=== PATIENT | female | born 1960 | race Caucasian/White ===

== ENCOUNTER 2016-02-16 06:59 | Outpatient (RCR) | payer MEDICAID ==
--- OUTSIDE RECORDS SUMMARY | 2016-02-04 09:13 | XMS REPORT | Continuity of Care Document ---
Author Author [facility] Organization [facility] Address Unknown Phone Unavailable Care Team Providers Care Real Estate Specialist Name Role Phone EASTON DEWEY MD PCP Insurance Providers Payer Name Policy Number Subscriber Name Relationship Enter Insurance Name [id number] Emiliano Raphael 18 Self / Same As Patient Advance Directives Directive Response Recorded Date/Time Advance Directives No 06/26/13 7:10am Health Care Power of Jewelry Appraiser No 06/26/13 7:10am Organ Donor Yes 06/26/13 7:10am Problems No known problems or medical conditions. Medications Medication Dose Route Sig Days/Qty Instructions Order Date Discontinued Date Status Levothyroxine Sodium 200 Mcg PO DAILY 06/26/13 Active Sertraline HCl 100 Mg PO DAILY 06/26/13 Active Simvastatin 40 Mg PO DAILY 06/26/13 Active Lisinopril 10 Mg PO DAILY 06/26/13 Active Potassium Chloride 10 Meq PO DAILY 06/26/13 Active Meloxicam (Mobic) 15 Mg PO DAILY PRN MUSCLE CRAMPS 06/26/13 Active Metoprolol Tartrate (Lopressor) 50 Mg PO TWICE A DAY 06/26/13 Active Apixaban (Eliquis) 5 Mg PO TWICE A DAY start in am 03/12 06/26/13 Active Alprazolam 0.25 Mg PO THREE TIMES A DAY PRN ANXIETY 06/26/13 Active Acetaminophen/Hydrocodone Bitart 1 Tab PO EVERY 6 HOURS PRN PAIN NEEDED FOR PAIN 06/26/13 Active Albuterol Sulfate 2.5 Mg IH EVERY 6 HOURS PRN SHORTNESS OF BREATH 03/01 Active Albuterol 2 Puff IH EVERY 6 HOURS PRN SHORTNESS OF BREATH NEEDED FOR SHORTNESS OF BREATH 06/26/13 Active Loratadine 10 Mg PO DAILY 06/26/13 Active Ranitidine Hcl 150 Mg PO DAILY 06/26/13 Active Furosemide 40 Mg PO DAILY 30 Qty 06/26/13 Active Social History No social history. Hospital Discharge Instructions No hospital discharge instructions. Plan of Care No plan of care. Functional Status No functional status results. Allergies, Adverse Reactions, Alerts Allergen Type Severity Reaction Status Last Updated morphine Allergy Active 06/26/13 salmeterol Allergy Unknown Active 06/26/13 diphenhydramine ([id number]) Allergy Active 06/26/13 fluticasone ([id number]) Allergy Unknown Active 06/26/13 Trovafloxacin ([id number]) Allergy Active 06/26/13 Hylan G-F 20 ([id number]) Allergy Active 06/26/13 latex Allergy Active 06/26/13 Immunizations No immunization records. Vital Signs No known vital signs results. Results Test Source Date Result Interp. Ref. Range Comments Activated Partial Thromboplast Time June 26, 2013 7:16am 33 SEC N 24- 35 Alanine Aminotransferase (ALT/SGPT) June 26, 2013 7:16am 37 U/L N 30- 65 Albumin June 26, 2013 7:16am 4.2 G/DL N 3.4-5.0 Alkaline Phosphatase June 26, 2013 7:16am 139 U/L H 50-136 Aspartate Amino Transf (AST/SGOT) June 26, 2013 7:16am 30 U/L N 15-37 BUN/Creatinine Ratio September 20, 2013 4:15pm 11 - Basophils # (Auto) June 07, 2013 3:45pm 0.1 10^3/uL N 0.0-0.1 Basophils (%) (Auto) June 07, 2013 3:45pm 1 % N 0-10 Blood Urea Nitrogen September 20, 2013 4:15pm 12 MG/DL N 7-18 Calcium Level September 20, 2013 4:15pm 9.3 MG/DL N 8.5-10.1 Carbon Dioxide Level September 20, 2013 4:15pm 32 MMOL/L N 21-32 Chloride Level September 20, 2013 4:15pm 102 MMOL/L N 101-110 Cholesterol Level June 26, 2013 7:16am 140 MG/DL N -200 Creatinine September 20, 2013 4:15pm 1.1 MG/DL N 0.6-1.3 Digoxin Level September 20, 2013 4:15pm 0.7 NG/ML L 0.9-2.0 Eosinophils # (Auto) June 07, 2013 3:45pm 0.2 10^3/uL N 0.0-0.3 Eosinophils (%) (Auto) June 07, 2013 3:45pm 2 % N 0-10 Glucose Level September 20, 2013 4:15pm 96 MG/DL N 74-106 HDL Cholesterol June 26, 2013 7:16am 30 MG/DL L 35-60 Hematocrit June 26, 2013 7:16am 41 % N 35-52 Hemoglobin June 26, 2013 7:16am 14.0 G/DL N 11.5-16.0 LDL Cholesterol June 26, 2013 7:16am 77 MG/DL N 0-129 Lymphocytes # (Auto) June 07, 2013 3:45pm 3.0 X 10^3 N 1.0-4.0 Lymphocytes (%) (Auto) June 07, 2013 3:45pm 27 % N 12-44 Magnesium Level September 07, 2013 2:51pm 1.9 MG/DL N 1.8-2.4 Mean Corpuscular Hemoglobin June 26, 2013 7:16am 28 PG N 25-34 Mean Corpuscular Hemoglobin Concent June 26, 2013 7:16am 34 G/DL N 32- 36 Mean Corpuscular Volume June 26, 2013 7:16am 83 FL N 80-99 Mean Platelet Volume June 26, 2013 7:16am 9.9 FL N 7.4-10.4 Monocytes # (Auto) June 07, 2013 3:45pm 0.8 X 10^3 N 0.0-1.0 Monocytes (%) (Auto) June 07, 2013 3:45pm 7 % N 0-12 Neutrophils # (Auto) June 07, 2013 3:45pm 7.0 X 10^3 N 1.8-7.8 Neutrophils (%) (Auto) June 07, 2013 3:45pm 64 % N 42-75 Platelet Count June 26, 2013 7:16am 293 10^3/uL N 130-400 Potassium Level September 20, 2013 4:15pm 3.4 MMOL/L L 3.6-5.0 Prothrombin Time June 26, 2013 7:16am 13.3 SEC N 12.2-14.7 Red Blood Count June 26, 2013 7:16am 4.95 10^6/uL N 4.35-5.85 Red Cell Distribution Width June 26, 2013 7:16am 15.1 % H 10.0-14.5 Sodium Level September 20, 2013 4:15pm 138 MMOL/L N 135-145 Thyroid Stimulating Hormone (TSH) June 07, 2013 3:45pm 21.41 UIU/ML H 0.34-5.60 Total Bilirubin June 26, 2013 7:16am 1.0 MG/DL N 0.0-1.0 Total Protein June 26, 2013 7:16am 8.0 G/DL N 6.4-8.2 Triglycerides Level June 26, 2013 7:16am 167 MG/DL H 30.0-150.0 VLDL Cholesterol June 26, 2013 7:16am 33 MG/DL N 5-40 White Blood Count June 26, 2013 7:16am 12.3 10^3/uL H 4.3-11.0 Estimat Glomerular Filtration Rate September 20, 2013 4:15pm 52 - GFR INTERPRETIVE DATA UNITS FOR ESTIMATED GFR (eGFR): mL/min/1.73 M2 REFERENCE RANGE FOR ESTIMATED GFR (eGFR) eGFR NORMAL eGFR >60 MODERATELY DECREASED eGFR 30-59 SEVERLY DECREASED eGFR 15-29 KIDNEY FAILURE <15 (OR DIALYSIS) INR Comment June 26, 2013 7:16am 1.0 N 0.8-1.4 INTERPRETIVE DATASUGGESTED THERAPEUTIC RANGE FOR INR'S: VENOUS THROMBOSIS, PULMONARY EMBOLISM, OR PREVENTION OF SYSTEMIC EMBOLISM (EG. IN ATRIAL FIBRILLATION): 2.0 - 3.0 MECHANICAL PROSTHETIC HEART VALVES: 2.5 - 3.5* *NOTE: INR'S UP TO 4.5 MAY BE NECESSARY IN SELECTED GROUPS OF HIGH RISK PATIENTS. [employer] CONSENSUS CONFERENCE ON ANTITHROMBOTIC THERAPY (2000). MRSA Screen Nasal June 26, 2013 7:16am MRSA not isolated Procedures No known history of procedures. Encounters Encounter Location Date/Time Registered Clinic Via [facility] 12/25/13 8:02pm
[~2016-02-16 06:59] MED LIST: ACHD5005 PO; ALBU0.8322 IH; ALBU8.5H2 IH; ALPR0.25 PO; APIX5TAB2 PO; FRSM40T PO; KCL10CCR PO; LEVO200T6 PO; LISI10TA2 PO; LORA10TA7 PO; MELO-195 PO; MTP50T PO; RANI150T90 PO; SIMV40TA4 PO; SRTR100T PO
== END 2016-05-04 | disposition home or self-care (01) ==
LOC: CARD 06:59
PROVIDERS: ATTEND Nurse Practitioner Family
DX: I48.0 Paroxysmal atrial fibrillation (principal); I25.10 Atherosclerotic heart disease of native coronary artery without angina pectoris; R07.9 Chest pain, unspecified; I10 Essential (primary) hypertension
CPT/HCPCS: 93270

== ENCOUNTER → 2016-04-29 | Outpatient (CLI) | payer MEDICAID ==
--- OUTSIDE RECORDS SUMMARY | 2016-04-29 14:06 | XMS REPORT | Continuity of Care Document ---
Author Author [facility] Organization [facility] Address Unknown Phone Unavailable Care Team Providers Care Cyber Security Instructor Name Role Phone EASTON DEWEY MD PCP Insurance Providers Payer Name Policy Number Subscriber Name Relationship Enter Insurance Name [id number] Emiliano Raphael 18 Self / Same As Patient Advance Directives Directive Response Recorded Date/Time Advance Directives No 06/26/13 7:10am Health Care Power of Dramatic Agent No 06/26/13 7:10am Organ Donor Yes 06/26/13 [...] 06/26/13 salmeterol Allergy Unknown Active 06/26/13 diphenhydramine ([id number]) Allergy Active 06/26/13 fluticasone ([id number]) Allergy Unknown Active 06/26/13 Trovafloxacin ([id number]) Allergy Active 06/26/13 Hylan G-F 20 ([id number]) Allergy Active 06/26/13 latex Allergy Active 06/26/13 [...] SELECTED GROUPS OF HIGH RISK PATIENTS. [employer] [place] [employer] CONSENSUS CONFERENCE ON ANTITHROMBOTIC THERAPY (2000). MRSA Screen Nasal June 26, 2013 7:16am MRSA not isolated Procedures No known history of procedures. Encounters Encounter Location Date/Time Registered Clinic [facility] 12/25/13 8:02pm
[2016-04-29 14:22] LABS: BASOPHILS % (AUTO) 0 % (0-10); EOSINOPHILS # (AUTO) 0.2 10^3/uL (0.0-0.3); EOSINOPHILS % (AUTO) 2 % (0-10); LYMPHOCYTES # (AUTO) 1.8 X 10^3 (1.0-4.0); LYMPHOCYTES % (AUTO) 20 % (12-44); MEAN CORPUSCULAR HEMOGLOBIN 27 PG (25-34); MEAN CORPUSCULAR HGB CONC 34 G/DL (32-36); MEAN CORPUSCULAR VOLUME 80 FL (80-99); MEAN PLATELET VOLUME 9.1 FL (7.4-10.4); MONOCYTES # (AUTO) 0.5 X 10^3 (0.0-1.0); MONOCYTES % (AUTO) 6 % (0-12); NEUTROPHILS # (AUTO) 6.5 X 10^3 (1.8-7.8); NEUTROPHILS % (AUTO) 73 % (42-75); PLATELET COUNT 268 10^3/uL (130-400); RED BLOOD COUNT 5.03 10^6/uL (4.35-5.85); RED CELL DISTRIBUTION WIDTH 15.1 % (10.0-14.5)
[2016-04-29 14:33] LABS: ANION GAP 11 MMOL/L (5-14); BLOOD UREA NITROGEN 10 MG/DL (7-18); BUN/CREATININE RATIO 12; CALCIUM 9.4 MG/DL (8.5-10.1); CARBON DIOXIDE 27 MMOL/L (21-32); CHLORIDE 101 MMOL/L (98-107); CREATININE SERUM 0.84 MG/DL (0.60-1.30); GFR ESTIMATED > 60; GLUCOSE 190 MG/DL (70-105); MAGNESIUM 2.3 MG/DL (1.8-2.4); POTASSIUM 3.6 MMOL/L (3.6-5.0); SODIUM 139 MMOL/L (135-145)
[2016-04-29 14:55] LABS: THYROID STIMULATING HORMONE 1.47 UIU/ML (0.35-4.94)
== END ==
LOC: LAB 14:02
PROVIDERS: ATTEND Internal Medicine Cardiovascular Disease
DX: I48.0 Paroxysmal atrial fibrillation (principal); I25.10 Atherosclerotic heart disease of native coronary artery without angina pectoris; R06.00 Dyspnea, unspecified; I10 Essential (primary) hypertension; E78.4 Other hyperlipidemia
CPT/HCPCS: 36415; 80048; 83735; 83880; 84443; 85025

== ENCOUNTER → 2016-07-09 | Outpatient (CLI) | payer MEDICAID ==
[~2016-07-09] MED LIST changes: +BARIUM SUSPENSION 2.1% (VANILLA SILQ) 450 ML PO ONE; +CATHETER FLUSH 10 ML SYR IV PRN; +IOHEXOL 350 MG/ML 100 ML (OMNIPAQUE 350) VIAL IV ONE; +NS 100 ML (IVPB) BAG IV ONE
--- NOTE | 2016-07-09 13:59 | Diagnostic Imaging Report ---
PROCEDURE: CT chest and abdomen with contrast. TECHNIQUE: Multiple contiguous axial images were obtained through the chest and abdomen after the administration of intravenous contrast. INDICATION: Left chest pain and mid abdominal pain. Previous mastectomy, hysterectomy, cholecystectomy and appendectomy. History of Hirschsprung's with previous bowel resection. CT chest: FINDINGS: The lungs are well aerated. There are no infiltrates or masses present. No pleural effusion or pericardial effusion. IV contrast shows good opacification of the aorta and pulmonary arteries. Aorta appears normal. No mediastinal or hilar adenopathy of pathologic size. There are surgical clips in the left axilla with no evidence of recurrent lymphadenopathy. Bilateral mastectomies noted. Bone windows show no blastic or lytic lesions. IMPRESSION: 1. Surgical changes with no findings to suggest metastatic disease. CT abdomen: FINDINGS: Images are obtained from the base of the lungs to the iliac crest. There is hepatomegaly with diffuse fatty infiltration. Long axis of the liver is 24 cm. There are no focal liver lesions. There is mild splenomegaly measuring approximately 12 cm. Pancreas appears normal. Gallbladder is absent. Bile ducts are normal. The adrenal glands are normal. The kidneys appear normal. There is normal enhancement of the aorta and abdominal vessels. No evidence of aneurysm. Kidneys enhance in a normal fashion. Oral contrast is present in the stomach and small bowel. Small bowel is not dilated. The bowel visualized is normal. There appears to have been colectomy. There is no free air or free fluid. Bone windows show degenerative change of lumbar spine. No evidence of rib fractures or destructive rib lesion. No chest wall masses are demonstrated. IMPRESSION: 1. Hepatic steatosis with hepatomegaly and mild splenomegaly. 2. No evidence of bowel obstruction. Dictated by: Dictated on workstation # [id number]
--- NOTE | 2016-07-09 16:54 | Diagnostic Imaging Report ---
INDICATION: Breast CA. TECHNIQUE: 26 mCi tech 99m MDP given IV. FINDINGS: Four hour delayed images show whole body uptake to be normal. There are no focal areas of abnormal uptake to suggest metastatic disease. IMPRESSION: Normal whole-body bone scan. Dictated by: Dictated on workstation # [id number]
== END ==
LOC: CARD 11:39
PROVIDERS: ATTEND Nurse Practitioner Adult Health
DX: D05.12 Intraductal carcinoma in situ of left breast (principal); M79.622 Pain in left upper arm; R07.89 Other chest pain
CPT/HCPCS: 71260; 74160; 78306

== ENCOUNTER 2016-07-21 12:50 | Outpatient (RCR) | payer MEDICAID ==
--- OUTSIDE RECORDS SUMMARY | 2016-07-05 13:46 | XMS REPORT | Continuity of Care Document ---
Author Author [facility] Organization [facility] Address Unknown Phone Unavailable Care Team Providers Care Production Honing Machine Operator Name Role Phone EASTON DEWEY MD PCP Insurance Providers Payer Name Policy Number Subscriber Name Relationship Enter Insurance Name [id number] Emiliano Raphael 18 Self / Same As Patient Advance Directives Directive Response Recorded Date/Time Advance Directives No 06/26/13 7:10am Health Care Power of Contract Driver No 06/26/13 7:10am Organ Donor Yes 06/26/13 [...] 06/26/13 salmeterol Allergy Unknown Active 06/26/13 diphenhydramine ([id number]) Allergy Active 06/26/13 fluticasone ([id number]) Allergy Unknown Active 06/26/13 Trovafloxacin ([id number]) Allergy Active 06/26/13 Hylan G-F 20 ([id number]) Allergy Active 06/26/13 latex Allergy Active 06/26/13 [...] SELECTED GROUPS OF HIGH RISK PATIENTS. [employer] CONSENSUS CONFERENCE ON ANTITHROMBOTIC THERAPY (2000). MRSA Screen Nasal June 26, 2013 7:16am MRSA not isolated Procedures No known history of procedures. Encounters Encounter Location Date/Time Registered Clinic Via [facility] 12/25/13 8:02pm
[2016-07-05 15:05] LABS: BASOPHILS % (AUTO) 0 % (0-10); EOSINOPHILS # (AUTO) 0.2 10^3/uL (0.0-0.3); EOSINOPHILS % (AUTO) 2 % (0-10); LYMPHOCYTES % (AUTO) 20 % (12-44); MEAN CORPUSCULAR HEMOGLOBIN 27 PG (25-34); MEAN CORPUSCULAR HGB CONC 34 G/DL (32-36); MEAN CORPUSCULAR VOLUME 80 FL (80-99); MONOCYTES # (AUTO) 0.7 X 10^3 (0.0-1.0); MONOCYTES % (AUTO) 7 % (0-12); NEUTROPHILS # (AUTO) 7.4 X 10^3 (1.8-7.8); NEUTROPHILS % (AUTO) 72 % (42-75); PLATELET COUNT 296 10^3/uL (130-400); RED BLOOD COUNT 4.68 10^6/uL (4.35-5.85); RED CELL DISTRIBUTION WIDTH 15.8 % (10.0-14.5); WHITE BLOOD COUNT 10.3 10^3/uL (4.3-11.0)
[2016-07-05 15:46] LABS: ALANINE AMINOTRANSFERASE 19 U/L (0-55); ALBUMIN 4.1 G/DL (3.2-4.5); ANION GAP 11 MMOL/L (5-14); ASPARTATE AMINO TRANSFERASE 19 U/L (5-34); BILIRUBIN,TOTAL 0.6 MG/DL (0.1-1.0); BLOOD UREA NITROGEN 10 MG/DL (7-18); BUN/CREATININE RATIO 11; CALCIUM 8.9 MG/DL (8.5-10.1); CARBON DIOXIDE 22 MMOL/L (21-32); CHLORIDE 103 MMOL/L (98-107); CREATININE SERUM 0.88 MG/DL (0.60-1.30); GFR ESTIMATED > 60; GLUCOSE 281 MG/DL (70-105); SODIUM 136 MMOL/L (135-145); TOTAL PROTEIN 7.2 G/DL (6.4-8.2)
[~2016-07-21 12:50] MED LIST changes: -BARIUM SUSPENSION 2.1% (VANILLA SILQ) 450 ML PO ONE; -CATHETER FLUSH 10 ML SYR IV PRN; -IOHEXOL 350 MG/ML 100 ML (OMNIPAQUE 350) VIAL IV ONE; -NS 100 ML (IVPB) BAG IV ONE
== END 2016-10-03 | disposition home or self-care (01) ==
LOC: ONC 12:50
PROVIDERS: ATTEND Internal Medicine Hematology & Oncology
DX: Z08 Encounter for follow-up examination after completed treatment for malignant neoplasm (principal); Z85.3 Personal history of malignant neoplasm of breast; Z90.12 Acquired absence of left breast and nipple
CPT/HCPCS: 36415; 80053; 85025; 99213

== ENCOUNTER 2016-10-07 12:58 | Outpatient (RCR) | payer MEDICAID ==
[2016-10-07 13:29] LABS: BASOPHILS % (AUTO) 1 % (0-10); EOSINOPHILS # (AUTO) 0.1 10^3/uL (0.0-0.3); EOSINOPHILS % (AUTO) 2 % (0-10); LYMPHOCYTES # (AUTO) 1.9 X 10^3 (1.0-4.0); LYMPHOCYTES % (AUTO) 22 % (12-44); MEAN CORPUSCULAR HEMOGLOBIN 27 PG (25-34); MEAN CORPUSCULAR HGB CONC 33 G/DL (32-36); MEAN CORPUSCULAR VOLUME 81 FL (80-99); MEAN PLATELET VOLUME 9.4 FL (7.4-10.4); MONOCYTES # (AUTO) 0.5 X 10^3 (0.0-1.0); MONOCYTES % (AUTO) 5 % (0-12); NEUTROPHILS # (AUTO) 6.3 X 10^3 (1.8-7.8); NEUTROPHILS % (AUTO) 71 % (42-75); PLATELET COUNT 264 10^3/uL (130-400); RED CELL DISTRIBUTION WIDTH 15.6 % (10.0-14.5); WHITE BLOOD COUNT 8.9 10^3/uL (4.3-11.0)
[2016-10-07 14:03] LABS: ALANINE AMINOTRANSFERASE 19 U/L (0-55); ALBUMIN 4.2 GM/DL (3.2-4.5); ANION GAP 8 MMOL/L (5-14); ASPARTATE AMINO TRANSFERASE 22 U/L (5-34); BILIRUBIN,TOTAL 0.7 MG/DL (0.1-1.0); BLOOD UREA NITROGEN 6 MG/DL (7-18); BUN/CREATININE RATIO 7 (0-20); CALCIUM 9.4 MG/DL (8.5-10.1); CARBON DIOXIDE 28 MMOL/L (21-32); CHLORIDE 103 MMOL/L (98-107); CREATININE SERUM 0.82 MG/DL (0.60-1.30); GFR ESTIMATED > 60; GLUCOSE 198 MG/DL (70-105); HEMOLYSIS 15 (-100-29); ICTERUS 0.5 (-100-1.9); LIPEMIA 9 (-100-49); POTASSIUM 3.7 MMOL/L (3.6-5.0); SODIUM 139 MMOL/L (135-145); TOTAL PROTEIN 7.6 GM/DL (6.4-8.2)
== END 2017-01-05 | disposition home or self-care (01) ==
LOC: ONC 12:58
PROVIDERS: ATTEND Internal Medicine Hematology & Oncology
DX: Z90.12 Acquired absence of left breast and nipple; Z85.3 Personal history of malignant neoplasm of breast; Z08 Encounter for follow-up examination after completed treatment for malignant neoplasm
CPT/HCPCS: 36415; 80053; 85025; 99213

== ENCOUNTER 2016-10-12 10:12 | Outpatient (RCR) | payer MEDICAID | END 2016-11-26 16:45 | disposition home or self-care (01) | PROVIDERS: ATTEND Nurse Practitioner Adult Health | DX: I89.0 Lymphedema, not elsewhere classified (principal); Z85.3 Personal history of malignant neoplasm of breast ==

== ENCOUNTER 2017-10-06 12:55 | Outpatient (RCR) | payer MEDICARE, MEDICAID ==
[2017-10-06 13:15] LABS: BASOPHILS % (AUTO) 0 % (0-10); EOSINOPHILS # (AUTO) 0.1 10^3/uL (0.0-0.3); EOSINOPHILS % (AUTO) 1 % (0-10); HEMATOCRIT 40 % (35-52); HEMOGLOBIN 13.4 G/DL (11.5-16.0); LYMPHOCYTES # (AUTO) 2.1 X 10^3 (1.0-4.0); LYMPHOCYTES % (AUTO) 20 % (12-44); MEAN CORPUSCULAR HEMOGLOBIN 28 PG (25-34); MEAN CORPUSCULAR HGB CONC 34 G/DL (32-36); MEAN CORPUSCULAR VOLUME 81 FL (80-99); MEAN PLATELET VOLUME 9.3 FL (7.4-10.4); MONOCYTES # (AUTO) 0.5 X 10^3 (0.0-1.0); MONOCYTES % (AUTO) 5 % (0-12); NEUTROPHILS # (AUTO) 7.5 X 10^3 (1.8-7.8); NEUTROPHILS % (AUTO) 73 % (42-75); PLATELET COUNT 320 10^3/uL (130-400); RED BLOOD COUNT 4.85 10^6/uL (4.35-5.85); RED CELL DISTRIBUTION WIDTH 14.9 % (10.0-14.5); WHITE BLOOD COUNT 10.3 10^3/uL (4.3-11.0)
[2017-10-06 13:32] LABS: ALBUMIN 4.2 GM/DL (3.2-4.5); BILIRUBIN,TOTAL 0.7 MG/DL (0.1-1.0); CALCIUM 9.6 MG/DL (8.5-10.1); CREATININE SERUM 0.98 MG/DL (0.60-1.30); POTASSIUM 3.8 MMOL/L (3.6-5.0); TOTAL PROTEIN 7.2 GM/DL (6.4-8.2)
== END 2018-01-04 | disposition home or self-care (01) ==
LOC: ONC 12:55
PROVIDERS: ATTEND Internal Medicine Hematology & Oncology
DX: Z08 Encounter for follow-up examination after completed treatment for malignant neoplasm (principal); Z85.3 Personal history of malignant neoplasm of breast; I89.0 Lymphedema, not elsewhere classified; Z90.12 Acquired absence of left breast and nipple
CPT/HCPCS: 80053; 85025; 99213

== ENCOUNTER 2018-08-01 07:09 | Outpatient (CLI) | payer MEDICARE, MEDICAID ==
[~2018-08-01] VITALS: Ht 160 cm; Wt 95.7 kg
[2018-08-01] MEDS ORDERED: ALPR0.254 PO (15:56)
[2018-08-01] MEDS ORDERED: LEVO200T6 PO (15:56)
[2018-08-01] MEDS ORDERED: CYAN500T2 PO (15:56)
[2018-08-01] MEDS ORDERED: SOTA80TA PO (15:56)
[2018-08-01] MEDS ORDERED: RIZA10TA37 PO (15:56)
[2018-08-01] MEDS ORDERED: POTA10CA43 PO (15:56)
[2018-08-01] MEDS ORDERED: MONT10TA24 PO (15:56)
[2018-08-01] MEDS ORDERED: LORA10TA7 PO (15:56)
[2018-08-01] MEDS ORDERED: MAGN250T13 PO (15:56)
[2018-08-01] MEDS ORDERED: CITA40TA11 PO (15:56)
[2018-08-01] MEDS ORDERED: LEVO25TA5 PO (15:56)
[2018-08-01] MEDS ORDERED: METF-399 PO (15:56)
[2018-08-01] MEDS ORDERED: SIMV10TA3 PO (15:56)
[2018-08-01] MEDS ORDERED: APIX5TAB PO (15:56)
[2018-08-01] MEDS ORDERED: OMEP20CA12 PO (15:56)
== END 2018-08-02 08:51 ==
LOC: PREOP 07:09
PROVIDERS: ATTEND Surgery
DX: Z01.818 Encounter for other preprocedural examination (principal)

== ENCOUNTER 2018-08-04 11:58 | Day surgery (SDC) | payer MEDICAID, MEDICARE ==
[~2018-08-04] VITALS: Ht 160 cm; Wt 95.7 kg
[~2018-08-04 11:58] MED LIST changes: +ALPR0.254 PO; +APIX5TAB PO; +CITA40TA11 PO; +CYAN500T2 PO; +LEVO25TA5 PO; +MAGN250T13 PO; +METF-399 PO; +MONT10TA24 PO; +OMEP20CA12 PO; +POTA10CA43 PO; +RIZA10TA37 PO; +SIMV10TA3 PO; +SOTA80TA PO
[2018-08-04 12:01] VITALS: BP 108/48
[2018-08-04] MEDS ORDERED: NS IV 500 ML 500 ML IV PRN (12:22)
[2018-08-04] MEDS ORDERED: NS IV 500 ML 500 ML ONE (12:22)
[2018-08-04] MEDS ORDERED: MIDAZOLAM 2 MG/2 ML (VERSED) VIAL IVP ONE (12:30)
[2018-08-04] MEDS ORDERED: fentaNYL INJECTION 100 MCG/2 ML AMP IVP ONE (12:30)
[2018-08-04] MEDS ORDERED: LIDOCAINE JELLY 2% 6 ML SYRINGE MM PRN (12:30)
--- NOTE | 2018-08-04 12:38 | Conscious Sedation/ASA ---
Conscious Sedation Pre-Proced Time 12:30 ASA Score 2 For ASA 3 and 4: Consider anesthesia and medical clearance. Also, for patients with a history of failed moderate sedation consider anesthesia. Airway Lungs Heart ASA score ASA 1: a normal healthy patient ASA 2: a patient with a mild systemic disease (mid diabetes, controlled hypertension, obesity ASA 3: a patient with a severe systemic disease that limits activity (angina , COPD, prior Myocardial infarction) ASA 4: a patient with an incapacitating disease that is a constant threat to life (CHF, renal failure) ASA 5: a moribund patient not expected to survive 24 hrs. (ruptured aneurysm) ASA 6: a declared brain- patient whose organs are being harvested. For emergent operations, add the letter E after the classification Mallampati Classification Grade 2 Sedation Plan Analgesia, Amnesia, Plan communicated to team members, Discussed options with patient/fam, Discussed risks with patient/fam The patient is an appropriate candidate to undergo the planned procedure, sedation, and anesthesia. The patient immediately re-assessed prior to indication. SINGH RACHEL MD Aug 04, 2018 12:38
--- NOTE | 2018-08-04 12:39 | Progress Note-Pre Operative ---
Pre-Operative Progress Note H&P Reviewed The H&P was reviewed, patient examined and no changes noted. Date Seen by Provider: Aug 04, 2018 Time Seen by Provider: 12:30 Date H&P Reviewed: Aug 04, 2018 Time H&P Reviewed: 12:30 Pre-Operative Diagnosis: screening SINGH Arreguin MD Aug 04, 2018 12:39
[2018-08-04] MEDS ORDERED: ACETAMINOPHEN 325 MG TABLET PO PRN (12:45)
[2018-08-04] MEDS ORDERED: HYDROcodone/APAP 5 MG/325 MG (LORTAB) TAB PO PRN (12:45)
[2018-08-04] MEDS ORDERED: fentaNYL INJECTION 100 MCG/2 ML AMP IVP PRN (12:45)
[2018-08-04] MEDS ORDERED: ONDANSETRON 4 MG/2 ML (SDV) Z0FRAN IV PRN (12:45)
[2018-08-04] MEDS ORDERED: LIDOCAINE JELLY 2% 6 ML SYRINGE ONE (13:38)
[2018-08-04] MEDS ORDERED: fentaNYL INJECTION 100 MCG/2 ML AMP ONE ×2 (13:38)
[2018-08-04] MEDS ORDERED: MIDAZOLAM 2 MG/2 ML (VERSED) VIAL ONE ×3 (13:39)
--- NOTE | 2018-08-04 13:41 | Discharge Inst-Surgical ---
D/C Lap Instructions-WILSON Follow Up Activity as tolerated High Fiber Diet 25g or more per day Avoid Alcohol, Caffeine, Spicy [place] and Acid foods. Drink 64 fluid oz or more of fluids per day. Symptoms to Report: Fever over 101 degree F, Nausea/Vomiting If any problems/questions: Contact your physician or go to Emergency Room SINGH RACHEL MD Aug 04, 2018 13:41
--- NOTE | 2018-08-04 14:17 | Progress Note-Post Operative ---
Post-Operative Progess Note Surgeon (s)/Vascular Radiologist (s) Surgeon SINGH RACHEL MD Vascular Radiologist: none Pre-Operative Diagnosis screening colo Post-Operative Diagnosis normal rectum and colonic pouch. Procedure & Operative Findings Date of Procedure 08/04/18 Procedure Performed/Findings Colonoscopy Anesthesia Type cs Estimated Blood Loss Estimated blood loss (mL): minimal Specimens/Packing Specimens Removed none SINGH RACHEL MD Aug 04, 2018 14:17
[2018-08-04 14:40] VITALS: BP 139/92
[2018-08-04 15:00] VITALS: BP 142/99
[2018-08-04 15:05] VITALS: BP 142/99
--- NOTE | 2018-08-05 01:04 | OPERATIVE REPORT ---
DATE OF SERVICE: 08/04/2018 ATTENDING PRIMARY CARE PHYSICIAN: Dr. May. PREOPERATIVE DIAGNOSIS: History of BRCA1 and Hirschsprung disease. POSTOPERATIVE DIAGNOSIS: History of BRCA1 and Hirschsprung disease. PROCEDURE: Colonoscopy. SURGEON: Singh Rachel MD ANESTHESIA: Conscious sedation. ESTIMATED BLOOD LOSS: Minimal. FINDINGS: No significant hemorrhoids identified. There was an isolated diverticulosis. There was a very short colon only approximately 18 inches in length. The cecum appeared intact. Most likely, she did have a significant colon resection and cecal and sigmoid colonic reanastomosis. There were no polyps or any neoplasms identified. DISPOSITION: The patient tolerated the procedure well. INDICATIONS: The patient is a 57-year-old female in need of a screening colonoscopy. Her last colonoscopy was approximately 10 years ago and states that she did have some polyps; however, were benign. She does have a family history of colon cancer with her father having the disease. She also does have a strong family history of breast cancer and has a personal history of BRCA1 gene. She was diagnosed with breast cancer and did undergo bilateral mastectomy. She also does have a history of Hirschsprung disease and underwent surgical therapy at [age] weeks of age, then two months and then approximately at 7 years of age. Based on anatomical features, it appears that she has an anastomosis between the sigmoid colon and the cecum. DESCRIPTION OF PROCEDURE: The patient was brought to the endoscopy suite and laid in the left lateral decubitus position. After adequate IV pain and sedative medications and conscious sedation anesthesia, a digital rectal examination was performed. No significant hemorrhoids identified. Normal sphincter tone was felt and there were no palpable masses. The endoscope was then intubated to the anus and rectum gently insufflated. The endoscope was then advanced to the valves of [place] of the rectum with no polyps or any neoplasms identified. There was a very short colon; However, there was an isolated diverticula, which may have indicated a partially remaining sigmoid colon as well as the normal architectural signs of the cecum consistent with an anastomosis between the cecum and the sigmoid colon. The entire length of the colon was estimated at approximately 18 inches. There were no polyps or any neoplasms identified. The endoscope was then slowly withdrawn while taking a second look and suctioning residual air with no additional findings. The patient tolerated the procedure well. We will recommend continued conservative management with a high fiber diet with at least 25 to 30 grams of fiber per day to promote soft stools on a daily basis. She reports that she has increasing issues with bowel continence most likely due to age and normal laxity of the pelvic floor over time. We will recommend continued Kegel exercises as necessary. If she does become more symptomatic and there becomes an issue with hygiene problems as well as infection, she may benefit from an end colostomy. Job ID: [id number] DocumentID: [id number] Dictated Date: 08/04/2018 14:24:08 Creative Services Writer Date: 08/05/2018 01:03:48 Dictated By: SINGH RACHEL MD [facility]
== END 2018-08-04 15:05 | disposition home or self-care (01) ==
LOC: ENDO 11:58
PROVIDERS: ATTEND Surgery
DX: Z12.11 Encounter for screening for malignant neoplasm of colon (principal); R15.9 Full incontinence of feces; Z87.19 Personal history of other diseases of the digestive system; Z80.0 Family history of malignant neoplasm of digestive organs; E03.9 Hypothyroidism, unspecified; I48.91 Unspecified atrial fibrillation; E78.00 Pure hypercholesterolemia, unspecified; E11.9 Type 2 diabetes mellitus without complications; F41.9 Anxiety disorder, unspecified; F32.9 Major depressive disorder, single episode, unspecified; E53.8 Deficiency of other specified B group vitamins; E87.6 Hypokalemia; J45.909 Unspecified asthma, uncomplicated; Z79.84 Long term (current) use of oral hypoglycemic drugs; Z79.899 Other long term (current) drug therapy
CPT/HCPCS: 82962

== ENCOUNTER → 2018-09-05 | Outpatient (CLI) | payer MEDICARE ==
[~2018-09-05] VITALS: Ht 160 cm; Wt 95.7 kg
[~2018-09-05] MED LIST changes: +REGADENOSON 0.4 MG/5 ML SYR (LEXISCAN) IV ONE; -SOTA80TA PO; +STL80T PO
[2018-09-05] MEDS: CATHETER FLUSH 10 ML SYR IV PRN ×2 (11:52→13:21)
[2018-09-05 13:19] VITALS: BP 121/69
== END ==
LOC: CARD 11:42
PROVIDERS: ATTEND Internal Medicine Cardiovascular Disease
DX: R06.02 Shortness of breath (principal); I10 Essential (primary) hypertension; I25.10 Atherosclerotic heart disease of native coronary artery without angina pectoris; I77.89 Other specified disorders of arteries and arterioles; E78.5 Hyperlipidemia, unspecified
CPT/HCPCS: 78452; 93017

== ENCOUNTER 2018-10-02 12:47 | Outpatient (RCR) | payer MEDICAID, MEDICARE ==
[~2018-10-02 12:47] MED LIST changes: -CYAN500T2 PO; +CYAN500T62 PO; -OMEP20CA12 PO; +OMEP20CA13 PO; -REGADENOSON 0.4 MG/5 ML SYR (LEXISCAN) IV ONE
[2018-10-02 13:11] LABS: WHITE BLOOD COUNT 9.8 10^3/uL (4.3-11.0)
[2018-10-02 13:12] LABS: BASOPHILS % (AUTO) 0 % (0-10); EOSINOPHILS # (AUTO) 0.3 10^3/uL (0.0-0.3); EOSINOPHILS % (AUTO) 3 % (0-10); HEMATOCRIT 35 % (35-52); HEMOGLOBIN 11.4 G/DL (11.5-16.0); LYMPHOCYTES # (AUTO) 2.1 X 10^3 (1.0-4.0); LYMPHOCYTES % (AUTO) 21 % (12-44); MEAN CORPUSCULAR HEMOGLOBIN 28 PG (25-34); MEAN CORPUSCULAR HGB CONC 33 G/DL (32-36); MEAN CORPUSCULAR VOLUME 86 FL (80-99); MEAN PLATELET VOLUME 9.2 FL (7.4-10.4); MONOCYTES # (AUTO) 0.7 X 10^3 (0.0-1.0); MONOCYTES % (AUTO) 7 % (0-12); NEUTROPHILS # (AUTO) 6.8 X 10^3 (1.8-7.8); NEUTROPHILS % (AUTO) 69 % (42-75); PLATELET COUNT 258 10^3/uL (130-400); RED CELL DISTRIBUTION WIDTH 15.2 % (10.0-14.5)
[2018-10-02 13:39] LABS: ALANINE AMINOTRANSFERASE 20 U/L (0-55); ALBUMIN 4.1 GM/DL (3.2-4.5); ALKALINE PHOSPHATASE 127 U/L (40-136); BILIRUBIN,TOTAL 0.6 MG/DL (0.1-1.0); BUN/CREATININE RATIO 8; CALCIUM 9.1 MG/DL (8.5-10.1); CARBON DIOXIDE 26 MMOL/L (21-32); CHLORIDE 103 MMOL/L (98-107); CREATININE SERUM 0.88 MG/DL (0.60-1.30); GFR ESTIMATED > 60; GLUCOSE 204 MG/DL (70-105); POTASSIUM 3.8 MMOL/L (3.6-5.0); SODIUM 143 MMOL/L (135-145); TOTAL PROTEIN 6.9 GM/DL (6.4-8.2)
== END 2018-12-19 | disposition home or self-care (01) ==
LOC: ONC 12:47
PROVIDERS: ATTEND Internal Medicine Hematology & Oncology
DX: Z08 Encounter for follow-up examination after completed treatment for malignant neoplasm (principal); Z85.3 Personal history of malignant neoplasm of breast; Z90.12 Acquired absence of left breast and nipple
CPT/HCPCS: 36415; 80053; 85025; 99213

== ENCOUNTER → 2019-10-01 | Outpatient (CLI) | payer MEDICARE ==
[~2019-10-01] MED LIST changes: -MONT10TA24 PO; +MONT10TA26 PO; -OMEP20CA13 PO; +OMEP20CA18 PO; +SIMV10TA26 PO; -SIMV10TA3 PO
[2019-10-01 12:52] LABS: BASOPHILS % (AUTO) 0 % (0-10); EOSINOPHILS # (AUTO) 0.1 10^3/uL (0.0-0.3); EOSINOPHILS % (AUTO) 1 % (0-10); HEMATOCRIT 36 % (35-52); HEMOGLOBIN 12.1 G/DL (11.5-16.0); LYMPHOCYTES # (AUTO) 1.7 X 10^3 (1.0-4.0); LYMPHOCYTES % (AUTO) 18 % (12-44); MEAN CORPUSCULAR HEMOGLOBIN 29 PG (25-34); MEAN CORPUSCULAR HGB CONC 34 G/DL (32-36); MEAN CORPUSCULAR VOLUME 84 FL (80-99); MEAN PLATELET VOLUME 9.4 FL (7.4-10.4); MONOCYTES # (AUTO) 1.1 X 10^3 (0.0-1.0); MONOCYTES % (AUTO) 12 % (0-12); NEUTROPHILS # (AUTO) 6.3 X 10^3 (1.8-7.8); NEUTROPHILS % (AUTO) 69 % (42-75); PLATELET COUNT 217 10^3/uL (130-400); RED CELL DISTRIBUTION WIDTH 14.4 % (10.0-14.5); WHITE BLOOD COUNT 9.1 10^3/uL (4.3-11.0)
[2019-10-01 13:25] LABS: ALBUMIN 4.2 GM/DL (3.2-4.5); BILIRUBIN,TOTAL 0.9 MG/DL (0.1-1.0); CALCIUM 9.2 MG/DL (8.5-10.1); CREATININE SERUM 1.25 MG/DL (0.60-1.30); POTASSIUM 3.5 MMOL/L (3.6-5.0); TOTAL PROTEIN 7.3 GM/DL (6.4-8.2)
== END ==
LOC: EDSTATUS 12-20 12:12 → ONC 12:31
PROVIDERS: ATTEND Internal Medicine Hematology & Oncology
DX: I48.91 Unspecified atrial fibrillation (principal); I42.9 Cardiomyopathy, unspecified; Z85.3 Personal history of malignant neoplasm of breast
CPT/HCPCS: 80053; 85025; G0463; 99213

== ENCOUNTER → 2019-12-20 | Outpatient (CLI) | payer MEDICARE ==
[2019-12-20 12:08] LABS: BASOPHILS % (AUTO) 0 % (0-10); EOSINOPHILS % (AUTO) 0 % (0-10); HEMATOCRIT 35 % (35-52); HEMOGLOBIN 11.7 G/DL (11.5-16.0); LYMPHOCYTES # (AUTO) 1.2 X 10^3 (1.0-4.0); LYMPHOCYTES % (AUTO) 10 % (12-44); MEAN CORPUSCULAR HEMOGLOBIN 29 PG (25-34); MEAN CORPUSCULAR HGB CONC 33 G/DL (32-36); MEAN CORPUSCULAR VOLUME 85 FL (80-99); MEAN PLATELET VOLUME 9.3 FL (7.4-10.4); MONOCYTES # (AUTO) 0.5 X 10^3 (0.0-1.0); MONOCYTES % (AUTO) 4 % (0-12); NEUTROPHILS # (AUTO) 10.7 X 10^3 (1.8-7.8); NEUTROPHILS % (AUTO) 86 % (42-75); PLATELET COUNT 274 10^3/uL (130-400); WHITE BLOOD COUNT 12.5 10^3/uL (4.3-11.0)
[2019-12-20 12:41] LABS: ALBUMIN 4.5 GM/DL (3.2-4.5); BILIRUBIN,TOTAL 0.5 MG/DL (0.1-1.0); CALCIUM 9.9 MG/DL (8.5-10.1); CREATININE SERUM 1.33 MG/DL (0.60-1.30); POTASSIUM 4.4 MMOL/L (3.6-5.0); TOTAL PROTEIN 7.7 GM/DL (6.4-8.2)
== END ==
LOC: ONC 11:55
PROVIDERS: ATTEND Internal Medicine Hematology & Oncology
DX: I89.0 Lymphedema, not elsewhere classified (principal); E11.9 Type 2 diabetes mellitus without complications; E03.9 Hypothyroidism, unspecified; I10 Essential (primary) hypertension; E78.5 Hyperlipidemia, unspecified; E78.00 Pure hypercholesterolemia, unspecified; I48.91 Unspecified atrial fibrillation; I25.10 Atherosclerotic heart disease of native coronary artery without angina pectoris; J45.909 Unspecified asthma, uncomplicated; I42.9 Cardiomyopathy, unspecified; Z90.13 Acquired absence of bilateral breasts and nipples; Z92.3 Personal history of irradiation; Z92.21 Personal history of antineoplastic chemotherapy; Z85.3 Personal history of malignant neoplasm of breast; Z90.722 Acquired absence of ovaries, bilateral
CPT/HCPCS: 80053; 85025

== ENCOUNTER 2020-03-24 11:58 | Observation (INO) | payer MEDICARE ==
[~2020-03-24] VITALS: Ht 160 cm; Wt 88.3 kg
[~2020-03-24 11:58] MED LIST changes: +ALPR.25T PO; -ALPR0.254 PO; -CYAN500T62 PO; +CYAN500T64 PO; -MONT10TA26 PO; +MONT10TA97 PO
[2020-03-24] MEDS ORDERED: NS IV 1000 ML 1,000 ML IV SCH (12:30)
[2020-03-24 12:39] LABS: BASOPHILS % (AUTO) 0 % (0-10); EOSINOPHILS % (AUTO) 0 % (0-10); HEMATOCRIT 43 % (35-52); HEMOGLOBIN 14.8 G/DL (11.5-16.0); LYMPHOCYTES % (AUTO) 14 % (12-44); MEAN CORPUSCULAR HEMOGLOBIN 29 PG (25-34); MEAN CORPUSCULAR HGB CONC 35 G/DL (32-36); MEAN CORPUSCULAR VOLUME 84 FL (80-99); MEAN PLATELET VOLUME 9.2 FL (7.4-10.4); MONOCYTES % (AUTO) 8 % (0-12); NEUTROPHILS % (AUTO) 78 % (42-75); PLATELET COUNT 308 10^3/uL (130-400); WHITE BLOOD COUNT 20.9 10^3/uL (4.3-11.0)
[2020-03-24 12:40] LABS: LYMPHOCYTES # (AUTO) 2.8 X 10^3 (1.0-4.0); MONOCYTES # (AUTO) 1.6 X 10^3 (0.0-1.0); NEUTROPHILS # (AUTO) 16.3 X 10^3 (1.8-7.8)
--- NOTE | 2020-03-24 12:46 | Diagnostic Imaging Report ---
INDICATION: Shortness of breath and near syncope. TIME OF EXAM: 12:23 PM. COMPARISON: Correlation is made with the prior chest from 07/24/2015. FINDINGS: The heart size is stable. There are surgical clips in the left axilla. There appears to be some minimal infiltrate or atelectasis in the right lung base. Otherwise, the lungs are clear. No effusion or pneumothorax is seen. IMPRESSION: Minimal patchy right basilar infiltrate or atelectasis. Dictated by: Dictated on workstation # [id number]
[2020-03-24 12:55] LABS: BAND NEUTROPHILS 3 %; LYMPHOCYTES % (MANUAL) 15 %; MONOCYTES % (MANUAL) 7 %; NEUTROPHILS % (MANUAL) 75 %; RBC MORPH NORMAL; TOXIC GRANULATION/VACUOLAZATIO 2+
[2020-03-24 13:00] LABS: ALANINE AMINOTRANSFERASE 14 U/L (0-55); ALBUMIN 4.7 GM/DL (3.2-4.5); ALKALINE PHOSPHATASE 118 U/L (40-136); BILIRUBIN,TOTAL 0.6 MG/DL (0.1-1.0); BUN/CREATININE RATIO 27; CALCIUM 10.6 MG/DL (8.5-10.1); CARBON DIOXIDE 21 MMOL/L (21-32); CHLORIDE 95 MMOL/L (98-107); CREATININE SERUM 1.27 MG/DL (0.60-1.30); GFR ESTIMATED 43; GLUCOSE 159 MG/DL (70-105); POTASSIUM 4.6 MMOL/L (3.6-5.0); SODIUM 130 MMOL/L (135-145)
--- NOTE | 2020-03-24 13:29 | Diagnostic Imaging Report ---
INDICATION: TRAUMA, fall with injury to the knee TECHNIQUE: 3 views of the left knee CORRELATION STUDY: None FINDINGS: Postoperative changes of a total knee arthroplasty. Hardware intact. The alignment anatomic. Soft tissues are unremarkable. IMPRESSION: 1. Post-arthroplasty changes left knee. Negative for acute bony abnormality of the knee. Dictated by: Dictated on workstation # [id number]
--- NOTE | 2020-03-24 13:30 | Diagnostic Imaging Report ---
INDICATION: TRAUMA., Pain post fall TECHNIQUE: 3 views of the left foot CORRELATION STUDY: None FINDINGS: The osseous structures of the foot are intact. Joint spaces are maintained. Alignment anatomic. Prominent plantar calcaneal spurring. Mild hypertrophic changes about the sesamoid bone over the great toe. Soft tissues appearing unremarkable. IMPRESSION: 1. Negative for acute findings of the foot. Dictated by: Dictated on workstation # [id number]
--- NOTE | 2020-03-24 13:36 | Diagnostic Imaging Report ---
INDICATION: Fall with right knee pain. AP, oblique, and lateral views of the right knee are obtained. No fracture or acute bony abnormality is seen. Right knee prosthesis appears in good alignment. There are some scattered periarticular calcifications which appear chronic. There appears to be a joint effusion IMPRESSION: Well aligned right knee prosthesis with no acute fracture or malalignment. Underlying chronic changes and joint effusion. Dictated by: Dictated on workstation # [id number]
--- NOTE | 2020-03-24 14:15 | NUR ---
REPORT TAKEN AT THIS TIME VIA PHONE FROM ANTIONETTE ABREU AT THE [facility]. THIS RN WILL ASSUME CARE OF THIS PATIENT WHEN SHE ARRIVES TO ROOM 423-1
[2020-03-24] MEDS ORDERED: morphine INJ 10 MG/ML 1ML (SYR OR VIAL) IVP STA (14:36)
--- NOTE | 2020-03-24 14:41 | ED General ---
General Chief Complaint: Dizziness/Syncope Stated Complaint: NEAR SYNCOPE Nursing Triage Note: PT ARRIVED BY PRIVATE VEHICLE WITH DAUGHTER FOR CHIEF COMPLAINT OF SYNCOPE. PT IS POSITIVE FOR COVID. PT HAS BEEN POSITIVE FOR COVID FOR 10 DAYS NOW AND HAS BEEN TAKING AN ANTIBIOTIC. THE FIRST DAY THE PT HAD A FEVER, BUT SINCE THEN SHE STATED SHE HASN'T. PT STATED AT 1100 TODAY WAS HER FIRST SYNCOPAL EPISODE. ON ARRIVAL, PT WAS ASSISTED OUT OF HER VEHICLE AND WHEELED TO ROOM 3 WITH FULL CONTACT AND DROPLET PRECAUTIONS. PT WAS WEARING A MASK AND NURSE HAD FULL PPE ON. PT WAS HOODED UP TO THE MONITOR, VITAL SIGNS WERE TAKEN, EKG WAS COMPLETED AND IV WAS STARTED IN RIGHT AC (20 GAUGE). PT STATED SHE BECOMES DIZZY WHEN MOVING HER HEAD. PT FELL DURING EPISODE AND INJURED LEFT FOOT AND KNEE. PT WAS ALERT AND ORIENTED X 4 ON ARRIVAL. PT WAS BRADYCARDIC AND DR WAS NOTIFIED. PT HAD TEMP OF 100.2. Nursing Sepsis Screen: No Definite Risk Source of Information: Patient History of Present Illness Date Seen by Provider: Mar 24, 2020 Time Seen by Provider: 12:20 Initial Comments Patient is a 51-year-old female with history of paroxysmal atrial fibrillation who presents with syncopal episode while standing and B knee pain. Patient is causative positive and has had symptoms for 10 days. She is currently taking antibiotics and steroids. She reports persistent mild headache for the past 10 days, fatigue, dizziness upon standing, cough and shortness of breath. She reports low-grade fever, denies productive cough, nausea, vomiting, exertional chest pain, diarrhea. Patient currently being treated for urinary tract infection and states she now believes she has a yeast infection. Patient noted to be bradycardic with heart rate in the 40s. She is currently on sotalol in anticoagulated on Eliquis. Severity: Moderate Associated Systoms: Cough, Fever/Chills, Headaches, Malaise Allergies and Home Medications Allergies Coded Allergies: diphenhydramine (Verified Allergy, Unknown, 08/01/18) fluticasone (Verified Allergy, Unknown, 08/04/18) PER UNCODED ALLERGIES hylan G-F 20 (Verified Allergy, Unknown, 08/01/18) latex (Verified Allergy, Unknown, 08/01/18) morphine (Verified Allergy, Unknown, 08/01/18) salmeterol (Verified Allergy, Unknown, 08/04/18) PER UNCODED ALLERGIES trovafloxacin (Verified Allergy, Unknown, 08/01/18) Home Medications ALPRAZolam 0.25 Mg Tablet, 0.25 MG PO PRN, (Reported) Apixaban 5 Mg Tablet, 5 MG PO BID, (Reported) Citalopram Hydrobromide 40 Mg Tablet, 40 MG PO DAILY, (Reported) Cyanocobalamin (Vitamin B-12) 500 Mcg Tablet, 500 MCG PO DAILY, (Reported) Levothyroxine Sodium 200 Mcg Tablet, 200 MCG PO DAILY PRN, (Reported) Levothyroxine Sodium 25 Mcg Tablet, 25 MCG PO DAILY, (Reported) Lisinopril 10 Mg Tablet, 10 MG PO DAILY, (Reported) Loratadine 10 Mg Tablet, 10 MG PO DAILY, (Reported) Magnesium Oxide 250 Mg Tablet, 250 MG PO DAILY, (Reported) Metformin HCl 1,000 Mg Tablet, 1,000 MG PO BID, (Reported) Montelukast Sodium 10 Mg Tablet, 10 MG PO DAILY, (Reported) Omeprazole 20 Mg Capsule.dr, 20 MG PO DAILY, (Reported) Potassium Chloride 10 Meq Capsule.er, 10 MEQ PO DAILY, (Reported) Rizatriptan Benzoate 10 Mg Tablet, 10 MG PO PRN, (Reported) Simvastatin 10 Mg Tablet, 10 MG PO HS, (Reported) Sotalol HCl 80 Mg Tablet, 80 MG PO BID, (Reported) Patient Home Medication List Home Medication List Reviewed: Yes Review of Systems Review of Systems Constitutional: see HPI EENTM: see HPI Respiratory: see HPI Cardiovascular: see HPI Gastrointestinal: see HPI Genitourinary: see HPI Musculoskeletal: see HPI Skin: see HPI Psychiatric/Neurological: See HPI Hematologic/Lymphatic: See HPI Immunological/Allergic: see HPI Past Lyyfcag-Glkcru-Cpaype Hx Past Med/Social Hx: Reviewed Nursing Past Med/Soc Hx Patient Social History Alcohol Use: Denies Use Recreational Drug Use: No Smoking Status: Never a Smoker 2nd Hand Smoke Exposure: No Recent Foreign Travel: No Contact w/Someone Who Travel: No Recent Infectious Disease Expo: No Recent Hopitalizations: No Physical Abuse: No Sexual Abuse: No Mistreated: No Fear: No Immunizations Up To Date Date of Pneumonia Vaccine: Aug 01, 2014 Date of Influenza Vaccine: Jan 23, 2018 Seasonal Allergies Seasonal Allergies: Yes Past Medical History Surgeries: Yes (BOWEL, BREAST, BILAT TKR, BILAT KNEE SCOPES, SKIN LESION,CARDIAC ABLATION) Appendectomy, Gallbladder, Hysterectomy, Tonsillectomy, Tubal Ligation Respiratory: Yes (NOT HAVING MANY ISSUES ) Asthma Cardiac: Yes Atrial Fibrillation, High Cholesterol, Hypertension Neurological: Yes Headaches /Migraines Sexually Transmitted Disease: No HIV/AIDS: No Genitourinary: No Gastrointestinal: Yes (HIRSCHSPRUNGS) Gastroesophageal Reflux, Chronic Diarrhea Musculoskeletal: Yes Back Injury Endocrine: Yes Hypothyroidsim, Diabetes, Non-Insulin dep HEENT: Yes (GLASSES, DENTURES) Loss of Vision: Bilateral Hearing Impairment: Denies Cancer: Yes (BREAST) Did You Recieve Any Treatments: Yes What Type of Treatment Did You: Chemotherapy, Radiation, Surgical Intervention Psychosocial: Yes Anxiety, Depression Integumentary: No Blood Disorders: Yes Adverse Reaction/Blood Tranf: No (HAS HAD BLOOD WITH NO REACTION) Physical Exam Vital Signs Vital Signs - First Documented 03/24/20 12:05 Temp 37.9 Pulse 54 Resp 20 B/P (MAP) 118/78 (91) Pulse Ox 96 O2 Delivery Room Air Capillary Refill : Less Than 3 Seconds Height, Weight, BMI Height: 5'3.00" Weight: 211lbs. 0.0oz. [id number]; 35.00 BMI Method: General Appearance: Other Eyes: Bilateral Eye Normal Inspection, Bilateral Eye PERRL, Bilateral Eye EOMI HEENT: PERRL/EOMI, TMs Normal Neck: Full Range of Motion, Non Tender, Supple Respiratory: Chest Non Tender, Lungs Clear Cardiovascular: Bradycardia Gastrointestinal: Non Tender, Soft Back: Normal Inspection, No CVA Tenderness Extremity: Normal Capillary Refill, Normal Inspection, Non Tender, No Calf Tenderness Neurologic/Psychiatric: Alert, Oriented x3, spine surgeon II-XII Norm as Tested Skin: Normal Color Focused Exam Sepsis Stage: Ruled Out Progress/Results/Core Measures Suspected Sepsis Recent Fever Within 48 Hours: No Infection Criteria Present: Suspected New Infection New/Unexplained Altered Menta: No Sepsis Screen: No Definite Risk SIRS Temperature: Pulse: 57 Respiratory Rate: 23 Laboratory Tests 03/24/20 12:15: White Blood Count 20.9H Blood Pressure 127 /58 Mean: 91 Laboratory Tests 03/24/20 12:15: Creatinine 1.27, Platelet Count 308, Total Bilirubin 0.6 Results/Orders Lab Results Laboratory Tests Test 03/24/20 12:15 Range/Units White Blood Count 20.9 H 4.3-11.0 10^3/uL Red Blood Count 5.11 4.35-5.85 10^6/uL Hemoglobin 14.8 11.5-16.0 G/DL Hematocrit 43 35-52 % Mean Corpuscular Volume 84 80-99 FL Mean Corpuscular Hemoglobin 29 25-34 PG Mean Corpuscular Hemoglobin Concent 35 32-36 G/DL Red Cell Distribution Width 13.9 10.0-14.5 % Platelet Count 308 130-400 10^3/uL Mean Platelet Volume 9.2 7.4-10.4 FL Immature Granulocyte % (Auto) 1 % Neutrophils (%) (Auto) 78 H 42-75 % Lymphocytes (%) (Auto) 14 12-44 % Monocytes (%) (Auto) 8 0-12 % Eosinophils (%) (Auto) 0 0-10 % Basophils (%) (Auto) 0 0-10 % Neutrophils # (Auto) 16.3 H 1.8-7.8 X 10^3 Lymphocytes # (Auto) 2.8 1.0-4.0 X 10^3 Monocytes # (Auto) 1.6 H 0.0-1.0 X 10^3 Eosinophils # (Auto) 0.0 0.0-0.3 10^3/uL Basophils # (Auto) 0.0 0.0-0.1 10^3/uL Immature Granulocyte # (Auto) 0.2 H 0.0-0.1 10^3/uL Neutrophils % (Manual) 75 % Lymphocytes % (Manual) 15 % Monocytes % (Manual) 7 % Band Neutrophils 3 % Toxic Granulation 2+ Blood Morphology Comment NORMAL Sodium Level 130 L 135-145 MMOL/L Potassium Level 4.6 3.6-5.0 MMOL/L Chloride Level 95 L 98-107 MMOL/L Carbon Dioxide Level 21 21-32 MMOL/L Anion Gap 14 5-14 MMOL/L Blood Urea Nitrogen 34 H 7-18 MG/DL Creatinine 1.27 0.60-1.30 MG/DL Estimat Glomerular Filtration Rate 43 BUN/Creatinine Ratio 27 Glucose Level 159 H 70-105 MG/DL Calcium Level 10.6 H 8.5-10.1 MG/DL Corrected Calcium 8.5-10.1 MG/DL Total Bilirubin 0.6 0.1-1.0 MG/DL Aspartate Amino Transf (AST/SGOT) 14 5-34 U/L Alanine Aminotransferase (ALT/SGPT) 14 0-55 U/L Alkaline Phosphatase 118 40-136 U/L Troponin I < 0.30 <0.30 NG/ML Pro-B-Type Natriuretic Peptide 363.0 H <75.0 PG/ML Total Protein 8.0 6.4-8.2 GM/DL Albumin 4.7 H 3.2-4.5 GM/DL My Orders Orders - ARANZA ORDOÑEZ DO Cbc With Automated Diff (03/24/20 12:17) Comprehensive Metabolic Panel (03/24/20 12:17) Troponin I Fs (03/24/20 12:17) Probnp Fs (03/24/20 12:17) Ekg Tracing (03/24/20 12:17) Chest 1 View Ap/Pa Only (03/24/20 12:17) Ns Iv 1000 Ml (Sodium Chloride 0.9%) (03/24/20 12:30) Knee 3 View Left (03/24/20 12:38) Foot 3 View Left (03/24/20 12:38) Manual Differential (03/24/20 12:15) Knee 3 View Right (03/24/20 12:58) Ua Culture If Indicated (03/24/20 13:11) Covid-19 External Lab Results (03/24/20 14:30) Isolation Central Supply Req (03/24/20 14:30) Morphine Injection (Morphine Injection (03/24/20 14:36) Fentanyl Injection (Sublimaze Injection (03/24/20 14:45) Vital Signs/I&O 03/24/20 03/24/20 12:05 14:19 Temp 37.9 36.7 Pulse 54 57 Resp 20 23 B/P (MAP) 118/78 (91) 127/58 Pulse Ox 96 98 O2 Delivery Room Air Capillary Refill : Less Than 3 Seconds Blood Pressure Mean: 91 Departure Communication (Admissions) Chest x-ray: Reviewed Bilateral knee/left foot: No obvious displaced fracture per radiology report. Patient was symptomatically bradycardia on sotalol for treatment of atrial fibrillation. Blood pressure stable when supine. IV fluids given fentanyl given for aches pains and headaches. X-rays reviewed. Will admit to [facility] for further monitoring and cardiology consultation. Impression Primary Impression: Syncope Additional Impression: Bradycardia Disposition: ADMITTED INPATIENT Condition: Stable Admissions Decision to Admit Reason: Admit from ER (General) Transfer Method of Transfer: EMS Departure-Patient Inst. Decision time for Depature: 14:00 (Dr. Leigh) Referrals: NANIE VILLAREAL MD (PCP/Family) Primary Care Physician Add. Discharge Instructions: All discharge instructions reviewed with patient and/or family. Voiced u nderstanding. ARANZA ORDOÑEZ DO Mar 24, 2020 14:40
[2020-03-24] MEDS ORDERED: fentaNYL INJECTION 100 MCG/2 ML AMP IVP ONE (14:45)
--- NOTE | 2020-03-24 15:07 | NUR ---
EMS paged at this time.
--- NOTE | 2020-03-24 15:23 | NUR ---
EMS arrived at this time. Report was given and care was transferred.
[2020-03-24 16:50] VITALS: BP 120/58
--- NOTE | 2020-03-24 17:33 | NUR ---
NOTIFIED DR. COLON ABOUT PATIENT ADMISSION TO ROOM 423, NEW ORDERS TO TRANSFER PATIENT TO ICU PER DR. COLON. Addendum: 03/25/20 at 0733 by ANAHI SANCHEZ RN RECIEVED CHANGE IN PHYSICAN ORDER,PATIENT TO REMAIN IN ROOM 423
[2020-03-24] MEDS ORDERED: ACETAMINOPHEN 325 MG TABLET PO PRN (17:45)
[2020-03-24] MEDS ORDERED: ONDANSETRON 4 MG/2 ML (SDV) Z0FRAN IV PRN (17:45)
[2020-03-24] MEDS ORDERED: polyethylene glycoL POWDER 17 GM (MIRALAX) PACK PO PRN (17:45)
[2020-03-24] MEDS ORDERED: MELATONIN 3 MG TABLET PO PRN (17:45)
[2020-03-24] MEDS ORDERED: ENOXAPARIN 40 MG/0.4 ML (LOVENOX) SYR SC SCH (17:45)
[2020-03-24] MEDS ORDERED: ANTACID SUSP 30 ML UDC (MYLANTA) PO PRN (17:45)
[2020-03-24] MEDS ORDERED: ONDANSETRON 4 MG (ZOFRAN) ORAL DISSOLVE TAB PO PRN (17:45)
[2020-03-24 19:40] VITALS: BP 115/55
[2020-03-24] MEDS: APIXABAN 5 MG (ELIQUIS) TABLET PO SCH (20:17)
[2020-03-24] MEDS: SENNOSIDES 8.6 MG (SENOKOT) TAB PO SCH (20:18)
[2020-03-24] MEDS: DOCUSATE SODIUM 100 MG (COLACE) CAP PO SCH (20:18)
[2020-03-24] MEDS ORDERED: cefTRIAXone FOR IV USE 2,000 MG in WATER (STERILE) FOR INJECTION 20 ML IV SCH (21:30)
[2020-03-24] MEDS ORDERED: metFORMIN 500 MG (GLUCOPHAGE) TAB ONE (21:44)
[2020-03-24] MEDS: metFORMIN 500 MG (GLUCOPHAGE) TAB PO SCH (22:10)
[2020-03-24] MEDS: cefTRIAXone 1,000 MG/SWFI 10 ML IV PUSH IV SCH ×2 (22:11)
[2020-03-25] MEDS: ALPRAZolam 0.25 MG (XANAX) TAB PO PRN ×2 (00:03→08:52)
[2020-03-25 00:05] VITALS: BP 112/59
[2020-03-25 03:51] VITALS: BP 130/59
[2020-03-25 05:05] LABS: BASOPHILS % (AUTO) 0 % (0-10); EOSINOPHILS % (AUTO) 0 % (0-10); HEMATOCRIT 38 % (35-52); HEMOGLOBIN 12.9 g/dL (11.5-16.0); LYMPHOCYTES # (AUTO) 2.4 10^3/uL (1.0-4.0); LYMPHOCYTES % (AUTO) 14 % (12-44); MEAN CORPUSCULAR HEMOGLOBIN 29 pg (25-34); MEAN CORPUSCULAR HGB CONC 34 g/dL (32-36); MEAN CORPUSCULAR VOLUME 85 fL (80-99); MEAN PLATELET VOLUME 9.4 fL (9.0-12.2); MONOCYTES # (AUTO) 1.4 10^3/uL (0.0-1.0); MONOCYTES % (AUTO) 8 % (0-12); NEUTROPHILS # (AUTO) 13.7 10^3/uL (1.8-7.8); NEUTROPHILS % (AUTO) 77 % (42-75); PLATELET COUNT 210 10^3/uL (130-400); WHITE BLOOD COUNT 17.7 10^3/uL (4.3-11.0)
[2020-03-25 05:23] LABS: ALBUMIN 3.8 GM/DL (3.2-4.5); POTASSIUM 4.1 MMOL/L (3.6-5.0)
[2020-03-25 05:24] LABS: CALCIUM 8.4 MG/DL (8.5-10.1)
[2020-03-25 05:25] LABS: TOTAL PROTEIN 6.2 GM/DL (6.4-8.2)
[2020-03-25 05:27] LABS: BILIRUBIN,TOTAL 0.5 MG/DL (0.1-1.0)
[2020-03-25 05:29] LABS: CREATININE SERUM 1.17 MG/DL (0.60-1.30)
[2020-03-25] MEDS: metFORMIN 500 MG (GLUCOPHAGE) TAB PO SCH ×2 (06:34→17:28)
[2020-03-25] MEDS: LEVOTHYROXINE 25 MCG (LEVOTHROID) TAB PO SCH (06:34)
[2020-03-25 07:41] VITALS: BP 100/60
[2020-03-25] MEDS: APIXABAN 5 MG (ELIQUIS) TABLET PO SCH ×2 (08:52→20:55)
[2020-03-25] MEDS ORDERED: SOTALOL 80 MG (BETAPACE) TAB PO SCH (09:00)
[2020-03-25] MEDS: DOCUSATE SODIUM 100 MG (COLACE) CAP PO SCH ×2 (09:00→21:11)
[2020-03-25] MEDS: SENNOSIDES 8.6 MG (SENOKOT) TAB PO SCH ×2 (09:01→21:11)
[2020-03-25] MEDS: inSUlin ASPART (NovoLOG) 1 UNIT/0.01 ML (CHARGE PER UNIT) SC SCH ×3 (11:14→21:12)
--- NOTE | 2020-03-25 11:51 | Physical Therapy Evaluation ---
PT Evaluation-General Medical Diagnosis Admission Date Mar 24, 2020 at 16:30 Medical Diagnosis: symptomatic bradycardia Onset Date: Mar 24, 2020 Therapy Diagnosis Therapy Diagnosis: debility/weakness Height/Weight Height (Feet): 5 Height (Inches): 3.00 Weight (Pounds): 211 Weight (Ounces): 0.0 Precautions Precautions/Isolations: Airborne Isolation, Fall Prevention Referral Physician: Lu Reason for Referral: Evaluation/Treatment Medical History Pertinent Medical History: Atrial Fib, DM, HTN, Hypothroidism Additional Medical History bilateral TKR/breast cancer Current History ER secondary to syncope Reviewed History: Yes Social History Home: Single Level Current Living Status: Alone Prior Prior Level of Function SCALE: Activities may be completed with or without assistive devices. 7-Tctrxcdbbw-sknqzqs completes the activity by him/herself with no assistance from a helper. 5-Set-up or Clean-up Assistance-helper sets up or cleans up; patient completes activity. Railroad assists only prior to or following the activity. 4-Supervision or Touching Assistance-helper provides verbal cues and/or touching/steadying and/or contact guard assistance as patient completes activity. Assistance may be provided throughout the activity or intermittently. 3-Partial/Moderate Assistance-helper does LESS THAN HALF the effort. Railroad lifts, holds or supports trunk or limbs, but provides less than half the effort. 2-Substantial/Maximal Assistance-helper does MORE THAN HALF the effort. Railroad lifts or holds trunk or limbs and provides more than half the effort. 0-Gusxshvlt-hjwobo does ALL the effort. Patient does none of the effort to complete the activity. Or, the assistance of 2 or more helpers is required for the patient to complete the activity. If activity was not attempted, code reason: 7-Patient Refused. 9-Not Applicable-not attempted and the patient did not perform the activity before the current illness, exacerbation or injury. 10-Not Attempted due to Environmental Limitations-(lack of equipment, weather restraints, etc.). 88-Not Attempted due to Medical Conditions or Safety Concerns. Bed Mobility: 6 Transfers (B,C,W/C): 6 Gait: 6 Stairs: 6 Indoor Mobility (Ambulation): Independent Stairs: Independent Prior Devices Use: None PT Evaluation-Current Subjective Patient reluctantly agrees to PT. Patient c/o 10/10 bilateral foot pain. (all over) Pain Numeric Pain Scale: 10-Worst Possible Pain Location: Right, Left Location Body Site: Foot Pain Description: Ache Comment: meds issued per RN Objective Patient Orientation: Normal For Age ROM/Strength ROM Lower Extremities bilateral LE WFL (patient does hold bilateral LE very rigid, however, when encouraged to perform ROM, patient is able ) Strength Lower Extremities 4/5 grossly bilateral LE Integumentary/Posture Integumentary refer to nursing notes Bowel Incontinence: No Bladder Incontinence: No Posture trunk flexed posture in stand with FWW use Neuromuscular (Tone, Coordination, Reflexes) grossly intact Sensory Vision: Functional Hearing: Functional Transfers Lying to Sitting/Side of Bed(Q: 6 Sit to Stand (QC): 3 Chair/Gjh-yx-Erfap Xfer(QC): 3 (patient impulsive to sit from side position requiring cues from PT to performs safely) Gait Does the Patient Walk?: Yes Mode of Locomotion: Walk Anticipated Mode of Locomotion: Walk Walk 10 feet (QC): 3 Walk 50 ft with 2 Turns(QC): 3 Walk 150 ft (QC): 7 Gait Assistive Device: FWW Comments/Gait Description very slow and antalgic with FWW in room (very stiffed legged) Balance Sitting Static: Normal Sitting Dynamic: Normal Standing Static: Fair Standing Dynamic: Fair Assessment/Needs 59 y.o. female, will be seen short term by skilled PT to address functional mobility to ensure safe return to home at maximum LOF. Rehab Potential: Fair PT Assisted Goals Assisted Goals PT Assisted Goals Time Frame: Apr 05, 2020 Roll Left & Right (QC): 6 Sit to Lying (QC): 6 Lying-Sitting on Side/Bed(QC): 6 Sit to Stand (QC): 6 Chair/Aiu-zm-Mahjn Xfer(QC): 6 Toilet Transfer (QC): 6 Car Transfer (QC): 6 Does the Patient Walk: Yes Walk 10 feet (QC): 6 Walk 50ft with 2 Turns (QC): 6 Walk 150 ft (QC): 6 PT Plan Problem List Problem List: Activity Tolerance, Safety, Balance, Gait, Transfer, Bed Mobility Treatment/Plan Treatment Plan: Continue Plan of Care Treatment Plan: Bed Mobility, Education, Functional Activity Meche, Functional Strength, Gait, Safety, Therapeutic Exercise, Transfers Treatment Duration: Apr 05, 2020 Frequency: 6 times per week Estimated Hrs Per Day: .25 hour per day Patient and/or Family Agrees t: Yes Time/GCodes Time In: 1046 Time Out: 1059 Total Billed Treatment Time: 13 [facility] PARVIN PEREZ PT Mar 25, 2020 11:51
[2020-03-25 12:04] VITALS: BP 125/57
--- NOTE | 2020-03-25 14:30 | History & Physical-Hospitalist ---
History of Present Illness HPI/Chief Complaint Leslie Beth is a 51-year-old female with past medical history of paroxysmal atrial fibrillation, chronic kidney disease, hypothyroidism, anxiety, depression, diabetes, who presented after a syncopal episode. She reports that she had a fall. She is reporting left foot pain. She says she is unable to walk. She denies any other syncopal episodes. She denies any lightheadedness or dizziness. She does take sotalol. She reports compliance with this medication and has not taken any extra doses. She was diagnosed with COVID about 10 days ago. She completed a course of dexamethasone and an antibiotic as an outpatient. She denies any fevers. She denies any shortness of breath. She denies any chest pain. Source: patient Date Seen 03/25/20 Time Seen by a Provider: 10:25 Attending Physician Roshan Eason MD PCP Lilia May MD Referring Physician Date of Admission Mar 24, 2020 at 16:30 Home Medications & Allergies Home Medications Reviewed patient Home Medication Reconciliation performed by pharmacy medication reconciliations biological science technician fish and/or nursing. Patients Allergies have been reviewed. Allergies Allergies Coded Allergies diphenhydramine (Verified Allergy, Unknown, 08/01/18) fluticasone (Verified Allergy, Unknown, 08/04/18) PER UNCODED ALLERGIES hylan G-F 20 (Verified Allergy, Unknown, 08/01/18) latex (Verified Allergy, Unknown, 08/01/18) morphine (Verified Allergy, Unknown, 08/01/18) salmeterol (Verified Allergy, Unknown, 08/04/18) PER UNCODED ALLERGIES trovafloxacin (Verified Allergy, Unknown, 08/01/18) Past Wquorqr-Cocecp-Vaeulz Hx Past Med/Social Hx: Reviewed Nursing Past Med/Soc Hx Patient Social History Alcohol Use: Denies Use Recreational Drug Use: No Smoking Status: Never a Smoker 2nd Hand Smoke Exposure: No Recent Foreign Travel: No Contact w/other who traveled: No Recent Hopitalizations: No Recent Infectious Disease Expo: Yes (COVID) Immunizations Up To Date Date of Pneumonia Vaccine: Dec 18, 2019 Date of Influenza Vaccine: Jan 23, 2018 Seasonal Allergies Seasonal Allergies: Yes Past Medical History Surgeries: Appendectomy, Gallbladder, Hysterectomy, Tonsillectomy, Tubal Ligation Cardiac: Atrial Fibrillation, High Cholesterol, Hypertension Neurological: Headaches /Migraines Sexually Transmitted Disease: No HIV/AIDS: No Gastrointestinal: Gastroesophageal Reflux, Chronic Diarrhea Musculoskeletal: Back Injury Endocrine: Hypothyroidsim, Diabetes, Non-Insulin dep Loss of Vision: Bilateral Hearing Impairment: Denies Did You Recieve Any Treatments: Yes What Type of Treatment Did You: Chemotherapy, Radiation, Surgical Intervention Psychosocial: Anxiety, Depression History of Blood Disorders: Yes Adverse Reaction to Blood Martel: No (HAS HAD BLOOD WITH NO REACTION) Family History Cardiovascular disease 19 FATHER G8 SISTER Review of Systems Constitutional: no symptoms reported EENTM: no symptoms reported Respiratory: no symptoms reported Cardiovascular: no symptoms reported Gastrointestinal: no symptoms reported Genitourinary: no symptoms reported Musculoskeletal: joint pain Skin: no symptoms reported Psychiatric/Neurological: No Symptoms Reported Physical Exam Physical Exam Vital Signs Vital Signs - First Documented 03/24/20 12:05 Temp 37.9 Pulse 54 Resp 20 B/P (MAP) 118/78 (91) Pulse Ox 96 O2 Delivery Room Air Capillary Refill : Less Than 3 Seconds Height, Weight, BMI Height: 5'3.00" Weight: 211lbs. 0.0oz. [id number]; 34.49 BMI Method: General Appearance: No Apparent Distress, Anxious, Obese HEENT: PERRL/EOMI, Pharynx Normal Neck: Normal Inspection, Supple Respiratory: Lungs Clear, Normal Breath Sounds, No Respiratory Distress Cardiovascular: Regular Rate, Rhythm, No Edema, No Murmur Gastrointestinal: Normal Bowel Sounds, Non Tender, Soft Extremity: Normal Inspection, Non Tender, No Pedal Edema Neurologic/Psychiatric: Alert, Oriented x3, No Motor/Sensory Deficits Skin: Normal Color, Warm/Dry Results Results/Procedures Labs Laboratory Tests 03/24/20 12:15 03/25/20 04:35 Patient resulted labs reviewed. Imaging: Reviewed Imaging Report Assessment/Plan Admission Diagnosis Symptomatic bradycardia Admission Status: Observation Assessment and Plan Symptomatic bradycardia Steroid-induced bradycardia Adverse effect of beta-judy Paroxysmal atrial fibrillation Likely due to Decadron and Sotalol Holding Sotalol Decadron course completed Consult cardiology, appreciate assistance Continue Eliquis PNA WBC 20 on arrival, 17 this morning CXR with right lower lobe consolidation Procal normal Started on Rocephin CKD Cr 1.17, apprears to be at baseline Continue to monitor Hypothyroidism Anxiety Depression T2DM Continue home meds Obesity Clinically significant, no acute management needs DVT Prophylaxis: already receiving therapeutic anticoagulation Diagnosis/Problems Diagnosis/Problems (1) Symptomatic bradycardia Status: Acute (2) Steroid-induced bradycardia Status: Acute (3) Adverse effect of beta-judy Status: Acute Qualifiers: Encounter type: initial encounter Qualified Codes: T44.7X5A - Adverse effect of beta-adrenoreceptor antagonists, initial encounter (4) Atrial fibrillation Status: Chronic Qualifiers: Atrial fibrillation type: paroxysmal Qualified Codes: I48.0 - Paroxysmal atrial fibrillation (5) PNA (pneumonia) Status: Acute (6) CKD (chronic kidney disease) Status: Chronic Qualifiers: Chronic kidney disease stage: stage 3 (moderate) Qualified Codes: N18.3 - Chronic kidney disease, stage 3 (moderate) (7) Hypothyroidism Status: Chronic (8) Anxiety and depression Status: Chronic (9) T2DM (type 2 diabetes mellitus) Status: Chronic Qualifiers: Diabetes mellitus chcf insulin use: without long term care phlebotomist use (10) Obesity Status: Chronic (11) Multiple drug allergies Status: Chronic Clinical Quality Measures DVT/VTE Risk/Contraindication: Risk Factor Score Per Nursin RFS Level Per Nursing on Admit: 1=Low/No VTE PPX ROSHAN EASON MD Mar 25, 2020 14:30
--- NOTE | 2020-03-25 14:35 | Occupational Therapy Eval ---
OT Evaluation-General/PLF Medical Diagnosis Admission Date Mar 24, 2020 at 16:30 Medical Diagnosis: symptomatic bradycardia Onset Date: Mar 24, 2020 Therapy Diagnosis Therapy Diagnosis: Weakness Height/Weight Height (Feet): 5 Height (Inches): 3.00 Weight (Pounds): 211 Weight (Ounces): 0.0 Precautions Precautions/Isolations: Airborne Isolation, Fall Prevention Weight Bear Status Weight Bearing Restriction: Weight Bearing/Tolerated Referral Physician: Lu Referral Reason: Activity Tolerance, Self Care, Evaluation/Treatment, Strengthening/ROM Medical History Pertinent Medical History: Atrial Fib, DM, HTN, Hypothroidism Additional Medical History Bilateral TKR, Breast Sx Current History Pt. verbalizes that she fell yesterday at a local business, and hurt her knees. She also verbalizes that she fell at the hospital. She is somewhat inconsistent, and in and out of sleep. Pt. states that she "passed out." Reviewed History: Yes Social History Home: Single Level Current Living Status: Children (Daughter with MS) Entry Into Home: Stairs With Railing Steps Into Home: 4 ADL-Prior Level of Function SCALE: Activities may be completed with or without assistive devices. 1-Zmrpupbtvo-uwnvtmq completes the activity by him/herself with no assistance from a helper. 5-Set-up or Clean-up Assistance-helper sets up or cleans up; patient completes activity. [place] assists only prior to or following the activity. 4-Supervision or Touching Assistance-helper provides verbal cues and/or touching/steadying and/or contact guard assistance as patient completes activity. Assistance may be provided throughout the activity or intermittently. 3-Partial/Moderate Assistance-helper does LESS THAN HALF the effort. [place] lifts, holds or supports trunk or limbs, but provides less than half the effort. 2-Substantial/Maximal Assistance-helper does MORE THAN HALF the effort. [place] lifts or holds trunk or limbs and provides more than half the effort. 6-Vavjffezj-uwvitd does ALL the effort. Patient does none of the effort to complete the activity. Or, the assistance of 2 or more helpers is required for the patient to complete the activity. If activity was not attempted, code reason: 7-Patient Refused. 9-Not Applicable-not attempted and the patient did not perform the activity before the current illness, exacerbation or injury. 10-Not Attempted due to Environmental Limitations-(lack of equipment, weather restraints, etc.). 88-Not Attempted due to Medical Conditions or Safety Concerns. ADL PLOF Comments Pt. verbalizes that she lives with daughter who has MS. She states, "we take care of eachother." Pt. reports that she feels, "loopy" and is having a hard time concentrating on OT's questions. Pt. verbalizes that normally, she is independent with daily tasks. 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 Self Care: Independent Functional Cognition: Unknown DME/Equipment: Bath Chair, Tub/Shower Drive Self: Yes OT Current Status Subjective Pt. verbalizes 10/10 pain in bilateral knees and feet. Appearance Pt. up in chair. Current Upper Extremity ROM WFL ADL-Treatment On/Off Footwear (QC): 2 Pt. is up in chair. She closes eyes throughout treatment, and states that she is having a lot of pain in bilateral LE. She has difficulty articulating when and why she is hurting so bad, and apologizes stating, "I'm just a little loopy." Pt referring to medication. Pt. unable to doff/don slipper socks, and indicates that she is not able to do very much. Pt. does request to go back to bed, and stands with walker and min assist to transfer/take steps toward bed. Pt. able to get both legs into bed and positioned. All needs met. Education OT Patient Education: Correct positioning, Progress toward Goal/Update tx plan, Purpose of tx/functional activities, Reviewed precautions, Rehab process, Transfer techniques Teaching Recipient: Patient Teaching Methods: Demonstration, Discussion Response to Teaching: Verbalize Understanding, Return Demonstration OT Short Term Goals Short Term Goals Time Frame: Apr 01, 2020 Eatin Oral hygiene: 4 Toileting hygiene: 4 Shower/bathe self: 3 Upper body dressin Lower body dressin Putting on/taking off footwear: 3 OT Skilled Nursing Goals Skilled Nursing Goals Time Frame: Apr 08, 2020 Eating (QC): 6 Oral Hygiene (QC): 6 Toileting Hygiene (QC): 6 Shower/Bathe Self (QC): 4 Upper Body Dressing (QC): 6 Lower Body Dressing (QC): 6 On/Off Footwear (QC): 6 Additional Goals: 1-Demonstrate ADL Tasks, 2-Verbalize Understanding, 3- ImproveStrength/Meche 1=Demonstrate adherence to instructed precautions during ADL tasks. 2=Patient will verbalize/demonstrate understanding of assistive devices/modifications for ADL. 3=Patient will improve strength/tolerance for activity to enable patient to perform ADL's. OT Education/Plan Problem List/Assessment Assessment: Decreased Activ Tolerance, Dependent Transfers, Impaired Cognition, Impaired I ADL's, Impaired Self-Care Skills Discharge Recommendations Plan/Recommendations: Continue POC Therapy Discharge Recommendati: Home & Family Treatment Plan/Plan of Care Treatment,Training & Education: Yes Patient would benefit from OT for education, treatment and training to promote independence in ADL's, mobility, safety and/or upper extremity function for ADL's. Plan of Care: ADL Retraining, Functional Mobility, UE Funct Exercise/Act Treatment Duration: Apr 08, 2020 Frequency: 5 times per week Estimated Hrs Per Day: .25 hour per day Agreement: Yes Rehab Potential: Fair Time/GCodes Start Time: 11:37 Stop Time: 11:55 Total Time Billed (hr/min): 18 Billed Treatment Time 1, WILLIAM GOMEZ OT Mar 25, 2020 14:35
[2020-03-25] MEDS ORDERED: GLIP5TAB13 PO (14:36)
[2020-03-25] MEDS ORDERED: MAGN400T39 PO (14:36)
[2020-03-25] MEDS ORDERED: ALLO100T PO (14:36)
[2020-03-25] MEDS ORDERED: CHOL100048 PO (14:36)
[2020-03-25] MEDS ORDERED: LEVO100T7 PO (14:36)
[2020-03-25] MEDS ORDERED: POTA10TA36 PO (14:36)
--- NOTE | 2020-03-25 14:37 | NUR ---
SPOKE WITH THE PT (I CALLED THE ROOM PHONE) AND WENT THRU THE EXT MED HISTORY TO COMPLETE THE MED REC PT WAS ABLE TO NAME ALL HER MEDICATIONS WELL WHEN/HOW SHE TAKES EACH- ALL HER INFORMATION MATCHED THE EXT MED HISTORY LEVOTHYROXINE 25MCG IS ON THE EXT MED HISTORY HOWEVER PT SAYS SHE IS NO LONGER ON THAT STRENGTH (PT NOW TAKING 100MCG) AND [facility]LIN KEEPS FILLING THE WRONG MED OTC MEDS: VIT D3 MAGNESIUM VIT B12
--- NOTE | 2020-03-25 14:55 | NUR ---
"RD ASSESSMENT PMHx: afib; hypercholesterolemia; HTN; GERD; chronic diarrhea; hypothyroidism; DM; CA(breast); PT INTERACTION: Note pt currently in COVID isolation, per chart review. Note all diet information for nutrition assessment per Chastity RN or per chart review. Chastity states current appetite appears good. Note avg PO intake 75% x3meal, per chart review. Chastity states some issues with nausea and diarrhea. Note last BM was 03/25, and pt currently on bowel regimen of colace BID, and senna BID, per chart review. Note unable to determine recent wt hx, per chart review. Note unable to determine current level of DM management, and unable to determine recent HbA1c, per chart review. ABNORMAL NUTRITION-RELATED LAB VALUES LOW: Na 130; Ca 8.4; Pro 6.2; HIGH: BUN 38; glu 207; Est. kcal needs: 2488-6317 kcal | 15-18 kcal/kg Est. Pro needs: 70-88 | 0.8-1.0 g Pro/kg PES STATEMENT: Given current PO intake, no nutrition diagnosis at this time (NO-1.1). INTERVENTION: Continue with current diet order of CHO 60g/m 0snack diet. Continue with current supplementation order of Glucerna (vary) to meals TID. Would recommend DC of supplement when avg PO intake is 75% or greater. Did not offer diet education on DM management d/t isolation precautions. Will continue to follow and reassess as pt needs, intake, and status change. Stan Agrawal, MS RD LD [phone] cell"
[2020-03-25 15:51] VITALS: BP 134/81
[2020-03-25 19:49] VITALS: BP 132/67
[2020-03-25] MEDS: cefTRIAXone 1,000 MG/SWFI 10 ML IV PUSH IV SCH ×2 (20:54)
[2020-03-26] VITALS: BP 109/63
[2020-03-26 04:00] VITALS: BP 129/80
[2020-03-26] MEDS: inSUlin ASPART (NovoLOG) 1 UNIT/0.01 ML (CHARGE PER UNIT) SC SCH ×4 (05:14→20:30)
[2020-03-26] MEDS: metFORMIN 500 MG (GLUCOPHAGE) TAB PO SCH ×2 (05:59→17:48)
[2020-03-26] MEDS: LEVOTHYROXINE 25 MCG (LEVOTHROID) TAB PO SCH (05:59)
[2020-03-26 08:21] VITALS: BP 113/75
[2020-03-26] MEDS: SOTALOL 80 MG (BETAPACE) TAB PO SCH ×2 (09:36→22:52)
[2020-03-26] MEDS: DOCUSATE SODIUM 100 MG (COLACE) CAP PO SCH ×2 (09:36→20:58)
[2020-03-26] MEDS: SENNOSIDES 8.6 MG (SENOKOT) TAB PO SCH ×2 (09:36→20:58)
[2020-03-26] MEDS: APIXABAN 5 MG (ELIQUIS) TABLET PO SCH ×2 (09:36→20:58)
[2020-03-26 10:02] LABS: BASOPHILS % (AUTO) 0 % (0-10); EOSINOPHILS # (AUTO) 0.1 10^3/uL (0.0-0.3); EOSINOPHILS % (AUTO) 1 % (0-10); HEMATOCRIT 40 % (35-52); HEMOGLOBIN 13.2 g/dL (11.5-16.0); LYMPHOCYTES # (AUTO) 2.7 10^3/uL (1.0-4.0); LYMPHOCYTES % (AUTO) 18 % (12-44); MEAN CORPUSCULAR HEMOGLOBIN 29 pg (25-34); MEAN CORPUSCULAR HGB CONC 33 g/dL (32-36); MEAN CORPUSCULAR VOLUME 87 fL (80-99); MEAN PLATELET VOLUME 9.5 fL (9.0-12.2); MONOCYTES # (AUTO) 1.5 10^3/uL (0.0-1.0); MONOCYTES % (AUTO) 10 % (0-12); NEUTROPHILS # (AUTO) 10.9 10^3/uL (1.8-7.8); NEUTROPHILS % (AUTO) 71 % (42-75); PLATELET COUNT 231 10^3/uL (130-400); WHITE BLOOD COUNT 15.3 10^3/uL (4.3-11.0)
[2020-03-26 10:17] LABS: BILIRUBIN,URINE NEGATIVE (NEGATIVE); CLARITY,URINE CLEAR; COLOR,URINE YELLOW; GLUCOSE, URINE (UA) NEGATIVE (NEGATIVE); KETONES,URINE NEGATIVE (NEGATIVE); LEUKOCYTE ESTERASE ,URINE 2+ (NEGATIVE); NITRITE,URINE NEGATIVE (NEGATIVE); PROTEIN,URINE 1+ (NEGATIVE)
[2020-03-26 10:19] LABS: CALCIUM 9.2 MG/DL (8.5-10.1); CREATININE SERUM 1.18 MG/DL (0.60-1.30); POTASSIUM 3.7 MMOL/L (3.6-5.0)
[2020-03-26 10:30] LABS: BACTERIA,URINE MODERATE /HPF; WBC,URINE 25-50 /HPF
--- NOTE | 2020-03-26 10:45 | Physical Therapy Daily Note ---
PT Daily Note-Current Subjective Patient in bed pre tx, agrees to PT, has 6/10 pain in both feet at rest. Patient states she has sprained her feet when she fell. Appearance Patient in bed post tx with nurse call, phone, tray, all needs met. Mental Status Patient Orientation: Person, Place, Situation Transfers SCALE: Activities may be completed with or without assistive devices. 3-Cvzzelyugy-rvnadsr completes the activity by him/herself with no assistance from a helper. 5-Set-up or Clean-up Assistance-helper sets up or cleans up; patient completes activity. Rupert assists only prior to or following the activity. 4-Supervision or Touching Assistance-helper provides verbal cues and/or touching/steadying and/or contact guard assistance as patient completes act ivity. Assistance may be provided throughout the activity or intermittently. 3-Partial/Moderate Assistance-helper does LESS THAN HALF the effort. Rupert lifts, holds or supports trunk or limbs, but provides less than half the effort. 2-Substantial/Maximal Assistance-helper does MORE THAN HALF the effort. Rupert lifts or holds trunk or limbs and provides more than half the effort. 7-Yzolcjsxi-wirmuv does ALL the effort. Patient does none of the effort to complete the activity. Or, the assistance of 2 or more helpers is required for the patient to complete the activity. If activity was not attempted, code reason: 7-Patient Refused. 9-Not Applicable-not attempted and the patient did not perform the activity before the current illness, exacerbation or injury. 10-Not Attempted due to Environmental Limitations-(lack of equipment, weather restraints, etc.). 88-Not Attempted due to Medical Conditions or Safety Concerns. Roll Left & Right (QC): 6 Sit to Lying (QC): 6 Lying to Sitting/Side of Bed(Q: 6 Sit to Stand (QC): 4 some difficulty with supine <-> sit but she can do it without assist. Gait Training Distance: 20' Walk 10 feet (QC): 4 Gait Persons Needed: 1 Gait Assistive Device: FWW CGA, patient ambulates to the door and back, slow, antalgic, possible dropfoot on the right side, patient gets very SOB on the way back to bed but she is able to make it and then rest sitting on the side of the bed before laying down. Exercises Supine Ex: Ankle pumps Supine Reps: 20 (Patient instructed to do these often to help with her feet.) Treatments bed mobility and transfers, ambulation, LE ROM Assessment Current Status: Fair Progress pain in feet with ambulation PT Senior Care Goals Senior Care Goals PT Hotel Concierge Goals Time Frame: Apr 05, 2020 Roll Left & Right (QC): 6 Sit to Lying (QC): 6 Lying-Sitting on Side/Bed(QC): 6 Sit to Stand (QC): 6 Chair/Fvf-yp-Ckdcj Xfer(QC): 6 Toilet Transfer (QC): 6 Car Transfer (QC): 6 Does the Patient Walk: Yes Walk 10 feet (QC): 6 Walk 50ft with 2 Turns (QC): 6 Walk 150 ft (QC): 6 PT Plan Problem List Problem List: Activity Tolerance, Functional Strength, Safety, Balance, Gait, Transfer, Bed Mobility, ROM Treatment/Plan Treatment Plan: Continue Plan of Care Treatment Plan: Bed Mobility, Education, Functional Activity Meche, Functional Strength, Gait, Safety, Therapeutic Exercise, Transfers Treatment Duration: Apr 05, 2020 Frequency: 6 times per week Estimated Hrs Per Day: .25 hour per day Patient and/or Family Agrees t: Yes Safety Risks/Education Patient Education: Gait Training, Transfer Techniques, Correct Positioning, Safety Issues Teaching Recipient: Patient Teaching Methods: Demonstration, Discussion Response to Teaching: Reinforcement Needed Time/GCodes Time In: 0940 Time Out: 0950 Total Billed Treatment Time: 10 Total Billed Treatment 1 visit FA JOHNSON [place]STON PT Mar 26, 2020 10:45
--- NOTE | 2020-03-26 11:54 | Consultation-Cardiology ---
HPI-Cardiology Cardiology Consultation Date of Consultation 03/26/20 Date of Admission Time Seen by Provider: 10:25 Indication: syncope HPI 59 years old lady with history of paroxysmal atrial fibrillation, hypertension. Diagnosed with COVID-19 pneumonia about 2 weeks ago, continue to have fever and nausea, has chronic diarrhea. Sustained a syncopal episode while standing up tr [employer] to write a check. She felt dizzy and lightheaded but she has been feeling dizzy and lightheaded for the last week. Was admitted to the hospital and noted to have sinus bradycardia with a heart rate in the middle to upper 50s, had one episode of heart rate in the 40s initially in the emergency room on the day of admission. Has been feeling well, still having some fatigue and loss of energy. Denied any chest pain. No palpitation. No shortness of breath, has underlying sleep apnea but was unable to tolerate C Pap Home Medications & Allergies Allergies: Coded Allergies: diphenhydramine (Verified Allergy, Unknown, 08/01/18) fluticasone (Verified Allergy, Unknown, 08/04/18) PER UNCODED ALLERGIES hylan G-F 20 (Verified Allergy, Unknown, 08/01/18) latex (Verified Allergy, Unknown, 08/01/18) morphine (Verified Allergy, Unknown, 08/01/18) salmeterol (Verified Allergy, Unknown, 08/04/18) PER UNCODED ALLERGIES trovafloxacin (Verified Allergy, Unknown, 08/01/18) Home Medication List Reviewed: Yes MUY-Klselq-Rkbqbb Hx Patient Social History Marital Status: Alcohol Use: Denies Use Recreational Drug Use: No Smoking Status: Never a Smoker 2nd Hand Smoke Exposure: No Recent Foreign Travel: No Recent Infectious Disease Expo: Yes (COVID) Recent Hopitalizations: No Immunizations Up To Date Date of Pneumonia Vaccine: Dec 18, 2019 Date of Influenza Vaccine: Jan 23, 2018 Past Medical History Discussed below Family Medical History Family History: Cardiovascular disease 19 FATHER G8 SISTER Review of Systems-General Review of Systems Constitutional: see HPI, dizziness, weakness, other (syncope) EENTM: see HPI, no symptoms reported Respiratory: see HPI, cough, dyspnea on exertion; No hemoptysis; orthopnea; No phlegm; short of breath; No stridor, No wheezing, No other Cardiovascular: see HPI; No chest pain, No edema, No Hx of Intervention, No palpitations; syncope; No vascular heart diseas, No other Gastrointestinal: see HPI, abdominal pain, diarrhea, nausea Genitourinary: no symptoms reported, see HPI Musculoskeletal: see HPI, back pain, joint pain, muscle pain Skin: no symptoms reported, see HPI Psychiatric/Neurological: No Symptoms Reported, See HPI Reviewed Test Results Reviewed Test Results Lab Laboratory Tests Test 03/25/20 15:54 03/25/20 20:31 03/26/20 05:13 03/26/20 08:54 Range/Units Glucometer 204 H 196 H 169 H 70-110 MG/DL Urine Color YELLOW Urine Clarity CLEAR Urine pH 6.0 5-9 Urine Specific [place] 1.015 L 1.016-1.022 Urine Protein 1+ H NEGATIVE Urine Glucose (UA) NEGATIVE NEGATIVE Urine Ketones NEGATIVE NEGATIVE Urine Nitrite NEGATIVE NEGATIVE Urine Bilirubin NEGATIVE NEGATIVE Urine Urobilinogen 0.2 < = 1.0 MG/DL Urine Leukocyte Esterase 2+ H NEGATIVE Urine RBC (Auto) NEGATIVE NEGATIVE Urine RBC NONE /HPF Urine WBC 25-50 H /HPF Urine Squamous Epithelial Cells 5-10 /HPF Urine Renal Epithelial Cells 5-10 /HPF Urine Crystals NONE /LPF Urine Bacteria MODERATE H /HPF Urine Casts PRESENT /LPF Urine Granular Casts 5-10 H /LPF Urine Mucus NEGATIVE /LPF Urine Culture Indicated YES Test 03/26/20 09:38 03/26/20 11:02 Range/Units White Blood Count 15.3 H 4.3-11.0 10^3/uL Red Blood Count 4.63 3.80-5.11 10^6/uL Hemoglobin 13.2 11.5-16.0 g/dL Hematocrit 40 35-52 % Mean Corpuscular Volume 87 80-99 fL Mean Corpuscular Hemoglobin 29 25-34 pg Mean Corpuscular Hemoglobin Concent 33 32-36 g/dL Red Cell Distribution Width 14.0 10.0-14.5 % Platelet Count 231 130-400 10^3/uL Mean Platelet Volume 9.5 9.0-12.2 fL Immature Granulocyte % (Auto) 1 % Neutrophils (%) (Auto) 71 42-75 % Lymphocytes (%) (Auto) 18 12-44 % Monocytes (%) (Auto) 10 0-12 % Eosinophils (%) (Auto) 1 0-10 % Basophils (%) (Auto) 0 0-10 % Neutrophils # (Auto) 10.9 H 1.8-7.8 10^3/uL Lymphocytes # (Auto) 2.7 1.0-4.0 10^3/uL Monocytes # (Auto) 1.5 H 0.0-1.0 10^3/uL Eosinophils # (Auto) 0.1 0.0-0.3 10^3/uL Basophils # (Auto) 0.0 0.0-0.1 10^3/uL Immature Granulocyte # (Auto) 0.1 0.0-0.1 10^3/uL Sodium Level 124 *L 135-145 MMOL/L Potassium Level 3.7 3.6-5.0 MMOL/L Chloride Level 95 L 98-107 MMOL/L Carbon Dioxide Level 16 L 21-32 MMOL/L Anion Gap 13 5-14 MMOL/L Blood Urea Nitrogen 25 H 7-18 MG/DL Creatinine 1.18 0.60-1.30 MG/DL Estimat Glomerular Filtration Rate 47 BUN/Creatinine Ratio 21 Glucose Level 241 H 70-105 MG/DL Calcium Level 9.2 8.5-10.1 MG/DL Glucometer 200 H 70-110 MG/DL Physical Exam Physical Exam Vital Signs Vital Signs - First Documented 03/24/20 12:05 Temp 37.9 Pulse 54 Resp 20 B/P (MAP) 118/78 (91) Pulse Ox 96 O2 Delivery Room Air Capillary Refill : Less Than 3 Seconds Height, Weight, BMI Height: 5'3.00" Weight: 211lbs. 0.0oz. 95.208138do; 34.49 BMI Method: General Appearance: No Apparent Distress, Anxious, Obese Eyes: Bilateral Eye Normal Inspection, Bilateral Eye PERRL, Bilateral Eye EOMI HEENT: PERRL/EOMI, Pharynx Normal Neck: Normal Inspection, Supple Respiratory: Lungs Clear, Normal Breath Sounds, No Respiratory Distress Cardiovascular: Regular Rate, Rhythm, No Edema, No Murmur Gastrointestinal: Normal Bowel Sounds, Non Tender, Soft Back: Normal Inspection, No CVA Tenderness Extremity: Normal Inspection, Non Tender, No Pedal Edema Neurologic/Psychiatric: Alert, Oriented x3, No Motor/Sensory Deficits Skin: Normal Color, Warm/Dry Lymphatic: No Adenopathy A/P-Cardiology Admission Diagnosis Syncope Sinus bradycardia Paroxysmal atrial fibrillation COVID-19 pneumonia Assessment/Plan Syncope, episode of bradycardia, probably combination of autonomic dysfunction and the combination of sotalol and Decadron, heart rate has improved and patient is feeling better, I restarted sotalol and I will monitor her and evaluate her tolerance and response to the medication. I will consider discontinuation of sotalol if she continued to have episodes of dizziness and bradycardia COVID-19 pneumonia, followed and managed by primary care physician Paroxysmal atrial fibrillation, had ablation procedure done in [place] with Dr. Cronin in July 2014, has been doing well and maintained on sotalol and E liquis per her welder apprentice recommendation. No further episode of atrial fibrillation were noted. Continue to monitor and will consider discontinuation of sotalol if she became bradycardic again. Chronic oral anticoagulation maintained on Eliquis, continue to monitor Hyponatremia, worsening at this time. Managed by primary care physician Mild coronary artery disease per cardiac catheterization done by Dr. Manzano in June 2013, last stress test was done in August 2018 showing no ischemia or infarct ion with normal LV function next Echocardiogram done in August 2018 showing ejection fraction 55-65 percent, mildly dilated left atrium, mild MR, PA pressure 25 mmHg. Hypertension, blood pressure is controlled at this time. Continue on current medication monitor Obesity with BMI of approx 34 Hypothyroidism, being treated with thyroid replacement therapy. Diagnosed with iatrogenic hyperthyroidism in July 2013 Breast CA with h/o bilat mastectomies and subsequent chemo and radiation in 2005- Anxiety and depression, controlled H/o gestational diabetes and DM II, diet-controlled Hyperlipidemia - followed by her PCP H/o partial colectomy for Hirschsprung's disease H/o chronic hypokalemia of undetermined etiology, managed by her care physician SHLOMO, history of bilateral TKR, having knee pain since her syncopal episode and fall. Obstructive sleep apnea per sleep study on 10-08-2013 previously treated with CPAP and managed by Dr Malin , her career and technology education teacher; however has been unable to tolerate CPAP and has only been using oxygen at night Hemiplegic migraine diagnosed during an admission in May 2014 at [place], [place], being followed by her neurologist, Dr Stephens, in [place] No evidence of significant carotid dz on u/s of August 2018 Clinical Quality Measures DVT/VTE Risk/Contraindication: Risk Factor Score Per Nursin RFS Level Per Nursing on Admit: 1=Low/No VTE PPX MARY BUENO MD Mar 26, 2020 11:54 am
[2020-03-26 12:13] VITALS: BP 121/77
[2020-03-26] MEDS ORDERED: NS IV 1000 ML 1,000 ML IV SCH (13:15)
--- NOTE | 2020-03-26 14:14 | Occupational Ther Daily Note ---
OT Current Status-Daily Note Subjective Pt AxO, side-lying in bed. States 7/10 pain in bilateral feet. Pt agrees to OT. Nursing present. Mental Status/Objective Patient Orientation: Person, Place, Situation, Normal For Age ADL-Treatment Therapy Code Descriptions/Definitions Functional [place] Measure: 0=Not Assessed/NA 4=Minimal Assistance 1=Total Assistance 5=Supervision or Setup 2=Maximal Assistance 6=Modified [place] 3=Moderate Assistance 7=Complete IndependenceSCALE: Activities may be completed with or without assistive devices. 6-Gszgfsogzl-ymdpaty completes the activity by him/herself with no assistance from a helper. 5-Set-up or Clean-up Assistance-helper sets up or cleans up; patient completes activity. Wendel assists only prior to or following the activity. 4-Supervision or Touching Assistance-helper provides verbal cues and/or touching/steadying and/or contact guard assistance as patient completes activity. Assistance may be provided throughout the activity or intermittently. 3-Partial/Moderate Assistance-helper does LESS THAN HALF the effort. Wendel l ifts, holds or supports trunk or limbs, but provides less than half the effort. 2-Substantial/Maximal Assistance-helper does MORE THAN HALF the effort. Wendel lifts or holds trunk or limbs and provides more than half the effort. 4-Dorrtwkqr-cbrcok does ALL the effort. Patient does none of the effort to complete the activity. Or, the assistance of 2 or more helpers is required for t he patient to complete the activity. If activity was not attempted, code reason: 7-Patient Refused. 9-Not Applicable-not attempted and the patient did not perform the activity before the current illness, exacerbation or injury. 10-Not Attempted due to Environmental Limitations-(lack of equipment, weather restraints, etc.). 88-Not Attempted due to Medical Conditions or Safety Concerns. Eating (QC): 6 Toileting Hygiene (QC): 5 (s/u) Toilet Transfer (QC): 4 (CGA, use of walker.) Other Treatment Pt bed mob supine to sit with SBA. States dizziness EOB. Stands upon no more complaint with CGA. Ambulates slowly to commode, sits with control. Pt states 10/10 pain in bilateral feet while in stance. Pt completes urination/ cleansing with s/u. Pt sit to stand with CGA and increased time. Pt desires to take walk, ambulates ~10 feet and then sits in recliner. Pt left with nursing with all needs met, call light in reach, blanket donned. Education OT Patient Education: Correct positioning, Progress toward Goal/Update tx plan, Purpose of tx/functional activities, Safety issues Teaching Recipient: Patient Teaching Methods: Demonstration, Discussion Response to Teaching: Verbalize Understanding, Return Demonstration OT Short Term Goals Short Term Goals Time Frame: Apr 01, 2020 Eatin Oral hygiene: 4 Toileting hygiene: 4 Shower/bathe self: 3 Upper body dressin Lower body dressin Putting on/taking off footwear: 3 OT Explosive Ordnance Disposal Technician Goals Correction Goals Time Frame: Apr 08, 2020 Eating (QC): 6 Oral Hygiene (QC): 6 Toileting Hygiene (QC): 6 Shower/Bathe Self (QC): 4 Upper Body Dressing (QC): 6 Lower Body Dressing (QC): 6 On/Off Footwear (QC): 6 Additional Goals: 1-Demonstrate ADL Tasks, 2-Verbalize Understanding, 3- ImproveStrength/[place] 1=Demonstrate adherence to instructed precautions during ADL tasks. 2=Patient will verbalize/demonstrate understanding of assistive devices/modifications for ADL. 3=Patient will improve strength/tolerance for activity to enable patient to perform ADL's. OT Education/Plan Problem List/Assessment Assessment: Decreased Activ Tolerance, Decreased UE Strength, Dependent Transfers, Impaired I ADL's, Impaired Self-Care Skills Discharge Recommendations Plan/Recommendations: Continue POC Therapy Discharge Recommendati: Home & Family, Post Acute PT Treatment Plan/Plan of Care Treatment,Training & Education: Yes Patient would benefit from OT for education, treatment and training to promote independence in ADL's, mobility, safety and/or upper extremity function for ADL's. Plan of Care: ADL Retraining, Functional Mobility, UE Funct Exercise/Act Treatment Duration: Apr 08, 2020 Frequency: 5 times per week Estimated Hrs Per Day: .25 hour per day Agreement: Yes Rehab Potential: Fair Time/GCodes Start Time: 13:37 Stop Time: 13:50 Total Time Billed (hr/min): 13 Billed Treatment Time 1, ADL (13) SHAHEED DE ANDA OTR Mar 26, 2020 14:14
--- NOTE | 2020-03-26 14:59 | Progress Note - Hospitalist ---
Subjective HPI/CC On Admission Date Seen by Provider: Mar 26, 2020 Time Seen by Provider: 10:20 Leslie Beth is a 51-year-old female with past medical history of paroxysmal atrial fibrillation, chronic kidney disease, hypothyroidism, anxiety, depression, diabetes, who presented after a syncopal episode. She reports that she had a fall. She is reporting left foot pain. She says she is unable to walk. She denies any other syncopal episodes. She denies any lightheadedness or dizziness. She does take sotalol. She reports compliance with this medication and has not taken any extra doses. She was diagnosed with COVID about 10 days ago. She completed a course of dexamethasone and an antibiotic as an outpatient. She denies any fevers. She denies any shortness of breath. She denies any chest pain. Subjective/Events-last exam She is feeling better. She has been up in her chair. She has been able to walk a bit today with physical therapy. She denies any lightheadedness or dizziness. She is not having any chest pain or palpitations. She denies any shortness of breath or cough. Objective Exam Vital Signs Vital Signs Date Time Temp Pulse Resp B/P (MAP) Pulse Ox O2 Delivery O2 Flow Rate FiO2 03/26/20 12:13 36.4 67 20 121/77 (92) 96 Room Air Capillary Refill : Less Than 3 Seconds General Appearance: No Apparent Distress, Obese Respiratory: Lungs Clear, Normal Breath Sounds, No Respiratory Distress Cardiovascular: Regular Rate, Rhythm, No Edema, No Murmur Gastrointestinal: Normal Bowel Sounds, Non Tender, Soft Extremity: Normal Inspection, Non Tender, No Pedal Edema Neurologic/Psychiatric: Alert, Oriented x3, No Motor/Sensory Deficits, Normal Mood/Affect Skin: Normal Color, Warm/Dry Results/Procedures Lab Laboratory Tests 03/26/20 09:38 Patient resulted labs reviewed. Imaging: Reviewed Imaging Report Assessment/Plan Assessment and Plan Assess & Plan/Chief Complaint Symptomatic bradycardia Steroid-induced bradycardia Adverse effect of beta-judy Paroxysmal atrial fibrillation Cardiology consulted, appreciate assistance Likely due to Decadron and Sotalol combination Decadron course completed Resuming Sotalol Continue Eliquis Hyponatremia Na 124, down from 130 Give 1 L normal saline Obtain urine studies Fluid restriction Repeat BMP this afternoon PNA WBC trending down CXR with right lower lobe consolidation Procal normal Continue Rocephin CKD Cr 1.18, apprears to be at baseline Continue to monitor Hypothyroidism Anxiety Depression T2DM Continue home meds Obesity Clinically significant, no acute management needs DVT Prophylaxis: already receiving therapeutic anticoagulation Diagnosis/Problems Diagnosis/Problems (1) Symptomatic bradycardia Status: Acute (2) Steroid-induced bradycardia Status: Acute (3) Adverse effect of beta-judy Status: Acute Qualifiers: Encounter type: initial encounter Qualified Codes: T44.7X5A - Adverse effect of beta-adrenoreceptor antagonists, initial encounter (4) Atrial fibrillation Status: Chronic Qualifiers: Atrial fibrillation type: paroxysmal Qualified Codes: I48.0 - Paroxysmal atrial fibrillation (5) PNA (pneumonia) Status: Acute (6) CKD (chronic kidney disease) Status: Chronic Qualifiers: Chronic kidney disease stage: stage 3 (moderate) Qualified Codes: N18.3 - Chronic kidney disease, stage 3 (moderate) (7) Hypothyroidism Status: Chronic (8) Anxiety and depression Status: Chronic (9) T2DM (type 2 diabetes mellitus) Status: Chronic Qualifiers: Diabetes mellitus [facility] insulin use: without termite technician use (10) Obesity Status: Chronic (11) Multiple drug allergies Status: Chronic (12) Hyponatremia Clinical Quality Measures DVT/VTE Risk/Contraindication: Risk Factor Score Per Nursin RFS Level Per Nursing on Admit: 1=Low/No VTE PPX ROSHAN EASON MD Mar 26, 2020 14:59
--- NOTE | 2020-03-26 15:48 | NUR ---
Contacted pt by phone who reports she lives with a daughter who has Multiple Sclerosis and since pt's hospitalization her older daughter has been checking on her. 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 Currently pt complains of feeling very weak and states when she walks her pain is rated as a 10. Her pain was a result of a fall that occurred on the date of admission. Her pain radiates from her knee to her feet. She has history of Left Breast Cancer BRCA1 mutation and underwent adjuvant chemotherapy,left modified mastectomy with auxiliary lymph node dissection and rt.simple mastectomy in 2005. She completed chemotherapy and chest wall radiation in 2006.She receives surveillance follow[facility]. Pt states that she is barely able to care for herself and is hoping her older daughter can provide her intermittent assistance. She has a front wheel walker at home and doesn't think Home Health would be necessary.Advised pt would check on her in the morning to see if she was feeling better.
[2020-03-26 16:18] VITALS: BP 108/84
[2020-03-26 16:29] LABS: POTASSIUM 3.8 MMOL/L (3.6-5.0)
[2020-03-26 16:30] LABS: CALCIUM 8.2 MG/DL (8.5-10.1)
[2020-03-26 16:35] LABS: CREATININE SERUM 1.08 MG/DL (0.60-1.30)
[2020-03-26 20:25] VITALS: BP 105/68
[2020-03-26] MEDS: cefTRIAXone 1,000 MG/SWFI 10 ML IV PUSH IV SCH ×2 (20:58)
[2020-03-26] MEDS: NS IV 1000 ML 1,000 ML IV SCH (20:59)
[2020-03-27] VITALS: BP 125/59
[2020-03-27 03:57] VITALS: BP 105/52
[2020-03-27] MEDS: inSUlin ASPART (NovoLOG) 1 UNIT/0.01 ML (CHARGE PER UNIT) SC SCH ×2 (05:26→11:25)
[2020-03-27] MEDS: LEVOTHYROXINE 25 MCG (LEVOTHROID) TAB PO SCH (05:40)
[2020-03-27] MEDS: metFORMIN 500 MG (GLUCOPHAGE) TAB PO SCH (05:41)
[2020-03-27] MEDS: NS IV 1000 ML 1,000 ML IV SCH (05:43)
[2020-03-27 07:11] LABS: BASOPHILS % (AUTO) 0 % (0-10); EOSINOPHILS # (AUTO) 0.2 10^3/uL (0.0-0.3); EOSINOPHILS % (AUTO) 2 % (0-10); HEMATOCRIT 35 % (35-52); HEMOGLOBIN 11.3 g/dL (11.5-16.0); LYMPHOCYTES # (AUTO) 1.7 10^3/uL (1.0-4.0); LYMPHOCYTES % (AUTO) 19 % (12-44); MEAN CORPUSCULAR HEMOGLOBIN 29 pg (25-34); MEAN CORPUSCULAR HGB CONC 32 g/dL (32-36); MEAN CORPUSCULAR VOLUME 90 fL (80-99); MEAN PLATELET VOLUME 9.7 fL (9.0-12.2); MONOCYTES # (AUTO) 0.7 10^3/uL (0.0-1.0); MONOCYTES % (AUTO) 8 % (0-12); NEUTROPHILS # (AUTO) 6.2 10^3/uL (1.8-7.8); NEUTROPHILS % (AUTO) 70 % (42-75); PLATELET COUNT 166 10^3/uL (130-400); WHITE BLOOD COUNT 8.9 10^3/uL (4.3-11.0)
[2020-03-27 07:37] LABS: BUN/CREATININE RATIO 24; CALCIUM 8.3 MG/DL (8.5-10.1); CARBON DIOXIDE 18 MMOL/L (21-32); CHLORIDE 104 MMOL/L (98-107); CREATININE SERUM 0.92 MG/DL (0.60-1.30); GFR ESTIMATED > 60; GLUCOSE 152 MG/DL (70-105); POTASSIUM 3.7 MMOL/L (3.6-5.0); SODIUM 133 MMOL/L (135-145)
[2020-03-27 08:00] VITALS: BP 161/76
[2020-03-27] MEDS: SENNOSIDES 8.6 MG (SENOKOT) TAB PO SCH (08:33)
[2020-03-27] MEDS: SOTALOL 80 MG (BETAPACE) TAB PO SCH (08:33)
[2020-03-27] MEDS: APIXABAN 5 MG (ELIQUIS) TABLET PO SCH (08:33)
[2020-03-27] MEDS: DOCUSATE SODIUM 100 MG (COLACE) CAP PO SCH (08:33)
[2020-03-27 11:21] VITALS: BP 104/52
[2020-03-27] MEDS ORDERED: CEFD300C3 PO (11:43)
[2020-03-27 12:30] VITALS: BP 104/52
--- NOTE | 2020-03-27 12:40 | NUR ---
EMILIANO PANG demonstrates understanding of discharge instructions and accurately returns instructions upon questioning. Copy of Post-Discharge Instructions and Medication Discharge Instructions given to patient. EMILIANO PANG is able to manage continuing needs after discharge. Patients belongings returned to patient. Skin dry and intact; no breakdown noted. Patient discharged from [facility]- on 03/27/20 at 1240. EMILIANO PANG left floor via wheelchair, accompanied by staff.
--- NOTE | 2020-03-30 14:16 | Discharge Summary ---
Discharge Summary Hospital Course Was the Problem List Reviewed?: Yes Problems/Dx: (1) Symptomatic bradycardia Status: Acute (2) Steroid-induced bradycardia Status: Acute (3) Adverse effect of beta-judy Status: Acute Qualifiers: Qualified Codes: T44.7X5A - Adverse effect of beta-adrenoreceptor antagonists, initial encounter (4) Atrial fibrillation Status: Chronic Qualifiers: Qualified Codes: I48.0 - Paroxysmal atrial fibrillation (5) PNA (pneumonia) Status: Acute (6) CKD (chronic kidney disease) Status: Chronic Qualifiers: Qualified Codes: N18.3 - Chronic kidney disease, stage 3 (moderate) (7) Hypothyroidism Status: Chronic (8) Anxiety and depression Status: Chronic (9) T2DM (type 2 diabetes mellitus) Status: Chronic Qualifiers: (10) Obesity Status: Chronic (11) Multiple drug allergies Status: Chronic (12) Hyponatremia Hospital Course Date of Admission: Mar 24, 2020 at 16:30 Admission Diagnosis : Symptomatic bradycardia Family Physician/Provider: Annie Villareal MD Date of Discharge: 03/27/20 Discharge Diagnosis: Syncope due to symptomatic bradycardia caused by medic ation and orthostatic hypotension Hospital Course: Leslie Beth is a 59-year-old female who presented with syncope. She had been diagnosed with COVID above a week and a half before. She had just completed a course of Decadron. She has also been on sotalol for atrial fibrillation. She was very bradycardic on arrival. Her sotalol was held. Her heart rate came up appropriately. Cardiology was consulted and assisted with her care. She and then on her sotalol for years prior. She was restarted on her sotalol without issue. Her course was complicated by hypovolemic hyponatremia which resolved with IV fluids. This likely contributed to her syncope as well. Her course was complicated by some perplexing pain symptoms. She had issues in her feet and legs. X-rays were negative. This resolved prior to her discharge. There is also concern for a bacterial pneumonia and she was given a course of Omnicef. She should follow-up with her primary care physician in a week or two. Labs and Pending Lab Test: Microbiology 03/26/20 Urine Culture - Final, Complete NO GROWTH Home Meds Active Cefdinir 300 Mg Capsule 300 Mg PO BID 5 Days Reported Magnesium (Magnesium Oxide) 400 Mg Tablet 400 Mg PO DAILY Vitamin D3 (Cholecalciferol (Vitamin D3)) 25 Mcg Capsule 25 Mcg PO DAILY Potassium Chloride 10 Meq Tab.er.prt 10 Meq PO DAILY Levothyroxine Sodium 100 Mcg Tablet 100 Mcg PO DAILY Allopurinol 100 Mg Tablet 200 Mg PO DAILY TAKES 2 (100MG) TABS Glipizide 5 Mg Tablet 2.5 Mg PO DAILY TAKES (5MG) TAB Vitamin B-12 (Cyanocobalamin (Vitamin B-12)) 500 Mcg Tablet 500 Mcg PO DAILY Sotalol (Sotalol HCl) 80 Mg Tablet 80 Mg PO BID Eliquis (Apixaban) 5 Mg Tablet 5 Mg PO BID Citalopram HBr (Citalopram Hydrobromide) 40 Mg Tablet 40 Mg PO HS Omeprazole 20 Mg Capsule.dr 20 Mg PO DAILY Metformin HCl 1,000 Mg Tablet 1,000 Mg PO BID Simvastatin 10 Mg Tablet 10 Mg PO HS Assessment/Pt Instructions take medications as prescribed. Follow-up with your primary care physician. Return with worsening lightheadedness, dizziness, or if you feel like you're getting worse. Discharge Planning: <30 minutes discharge planning Discharge Instructions Discharge Diet: No Restrictions Activity as Tolerated: Yes Consultations Cardiology Discharge Physical Examination Vital Signs Vital Signs Date Time Temp Pulse Resp B/P (MAP) Pulse Ox O2 Delivery O2 Flow Rate FiO2 03/27/20 12:30 36.3 63 18 104/52 96 Room Air Allergies: Coded Allergies: diphenhydramine (Verified Allergy, Unknown, 08/01/18) fluticasone (Verified Allergy, Unknown, 08/04/18) PER UNCODED ALLERGIES hylan G-F 20 (Verified Allergy, Unknown, 08/01/18) latex (Verified Allergy, Unknown, 08/01/18) morphine (Verified Allergy, Unknown, 08/01/18) salmeterol (Verified Allergy, Unknown, 08/04/18) PER UNCODED ALLERGIES trovafloxacin (Verified Allergy, Unknown, 08/01/18) Copy Copies To 1: ANNIE VILLAREAL MD Discharge Summary Date of Admission Mar 24, 2020 at 16:30 Date of Discharge Mar 27, 2020 at 12:40 Discharge Date: Mar 27, 2020 Discharge Time: 12:40 Admission Diagnosis Symptomatic bradycardia Consults/Procedures Consulations Cardiology Discharge Diagnosis Symptomatic bradycardia (1) Symptomatic bradycardia Status: Acute (2) Steroid-induced bradycardia Status: Acute (3) Adverse effect of beta-judy Status: Acute Qualifiers: Qualified Codes: T44.7X5A - Adverse effect of beta-adrenoreceptor antagonists, initial encounter (4) Atrial fibrillation Status: Chronic Qualifiers: Qualified Codes: I48.0 - Paroxysmal atrial fibrillation (5) PNA (pneumonia) Status: Acute (6) CKD (chronic kidney disease) Status: Chronic Qualifiers: Qualified Codes: N18.3 - Chronic kidney disease, stage 3 (moderate) (7) Hypothyroidism Status: Chronic (8) Anxiety and depression Status: Chronic (9) T2DM (type 2 diabetes mellitus) Status: Chronic Qualifiers: (10) Obesity Status: Chronic (11) Multiple drug allergies Status: Chronic (12) Hyponatremia Clinical Quality Measures DVT/VTE Risk/Contraindication: Risk Factor Score Per Nursin RFS Level Per Nursing on Admit: 1=Low/No VTE PPX ROSHAN EASON MD Mar 30, 2020 14:14
== END 2020-03-27 11:42 | disposition home or self-care (01) ==
LOC: EDUNIT# 11:58 → ER FS 12:00 → 4TH 16:15 → UNDOADMOB 16:30 → 4TH 16:30 → UNDODISOB 03-27 12:40
PROVIDERS: ADMIT Internal Medicine; ATTEND Internal Medicine
DX: R00.1 Bradycardia, unspecified (principal); T44.7X5A Adverse effect of beta-adrenoreceptor antagonists, initial encounter; I48.0 Paroxysmal atrial fibrillation; J18.9 Pneumonia, unspecified organism; N18.30 Chronic kidney disease, stage 3 unspecified; E11.22 Type 2 diabetes mellitus with diabetic chronic kidney disease; E03.9 Hypothyroidism, unspecified; F41.9 Anxiety disorder, unspecified; F32.9 Major depressive disorder, single episode, unspecified; E66.9 Obesity, unspecified; E87.1 Hypo-osmolality and hyponatremia; E78.00 Pure hypercholesterolemia, unspecified; G43.909 Migraine, unspecified, not intractable, without status migrainosus; K21.9 Gastro-esophageal reflux disease without esophagitis; Z79.01 Long term (current) use of anticoagulants; Z79.899 Other long term (current) drug therapy; Z91.040 Latex allergy status; Z88.8 Allergy status to other drugs, medicaments and biological substances; Z90.710 Acquired absence of both cervix and uterus; Z92.21 Personal history of antineoplastic chemotherapy
CPT/HCPCS: 36415; 71045; 73562 ×2; 73630; 80048 ×2; 80053 ×2; 81000; 82570; 82962 ×3; 83880; 83935; 84145; 84300; 84484; 85007; 85025 ×3; 85027; 87088; 93005 ×3; 96361; 96374; 96375; 97162; 97167; 97530; 97535; 99284; G0378

== ENCOUNTER → 2020-06-16 | Outpatient (CLI) | payer MEDICARE ==
[~2020-06-16] MED LIST changes: +ALLO100T PO; +CEFD300C3 PO; +CHOL100048 PO; -CYAN500T64 PO; +CYAN500T8 PO; +GLIP5TAB13 PO; +LEVO100T7 PO; +MAGN400T39 PO; +MONT10TA32 PO; -MONT10TA97 PO; +POTA10TA36 PO
== END ==
LOC: CARD 11:57
PROVIDERS: ATTEND Nurse Practitioner Family
DX: I48.0 Paroxysmal atrial fibrillation (principal)
CPT/HCPCS: 93225; 93226

== ENCOUNTER → 2020-07-25 | Outpatient (CLI) | payer MEDICARE, OTHER ==
[~2020-07-25] MED LIST changes: +CATHETER FLUSH 10 ML SYR IV PRN; +HOLD METFORMIN - RECEIVED CONTRAST 20 ML VIAL IV SCH; +IOHEXOL 350 MG/ML 100 ML (OMNIPAQUE 350) VIAL IV ONE; +NS 100 ML (IVPB) BAG IV ONE; +RT-ALBUTEROL SULF 2.5 MG/3 ML PRE-MIX VIAL INH ONE
[2020-07-25 07:46] LABS: CREATININE SERUM 1.03 MG/DL (0.60-1.30)
--- NOTE | 2020-07-25 09:35 | Diagnostic Imaging Report ---
EXAMINATION: CT Chest with intravenous contrast. TECHNIQUE: Multiple contiguous axial images were obtained through the chest after the uneventful administration of intravenous contrast. All CT scans use one or more of the following dose optimizing techniques: automated exposure control, MA and/or KvP adjustment based on a patient size and exam type, or iterative reconstruction. HISTORY: Dyspnea COMPARISON: CT chest 07/09/2016 FINDINGS: Thyroid: The thyroid is normal. Mediastinum: Heart size is normal without significant pericardial effusion. The aorta is normal in caliber. No suspicious lymphadenopathy. Lungs and airways: There is no consolidation, pleural effusion, or pneumothorax. Minimal scarring within the medial right upper lobe. There is a calcified granuloma within the subpleural right lower lobe. There is a 0.3 cm left lower lobe pulmonary nodule which is slightly increased in size from 07/09/2016. There is a 0.2 cm pulmonary nodule within the inferior left upper lobe which is unchanged from 07/09/2016. The airways are normal. Upper abdomen: The gallbladder is surgically absent. Musculoskeletal: Degenerative changes of the spine without suspicious osseous lesion or compression fracture. IMPRESSION: 1. No acute abnormality in the chest. 2. Minimally increased size of a 0.3 cm left lower lobe pulmonary nodule. Consider a dedicated follow-up CT of the chest in 6-12 months. Additional left upper lobe 0.2 cm pulmonary nodule is unchanged. Dictated by: Dictated on workstation # [id number]
== END ==
LOC: RT 08:00
PROVIDERS: ATTEND Nurse Practitioner Family
DX: J45.909 Unspecified asthma, uncomplicated (principal); R91.8 Other nonspecific abnormal finding of lung field
CPT/HCPCS: 36415; 71260; 82565; 84520; 94060; 94726; 94729

== ENCOUNTER → 2020-07-30 | Outpatient (CLI) | payer MEDICARE ==
[~2020-07-30] MED LIST changes: -CATHETER FLUSH 10 ML SYR IV PRN; +GADOBUTROL 10 MMOL/10 ML (GADAVIST) VIAL IV ONE; -HOLD METFORMIN - RECEIVED CONTRAST 20 ML VIAL IV SCH; -IOHEXOL 350 MG/ML 100 ML (OMNIPAQUE 350) VIAL IV ONE; -NS 100 ML (IVPB) BAG IV ONE; -RT-ALBUTEROL SULF 2.5 MG/3 ML PRE-MIX VIAL INH ONE
--- NOTE | 2020-07-30 12:37 | Diagnostic Imaging Report ---
PROCEDURE: MR imaging of the brain with and without contrast. TECHNIQUE: Multiplanar, multisequence MR imaging of the brain was performed with and without contrast. INDICATION: Dizziness and headache with unstable gait. COMPARISON: Comparison is made with prior MRI of the brain from 12/20/2019. FINDINGS: Ventricles and sulci are within normal limits. Occasional periventricular white matter changes are noted, consistent with chronic microvascular ischemia. This is similar to prior MRI. There is no midline shift. No acute intra-axial or extra-axial hemorrhage is detected. No diffusion restriction is identified to suggest acute ischemia. The normal expected flow-voids within the carotid siphons are noted. No abnormal enhancement is identified following contrast administration. Corpus callosum is unremarkable. The sella and parasellar structures are unremarkable. IMPRESSION: Stable MRI of the brain with and without contrast when compared with exam from 12/20/2019. Mild changes of chronic microvascular ischemia are noted. No acute intracranial process is detected. Dictated by: Dictated on workstation # [id number]
== END ==
LOC: RAD 10:14
PROVIDERS: ATTEND Nurse Practitioner Family
DX: I67.82 Cerebral ischemia (principal); G43.809 Other migraine, not intractable, without status migrainosus; Z86.16 Personal history of COVID-19
CPT/HCPCS: 70553

== ENCOUNTER → 2020-09-02 | Outpatient (CLI) | payer MEDICARE ==
[~2020-09-02] MED LIST changes: -GADOBUTROL 10 MMOL/10 ML (GADAVIST) VIAL IV ONE
[2020-09-02 14:19] LABS: BASOPHILS # (AUTO) 0.1 10^3/uL (0.0-0.1); BASOPHILS % (AUTO) 1 % (0-10); EOSINOPHILS # (AUTO) 0.4 10^3/uL (0.0-0.3); EOSINOPHILS % (AUTO) 2 % (0-10); HEMATOCRIT 37 % (35-52); HEMOGLOBIN 12.6 g/dL (11.5-16.0); LYMPHOCYTES # (AUTO) 4.5 X 10^3 (1.0-4.0); LYMPHOCYTES % (AUTO) 24 % (12-44); MEAN CORPUSCULAR HEMOGLOBIN 29 pg (25-34); MEAN CORPUSCULAR HGB CONC 34 g/dL (32-36); MEAN CORPUSCULAR VOLUME 86 fL (80-99); MEAN PLATELET VOLUME 8.9 fL (9.0-12.2); MONOCYTES # (AUTO) 1.1 X 10^3 (0.0-1.0); MONOCYTES % (AUTO) 6 % (0-12); NEUTROPHILS # (AUTO) 12.3 X 10^3 (1.8-7.8); NEUTROPHILS % (AUTO) 66 % (42-75); PLATELET COUNT 357 10^3/uL (130-400); WHITE BLOOD COUNT 18.6 10^3/uL (4.3-11.0)
[2020-09-02 14:41] LABS: BAND NEUTROPHILS 1 %; EOSINOPHILS % (MANUAL) 1 %; LYMPHOCYTES % (MANUAL) 25 %; MONOCYTES % (MANUAL) 4 %; NEUTROPHILS % (MANUAL) 69 %
[2020-09-02 14:42] LABS: RBC MORPH NORMAL
--- NOTE | 2020-09-02 16:55 | Diagnostic Imaging Report ---
INDICATION: Lower respiratory infection, shortness of breath PA and lateral chest Heart size and pulmonary vascularity are normal. Lungs are clear. There are no effusions or pneumothoraces. IMPRESSION: Negative chest. Dictated by: Dictated on workstation # [id number]
== END ==
LOC: RAD 13:54
PROVIDERS: ATTEND Nurse Practitioner Family
DX: J44.9 Chronic obstructive pulmonary disease, unspecified (principal)
CPT/HCPCS: 36415; 71046; 85007; 85027

== ENCOUNTER → 2020-10-13 | Outpatient (CLI) | payer MEDICARE ==
[2020-10-14 07:00] LABS: ALTERNARIA MOLD RAST <0.10 kU/L (0.00-0.09); RAGWEED RAST <0.10 kU/L (0.00-0.09)
== END ==
LOC: LAB 09:03
PROVIDERS: ATTEND Nurse Practitioner Family
DX: J30.9 Allergic rhinitis, unspecified (principal)
CPT/HCPCS: 36415; 82785; 86003

== ENCOUNTER → 2020-10-13 | Outpatient (CLI) | payer MEDICARE ==
[2020-10-13 09:51] LABS: BASOPHILS # (AUTO) 0.1 10^3/uL (0.0-0.1); BASOPHILS % (AUTO) 1 % (0-10); EOSINOPHILS # (AUTO) 0.2 10^3/uL (0.0-0.3); EOSINOPHILS % (AUTO) 2 % (0-10); HEMATOCRIT 37 % (35-52); HEMOGLOBIN 12.1 g/dL (11.5-16.0); LYMPHOCYTES # (AUTO) 2.1 10^3/uL (1.0-4.0); LYMPHOCYTES % (AUTO) 18 % (12-44); MEAN CORPUSCULAR HEMOGLOBIN 29 pg (25-34); MEAN CORPUSCULAR HGB CONC 33 g/dL (32-36); MEAN CORPUSCULAR VOLUME 89 fL (80-99); MEAN PLATELET VOLUME 9.3 fL (9.0-12.2); MONOCYTES # (AUTO) 0.7 10^3/uL (0.0-1.0); MONOCYTES % (AUTO) 6 % (0-12); NEUTROPHILS # (AUTO) 8.6 10^3/uL (1.8-7.8); NEUTROPHILS % (AUTO) 74 % (42-75); PLATELET COUNT 287 10^3/uL (130-400); WHITE BLOOD COUNT 11.7 10^3/uL (4.3-11.0)
[2020-10-13 10:09] LABS: ALBUMIN 4.4 GM/DL (3.2-4.5); BILIRUBIN,TOTAL 0.5 MG/DL (0.1-1.0); CALCIUM 9.9 MG/DL (8.5-10.1); CREATININE SERUM 1.03 MG/DL (0.60-1.30); POTASSIUM 3.7 MMOL/L (3.6-5.0); TOTAL PROTEIN 7.2 GM/DL (6.4-8.2)
== END ==
LOC: ONC 09:29
PROVIDERS: ATTEND Internal Medicine Hematology & Oncology
DX: N18.30 Chronic kidney disease, stage 3 unspecified (principal); E11.69 Type 2 diabetes mellitus with other specified complication; E05.90 Thyrotoxicosis, unspecified without thyrotoxic crisis or storm; E11.9 Type 2 diabetes mellitus without complications; I48.0 Paroxysmal atrial fibrillation; E03.9 Hypothyroidism, unspecified; E78.5 Hyperlipidemia, unspecified; E78.00 Pure hypercholesterolemia, unspecified; I77.89 Other specified disorders of arteries and arterioles; J45.909 Unspecified asthma, uncomplicated; I25.10 Atherosclerotic heart disease of native coronary artery without angina pectoris; I10 Essential (primary) hypertension; Z85.3 Personal history of malignant neoplasm of breast
CPT/HCPCS: 80053; 85025; G0463; 99213

== ENCOUNTER → 2020-11-14 | Outpatient (CLI) | payer MEDICARE | LOC: CARD 09:30 | PROVIDERS: ATTEND Nurse Practitioner Family | DX: R06.09 Other forms of dyspnea (principal) | CPT/HCPCS: 93306 ==

== ENCOUNTER → 2021-01-02 | Outpatient (CLI) | payer MEDICARE, OTHER ==
[~2021-01-02] MED LIST changes: +CATHETER FLUSH 10 ML SYR IV PRN; +HOLD METFORMIN - RECEIVED CONTRAST 20 ML VIAL IV SCH; +IOHEXOL 350 MG/ML 100 ML (OMNIPAQUE 350) VIAL IV ONE; +NS 100 ML (IVPB) BAG IV ONE
[2021-01-02 08:07] LABS: CREATININE SERUM 1.11 MG/DL (0.60-1.30)
--- NOTE | 2021-01-02 09:07 | Diagnostic Imaging Report ---
EXAMINATION: CT chest with intravenous contrast. TECHNIQUE: Multiple contiguous axial images were obtained through the chest after the uneventful administration of intravenous contrast. All CT scans use one or more of the following dose optimizing techniques: automated exposure control, MA and/or KvP adjustment based on patient size and exam type or iterative reconstruction. HISTORY: Pulmonary nodule. COMPARISON: 07/25/2020 FINDINGS: There is no edema or pneumonia. No pleural effusion. No pneumothorax. The left lower lobe nodule is stable measuring 4 x 4 mm. No new nodules are seen. There is no axillary or supraclavicular lymphadenopathy. There is no mediastinal lymphadenopathy. There have been mastectomies and left axillary lymph node dissection. Heart size is normal. There are no coronary artery calcifications. No pericardial effusion. Aorta is normal in caliber. Limited views of the upper abdomen show hepatic steatosis and cholecystectomy clips. There are no suspicious osseous lesions. IMPRESSION: 1. Stable left lower lobe pulmonary nodule. An additional six-month follow-up is recommended. Dictated by: Dictated on workstation # [id number]
== END ==
LOC: RAD 07:26
PROVIDERS: ATTEND Internal Medicine Critical Care Medicine
DX: R91.1 Solitary pulmonary nodule (principal); R91.8 Other nonspecific abnormal finding of lung field
CPT/HCPCS: 36415; 71260; 82565; 84520

== ENCOUNTER → 2021-07-17 | Outpatient (CLI) | payer MEDICARE, MEDICAID ==
[~2021-07-17] MED LIST changes: -CATHETER FLUSH 10 ML SYR IV PRN; +CATHETER FLUSH 10 ML SYR IVP PRN; -CITA40TA11 PO; +CITA40TA13 PO; -HOLD METFORMIN - RECEIVED CONTRAST 20 ML VIAL IV SCH; -IOHEXOL 350 MG/ML 100 ML (OMNIPAQUE 350) VIAL IV ONE; +MONT-40 PO; -MONT10TA32 PO; -NS 100 ML (IVPB) BAG IV ONE; -POTA10TA36 PO; +POTA10TA37 PO; +REGADENOSON 0.4 MG/5 ML SYR (LEXISCAN) IV ONE
[2021-07-17 08:28] VITALS: BP 135/87
== END ==
LOC: CARD 07:30
PROVIDERS: ATTEND Nurse Practitioner Family
DX: R07.89 Other chest pain (principal)
CPT/HCPCS: 78452; 93017; A9502

== ENCOUNTER 2021-08-14 12:39 | Day surgery (SDC) | payer MEDICARE ==
[~2021-08-14] VITALS: Ht 161.3 cm; Wt 97.2 kg
[2021-08-14] VITALS (8 sets, daily range): BP systolic 125–158; BP diastolic 55–68
[~2021-08-14 12:39] MED LIST changes: -CATHETER FLUSH 10 ML SYR IVP PRN; -REGADENOSON 0.4 MG/5 ML SYR (LEXISCAN) IV ONE
[2021-08-14] MEDS ORDERED: NS IV 1000 ML 1,000 ML IV SCH ×2 (13:00→15:30)
[2021-08-14 13:21] LABS: HEMATOCRIT 42 % (35-52); MEAN CORPUSCULAR HEMOGLOBIN 28 pg (25-34); MEAN CORPUSCULAR HGB CONC 33 g/dL (32-36); MEAN CORPUSCULAR VOLUME 85 fL (80-99); MEAN PLATELET VOLUME 8.9 fL (9.0-12.2); PLATELET COUNT 275 10^3/uL (130-400); WHITE BLOOD COUNT 10.4 10^3/uL (4.3-11.0)
[2021-08-14 13:35] LABS: PROTHROMBIN TIME PATIENT 13.4 SEC (12.2-14.7)
[2021-08-14 13:47] LABS: ALANINE AMINOTRANSFERASE 19 U/L (0-55); ALBUMIN 4.8 GM/DL (3.2-4.5); ALKALINE PHOSPHATASE 143 U/L (40-136); BILIRUBIN,TOTAL 0.7 MG/DL (0.1-1.0); BUN/CREATININE RATIO 12; CALCIUM 10.1 MG/DL (8.5-10.1); CARBON DIOXIDE 21 MMOL/L (21-32); CHLORIDE 103 MMOL/L (98-107); CHOLESTEROL 159 MG/DL (< 200); CREATININE SERUM 1.02 MG/DL (0.60-1.30); GFR ESTIMATED 63; GLUCOSE 123 MG/DL (70-105); HDL CHOLESTEROL 38 MG/DL (40-60); SODIUM 139 MMOL/L (135-145); TOTAL PROTEIN 7.8 GM/DL (6.4-8.2); TRIGLYCERIDES 251 MG/DL (<150); VLDL CHOLESTEROL 50 MG/DL (5-40)
[2021-08-14] MEDS ORDERED: ALBU0.63 IH (13:48)
[2021-08-14] MEDS ORDERED: EMPA25TA PO (13:48)
[2021-08-14] MEDS ORDERED: FLUT15.845 NSEACH (13:48)
[2021-08-14] MEDS ORDERED: GABA300C PO (13:48)
[2021-08-14] MEDS ORDERED: FLUT1BLS15 IH (13:48)
[2021-08-14] MEDS ORDERED: LORA10TA7 PO (13:48)
[2021-08-14] MEDS ORDERED: MAGN500T PO (13:48)
[2021-08-14] MEDS ORDERED: BUPR-168 PO (13:48)
[2021-08-14] MEDS ORDERED: LEVO112T68 PO (13:48)
[2021-08-14] MEDS ORDERED: ALBU18HF2 INH (13:48)
[2021-08-14] MEDS ORDERED: MECL-149 PO (13:48)
[2021-08-14] MEDS ORDERED: ASPI-999 PO (13:48)
[2021-08-14] MEDS ORDERED: ALPR0.254 PO (13:48)
[2021-08-14] MEDS ORDERED: RIZA10TA37 PO (13:48)
[2021-08-14] MEDS ORDERED: MULT-593 PO (13:48)
[2021-08-14] MEDS ORDERED: HEParin (CATH LAB) 2,000 ML IV ONE (13:53)
[2021-08-14] MEDS ORDERED: NS IV 1000 ML 1,000 ML ONE (13:53)
[2021-08-14] MEDS ORDERED: LIDOCAINE 1% INJ 20 ML VIAL ONE ×2 (13:53→15:06)
[2021-08-14] MEDS ORDERED: fentaNYL INJ 100 MCG/2 ML AMP ONE (14:43)
[2021-08-14] MEDS ORDERED: MIDAZOLAM 5 MG/5 ML (VERSED) VIAL ONE (14:44)
--- NOTE | 2021-08-14 15:29 | Cardiac Procedure Note-CS/ASA ---
Pre-Procedure Note Pre-Op Procedure Note H&P Reviewed The H&P was reviewed, patient examined and no changes noted. Date H&P Reviewed: Aug 14, 2021 Time H&P Reviewed: 14:45 Conscious Sedation Pre-Proced Time 14:45 ASA Score 3 For ASA 3 and 4: Consider anesthesia and medical clearance. Also, for patients with a history of failed moderate sedation consider anesthesia. Airway Lungs Heart ASA score ASA 1: a normal healthy patient ASA 2: a patient with a mild systemic disease (mid diabetes, controlled hypertension, obesity ASA 3: a patient with a severe systemic disease that limits activity (angina, COPD, prior Myocardial infarction) ASA 4: a patient with an incapacitating disease that is a constant threat to life (CHF, renal failure) ASA 5: a moribund patient not expected to survive 24 hrs. (ruptured aneurysm) ASA 6: a declared brain- patient whose organs are being harvested. For emergent operations, add the letter E after the classification Mallampati Classification Grade 1 Sedation Plan Analgesia, Amnesia, Plan communicated to team members, Discussed options with patient/fam, Discussed risks with patient/fam The patient is an appropriate candidate to undergo the planned procedure, sedation, and anesthesia. The patient immediately re-assessed prior to indication. TORI ABEL MD FACP FAC CCDS Aug 14, 2021 15:29
[2021-08-14] MEDS ORDERED: PATIENT MAY USE OWN MEDS, ALL PO SCH (15:30)
--- NOTE | 2021-08-14 15:35 | Discharge Inst-Cardiology ---
Discharge Inst-Cardiac Discharge Medications Continued Medications: Albuterol Sulfate (Albuterol Sulfate) 0.63 Mg/3 Ml Vial.neb 1 UNIT IH Q6H PRN for SHORTNESS OF BREATH, EACH Albuterol Sulfate (Ventolin Hfa) 90 Mcg Hfa.aer.ad 2 PUFF INH Q4-6HRS PRN for SHORTNESS OF BREATH, GM Allopurinol (Allopurinol) 100 Mg Tablet 200 MG PO DAILY, TAB TAKES 2 (100MG) TABS ALPRAZolam (ALPRAZolam) 0.25 Mg Tablet 0.25 MG PO BID PRN for ANXIETY, TAB Apixaban (Eliquis) 5 Mg Tablet 5 MG PO BID, TAB Aspirin (Aspirin) 81 Mg Tab.chew 81 MG PO DAILY, TAB Bupropion HCl (Bupropion HCl) 75 Mg Tablet 150 MG PO BID, TAB TAKES 2 OF THE 75 MG TABLETS TWICE DAILY Cholecalciferol (Vitamin D3) (Vitamin D3) 25 Mcg Capsule 25 MCG PO DAILY, CAP Citalopram Hydrobromide (Citalopram HBr) 40 Mg Tablet 40 MG PO HS, TAB Cyanocobalamin (Vitamin B-12) (Vitamin B-12) 500 Mcg Tablet 500 MCG PO DAILY, TAB Empagliflozin (Jardiance) 25 Mg Tablet 25 MG PO DAILY, TAB Fluticasone Propionate (Fluticasone Propionate) 50 Mcg/Actuation [place].susp 2 SPRAYS NSEACH DAILY, SPRAY Fluticasone/Umeclidin/Vilanter (Trelegy Ellipta 200-62.5-25) 200-62.5 Blst.w.dev 1 PUFF IH DAILY Gabapentin (Neurontin) 300 Mg Capsule 300 MG PO BID, CAP Glipizide (Glipizide) 5 Mg Tablet 10 MG PO DAILY, TAB TAKES 2 OF THE 5 MG TABLETS DAILY Levothyroxine Sodium (Euthyrox) 112 Mcg Tablet 112 MCG PO DAILY, TAB Loratadine (Loratadine) 10 Mg Tablet 10 MG PO DAILY, TAB Magnesium Oxide (Magnesium Oxide) 500 Mg Tablet 500 MG PO DAILY, TAB Meclizine HCl (Meclizine HCl) 25 Mg Tablet 25 MG PO BID PRN for PRN, TAB Multivitamin with Minerals (Multiple Vitamin) 1 Each Tablet 1 EACH PO DAILY, TAB Omeprazole (Omeprazole) 20 Mg Capsule.dr 20 MG PO DAILY, CAP Potassium Chloride (Potassium Chloride) 10 Meq Tab.er.prt 10 MEQ PO DAILY, TAB Rizatriptan Benzoate (Rizatriptan) 10 Mg Tablet 10 MG PO DAILY PRN PRN for HEADACHE, TAB Simvastatin (Simvastatin) 10 Mg Tablet 10 MG PO HS, TAB Sotalol HCl (Sotalol) 80 Mg Tablet 40 MG PO BID, TAB TAKES 1/2 OF THE 80MG TABLET TWICE DAILY Discontinued Medications: Metformin HCl (Metformin HCl) 1,000 Mg Tablet 1000 MG PO BID, TAB Patient Instructions Patient Instructions: Resume Eliquis on the morning of 08/15/21 Hold METFORMIN until the morning of 08/17/21, then resume previous home dose TORI ABEL MD FACP FAC CCDS Aug 14, 2021 15:35
--- NOTE | 2021-08-14 15:36 | Discharge Inst-Post CATH ---
Discharge Inst-CATH/EP Post Cardiac Cath/EP D/C Inst Follow Up/Plan F/u with Dr Manzano next week ACTIVITY * Go Home directly and rest. * Limit activity of the leg (or wrist if it was used) for 7 days including aerobics, swimming, jogging, bicycling, etc. * Restrict stair-climbing for 7 days if possible, if not, climb up with your no n-cath leg, then bring together on the same step. * Avoid lifting, pushing, pulling or excessive movement of the affected ext remity for 7 days. * Customary sexual activity may be resumed after 2 days-use caution not to use a position that strains or causes pain to the affected extremity. * No driving for 24 hours. * NO SMOKING. * Avoid straining for bowel movements for 7 days. * Gentle walking on level ground is allowed. * Returning to work will depend on the type of procedure and the results. Your doctor will discuss this with you. CALL YOUR DOCTOR FOR ANY OF THE FOLLOWING: *If bleeding from the puncture site occurs- Apply gentle pressure to site with clean cloth and call your doctor or EMS. * If a knot or lump forms under the skin, increases in size, or causes pain. * If bruising appears to be worsening or moving further down your leg instead of disappearing. * Temperature above 101 F. CARE OF YOUR GROIN INCISION; * Bruising or purple discoloration of the skin near the puncture site is common. * You may shower only, no bathtub bathing for 5 days. Be careful to avoid slipping as your leg may feel stiff. * If a closure device was used on your femoral artery, please see the attached guide regarding care of the device and your leg. * Leave dressing on FOR 24 hours. CARE OF YOUR WRIST INCISION; * Bruising or purple discoloration of the skin near the puncture site is common. * You may shower. * DO NOT submerge wrist. * Leave dressing on FOR 24 hours. TORI MANZANO MD [facility] CCDS Aug 14, 2021 15:36
--- NOTE | 2021-08-14 16:07 | CARDIAC CATHETERIZATION ---
DATE OF SERVICE: 08/14/2021 CARDIAC CATHETERIZATION REPORT INDICATION FOR PROCEDURE: The patient is a 60-year-old lady with multiple coronary artery disease risk factors, who has been experiencing chest discomfort and whose myocardial perfusion imaging study indicated ischemia. Cardiac catheterization was carried out after having obtained an informed consent. DESCRIPTION OF PROCEDURE: She was brought to the cardiac catheterization laboratory in a fasting state. Right groin was prepared and draped in the usual sterile fashion. Lidocaine 1% was used for local anesthesia. Modified Seldinger technique was used to advance a 5-Kittitian sheath into the right femoral artery, 5-Kittitian JL4 catheter was used for left coronary angiography, 5-Kittitian JR4 catheter was used for right coronary angiography, and 5-Kittitian pigtail catheter was used for left heart catheterization and left ventricular angiography. At the end of the procedure, following removal of the diagnostic catheters, angiography of the right femoral artery was carried out through the sheath and Mynx was used to achieve hemostasis. She tolerated the procedure well. HEMODYNAMICS: Left ventricular end-diastolic pressure following coronary angiography was 13 mmHg. There was no significant pressure gradient on pullback across the aortic valve. LEFT VENTRICULAR ANGIOGRAPHY: Left ventricular angiography was carried out in the right anterior oblique projection. Global left ventricular systolic function is normal. No regional wall motion abnormalities are seen. Left ventricular ejection fraction is approximately 60%. CORONARY ANGIOGRAPHY: Left main coronary artery, left circumflex artery, left anterior descending artery, and right coronary artery do not exhibit angiographically significant coronary artery disease. Right coronary artery is dominant. CONCLUSIONS: 1. No angiographically significant coronary artery disease. 2. Normal global left ventricular systolic function with an ejection fraction of 60%. 3. Left ventricular end-diastolic pressure 13 mmHg. DISCUSSION AND RECOMMENDATIONS: Based on the results of the study, myocardial perfusion imaging appears to have been false positive. Conservative management appears appropriate. Risk factor modification was reviewed. Outpatient followup is advised. Job ID: [id number] DocumentID: [id number] Dictated Date: 08/14/2021 15:26:17 Diamond Blender Date: 08/14/2021 16:06:36 Dictated By: TORI ABEL MD, MA, FACP, FACC, MTDD
== END 2021-08-14 19:55 | disposition home or self-care (01) ==
LOC: CATH 12:39 → CSD 15:59 → CATH 19:55
PROVIDERS: ATTEND Internal Medicine Cardiovascular Disease
DX: I48.0 Paroxysmal atrial fibrillation (principal); I25.10 Atherosclerotic heart disease of native coronary artery without angina pectoris; I10 Essential (primary) hypertension; E66.9 Obesity, unspecified; E03.9 Hypothyroidism, unspecified; Z90.13 Acquired absence of bilateral breasts and nipples; F32.A Depression, unspecified; F41.9 Anxiety disorder, unspecified; E78.5 Hyperlipidemia, unspecified; M19.90 Unspecified osteoarthritis, unspecified site; G47.33 Obstructive sleep apnea (adult) (pediatric); Z99.89 Dependence on other enabling machines and devices; R94.39 Abnormal result of other cardiovascular function study; Z68.37 Body mass index [BMI] 37.0-37.9, adult; Z79.01 Long term (current) use of anticoagulants; Z79.890 Hormone replacement therapy; Z79.899 Other long term (current) drug therapy; Z85.3 Personal history of malignant neoplasm of breast; Z86.32 Personal history of gestational diabetes; Z90.49 Acquired absence of other specified parts of digestive tract; G43.809 Other migraine, not intractable, without status migrainosus
CPT/HCPCS: 80053; 80061; 85027; 85610; 85730; 87081; 93458; C1760; C1894; 36415

== ENCOUNTER 2021-08-28 04:47 | Inpatient (IN) | payer MEDICARE, MEDICAID ==
[~2021-08-28] VITALS: Ht 160 cm; Wt 96.0 kg
[~2021-08-28 04:47] MED LIST changes: +ALBU0.63 IH; +ALBU18HF2 INH; +ALPR0.254 PO; +ASPI-999 PO; +BUPR-168 PO; +EMPA25TA PO; +FLUT15.845 NSEACH; +FLUT1BLS15 IH; +GABA300C PO; +LEVO112T68 PO; +MAGN500T PO; +MECL-149 PO; +MULT-593 PO
--- NOTE | 2021-08-28 05:06 | ED Chest Pain ---
General Chief Complaint: Chest Pain Stated Complaint: CHEST PAIN Nursing Triage Note: pt presents with c/o chest pain x3days. reports the pain is epigastric and wraps around into her back. reports the pain has gotten worse over the last three days. reports she has a cardiology appointment this morning at 10am. History of Present Illness Date Seen by Provider: August 28, 2021 Time Seen by Provider: 17:05 Initial Comments 60-year-old female with PMH of CAD/AFib on Eliquis and beta-judy/HTN/diabetes mellitus type 2/asthma/gout, is here with complaints of chest pain which is mostly retrosternal, and epigastric pain radiating to the back, which has been going on for the past 3 days. Pain has been on and off and sometimes constant and 8/10 pain level on 3 days. Patient has a cardiology appointment today at 10 AM. Denies fever, nausea and vomiting, diarrhea, dizziness, cough, shortness of breath. Patient also has a history of GERD. Patient had a cath done 2 weeks ago with negative findings as per patient. Allergies and Home Medications Allergies Coded Allergies: diphenhydramine (Verified Allergy, Unknown, 08/01/18) fluticasone (Verified Allergy, Unknown, 08/04/18) PER UNCODED ALLERGIES hylan G-F 20 (Verified Allergy, Unknown, 08/01/18) latex (Verified Allergy, Unknown, 08/01/18) morphine (Verified Allergy, Unknown, 08/01/18) salmeterol (Verified Allergy, Unknown, 08/04/18) PER UNCODED ALLERGIES trovafloxacin (Verified Allergy, Unknown, 08/01/18) Patient Home Medication List Home Medication List Reviewed: Yes ALPRAZolam (ALPRAZolam) 0.25 Mg Tablet, 0.25 MG PO BID PRN for ANXIETY, (Reported) Entered as Reported by: PENNY GONZALEZ on 08/14/21 1348 Albuterol Sulfate (Albuterol Sulfate) 0.63 Mg/3 Ml Vial.neb, 1 UNIT IH Q6H PRN for SHORTNESS OF BREATH, (Reported) Entered as Reported by: PENNY GONZALEZ on 08/14/21 1348 Albuterol Sulfate (Ventolin Hfa) 90 Mcg Hfa.aer.ad, 2 PUFF INH Q4-6HRS PRN for SHORTNESS OF BREATH, (Reported) Entered as Reported by: PENNY GONZALEZ on 08/14/21 134 Allopurinol (Allopurinol) 100 Mg Tablet, 200 MG PO DAILY, (Reported) Entered as Reported by: SHANTEL ANDRADE on 03/25/20 143 Apixaban (Eliquis) 5 Mg Tablet, 5 MG PO BID, (Reported) Entered as Reported by: ALL HOWARD on 08/01/18 155 Aspirin (Aspirin) 81 Mg Tab.chew, 81 MG PO DAILY, (Reported) Entered as Reported by: PENNY GONZALEZ on 08/14/21 134 Bupropion HCl (Bupropion HCl) 75 Mg Tablet, 150 MG PO BID, (Reported) Entered as Reported by: PENNY GONZALEZ on 08/14/211347 Cholecalciferol (Vitamin D3) (Vitamin D3) 25 Mcg Capsule, 25 MCG PO DAILY, (Reported) Entered as Reported by: SHANTEL ANDRADE on 03/25/20 143 Citalopram Hydrobromide (Citalopram HBr) 40 Mg Tablet, 40 MG PO HS, (Reported) Entered as Reported by: ALL HOWARD on 08/01/18 155 Cyanocobalamin (Vitamin B-12) (Vitamin B-12) 500 Mcg Tablet, 500 MCG PO DAILY, (Reported) Entered as Reported by: ALL HOWARD on 08/01/18 155 Empagliflozin (Jardiance) 25 Mg Tablet, 25 MG PO DAILY, (Reported) Entered as Reported by: PENNY GONZALEZ on 08/14/21 134 Fluticasone Propionate (Fluticasone Propionate) 50 Mcg/Actuation [place].susp, 2 SPRAYS NSEACH DAILY, (Reported) Entered as Reported by: PENNY GONZALEZ on 08/14/211347 Fluticasone/Umeclidin/Vilanter (Trelegy Ellipta 200-62.5-25) 200-62.5 Blst.w.dev, 1 PUFF IH DAILY, (Reported) Entered as Reported by: PENNY GONZALEZ on 08/14/211347 Gabapentin (Neurontin) 300 Mg Capsule, 300 MG PO BID, (Reported) Entered as Reported by: PENNY GONZALEZ on 08/14/21 1348 Glipizide (Glipizide) 5 Mg Tablet, 10 MG PO DAILY, (Reported) Entered as Reported by: SHANTEL ANDRADE on 03/25/20 1436 Levothyroxine Sodium (Euthyrox) 112 Mcg Tablet, 112 MCG PO DAILY, (Reported) Entered as Reported by: PENNY GONZALEZ on 08/14/21 134 Loratadine (Loratadine) 10 Mg Tablet, 10 MG PO DAILY, (Reported) Entered as Reported by: PENNY GONZALEZ on 08/14/21 134 Magnesium Oxide (Magnesium Oxide) 500 Mg Tablet, 500 MG PO DAILY, (Reported) Entered as Reported by: PENNY GONZALEZ on 08/14/21 134 Meclizine HCl (Meclizine HCl) 25 Mg Tablet, 25 MG PO BID PRN for PRN, (Reported) Entered as Reported by: PENNY GONZALEZ on 08/14/21 134 Multivitamin with Minerals (Multiple Vitamin) 1 Each Tablet, 1 EACH PO DAILY, (Reported) Entered as Reported by: PENNY GONZALEZ on 08/14/21 134 Omeprazole (Omeprazole) 20 Mg Capsule.dr, 20 MG PO DAILY, (Reported) Entered as Reported by: ALL HOWARD on 08/01/18 155 Potassium Chloride (Potassium Chloride) 10 Meq Tab.er.prt, 10 MEQ PO DAILY, (Reported) Entered as Reported by: SHANTEL ANDRADE on 03/25/20 1436 Rizatriptan Benzoate (Rizatriptan) 10 Mg Tablet, 10 MG PO DAILY PRN PRN for HEADACHE, (Reported) Entered as Reported by: PENNY GONZALEZ on 08/14/21 134 Simvastatin (Simvastatin) 10 Mg Tablet, 10 MG PO HS, (Reported) Entered as Reported by: ALL HOWARD on 08/01/18 155 Sotalol HCl (Sotalol) 80 Mg Tablet, 40 MG PO BID, (Reported) Entered as Reported by: ALL HOWARD on 08/01/18 155 Review of Systems Review of Systems Constitutional: no symptoms reported EENTM: No Symptoms Reported Respiratory: No Symptoms Reported Cardiovascular: Chest Pain Gastrointestinal: Abdominal Pain Genitourinary: No Symptoms Reported Musculoskeletal: no symptoms reported Skin: no symptoms reported Psychiatric/Neurological: No Symptoms Reported Endocrine: No Symptoms Reported Hematologic/Lymphatic: No Symptoms Reported Past Cxnyvil-Vzpjhx-Fokclh Hx Patient Social History Tobacco Use?: No Substance use?: No Alcohol Use?: No Pt feels they are or have been: No Immunizations Up To Date Influenza Vaccine Up-to-Date: Yes; Up-to-Date First/Initial COVID19 Vaccinat: unknown date Second COVID19 Vaccination Nik: unknown date Seasonal Allergies Seasonal Allergies: Yes Past Medical History Surgery/Hospitalization HX: ablation, gallbladder, double mastectomy, knee replacements Surgeries: Yes (BOWEL, BREAST, BILAT TKR, BILAT KNEE SCOPES, SKIN LESION,CARDIAC ABLATION) Appendectomy, Gallbladder, Hysterectomy, Tonsillectomy, Tubal Ligation Respiratory: Yes (NOT HAVING MANY ISSUES ) Asthma Cardiac: Yes Atrial Fibrillation, High Cholesterol, Hypertension Neurological: Yes Headaches /Migraines Sexually Transmitted Disease: No HIV/AIDS: No Genitourinary: No Gastrointestinal: Yes (HIRSCHSPRUNGS) Gastroesophageal Reflux, Chronic Diarrhea Musculoskeletal: Yes Back Injury Endocrine: Yes Hypothyroidsim, Diabetes, Non-Insulin dep HEENT: Yes (GLASSES, DENTURES) Loss of Vision: Bilateral Hearing Impairment: Denies Cancer: Yes (BREAST) Did You Recieve Any Treatments: Yes What Type of Treatment Did You: Chemotherapy, Radiation, Surgical Intervention Psychosocial: Yes Anxiety, Depression Integumentary: No Blood Disorders: Yes Adverse Reaction/Blood Tranf: No (HAS HAD BLOOD WITH NO REACTION) Family Medical History Cardiovascular disease 19 FATHER G8 SISTER Physical Exam Vital Signs Vital Signs - First Documented 08/28/21 05:00 Pulse 66 Resp 20 B/P (MAP) 135/92 (106) Pulse Ox 99 O2 Delivery Room Air Capillary Refill : Height, Weight, BMI Height: 5'3.00" Weight: 211lbs. 0.0oz. 95.701760le; 37.00 BMI Method: General Appearance: Mild Distress HEENT: PERRL/EOMI Neck: Full Range of Motion, Normal Inspection, Non Tender, Supple Respiratory: Lungs Clear, Normal Breath Sounds, No Accessory Muscle Use, No Respiratory Distress, Other Cardiovascular: Other (irregular rhythm) Gastrointestinal: Normal Bowel Sounds, Soft, Tenderness (epigastric and LUQ tenderness) Extremity: Normal Range of Motion Neurologic/Psychiatric: Alert, Oriented x3, No Motor/Sensory Deficits, Normal Mood/Affect Skin: Normal Color Progress/Results/Core Measures Results/Orders Lab Results Laboratory Tests Test 08/28/21 05:07 08/28/21 06:15 Range/Units White Blood Count 12.5 H 4.3-11.0 10^3/uL Red Blood Count 4.65 3.80-5.11 10^6/uL Hemoglobin 13.0 11.5-16.0 g/dL Hematocrit 40 35-52 % Mean Corpuscular Volume 85 80-99 fL Mean Corpuscular Hemoglobin 28 25-34 pg Mean Corpuscular Hemoglobin Concent 33 32-36 g/dL Red Cell Distribution Width 14.6 H 10.0-14.5 % Platelet Count 290 130-400 10^3/uL Mean Platelet Volume 9.4 9.0-12.2 fL Immature Granulocyte % (Auto) 1 % Neutrophils (%) (Auto) 70 42-75 % Lymphocytes (%) (Auto) 20 12-44 % Monocytes (%) (Auto) 7 0-12 % Eosinophils (%) (Auto) 3 0-10 % Basophils (%) (Auto) 1 0-10 % Neutrophils # (Auto) 8.7 H 1.8-7.8 10^3/uL Lymphocytes # (Auto) 2.4 1.0-4.0 10^3/uL Monocytes # (Auto) 0.9 0.0-1.0 10^3/uL Eosinophils # (Auto) 0.3 0.0-0.3 10^3/uL Basophils # (Auto) 0.1 0.0-0.1 10^3/uL Immature Granulocyte # (Auto) 0.1 0.0-0.1 10^3/uL Prothrombin Time 13.3 12.2-14.7 SEC INR Comment 1.0 0.8-1.4 Activated Partial Thromboplast Time 36 H 24-35 SEC D-Dimer 0.27 0.00-0.49 UG/ML Sodium Level 137 135-145 MMOL/L Potassium Level 4.1 3.6-5.0 MMOL/L Chloride Level 100 98-107 MMOL/L Carbon Dioxide Level 23 21-32 MMOL/L Anion Gap 14 5-14 MMOL/L Blood Urea Nitrogen 16 7-18 MG/DL Creatinine 0.89 0.60-1.30 MG/DL Estimat Glomerular Filtration Rate 75 BUN/Creatinine Ratio 18 Glucose Level 194 H 70-105 MG/DL Calcium Level 10.0 8.5-10.1 MG/DL Corrected Calcium 8.5-10.1 MG/DL Magnesium Level 1.8 1.6-2.4 MG/DL Total Bilirubin 0.5 0.1-1.0 MG/DL Aspartate Amino Transf (AST/SGOT) 13 5-34 U/L Alanine Aminotransferase (ALT/SGPT) 14 0-55 U/L Alkaline Phosphatase 148 H 40-136 U/L Troponin I < 0.30 <0.30 NG/ML Pro-B-Type Natriuretic Peptide 219.3 H <75.0 PG/ML Total Protein 7.7 6.4-8.2 GM/DL Albumin 4.7 H 3.2-4.5 GM/DL Lipase 111 H 8-78 U/L Urine Color YELLOW Urine Clarity CLEAR Urine pH 6.0 5-9 Urine Specific [place] <=1.005 1.016-1.022 Urine Protein NEGATIVE NEGATIVE Urine Glucose (UA) 3+ H NEGATIVE Urine Ketones NEGATIVE NEGATIVE Urine Nitrite NEGATIVE NEGATIVE Urine Bilirubin NEGATIVE NEGATIVE Urine Urobilinogen 0.2 < = 1.0 MG/DL Urine Leukocyte Esterase 1+ H NEGATIVE Urine RBC (Auto) NEGATIVE NEGATIVE Urine RBC RARE /HPF Urine WBC 5-10 H /HPF Urine Squamous Epithelial Cells 0-2 /HPF Urine Renal Epithelial Cells 0-2 /HPF Urine Crystals NONE /LPF Urine Bacteria FEW H /HPF Urine Casts NONE /LPF Urine Mucus NEGATIVE /LPF Urine Yeast FEW H /HPF Urine Culture Indicated YES My Orders Orders - HORTENCIA AARON MD Cbc With Automated Diff (08/28/21 05:06) Magnesium (08/28/21 05:06) Chest 1 View Ap/Pa Only (08/28/21 05:06) Ekg Tracing (08/28/21 05:06) Comprehensive Metabolic Panel (08/28/21 05:06) Protime With Inr (08/28/21 05:06) Partial Thromboplastin Time (08/28/21 05:06) Monitor-Rhythm Ecg Trace Only (08/28/21 05:06) Aspirin Chewable Tablet (Baby Aspirin Ch (08/28/21 05:15) Ed Iv/Invasive Line Start (08/28/21 05:06) Fibrin Degradation Products (08/28/21 05:06) Troponin I Fs (08/28/21 05:06) Probnp Fs (08/28/21 05:06) Ct Abdomen/Pelvis W (08/28/21 05:13) Ua Culture If Indicated (08/28/21 05:15) Lipase (08/28/21 05:15) Ed Iv/Invasive Line Start (08/28/21 05:22) Ns Iv 1000 Ml (Sodium Chloride 0.9%) (08/28/21 05:22) Famotidine Injection (Pepcid Injection) (08/28/21 05:23) Iohexol Injection (Omnipaque 350 Mg/Ml 1 (08/28/21 05:30) Received Contrast (Hold Metformin- Contr (08/28/21 05:30) Sodium Chloride Flush (Catheter Flush Sy (08/28/21 05:30) Ns (Ivpb) (Sodium Chloride 0.9% Ivpb Bag (08/28/21 05:30) Ns Iv 500 Ml (Sodium Chloride 0.9%) (08/28/21 06:00) Urine Culture (08/28/21 06:15) Lactic Acid Analyzer (08/28/21 06:42) Ondansetron Injection (Zofran Injectio (08/28/21 07:30) Ceftriaxone 1 Gm Pre-Mix (Rocephin 1 Gm (08/28/21 07:18) Hydromorphone Injection (Dilaudid Inject (08/28/21 07:20) Medications Given in ED Current Medications Medications Dose Ordered Sig/Catherine Route Start Time Stop Time Status Last Admin Dose Admin Iohexol 100 ml ONCE ONCE IV 08/28/21 05:30 08/28/21 05:31 DC 08/28/21 06:20 100 ML Sodium Chloride 10 ml NEEDED PRN IV 08/28/21 05:30 08/28/21 06:20 10 ML Sodium Chloride 100 ml ONCE ONCE IV 08/28/21 05:30 08/28/21 05:31 DC 08/28/21 06:20 100 ML Vital Signs/I&O 08/28/21 08/28/21 05:00 05:35 Pulse 66 66 Resp 20 19 B/P (MAP) 135/92 (106) 132/49 Pulse Ox 99 99 O2 Delivery Room Air Room Air Blood Pressure Mean: 106 Progress Progress Note : Progress Note 1. CHEST PAIN: ACS RULE OUT - CXR: unremarkable - EKG no acute findings - Troponin undetected - BNP: 219 - Labs: normal D-dimer - NS IVF - ASA 324mg 2. EPIGASTRIC/ LUQ PAIN: PANCREATITIS: - CT ABD & PELVIS: - Pepcid 20mg iv - WBC is 12.5 with left shift - Lactic acid: - Lipase is elevated at 111 - NPO - Dilaudid: pt states she can tolerate Dilaudid - Will transfer pt to [place] for surgery consult 3. UTI: - UA positive for LE and bacteria - Ceftriaxone iv STAT Initial ECG Impression Date: August 28, 2021 Initial ECG Impression Time: 04:56 Initial ECG Rate: 64 Initial ECG Rhythm: Normal Sinus Initial ECG Intervals: Normal Initial ECG Impression: Nonspecific Changes Initial ECG Comparisson: No Previous ECG Available Diagnostic Imaging Diagonstic Imaging: Xray, CT Plain Films/CT/US/NM/MRI: chest, abdomen Comments [facility]. [place], [place] NAME: EMILIANO PANG [employer] REC#: [id number] PT STATUS: REG ER : 1960 PHYSICIAN: HORTENCIA AARON MD ADMIT DATE: 08/28/21/ER FS Draft Date of Exam:08/28/21 CT ABDOMEN/PELVIS W PROCEDURE: CT abdomen and pelvis with contrast. TECHNIQUE: Multiple contiguous axial images were obtained through the abdomen and pelvis after administration of intravenous contrast. Auto Exposure Controls were utilized during the CT exam to meet ALARA standards for radiation dose reduction. All CT scans use one or more of the following dose optimizing techniques: automated exposure control, MA and/or KvP adjustment based on patient size and exam type or iterative reconstruction. INDICATION: 60-year-old female, epigastric pain. CORRELATION STUDY: CTA abdomen 07/09/2016 FINDINGS: LOWER THORAX: Clear. LIVER: Enlarged at 24.5 cm in length with diffuse steatosis. GALLBLADDER: Cholecystectomy. SPLEEN: Enlarged at 15 cm craniocaudal. PANCREAS: Fatty atrophic changes. There is mild peripancreatic haziness and inflammatory changes suggesting potential for acute pancreatitis. ADRENAL GLANDS: Unremarkable. KIDNEYS: Normal configuration. No calcification or obstruction. ABDOMINAL AORTA: Unremarkable, nonaneurysmal. GASTROINTESTINAL TRACT: No suggestion for obstruction. The appendix not discretely localized. Trace amount of a right paracolic fluid. URINARY BLADDER: Largely decompressed but question some urinary bladder wall thickening. REPRODUCTIVE: Hysterectomy. OSSEOUS STRUCTURES: No acute abnormality. OTHER: None. IMPRESSION: 1. Prominent fatty atrophic change of the pancreas. However, there are findings suspect for acute interstitial pancreatitis. Correlation with laboratory assessment recommended. 2. Hepatomegaly with moderate steatosis. Splenomegaly. Dictated on workstation # [id number] Dict: 08/28/21 0647 Trans: 08/28/21 0658 [id number] Interpreted by: FLAKO PETTY DO Electronically signed by: [facility], [place] NAME: EMILIANO PANG [employer] REC#: [id number] PT STATUS: REG ER : 1960 PHYSICIAN: HORTENCIA AARON MD ADMIT DATE: 08/28/21/ER FS Draft Date of Exam:08/28/21 CHEST 1 VIEW AP/PA ONLY INDICATION: chest pain. TECHNIQUE: Single view chest 5:14 AM. CORRELATION STUDY: 09/02/2020 FINDINGS: The heart size, mediastinal configuration and pulmonary vascularity are within normal limits. The lungs are clear with no consolidating infiltrate. There is no significant effusion or pneumothorax. Multiple surgical clips left axilla with a few in the right axilla. IMPRESSION: 1. Negative appearing single view chest. Dictated on workstation # [id number] Dict: 08/28/21 0545 Trans: 08/28/2145 [id number] Interpreted by: FLAKO PETTY DO Electronically signed by: Departure Communication (Admissions) Time/Spoke to Admitting Phy: 07:[address] Carreno, Accepted to med surg for admission Impression Primary Impression: Acute pancreatitis Qualified Codes: K85.90 - Acute pancreatitis without necrosis or infection, unspecified Additional Impressions: UTI (urinary tract infection) Qualified Codes: N30.00 - Acute cystitis without hematuria Ruled out for myocardial infarction Disposition: 30 STILL A PATIENT Condition: Stable Admissions Decision to Admit Reason: Admit from ER (General) Decision to Admit/Date: August 28, 2021 Time/Decision to Admit Time: 07:00 Transfer Transfer Reason: Exceeds level of care Time Spoke to Accepting Phy: 07:15 Transfer Facility: [facility] Method of Transfer: EMS Departure-Patient Inst. Referrals: TIFFANY WU APRN (PCP/Family) Primary Care Physician HORTENCIA AARON MD August 28, 2021 05:05
[2021-08-28] MEDS ORDERED: ASPIRIN 81 MG CHEW (CHILDREN'S ASA) PO ONE (05:15)
[2021-08-28] MEDS ORDERED: NS IV 1000 ML 1,000 ML IV STA (05:22)
[2021-08-28] MEDS ORDERED: FAMOTIDINE 20MG/2ML IV (PEPCID) IVP STA (05:23)
[2021-08-28] MEDS ORDERED: HOLD METFORMIN - RECEIVED CONTRAST 20 ML VIAL IV SCH (05:30)
[2021-08-28] MEDS ORDERED: NS 100 ML (IVPB) BAG IV ONE (05:30)
[2021-08-28] MEDS ORDERED: IOHEXOL 350 MG/ML 100 ML (OMNIPAQUE 350) VIAL IV ONE (05:30)
[2021-08-28] MEDS ORDERED: CATHETER FLUSH 10 ML SYR IV PRN (05:30)
[2021-08-28 05:32] LABS: BASOPHILS # (AUTO) 0.1 10^3/uL (0.0-0.1); BASOPHILS % (AUTO) 1 % (0-10); EOSINOPHILS # (AUTO) 0.3 10^3/uL (0.0-0.3); EOSINOPHILS % (AUTO) 3 % (0-10); HEMATOCRIT 40 % (35-52); LYMPHOCYTES # (AUTO) 2.4 10^3/uL (1.0-4.0); LYMPHOCYTES % (AUTO) 20 % (12-44); MEAN CORPUSCULAR HEMOGLOBIN 28 pg (25-34); MEAN CORPUSCULAR HGB CONC 33 g/dL (32-36); MEAN CORPUSCULAR VOLUME 85 fL (80-99); MEAN PLATELET VOLUME 9.4 fL (9.0-12.2); MONOCYTES # (AUTO) 0.9 10^3/uL (0.0-1.0); MONOCYTES % (AUTO) 7 % (0-12); NEUTROPHILS # (AUTO) 8.7 10^3/uL (1.8-7.8); NEUTROPHILS % (AUTO) 70 % (42-75); PLATELET COUNT 290 10^3/uL (130-400); WHITE BLOOD COUNT 12.5 10^3/uL (4.3-11.0)
--- NOTE | 2021-08-28 05:46 | Diagnostic Imaging Report ---
INDICATION: chest pain. TECHNIQUE: Single view chest 5:14 AM. CORRELATION STUDY: 09/02/2020 FINDINGS: The heart size, mediastinal configuration and pulmonary vascularity are within normal limits. The lungs are clear with no consolidating infiltrate. There is no significant effusion or pneumothorax. Multiple surgical clips left axilla with a few in the right axilla. IMPRESSION: 1. Negative appearing single view chest. Dictated by: Dictated on workstation # [id number]
[2021-08-28 05:51] LABS: PROTHROMBIN TIME PATIENT 13.3 SEC (12.2-14.7)
[2021-08-28] MEDS ORDERED: NS IV 500 ML 500 ML IV ONE (06:00)
[2021-08-28 06:03] LABS: LIPASE 111 U/L (8-78)
[2021-08-28 06:04] LABS: BUN/CREATININE RATIO 18; CARBON DIOXIDE 23 MMOL/L (21-32); CHLORIDE 100 MMOL/L (98-107); CREATININE SERUM 0.89 MG/DL (0.60-1.30); GFR ESTIMATED 75; POTASSIUM 4.1 MMOL/L (3.6-5.0); SODIUM 137 MMOL/L (135-145)
[2021-08-28 06:05] LABS: ALANINE AMINOTRANSFERASE 14 U/L (0-55); ALBUMIN 4.7 GM/DL (3.2-4.5); ALKALINE PHOSPHATASE 148 U/L (40-136); BILIRUBIN,TOTAL 0.5 MG/DL (0.1-1.0); GLUCOSE 194 MG/DL (70-105); MAGNESIUM 1.8 MG/DL (1.6-2.4); TOTAL PROTEIN 7.7 GM/DL (6.4-8.2)
[2021-08-28 06:24] LABS: BILIRUBIN,URINE NEGATIVE (NEGATIVE); CLARITY,URINE CLEAR; COLOR,URINE YELLOW; GLUCOSE, URINE (UA) 3+ (NEGATIVE); KETONES,URINE NEGATIVE (NEGATIVE); LEUKOCYTE ESTERASE ,URINE 1+ (NEGATIVE); NITRITE,URINE NEGATIVE (NEGATIVE); PROTEIN,URINE NEGATIVE (NEGATIVE)
[2021-08-28 06:33] LABS: BACTERIA,URINE FEW /HPF; RBC,URINE RARE /HPF
[2021-08-28 06:34] LABS: RENAL EPITHELIAL CELLS,URINE 0-2 /HPF; SQUAMOUS EPITHELIAL CELL,UR 0-2 /HPF; YEAST,URINE FEW /HPF
--- NOTE | 2021-08-28 06:59 | Diagnostic Imaging Report ---
PROCEDURE: CT abdomen and pelvis with contrast. TECHNIQUE: Multiple contiguous axial images were obtained through the abdomen and pelvis after administration of intravenous contrast. Auto Exposure Controls were utilized during the CT exam to meet ALARA standards for radiation dose reduction. All CT scans use one or more of the following dose optimizing techniques: automated exposure control, MA and/or KvP adjustment based on patient size and exam type or iterative reconstruction. INDICATION: 60-year-old female, epigastric pain. CORRELATION STUDY: CTA abdomen 07/09/2016 FINDINGS: LOWER THORAX: Clear. LIVER: Enlarged at 24.5 cm in length with diffuse steatosis. GALLBLADDER: Cholecystectomy. SPLEEN: Enlarged at 15 cm craniocaudal. PANCREAS: Fatty atrophic changes. There is mild peripancreatic haziness and inflammatory changes suggesting potential for acute pancreatitis. ADRENAL GLANDS: Unremarkable. KIDNEYS: Normal configuration. No calcification or obstruction. ABDOMINAL AORTA: Unremarkable, nonaneurysmal. GASTROINTESTINAL TRACT: No suggestion for obstruction. The appendix not discretely localized. Trace amount of a right paracolic fluid. URINARY BLADDER: Largely decompressed but question some urinary bladder wall thickening. REPRODUCTIVE: Hysterectomy. OSSEOUS STRUCTURES: No acute abnormality. OTHER: None. IMPRESSION: 1. Prominent fatty atrophic change of the pancreas. However, there are findings suspect for acute interstitial pancreatitis. Correlation with laboratory assessment recommended. 2. Hepatomegaly with moderate steatosis. Splenomegaly. Dictated by: Dictated on workstation # [id number]
[2021-08-28] MEDS ORDERED: cefTRIAXone 1 GM PRE-MIX 50 ML IV STA (07:18)
[2021-08-28] MEDS ORDERED: HYDROmorphone 2 MG/ML VIAL (DILAUDID) IV STA (07:20)
[2021-08-28] MEDS ORDERED: ONDANSETRON 4 MG/2 ML (SDV) Z0FRAN IVP ONE (07:30)
--- NOTE | 2021-08-28 08:15 | History & Physical-Hospitalist ---
History of Present Illness HPI/Chief Complaint CC: Abdominal pain HPI: This is a female [facility] pt who presented to the [place] ER with chest pain and abdominal pain. She was found to have acute pancreatitis on CT scan. Lipase was only mildly elevated. She has had a colostetectomy before. I will consult Dr. Resendiz. Placed on IV fluids, supportive care, and a clear liquid diet. She does have a history of pancreatic cysts and cancer in the family. Source: patient Exam Limitations: no limitations Date Seen 08/28/21 Time Seen by a Provider: 10:00 Attending Physician Emelia Hurtado Aprn Referring Physician Date of Admission Home Medications & Allergies Home Medications Reviewed patient Home Medication Reconciliation performed by pharmacy medication reconciliations electrical cad technician and/or nursing. Patients Allergies have been reviewed. Allergies Allergies Coded Allergies diphenhydramine (Verified Allergy, Unknown, 08/01/18) fluticasone (Verified Allergy, Unknown, 08/04/18) PER UNCODED ALLERGIES hylan G-F 20 (Verified Allergy, Unknown, 08/01/18) latex (Verified Allergy, Unknown, 08/01/18) morphine (Verified Allergy, Unknown, 08/01/18) salmeterol (Verified Allergy, Unknown, 08/04/18) PER UNCODED ALLERGIES trovafloxacin (Verified Allergy, Unknown, 08/01/18) Past Flhvaiz-Obdehk-Eryopb Hx Patient Social History Marrital Status: single Employed/Student: unemployed Tobacco Use?: No Smoking Status: Former Smoker Substance use?: No Alcohol Use?: No Pt feels they are or have been: No Immunizations Up To Date Date of Influenza Vaccine: Jan 23, 2018 First/Initial COVID19 Vaccinat: unknown date Second COVID19 Vaccination Nik: unknown date Tetanus Booster (TDap): Unknown Date of Pneumonia Vaccine: Dec 18, 2019 Seasonal Allergies Seasonal Allergies: Yes Current Status status: No status: No Advance Directives: No Primary Language: Namibian Preferred Spoken Language: Namibian Past Medical History Surgeries: Appendectomy, Gallbladder, Hysterectomy, Tonsillectomy, Tubal Ligation Asthma Atrial Fibrillation, High Cholesterol, Hypertension Headaches /Migraines Sexually Transmitted Disease: No HIV/AIDS: No Gastroesophageal Reflux, Chronic Diarrhea Back Injury Hypothyroidsim, Diabetes, Non-Insulin dep Loss of Vision: Bilateral Hearing Impairment: Denies Did You Recieve Any Treatments: Yes What Type of Treatment Did You: Chemotherapy, Radiation, Surgical Intervention Anxiety, Depression Blood Disorders: Yes Adverse Reaction/Blood Tranf: No (HAS HAD BLOOD WITH NO REACTION) Family Medical History Cardiovascular disease 19 FATHER G8 SISTER Review of Systems Constitutional: see HPI EENTM: no symptoms reported Respiratory: no symptoms reported Cardiovascular: no symptoms reported Gastrointestinal: abdominal pain, loss of appetite Musculoskeletal: no symptoms reported Skin: no symptoms reported Psychiatric/Neurological: No Symptoms Reported All Other Systems Reviewed Negative Unless Noted: Yes Physical Exam Physical Exam Vital Signs Vital Signs - First Documented 08/28/21 08/28/21 08/28/21 05:00 08:05 09:11 Temp 37.0 Pulse 66 Resp 20 B/P (MAP) 135/92 (106) Pulse Ox 99 O2 Delivery Room Air O2 Flow Rate 0.00 Capillary Refill : Height, Weight, BMI Height: 5'3.00" Weight: 211lbs. 0.0oz. 95.277549rp; 37.00 BMI Method: General Appearance: No Apparent Distress, Anxious, Chronically ill Eyes: Right Eye Normal Inspection, Right Eye PERRL HEENT: PERRL/EOMI, Normal ENT Inspection, Pharynx Normal, Moist Mucous Membrane s Neck: Full Range of Motion, Normal Inspection, Non Tender Respiratory: Chest Non Tender, Lungs Clear, Normal Breath Sounds, No Accessory Muscle Use, No Respiratory Distress Cardiovascular: Regular Rate, Rhythm, No Edema, No Gallop, No JVD, No Murmur, Normal Peripheral Pulses Gastrointestinal: Normal Bowel Sounds, No Organomegaly, No Pulsatile Mass, Soft, Tenderness Back: Normal Inspection, No CVA Tenderness, No Vertebral Tenderness Extremity: Normal Capillary Refill, Normal Inspection, Normal Range of Motion, Non Tender, No Calf Tenderness, No Pedal Edema Neurologic/Psychiatric: Alert, Oriented x3, No Motor/Sensory Deficits, Normal Mood/Affect Skin: Normal Color, Warm/Dry Lymphatic: No Adenopathy Results Results/Procedures Labs Laboratory Tests 08/28/21 05:07 Patient resulted labs reviewed. Assessment/Plan Admission Diagnosis Assessment: Acute pancreatitis Family history of pancreatic cyst and cancer Previous cholecystectomy Atrial fibrillation Oral anticoagulant Plan: Supportive care Dr. Resendiz consult Pain control IV fluids Admission Status: Inpatient Order (span 2 midnights) Reason for Inpatient Admission: Pancreatitis will require 3 days Clinical Quality Measures AMI/AHF: ASA po Prior to arrival: No RUBIA GUILLEN DO August 28, 2021 08:15
[2021-08-28] MEDS ORDERED: PROMETHAZINE INJ 25 MG/ML (PHENERGAN) AMP IM PRN (09:45)
[2021-08-28] MEDS ORDERED: polyethylene glycoL POWDER 17 GM (MIRALAX) PACK PO PRN (09:45)
[2021-08-28] MEDS ORDERED: MELATONIN 3 MG TABLET PO PRN (09:45)
[2021-08-28] MEDS ORDERED: ONDANSETRON 4 MG/2 ML (SDV) Z0FRAN IV PRN (09:45)
[2021-08-28] MEDS ORDERED: ONDANSETRON 4 MG (ZOFRAN) ORAL DISSOLVE TAB PO PRN (09:45)
[2021-08-28] MEDS ORDERED: BISACODYL 10 MG SUPP (DULCOLAX) PR PRN (09:45)
[2021-08-28] MEDS ORDERED: ACETAMINOPHEN 325 MG TABLET PO PRN (09:45)
[2021-08-28] MEDS: NS IV 1000 ML 1,000 ML IV SCH ×2 (10:10→18:04)
[2021-08-28] MEDS: ANTACID SUSP 30 ML UDC (MYLANTA) PO PRN (10:46)
[2021-08-28] MEDS: HYDROmorphone 2 MG/ML VIAL (DILAUDID) IVP PRN ×3 (10:46→18:42)
[2021-08-28] MEDS: inSUlin ASPART (NovoLOG) 1 UNIT/0.01 ML (CHARGE PER UNIT) SC SCH ×3 (10:53→21:13)
[2021-08-28 11:10] VITALS: BP 93/58
[2021-08-28] MEDS ORDERED: METF-399 PO (14:16)
[2021-08-28 15:30] VITALS: BP 118/75
[2021-08-28] MEDS ORDERED: ALBUTEROL SULFATE IH PRN (16:00)
[2021-08-28] MEDS ORDERED: RT-ALBUTEROL SULF 2.5 MG/3 ML PRE-MIX VIAL INH PRN (16:00)
[2021-08-28] MEDS ORDERED: NON-FORMULARY MEDICATION 1 EA EA (Rizatriptan Benzoate (Rizatriptan) 10 MG) PO PRN (16:00)
[2021-08-28] MEDS ORDERED: MECLIZINE 25 MG (ANTIVERT) TAB PO PRN (16:00)
[2021-08-28] MEDS ORDERED: NON-FORMULARY MEDICATION 1 EA EA (Cholecalciferol (Vitamin D3) (Vitamin D3) 25 MCG) PO SCH (16:00)
[2021-08-28] MEDS ORDERED: SUMAtriptan 50 MG (IMITREX) TAB PO PRN (16:30)
--- NOTE | 2021-08-28 16:38 | Consultation-Cardiology ---
HPI-Cardiology Cardiology Consultation: Date of Consultation 08/28/21 Time Seen by a Provider: 16:20 Date of Admission Attending Physician Jenni Carreno DO Admitting Physician Emelia Parmar Aprn Consulting Physician TORI ABEL MD, MA, FACP, FACC, [facility], CCDS Physician requesting consult: Dr Carreno HPI: Chief Complaint: Lower chest and upper abdominal discomfort 60 yo woman with several weeks of intermittent upper abdominal discomfort and distention, admitted by Dr Carreno today for these symptoms that have gotten worse over the last 1-2 days. She doesn't report palp or syncope or shortness of breath. Notes gen malaise and intermittent nausea. Does not report fever or chills. Does not report swelling Review of Systems-Cardiology Review of Systems Constitutional: As described under HPI Eyes: No vision change Ears/Nose/Throat: No ear discharge, No nasal drainage Respiratory: As described under HPI Cardiovascular: As described under HPI Gastrointestinal: As described under HPI Genitourinary: No dysuria, No hematuria, No urine frequency changes Musculoskeletal: back pain, joint pain (chronic) Skin: No rash, No ulcerations Psychiatric/Neurological: No seizure, No focal weakness, No syncope Hematologic: No bleeding abnormalities RWM-Jksdpb-Jrdzjn Hx Patient Social History Smoking Status: Never a Smoker 2nd Hand Smoke Exposure: No Have you traveled recently?: No Alcohol Use?: No Pt feels they are or have been: No Immunizations Up To Date Date of Pneumonia Vaccine: Dec 18, 2019 Date of Influenza Vaccine: Jan 23, 2018 Past Medical History PMH As described under Assessment. Family Medical History Family History: Cardiovascular disease 19 FATHER G8 SISTER Allergies and Home Medications Allergies Coded Allergies: diphenhydramine (Verified Allergy, Unknown, 08/01/18) fluticasone (Verified Allergy, Unknown, 08/04/18) PER UNCODED ALLERGIES hylan G-F 20 (Verified Allergy, Unknown, 08/01/18) latex (Verified Allergy, Unknown, 08/01/18) morphine (Verified Allergy, Unknown, 08/01/18) salmeterol (Verified Allergy, Unknown, 08/04/18) PER UNCODED ALLERGIES trovafloxacin (Verified Allergy, Unknown, 08/01/18) Patient Home Medication List Home Medication List Reviewed: Yes ALPRAZolam (ALPRAZolam) 0.25 Mg Tablet, 0.25 MG PO BID PRN for ANXIETY, (Reported) Entered as Reported by: PENNY GONZALEZ on 08/14/211347 Last Action: Continued Albuterol Sulfate (Albuterol Sulfate) 0.63 Mg/3 Ml Vial.neb, 1 UNIT IH Q6H PRN for SHORTNESS OF BREATH, (Reported) Entered as Reported by: PENNY GONZALEZ on 08/14/211347 Last Action: Converted Albuterol Sulfate (Ventolin Hfa) 90 Mcg Hfa.aer.ad, 2 PUFF INH Q4-6HRS PRN for SHORTNESS OF BREATH, (Reported) Entered as Reported by: PENNY GONZALEZ on 08/14/211347 Last Action: Continued Allopurinol (Allopurinol) 100 Mg Tablet, 200 MG PO DAILY, (Reported) Entered as Reported by: SHANTEL ANDRADE on 03/25/201435 Last Action: Continued Apixaban (Eliquis) 5 Mg Tablet, 5 MG PO BID, (Reported) Entered as Reported by: ALL HOWARD on 08/01/181555 Last Action: Continued Aspirin (Aspirin) 81 Mg Tab.chew, 81 MG PO DAILY, (Reported) Entered as Reported by: PENNY GONZALEZ on 08/14/211347 Last Action: Continued Bupropion HCl (Bupropion HCl) 75 Mg Tablet, 150 MG PO BID, (Reported) Entered as Reported by: PENNY GONZALEZ on 08/14/211347 Last Action: Continued Cholecalciferol (Vitamin D3) (Vitamin D3) 25 Mcg Capsule, 25 MCG PO Q48H, (Reported) Entered as Reported by: SHANTEL ANDRADE on 03/25/201435 Last Action: Converted Citalopram Hydrobromide (Citalopram HBr) 40 Mg Tablet, 40 MG PO HS, (Reported) Entered as Reported by: ALL HOWARD on 08/01/181555 Last Action: Converted Cyanocobalamin (Vitamin B-12) (Vitamin B-12) 500 Mcg Tablet, 500 MCG PO DAILY, (Reported) Entered as Reported by: ALL HOWARD on 08/01/181555 Last Action: Converted Empagliflozin (Jardiance) 25 Mg Tablet, 25 MG PO DAILY, (Reported) Entered as Reported by: PENNY GONZALEZ on 08/14/211347 Last Action: Held Fluticasone Propionate (Fluticasone Propionate) 50 Mcg/Actuation [place].susp, 2 SPRAYS NSEACH DAILY, (Reported) Entered as Reported by: PENNY GONZALEZ on 08/14/211347 Last Action: Converted Fluticasone/Umeclidin/Vilanter (Trelegy Ellipta 200-62.5-25) 200-62.5 B lst.w.dev, 1 PUFF IH DAILY, (Reported) Entered as Reported by: PENNY GONZALEZ on 08/14/211347 Last Action: Converted Gabapentin (Neurontin) 300 Mg Capsule, 300 MG PO BID, (Reported) Entered as Reported by: PENNY GONZALEZ on 08/14/211347 Last Action: Continued Glipizide (Glipizide) 5 Mg Tablet, 10 MG PO DAILY, (Reported) Entered as Reported by: SHANTEL ANDRADE on 03/25/20 143 Last Action: Held Levothyroxine Sodium (Euthyrox) 112 Mcg Tablet, 112 MCG PO DAILY, (Reported) Entered as Reported by: PENNY GONZALEZ on 08/14/211347 Last Action: Continued Loratadine (Loratadine) 10 Mg Tablet, 10 MG PO DAILY, (Reported) Entered as Reported by: PENNY GONZALEZ on 08/14/211347 Last Action: Continued Magnesium Oxide (Magnesium Oxide) 500 Mg Tablet, 500 MG PO DAILY, (Reported) Entered as Reported by: PENNY GONZALEZ on 08/14/211347 Last Action: Converted Meclizine HCl (Meclizine HCl) 25 Mg Tablet, 25 MG PO BID PRN for DIZZINESS, (Reported) Entered as Reported by: PENNY GONZALEZ on 08/14/211347 Last Action: Continued Metformin HCl (Metformin HCl) 1,000 Mg Tablet, 1,000 MG PO BID, (Reported) Entered as Reported by: SHANTEL ANDRADE on 08/28/21 1416 Last Action: Held Multivitamin with Minerals (Multiple Vitamin) 1 Each Tablet, 1 EACH PO DAILY, (Reported) Entered as Reported by: PENNY GONZALEZ on 08/14/211347 Last Action: Converted Omeprazole (Omeprazole) 20 Mg Capsule.dr, 20 MG PO DAILY, (Reported) Entered as Reported by: ALL HOWARD on 08/01/181555 Last Action: Continued Potassium Chloride (Potassium Chloride) 10 Meq Tab.er.prt, 10 MEQ PO DAILY, (Reported) Entered as Reported by: SHANTEL ANDRADE on 03/25/20 1436 Last Action: Converted Rizatriptan Benzoate (Rizatriptan) 10 Mg Tablet, 10 MG PO UD PRN for HEADACHE, (Reported) Entered as Reported by: PENNY GONZALEZ on 08/14/21 1348 Last Action: Converted Simvastatin (Simvastatin) 10 Mg Tablet, 10 MG PO HS, (Reported) Entered as Reported by: ALL HOWARD on 08/01/181555 Last Action: Continued Sotalol HCl (Sotalol) 80 Mg Tablet, 40 MG PO BID, (Reported) Entered as Reported by: ALL HOWARD on 08/01/181555 Last Action: Continued Physical Exam-Cardiology Physical Exam Vital Signs/I&O 08/28/21 08/28/21 08/28/21 08/28/21 05:00 05:35 08:05 09:11 Temp 37.0 Pulse 66 66 60 Resp 20 19 15 B/P (MAP) 135/92 (106) 132/49 135/58 Pulse Ox 99 99 100 96 O2 Delivery Room Air Room Air Room Air Room Air O2 Flow Rate 0.00 08/28/21 08/28/21 08/28/21 08/28/21 10:22 11:10 12:54 15:30 Temp 36.3 36.3 Pulse 57 57 57 63 Resp 18 18 B/P (MAP) 93/58 (70) 118/75 (89) Pulse Ox 94 92 O2 Delivery Room Air Room Air Capillary Refill : Constitutional: AAO x 3, well-developed, well-nourished HEENT: PERRL, EOMI; No xanthelasmas are seen Neck: No non-tender; carotid pulses are 2 + bilaterally, with good upstrokes Respiratory: No accessory muscle use; other (good, bilateral air entry) Cardiovascular: regular rate-rhythm, S1 and S2, systolic murmur (soft HUGO at card base) Gastrointestinal: tender, distended, audible bowel sounds Extremities: No clubbing, No cyanosis, No significant edema Neurologic/Psychiatric: oriented x 3, other (moves all limbs equally) Skin: No rash on exposed areas, No ulcerations on exposed areas Data Review Labs Laboratory Tests 08/28/21 05:07: White Blood Count 12.5H, Red Blood Count 4.65, Hemoglobin 13.0, Hematocrit 40, Mean Corpuscular Volume 85, Mean Corpuscular Hemoglobin 28, Mean Corpuscular Hemoglobin Concent 33, Red Cell Distribution Width 14.6H, Platelet Count 290, Mean Platelet Volume 9.4, Immature Granulocyte % (Auto) 1, Neutrophils (%) (Auto) 70, Lymphocytes (%) (Auto) 20, Monocytes (%) (Auto) 7, Eosinophils (%) (Auto) 3, Basophils (%) (Auto) 1, Neutrophils # (Auto) 8.7H, Lymphocytes # (Auto) 2.4, Monocytes # (Auto) 0.9, Eosinophils # (Auto) 0.3, Basophils # (Auto) 0.1, Immature Granulocyte # (Auto) 0.1, Prothrombin Time 13.3, INR Comment 1.0, Activated Partial Thromboplast Time 36H, D-Dimer 0.27, Sodium Level 137, Potassium Level 4.1, Chloride Level 100, Carbon Dioxide Level 23, Anion Gap 14, Blood Urea Nitrogen 16, Creatinine 0.89, Estimat Glomerular Filtration Rate 75, BUN/Creatinine Ratio 18, Glucose Level 194H, Calcium Level 10.0, Corrected Calcium , Magnesium Level 1.8, Total Bilirubin 0.5, Aspartate Amino Transf (AST/SGOT) 13, Alanine Aminotransferase (ALT/SGPT) 14, Alkaline Phosphatase 148H , Troponin I < 0.30, Pro-B-Type Natriuretic Peptide 219.3H, Total Protein 7.7, Albumin 4.7H, Lipase 111H 08/28/21 06:15: Urine Color YELLOW, Urine Clarity CLEAR, Urine pH 6.0, Urine Specific [place] <=1.005, Urine Protein NEGATIVE, Urine Glucose (UA) 3+H, Urine Ketones NEGATIVE, Urine Nitrite NEGATIVE, Urine Bilirubin NEGATIVE, Urine Urobilinogen 0.2, Urine Leukocyte Esterase 1+H, Urine RBC (Auto) NEGATIVE, Urine RBC RARE, Urine WBC 5- 10H, Urine Squamous Epithelial Cells 0-2, Urine Renal Epithelial Cells 0-2, Urine Crystals NONE, Urine Bacteria FEWH, Urine Casts NONE, Urine Mucus NEGATIVE, Urine Yeast FEWH, Urine Culture Indicated YES 08/28/21 07:35: Lactic Acid Level 1.93 08/28/21 10:15: Glucometer 146H 08/28/21 14:44: Glucometer 134H A/P-Cardiology Assessment/Admission Diagnosis Acute abdomen, managed by Dr Carreno Non-cardiac chest and abdominal pain, managed by Dr Carreno - Card cath 08/14/21 did not show any significant CAD. LVEF was 60% A fib - ablation procedure by Dr Avila on 08/01/2014. - Recurrence of a-fib in April 2016 for which she is being maintained on Sotalol. - Chronic OAC with Eliquis for stroke prophylaxis CAD: - Cardiac cath of 06/26/13 showed mild CAD and impaired LV function (LVEF 40%), indicating moderate non-ischemic cardiomyopathy. This may partially be related to a fib with RVR. - Echocardiogram of 11-14-20 showed LVEF 60-650%. PASP approx 30-35 mmHg - MPI of August 2018 showed no evidence of significant myocardial ischemia or infarction. LVEF 68%. Normal regional wall motion - MPI of 07-17-21 showed small to mod amt of basal inferior ischemia. LVEF 72% - Card cath 08/14/21 did not show any significant CAD. LVEF was 60% Hypertension - controlled Obesity - with BMI of approx 37 Hypothyroidism - being treated with thyroid replacement therapy Breast CA - with h/o bilat mastectomies and subsequent chemo and radiation in 2005- Anxiety and depression - controlled DM II - treated with oral hypoglycemics Hyperlipidemia - followed by her PCP H/o partial colectomy for Hirschsprung's disease H/o chronic hypokalemia of undetermined etiology - managed by her pcp SHLOMO Obstructive sleep apnea - per sleep study on 10-08-2013; unable to tolerate CPAP I and has only been using oxygen at night Hemiplegic migraine - diagnosed during an admission in May 2014 at [place], [place], being followed by her neurologist, Dr Stephens, in [place], [place] No evidence of significant carotid dz on u/s of August 2018 S/p R TKR in or around 2009 and L TKR in July 2015 Discussion and Recomendations * Continue sotalol of A Fib prevention, if ok with Dr Carreno * Continue Eliquis for stroke prophylaxis, if ok with Dr Carreno * Monitor labs Clinical Quality Measures AMI/AHF: ASA po Prior to arrival: TORI Casiano MD FACP [facility] August 28, 2021 16:38
[2021-08-28] MEDS: ALPRAZolam 0.25 MG (XANAX) TAB PO PRN (18:08)
--- NOTE | 2021-08-28 18:25 | Consultation - Surgery ---
History of Present Illness History of Present Illness Patient Consulted On(dick/time) 08/28/21 18:18 Date Seen by Provider: August 28, 2021 Time Seen by Provider: 15:24 History of Present Illness Consult requested by Dr. Carreno for pancreatitis. Patient is a 60-year-old female who has been having bloating diarrhea and epigastric abdominal pain for 3 days. She states that she has Hirschsprung and has had to have multiple surgeries due to this. Patient states the epigastric pain is sharp is both constant and comes and goes. She states is rated at 8 out of 10. She does have nausea but no emesis. She states that pain medication has made her symptoms better but any type of movement or standing or sitting causes it to worsen. She notes previous cholecystectomy. Multiple surgeries for Hirschsprung. Patient with a CT scan abdomen pelvis which demonstrated findings consistent with acute pancreatitis. Patient with no other complaints. Denies fever sweats chills shortness of breath or chest pain. Allergies and Home Medications Allergies Coded Allergies: diphenhydramine (Verified Allergy, Unknown, 08/01/18) fluticasone (Verified Allergy, Unknown, 08/04/18) PER UNCODED ALLERGIES hylan G-F 20 (Verified Allergy, Unknown, 08/01/18) latex (Verified Allergy, Unknown, 08/01/18) morphine (Verified Allergy, Unknown, 08/01/18) salmeterol (Verified Allergy, Unknown, 08/04/18) PER UNCODED ALLERGIES trovafloxacin (Verified Allergy, Unknown, 08/01/18) Patient Home Medication List Home Medication List Reviewed: Yes ALPRAZolam (ALPRAZolam) 0.25 Mg Tablet, 0.25 MG PO BID PRN for ANXIETY, (Reported) Entered as Reported by: PENNY GONZALEZ on 08/14/211347 Last Action: Continued Albuterol Sulfate (Albuterol Sulfate) 0.63 Mg/3 Ml Vial.neb, 1 UNIT IH Q6H PRN for SHORTNESS OF BREATH, (Reported) Entered as Reported by: PENNY GONZALEZ on 08/14/211347 Last Action: Converted Albuterol Sulfate (Ventolin Hfa) 90 Mcg Hfa.aer.ad, 2 PUFF INH Q4-6HRS PRN for SHORTNESS OF BREATH, (Reported) Entered as Reported by: PENNY GONZALEZ on 08/14/211347 Last Action: Continued Allopurinol (Allopurinol) 100 Mg Tablet, 200 MG PO DAILY, (Reported) Entered as Reported by: SHANTEL ANDRADE on 03/25/201435 Last Action: Continued Apixaban (Eliquis) 5 Mg Tablet, 5 MG PO BID, (Reported) Entered as Reported by: ALL HOWARD on 08/01/181555 Last Action: Continued Aspirin (Aspirin) 81 Mg Tab.chew, 81 MG PO DAILY, (Reported) Entered as Reported by: PENNY GONZALEZ on 08/14/211347 Last Action: Continued Bupropion HCl (Bupropion HCl) 75 Mg Tablet, 150 MG PO BID, (Reported) Entered as Reported by: PENNY GONZALEZ on 08/14/211347 Last Action: Continued Cholecalciferol (Vitamin D3) (Vitamin D3) 25 Mcg Capsule, 25 MCG PO Q48H, (Reported) Entered as Reported by: SHANTEL ANDRADE on 03/25/201435 Last Action: Converted Citalopram Hydrobromide (Citalopram HBr) 40 Mg Tablet, 40 MG PO HS, (Reported) Entered as Reported by: ALL HOWARD on 08/01/181555 Last Action: Converted Cyanocobalamin (Vitamin B-12) (Vitamin B-12) 500 Mcg Tablet, 500 MCG PO DAILY, (Reported) Entered as Reported by: ALL HOWARD on 08/01/181555 Last Action: Converted Empagliflozin (Jardiance) 25 Mg Tablet, 25 MG PO DAILY, (Reported) Entered as Reported by: PENNY GONZALEZ on 08/14/211347 Last Action: Held Fluticasone Propionate (Fluticasone Propionate) 50 Mcg/Actuation Amalia.susp, 2 SPRAYS NSEACH DAILY, (Reported) Entered as Reported by: PENNY GONZALEZ on 08/14/211347 Last Action: Converted Fluticasone/Umeclidin/Vilanter (Trelegy Ellipta 200-62.5-25) 200-62.5 Blst.w.dev, 1 PUFF IH DAILY, (Reported) Entered as Reported by: PENNY GONZALEZ on 08/14/211347 Last Action: Converted Gabapentin (Neurontin) 300 Mg Capsule, 300 MG PO BID, (Reported) Entered as Reported by: PENNY GONZALEZ on 08/14/211347 Last Action: Continued Glipizide (Glipizide) 5 Mg Tablet, 10 MG PO DAILY, (Reported) Entered as Reported by: SHANTEL ANDRADE on 03/25/20 143 Last Action: Held Levothyroxine Sodium (Euthyrox) 112 Mcg Tablet, 112 MCG PO DAILY, (Reported) Entered as Reported by: PENNY GONZALEZ on 08/14/211347 Last Action: Continued Loratadine (Loratadine) 10 Mg Tablet, 10 MG PO DAILY, (Reported) Entered as Reported by: PENNY GONZALEZ on 08/14/211347 Last Action: Continued Magnesium Oxide (Magnesium Oxide) 500 Mg Tablet, 500 MG PO DAILY, (Reported) Entered as Reported by: PENNY GONZALEZ on 08/14/211347 Last Action: Converted Meclizine HCl (Meclizine HCl) 25 Mg Tablet, 25 MG PO BID PRN for DIZZINESS, (Reported) Entered as Reported by: PENNY GONZALEZ on 08/14/211347 Last Action: Continued Metformin HCl (Metformin HCl) 1,000 Mg Tablet, 1,000 MG PO BID, (Reported) Entered as Reported by: SHANTEL ANDRADE on 08/28/21 1416 Last Action: Held Multivitamin with Minerals (Multiple Vitamin) 1 Each Tablet, 1 EACH PO DAILY, (Reported) Entered as Reported by: PENNY GONZALEZ on 08/14/211347 Last Action: Converted Omeprazole (Omeprazole) 20 Mg Capsule.dr, 20 MG PO DAILY, (Reported) Entered as Reported by: ALL HOWARD on 08/01/18 6506 Last Action: Continued Potassium Chloride (Potassium Chloride) 10 Meq Tab.er.prt, 10 MEQ PO DAILY, (Reported) Entered as Reported by: SHANTEL ANDRADE on 03/25/20 143 Last Action: Converted Rizatriptan Benzoate (Rizatriptan) 10 Mg Tablet, 10 MG PO UD PRN for HEADACHE, (Reported) Entered as Reported by: PENNY GONZALEZ on 4/29/22 1348 Last Action: Converted Simvastatin (Simvastatin) 10 Mg Tablet, 10 MG PO HS, (Reported) Entered as Reported by: ALL HOWARD on 08/01/18 155 Last Action: Continued Sotalol HCl (Sotalol) 80 Mg Tablet, 40 MG PO BID, (Reported) Entered as Reported by: ALL HOWARD on 08/01/181555 Last Action: Continued Past Rfnfgtk-Mcdkqu-Fcasjx Hx Patient Social History Smoking Status: Never a Smoker 2nd Hand Smoke Exposure: No Recent Hopitalizations: No Alcohol Use?: No Have you traveled recently?: No Immunizations Up To Date Date of Pneumonia Vaccine: Dec 18, 2019 Date of Influenza Vaccine: Jan 23, 2018 Seasonal Allergies Seasonal Allergies: Yes Surgeries History of Surgeries: Yes (BOWEL, BREAST, BILAT TKR, BILAT KNEE SCOPES, SKIN LESION,CARDIAC ABLATION) Surgeries: Appendectomy, Gallbladder, Hysterectomy, Tonsillectomy, Tubal Ligation Respiratory History of Respiratory Disorde: Yes (NOT HAVING MANY ISSUES ) Respiratory Disorders: Asthma Cardiovascular History of Cardiac Disorders: Yes Cardiac Disorders: Atrial Fibrillation, High Cholesterol, Hypertension Neurological History of Neurological Disord: Yes Neurological Disorders: Headaches /Migraines Reproductive System Sexually Transmitted Disease: No HIV/AIDS: No Genitourinary History of Genitourinary Disor: No Gastrointestinal History of Gastrointestinal Di: Yes (HIRSCHSPRUNGS) Gastrointestinal Disorders: Gastroesophageal Reflux, Chronic Diarrhea Musculoskeletal History of Musculoskeletal Dis: Yes Musculoskeletal Disorders: Back Injury Endocrine History of Endocrine Disorders: Yes Endocrine Disorders: Hypothyroidsim, Diabetes, Non-Insulin dep HEENT History of HEENT Disorders: Yes (GLASSES, DENTURES) Loss of Vision: Bilateral Hearing Impairment: Denies Cancer History of Cancer: Yes (BREAST) Psychosocial History of Psychiatric Problem: Yes Behavioral Health Disorders: Anxiety, Depression Integumentary History of Skin or Integumenta: No Blood Transfusions History of Blood Disorders: Yes Adverse Reaction to a Blood Tr: No (HAS HAD BLOOD WITH NO REACTION) Reviewed Nursing Assessment Reviewed/Agree w Nursing PMH: Yes Family Medical History Significant Family History: No Pertinent Family Hx Family Medial History: Cardiovascular disease 19 FATHER G8 SISTER Review of Systems-General Constitutional: No diaphoresis, No weakness EENTM: No blurred vision Respiratory: No cough, No dyspnea on exertion Cardiovascular: No chest pain Gastrointestinal: diarrhea, nausea Genitourinary: No decreased output, No discharge Musculoskeletal: No back pain Skin: No change in color, No change in hair/nails Psychiatric/Neurological: Denies Anxiety, Denies Depressed, Denies Emotional Problems All Other Systems Reviewed Negative Unless Noted: Yes (Negative excepted noted.) Physical Exam-General Problems Physical Exam Vital Signs Vital Signs - First Documented 08/28/21 08/28/21 08/28/21 05:00 08:05 09:11 Temp 37.0 Pulse 66 Resp 20 B/P (MAP) 135/92 (106) Pulse Ox 99 O2 Delivery Room Air O2 Flow Rate 0.00 Capillary Refill : General Appearance: WD/WN, no apparent distress HEENT: PERRL/EOMI, normal ENT inspection, pharynx normal Neck: supple Respiratory: chest non-tender, no respiratory distress, no accessory muscle use Cardiovascular: regular rate, rhythm, no JVD Gastrointestinal: soft, tenderness (Epigastric no guarding or rebounding), other (Multiple scars) Back: normal inspection, no CVA tenderness Extremities: non-tender, normal inspection Neurologic/Psychiatric: alert, normal mood/affect, oriented x 3 Skin: normal color, warm/dry Lymphatic: no adenopathy Data Review Labs Laboratory Tests 08/28/21 05:07: White Blood Count 12.5H, Red Blood Count 4.65, Hemoglobin 13.0, Hematocrit 40, Mean Corpuscular Volume 85, Mean Corpuscular Hemoglobin 28, Mean Corpuscular Hemoglobin Concent 33, Red Cell Distribution Width 14.6H, Platelet Count 290, Mean Platelet Volume 9.4, Immature Granulocyte % (Auto) 1, Neutrophils (%) (Auto) 70, Lymphocytes (%) (Auto) 20, Monocytes (%) (Auto) 7, Eosinophils (%) (Auto) 3, Basophils (%) (Auto) 1, Neutrophils # (Auto) 8.7H, Lymphocytes # (Auto) 2.4, Monocytes # (Auto) 0.9, Eosinophils # (Auto) 0.3, Basophils # (Auto) 0.1, Immature Granulocyte # (Auto) 0.1, Prothrombin Time 13.3, INR Comment 1.0, Activated Partial Thromboplast Time 36H, D-Dimer 0.27, Sodium Level 137, Potassium Level 4.1, Chloride Level 100, Carbon Dioxide Level 23, Anion Gap 14, Blood Urea Nitrogen 16, Creatinine 0.89, Estimat Glomerular Filtration Rate 75, BUN/Creatinine Ratio 18, Glucose Level 194H, Calcium Level 10.0, Corrected Calcium , Magnesium Level 1.8, Total Bilirubin 0.5, Aspartate Amino Transf (AST/SGOT) 13, Alanine Aminotransferase (ALT/SGPT) 14, Alkaline Phosphatase 148H , Troponin I < 0.30, Pro-B-Type Natriuretic Peptide 219.3H, Total Protein 7.7, Albumin 4.7H, Lipase 111H 08/28/21 06:15: Urine Color YELLOW, Urine Clarity CLEAR, Urine pH 6.0, Urine Specific [place] <=1.005, Urine Protein NEGATIVE, Urine Glucose (UA) 3+H, Urine Ketones NEGATIVE, Urine Nitrite NEGATIVE, Urine Bilirubin NEGATIVE, Urine Urobilinogen 0.2, Urine Leukocyte Esterase 1+H, Urine RBC (Auto) NEGATIVE, Urine RBC RARE, Urine WBC 5- 10H, Urine Squamous Epithelial Cells 0-2, Urine Renal Epithelial Cells 0-2, Urine Crystals NONE, Urine Bacteria FEWH, Urine Casts NONE, Urine Mucus NEGATIVE, Urine Yeast FEWH, Urine Culture Indicated YES 08/28/21 07:35: Lactic Acid Level 1.93 08/28/21 10:15: Glucometer 146H 08/28/21 14:44: Glucometer 134H Assessment/Plan Assessment/Plan Assessment/Plan Epigastric abdominal pain Pancreatitis Hirschsprung Patient is a 10-year-old female she is still having epigastric abdominal pain would keep her n.p.o. and IV fluids. Once pain improves would advance diet. Had previous cholecystectomy so do not need to check gallbladder. Clinical Quality Measures AMI/AHF: ASA po Prior to arrival: ISABELLA Ratliff DO August 28, 2021 18:25
[2021-08-28 19:41] VITALS: BP 109/67
[2021-08-28] MEDS ORDERED: NON-FORMULARY MEDICATION 1 EA EA (Citalopram Hydrobromide (Citalopram HBr) 40 MG) PO SCH (21:00)
[2021-08-28] MEDS: SIMvastatin 10 MG (ZOCOR) TAB PO SCH (21:34)
[2021-08-28] MEDS: buPROPion 75 MG (WELLBUTRIN) TAB PO SCH (21:34)
[2021-08-28] MEDS: APIXABAN 5 MG (ELIQUIS) TABLET PO SCH (21:34)
[2021-08-28] MEDS: GABAPENTIN 300 MG (NEURONTIN) CAP PO SCH (21:35)
[2021-08-28] MEDS: SOTALOL 80 MG (BETAPACE) TAB PO SCH (21:35)
[2021-08-28] MEDS: DOCUSATE SODIUM 100 MG (COLACE) CAP PO SCH (21:37)
[2021-08-29] VITALS: BP 113/62
[2021-08-29] MEDS: NS IV 1000 ML 1,000 ML IV SCH ×4 (02:00→18:14)
[2021-08-29 04:00] VITALS: BP 108/67
[2021-08-29] MEDS: inSUlin ASPART (NovoLOG) 1 UNIT/0.01 ML (CHARGE PER UNIT) SC SCH ×4 (05:32→22:26)
[2021-08-29 05:42] LABS: BASOPHILS # (AUTO) 0.1 10^3/uL (0.0-0.1); BASOPHILS % (AUTO) 1 % (0-10); EOSINOPHILS # (AUTO) 0.3 10^3/uL (0.0-0.3); EOSINOPHILS % (AUTO) 3 % (0-10); HEMATOCRIT 35 % (35-52); HEMOGLOBIN 11.2 g/dL (11.5-16.0); LYMPHOCYTES # (AUTO) 1.9 10^3/uL (1.0-4.0); LYMPHOCYTES % (AUTO) 20 % (12-44); MEAN CORPUSCULAR HEMOGLOBIN 28 pg (25-34); MEAN CORPUSCULAR HGB CONC 32 g/dL (32-36); MEAN CORPUSCULAR VOLUME 88 fL (80-99); MEAN PLATELET VOLUME 9.4 fL (9.0-12.2); MONOCYTES # (AUTO) 0.7 10^3/uL (0.0-1.0); MONOCYTES % (AUTO) 8 % (0-12); NEUTROPHILS # (AUTO) 6.6 10^3/uL (1.8-7.8); NEUTROPHILS % (AUTO) 69 % (42-75); PLATELET COUNT 238 10^3/uL (130-400); WHITE BLOOD COUNT 9.6 10^3/uL (4.3-11.0)
[2021-08-29 06:04] LABS: ALBUMIN 3.8 GM/DL (3.2-4.5); POTASSIUM 3.9 MMOL/L (3.6-5.0)
[2021-08-29 06:05] LABS: CALCIUM 8.6 MG/DL (8.5-10.1)
[2021-08-29 06:07] LABS: TOTAL PROTEIN 6.2 GM/DL (6.4-8.2)
[2021-08-29 06:08] LABS: BILIRUBIN,TOTAL 0.6 MG/DL (0.1-1.0)
[2021-08-29 06:10] LABS: CREATININE SERUM 0.92 MG/DL (0.60-1.30)
[2021-08-29] MEDS: MULTIVIT W/MINERALS TAB (THERAGRAN M) PO SCH (06:38)
[2021-08-29] MEDS: LEVOTHYROXINE 112 MCG (LEVOTHROID) TAB PO SCH (06:38)
[2021-08-29 07:38] VITALS: BP 102/63
[2021-08-29] MEDS ORDERED: OMEPRAZOLE 20 MG (PriLOSEC) CAP NON-FORMULARY PO SCH (09:00)
[2021-08-29] MEDS ORDERED: PANTOPRAZOLE 40 MG (PROTONIX) VIAL IV SCH (09:00)
[2021-08-29] MEDS ORDERED: NON-FORMULARY MEDICATION 1 EA EA (Cyanocobalamin (Vitamin B-12) (Vitamin B-12) 500 MCG) PO SCH (09:00)
[2021-08-29] MEDS ORDERED: NON-FORMULARY MEDICATION 1 EA EA (Fluticasone Propionate 2 SPRAYS) NSEACH SCH (09:00)
[2021-08-29] MEDS ORDERED: NON-FORMULARY MEDICATION 1 EA EA (Potassium Chloride 10 MEQ) PO SCH (09:00)
[2021-08-29] MEDS ORDERED: NON-FORMULARY MEDICATION 1 EA EA (Magnesium Oxide 500 MG) PO SCH (09:00)
[2021-08-29] MEDS: MAGNESIUM OXIDE (MAG-OX)400 MG TAB PO SCH (09:13)
[2021-08-29] MEDS: CYANOCOBALAMIN 1,000 MCG (VITAMIN B-12) TABLET PO SCH (09:13)
[2021-08-29] MEDS: buPROPion 75 MG (WELLBUTRIN) TAB PO SCH ×2 (09:14→21:09)
[2021-08-29] MEDS: DOCUSATE SODIUM 100 MG (COLACE) CAP PO SCH ×2 (09:14→22:26)
[2021-08-29] MEDS: LORATADINE (CLARITIN) 10 MG TAB PO SCH (09:14)
[2021-08-29] MEDS: SOTALOL 80 MG (BETAPACE) TAB PO SCH ×2 (09:14→21:10)
[2021-08-29] MEDS: ALLOPURINOL 100 MG (ZYLOPRIM) TAB PO SCH (09:14)
[2021-08-29] MEDS: GABAPENTIN 300 MG (NEURONTIN) CAP PO SCH ×2 (09:14→21:10)
[2021-08-29] MEDS: APIXABAN 5 MG (ELIQUIS) TABLET PO SCH ×2 (09:15→21:09)
[2021-08-29] MEDS: KCL 10 MEQ TAB (MICRO K) PO SCH (09:15)
[2021-08-29] MEDS: ANTACID SUSP 30 ML UDC (MYLANTA) PO PRN (09:15)
[2021-08-29] MEDS: ASPIRIN 81 MG CHEW (CHILDREN'S ASA) PO SCH (09:15)
[2021-08-29] MEDS: FLUTICASONE NASAL SPRAY (FLONASE) 16 GM BTL NS SCH (09:18)
[2021-08-29] MEDS: VITAMIN D3 25 MCG (1,000 UNITS) TABLET PO SCH (10:06)
[2021-08-29] MEDS ORDERED: HYDROmorphone 2 MG/ML VIAL (DILAUDID) IV PRN (10:15)
[2021-08-29] MEDS ORDERED: PROMETHAZINE INJ 25 MG/ML (PHENERGAN) AMP IM PRN (10:15)
[2021-08-29] MEDS ORDERED: MELATONIN 3 MG TABLET PO PRN (10:24)
[2021-08-29] MEDS ORDERED: ACETAMINOPHEN 325 MG TABLET PO PRN (10:30)
[2021-08-29] MEDS ORDERED: ONDANSETRON 4 MG/2 ML (SDV) Z0FRAN IV PRN (10:30)
[2021-08-29] MEDS ORDERED: polyethylene glycoL POWDER 17 GM (MIRALAX) PACK PO PRN (10:45)
[2021-08-29] MEDS ORDERED: BISACODYL 10 MG SUPP (DULCOLAX) PR PRN (10:45)
[2021-08-29] MEDS ORDERED: ANTACID SUSP 30 ML UDC (MYLANTA) PO PRN (10:45)
[2021-08-29 11:09] VITALS: BP 107/63
--- NOTE | 2021-08-29 13:31 | Progress Note - Surgery ---
Subjective Date Seen by a Provider: August 29, 2021 Time Seen by a Provider: 12:15 Subjective/Events-last exam Patient feeling a little bit better. Pain is less. Still comes and goes though. Patient tolerating clears. Not having any nausea or vomiting. Denies any fever sweats chills shortness of breath or chest pain. Focused Exam Lactate Level 08/28/21 07:35: Lactic Acid Level 1.93 Objective Exam Vital Signs Date Time Temp Pulse Resp B/P (MAP) Pulse Ox O2 Delivery O2 Flow Rate FiO2 08/29/21 12:40 57 08/29/21 11:17 58 08/29/21 11:09 36.6 54 20 107/63 (78) 97 Room Air 0.00 08/29/21 08:06 96 Room Air 08/29/21 07:38 36.6 57 18 102/63 (76) 96 Room Air 0.00 08/29/21 07:23 Room Air 08/29/21 07:00 55 08/29/21 04:00 36.6 55 17 108/67 (81) 97 Nasal Cannula 2.00 08/29/21 01:00 53 08/29/21 00:00 36.5 70 18 113/62 (79) 96 Nasal Cannula 2.00 08/28/21 21:35 Nasal Cannula 2.00 08/28/21 19:41 36.4 61 20 109/67 (81) 94 Nasal Cannula 2.00 08/28/21 19:00 60 08/28/21 15:30 36.3 63 18 118/75 (89) 92 Room Air I & O 08/29/21 06:59 Intake Total 5045 ml Output Total 1300 ml Balance 3745 ml Capillary Refill : General Appearance: No Apparent Distress, Anxious, Chronically ill HEENT: PERRL/EOMI, Normal ENT Inspection, Pharynx Normal, Moist Mucous Membranes Neck: Full Range of Motion, Normal Inspection, Non Tender Respiratory: Chest Non Tender, No Accessory Muscle Use, No Respiratory Distress Cardiovascular: Regular Rate, Rhythm, No JVD, Normal Peripheral Pulses Gastrointestinal: soft, tenderness (Epigastric no guarding or rebounding, less than yesterday), other (Multiple scars) Extremity: Normal Capillary Refill, Normal Inspection, Normal Range of Motion, Non Tender, No Calf Tenderness, No Pedal Edema Neurologic/Psychiatric: Alert, Oriented x3, No Motor/Sensory Deficits, Normal Mood/Affect Skin: Normal Color, Warm/Dry Lymphatic: No Adenopathy Results Lab Laboratory Tests 08/28/21 14:44: Glucometer 134H 08/28/21 20:37: Glucometer 141H 08/29/21 05:00: White Blood Count 9.6, Red Blood Count 3.95, Hemoglobin 11.2L, Hematocrit 35, Mean Corpuscular Volume 88, Mean Corpuscular Hemoglobin 28, Mean Corpuscular Hemoglobin Concent 32, Red Cell Distribution Width 14.9H, Platelet Count 238, Mean Platelet Volume 9.4, Immature Granulocyte % (Auto) 0, Neutrophils (%) (Auto) 69, Lymphocytes (%) (Auto) 20, Monocytes (%) (Auto) 8, Eosinophils (%) (Auto) 3, Basophils (%) (Auto) 1, Neutrophils # (Auto) 6.6, Lymphocytes # (Auto) 1.9, Monocytes # (Auto) 0.7, Eosinophils # (Auto) 0.3, Basophils # (Auto) 0.1, Immature Granulocyte # (Auto) 0.0, Sodium Level 138, Potassium Level 3.9, Chloride Level 107, Carbon Dioxide Level 20L, Anion Gap 11, Blood Urea Nitrogen 10, Creatinine 0.92, Estimat Glomerular Filtration Rate 72, BUN/Creatinine Ratio 11, Glucose Level 146H, Calcium Level 8.6, Corrected Calcium 8.8, Total Bilirubin 0.6, Aspartate Amino Transf (AST/SGOT) 13, Alanine Aminotransferase (ALT/SGPT) 12, Alkaline Phosphatase 111, Total Protein 6.2L, Albumin 3.8, Lipase 34 08/29/21 05:20: Glucometer 153H 08/29/21 11:11: Glucometer 159H Assessment/Plan Assessment/Plan Assessment/Plan Epigastric abdominal pain Pancreatitis Hirschsprung still having epigastric abdominal pain but less. Clear liquid diet. and IV fluids. Once pain improves would advance diet. Had previous cholecystectomy so do not need to check gallbladder. Pain control Clinical Quality Measures AMI/AHF: ASA po Prior to arrival: ISABELLA Ratliff DO August 29, 2021 13:31
--- NOTE | 2021-08-29 15:10 | Progress Note - Cardiology ---
Cardiology SOAP Progress Note Subjective: No cp Abd pain somewhat better Intermittent nausea No vomiting No palp or syncope or shortness of breath Objective: I&O/Vital Signs 08/29/21 08/29/21 08/29/21 08/29/21 04:00 07:00 07:23 07:38 Temp 36.6 36.6 Pulse 55 55 57 Resp 17 18 B/P (MAP) 108/67 (81) 102/63 (76) Pulse Ox 97 96 O2 Delivery Nasal Cannula Room Air Room Air O2 Flow Rate 2.00 0.00 08/29/21 08/29/21 08/29/21 08/29/21 08:06 11:09 11:17 12:40 Temp 36.6 Pulse 54 58 57 Resp 20 B/P (MAP) 107/63 (78) Pulse Ox 96 97 O2 Delivery Room Air Room Air O2 Flow Rate 0.00 08/28/21 23:59 Intake Total 3195 ml Output Total 700 ml Balance 2495 ml Weight (Pounds): 211 Weight (Ounces): 0.0 Weight (Calculated Kilograms): 95.644808 Constitutional: AAO x 3, well-developed, well-nourished Respiratory: No accessory muscle use; other (good, bilateral air entry) Cardiovascular: regular rate-rhythm, S1 and S2, systolic murmur (soft HUGO at card base) Gastrointestional: tender, distended, audible bowel sounds Extremities: No clubbing, No cyanosis, No significant edema Neurologic/Psychiatric: oriented x 3, other (moves all limbs equally) Skin: No rash on exposed areas, No ulcerations on exposed areas Results/Procedures: Labs Laboratory Tests 08/28/21 20:37: Glucometer 141H 08/29/21 05:00: White Blood Count 9.6, Red Blood Count 3.95, Hemoglobin 11.2L, Hematocrit 35, Mean Corpuscular Volume 88, Mean Corpuscular Hemoglobin 28, Mean Corpuscular Hemoglobin Concent 32, Red Cell Distribution Width 14.9H, Platelet Count 238, Mean Platelet Volume 9.4, Immature Granulocyte % (Auto) 0, Neutrophils (%) (Auto) 69, Lymphocytes (%) (Auto) 20, Monocytes (%) (Auto) 8, Eosinophils (%) (Auto) 3, Basophils (%) (Auto) 1, Neutrophils # (Auto) 6.6, Lymphocytes # (Auto) 1.9, Monocytes # (Auto) 0.7, Eosinophils # (Auto) 0.3, Basophils # (Auto) 0.1, Immature Granulocyte # (Auto) 0.0, Sodium Level 138, Potassium Level 3.9, Chloride Level 107, Carbon Dioxide Level 20L, Anion Gap 11, Blood Urea Nitrogen 10, Creatinine 0.92, Estimat Glomerular Filtration Rate 72, BUN/Creatinine Ratio 11, Glucose Level 146H, Calcium Level 8.6, Corrected Calcium 8.8, Total Bilirubin 0.6, Aspartate Amino Transf (AST/SGOT) 13, Alanine Aminotransferase (ALT/SGPT) 12, Alkaline Phosphatase 111, Total Protein 6.2L, Albumin 3.8, Lipase 34 08/29/21 05:20: Glucometer 153H 08/29/21 11:11: Glucometer 159H Microbiology 08/28/21 Urine Culture - Final, Complete 3 or more isolates Laboratory Tests 08/28/21 05:07 08/29/21 05:00 A/P: Assessment: Acute abdomen, managed by Dr Carreno Non-cardiac chest and abdominal pain, managed by Dr Carreno - Card cath 08/14/21 did not show any significant CAD. LVEF was 60% A fib - ablation procedure by Dr Avila on 08/01/2014. - Recurrence of a-fib in April 2016 for which she is being maintained on Sot alol. - Chronic OAC with Eliquis for stroke prophylaxis CAD: - Cardiac cath of 06/26/13 showed mild CAD and impaired LV function (LVEF 40%), indicating moderate non-ischemic cardiomyopathy. This may partially be related to a fib with RVR. - Echocardiogram of 11-14-20 showed LVEF 60-650%. PASP approx 30-35 mmHg - MPI of August 2018 showed no evidence of significant myocardial ischemia or infarction. LVEF 68%. Normal regional wall motion - MPI of 07-17-21 showed small to mod amt of basal inferior ischemia. LVEF 72% - Card cath 08/14/21 did not show any significant CAD. LVEF was 60% Hypertension - controlled Obesity - with BMI of approx 37 Hypothyroidism - being treated with thyroid replacement therapy Breast CA - with h/o bilat mastectomies and subsequent chemo and radiation in 2005- Anxiety and depression - controlled DM II - treated with oral hypoglycemics Hyperlipidemia - followed by her PCP H/o partial colectomy for Hirschsprung's disease H/o chronic hypokalemia of undetermined etiology - managed by her pcp [facility] Obstructive sleep apnea - per sleep study on 10-08-2013; unable to tolerate CPAP I and has only been using oxygen at night Hemiplegic migraine - diagnosed during an admission in May 2014 at [place], [place], being followed by her neurologist, Dr Stephens, in [place], [place] No evidence of significant carotid dz on u/s of August 2018 S/p R TKR in or around 2009 and L TKR in July 2015 Plan: * Continue current regimen * I discussed her CV issues with her * Monitor labs Clinical Quality Measures AMI/AHF: ASA po Prior to arrival: TORI Casiano MD FACP FAC CCDS August 29, 2021 15:10
[2021-08-29] MEDS: NON-FORMULARY MEDICATION 1 EA EA (Fluticasone/Umeclidin/Vilanter (Trelegy Ellipta 200-62.5 IH SCH (15:28)
[2021-08-29 15:48] VITALS: BP 104/64
--- NOTE | 2021-08-29 17:20 | Progress Note - Hospitalist ---
SUNIL MAHONEY 08/29/21 1720: Subjective HPI/CC On Admission Date Seen by Provider: August 29, 2021 Time Seen by Provider: 10:15 CC: Abdominal pain HPI: This is a female [facility] pt who presented to the [facility] ER with chest pain and abdominal pain. She was found to have acute pancreatitis on CT scan. Lipase was only mildly elevated. She has had a colostetectomy before. I will consult Dr. Resendiz. Placed on IV fluids, supportive care, and a clear liquid diet. She does have a history of pancreatic cysts and cancer in the family. Subjective/Events-last exam The patient was laying in bed and was not in any acute distress this morning. She reports that she is still having constant and dull epigastric pain, which she rated as 5-6/10 and reports has improved since being admitted. She reports having a headache. She reports feeling dizzy at times. Review of Systems General: No Chills; Other (no fever) HEENT: Head Aches; No Visual Changes Pulmonary: Dyspnea; No Cough Cardiovascular: No: Chest Pain, Palpitations Gastrointestinal: Abdominal Pain, Diarrhea Genitourinary: No Dysuria, No Hematuria Neurological: No: Change in speech, Confusion Focused Exam Lactate Level 08/28/21 07:35: Lactic Acid Level 1.93 Objective Exam Vital Signs Vital Signs Date Time Temp Pulse Resp B/P (MAP) Pulse Ox O2 Delivery O2 Flow Rate FiO2 08/29/21 15:48 36.6 57 18 104/64 (77) 95 Room Air 08/29/21 11:09 0.00 Capillary Refill : General Appearance: No Apparent Distress, Obese HEENT: PERRL/EOMI, Moist Mucous Membranes Neck: Full Range of Motion, Normal Inspection Respiratory: Chest Non Tender, Lungs Clear, Normal Breath Sounds, No Accessory Muscle Use, No Respiratory Distress Cardiovascular: Regular Rate, Rhythm, No Edema, No Murmur, Bradycardia Gastrointestinal: Normal Bowel Sounds, No Organomegaly, No Pulsatile Mass, Soft, Tenderness (epigastric region ) Extremity: Normal Inspection, Normal Range of Motion, Non Tender, No Calf Tenderness, No Pedal Edema Neurologic/Psychiatric: Alert, Oriented x3, No Motor/Sensory Deficits, Normal Mood/Affect Skin: Normal Color, Warm/Dry Results/Procedures Lab Laboratory Tests 08/29/21 05:00 Patient resulted labs reviewed. Assessment/Plan Assessment and Plan Assess & Plan/Chief Complaint Assessment: Acute pancreatitis with family hx of pancreatic cyst and cancer S/P cholecystectomy Nausea AFib Obesity Anemia Plan: Acute pancreatitis with family hx of pancreatic cyst and cancer S/P cholecystectomy Nausea Continue on clear liquids and IVF. Medical pain management as needed. Surgery following. PRN Zofran Afib Continue on anticogulation therapy. Monitor heart rate and rhythm Obesity Recommend weight loss. Anemia Mild, last hemoglobin was 11.2, which decreased from 13 yesterday. Continue to monitor. Clinical Quality Measures AMI/AHF: ASA po Prior to arrival: No JENNI GUILLEN DO 08/30/21 1439: Subjective Subjective/Events-last exam Pt doing a little better Abdominal pain is doing a little better Less distention Appreciate Dr. Resendiz and Dr. Manzano A-Fib is managed by Cardiology Walking around well Objective Exam General Appearance: No Apparent Distress, WD/WN, Chronically ill Respiratory: Lungs Clear, Normal Breath Sounds Cardiovascular: Regular Rate, Rhythm Assessment/Plan Assessment and Plan Assess & Plan/Chief Complaint Supportive care Pain meds IV fluids Supervisory-Addendum Brief Verification & Attestation Participated in pt care: history, MDM, physical Personally performed: exam, history, MDM, supervision of care Care discussed with: Medical Student Procedures: n/a Results interpretation: Verified all documentation Verification and Attestation of Medical Student E/M Service A medical student performed and documented this service in my presence. I reviewed and verified all information documented by the medical student and made modifications to such information, when appropriate. I personally performed the physical exam and medical decision making. Jenni Guillen August 30, 2021,14:38 SUNIL MAHONEY August 29, 2021 17:20 JENNI GUILLEN DO August 30, 2021 14:39
[2021-08-29 19:27] VITALS: BP 104/66
[2021-08-29] MEDS: SIMvastatin 10 MG (ZOCOR) TAB PO SCH (21:09)
[2021-08-30 00:02] VITALS: BP 105/66
[2021-08-30] MEDS: NS IV 1000 ML 1,000 ML IV SCH ×3 (02:32→17:50)
[2021-08-30 03:56] VITALS: BP 105/65
--- NOTE | 2021-08-30 05:20 | Progress Note - Hospitalist ---
Subjective HPI/CC On Admission Date Seen by Provider: August 30, 2021 Time Seen by Provider: 05:00 CC: Abdominal pain HPI: This is a female [facility] pt who presented to the [place] ER with chest pain and abdominal pain. She was found to have acute pancreatitis on CT scan. Lipase was only mildly elevated. She has had a colostetectomy before. I will consult Dr. Resendiz. Placed on IV fluids, supportive care, and a clear liquid diet. She does have a history of pancreatic cysts and cancer in the family. Subjective/Events-last exam Pt doing really well Less nausea Less pain IV fluids continue Ambulating around pretty well Blood sugars remain stable Telemetry maintained Review of Systems General: Fatigue, Malaise Gastrointestinal: Abdominal Pain Focused Exam Lactate Level 08/28/21 07:35: Lactic Acid Level 1.93 Objective Exam Vital Signs Vital Signs Date Time Temp Pulse Resp B/P (MAP) Pulse Ox O2 Delivery O2 Flow Rate FiO2 08/30/21 15:45 36.7 52 18 104/55 (71) 98 Room Air 08/30/21 07:52 2.00 Capillary Refill : General Appearance: No Apparent Distress, WD/WN, Chronically ill, Obese Respiratory: Lungs Clear, Normal Breath Sounds Cardiovascular: Regular Rate, Rhythm Neurologic/Psychiatric: Alert, Oriented x3, No Motor/Sensory Deficits, Normal Mood/Affect Results/Procedures Lab Laboratory Tests 08/30/21 05:49 Patient resulted labs reviewed. Assessment/Plan Assessment and Plan Assess & Plan/Chief Complaint Assessment: Acute pancreatitis Family history of pancreatic cyst and cancer Previous cholecystectomy Atrial fibrillation Oral anticoagulant Plan: Supportive care Dr. Resendiz consult Pain control IV fluids Advance diet Clinical Quality Measures AMI/AHF: ASA po Prior to arrival: RUBIA Howell DO August 30, 2021 05:20
[2021-08-30] MEDS: inSUlin ASPART (NovoLOG) 1 UNIT/0.01 ML (CHARGE PER UNIT) SC SCH ×4 (05:28→22:11)
[2021-08-30] MEDS: MULTIVIT W/MINERALS TAB (THERAGRAN M) PO SCH (05:38)
[2021-08-30] MEDS: LEVOTHYROXINE 112 MCG (LEVOTHROID) TAB PO SCH (05:38)
[2021-08-30 06:12] LABS: ALBUMIN 3.5 GM/DL (3.2-4.5); POTASSIUM 3.7 MMOL/L (3.6-5.0)
[2021-08-30 06:13] LABS: BASOPHILS % (AUTO) 0 % (0-10); CALCIUM 8.3 MG/DL (8.5-10.1); EOSINOPHILS # (AUTO) 0.3 10^3/uL (0.0-0.3); EOSINOPHILS % (AUTO) 3 % (0-10); HEMATOCRIT 32 % (35-52); HEMOGLOBIN 10.4 g/dL (11.5-16.0); LYMPHOCYTES # (AUTO) 1.9 10^3/uL (1.0-4.0); LYMPHOCYTES % (AUTO) 22 % (12-44); MEAN CORPUSCULAR HEMOGLOBIN 28 pg (25-34); MEAN CORPUSCULAR HGB CONC 32 g/dL (32-36); MEAN CORPUSCULAR VOLUME 88 fL (80-99); MEAN PLATELET VOLUME 9.5 fL (9.0-12.2); MONOCYTES # (AUTO) 0.7 10^3/uL (0.0-1.0); MONOCYTES % (AUTO) 8 % (0-12); NEUTROPHILS # (AUTO) 5.6 10^3/uL (1.8-7.8); NEUTROPHILS % (AUTO) 65 % (42-75); PLATELET COUNT 214 10^3/uL (130-400); WHITE BLOOD COUNT 8.6 10^3/uL (4.3-11.0)
[2021-08-30 06:15] LABS: TOTAL PROTEIN 5.8 GM/DL (6.4-8.2)
[2021-08-30 06:16] LABS: BILIRUBIN,TOTAL 0.5 MG/DL (0.1-1.0)
[2021-08-30 06:18] LABS: CREATININE SERUM 0.86 MG/DL (0.60-1.30)
--- NOTE | 2021-08-30 06:24 | Progress Note - Surgery ---
Subjective Date Seen by a Provider: August 30, 2021 Time Seen by a Provider: 06:24 Subjective/Events-last exam Patient still with epigastric abdominal pain. She is tolerating clears. Movement and touch makes pain worse. Nothing was seems to make it better. She denies any nausea vomiting fever sweats chills shortness of breath or chest pain at this time. Focused Exam Lactate Level 08/28/21 07:35: Lactic Acid Level 1.93 Objective Exam Vital Signs Date Time Temp Pulse Resp B/P (MAP) Pulse Ox O2 Delivery O2 Flow Rate FiO2 08/30/21 03:56 36.8 67 17 105/65 (78) 98 Nasal Cannula 2.00 08/30/21 01:00 63 08/30/21 00:02 36.7 71 17 105/66 (79) 96 Nasal Cannula 2.00 08/29/21 22:10 94 Nasal Cannula 2.00 08/29/21 20:45 Nasal Cannula 2.00 08/29/21 19:27 36.8 63 18 104/66 (79) 94 Room Air 08/29/21 19:00 60 08/29/21 15:48 36.6 57 18 104/64 (77) 95 Room Air 08/29/21 12:40 57 08/29/21 11:17 58 08/29/21 11:09 36.6 54 20 107/63 (78) 97 Room Air 0.00 08/29/21 08:06 96 Room Air 08/29/21 07:38 36.6 57 18 102/63 (76) 96 Room Air 0.00 08/29/21 07:23 Room Air 08/29/21 07:00 55 I & O 08/30/21 07:00 Intake Total 6850 ml Output Total 1890 ml Balance 4960 ml Capillary Refill : General Appearance: No Apparent Distress, Obese HEENT: PERRL/EOMI, Moist Mucous Membranes Neck: Full Range of Motion, Normal Inspection Respiratory: Chest Non Tender, No Accessory Muscle Use, No Respiratory Distress Cardiovascular: Regular Rate, Rhythm, No JVD Gastrointestinal: soft, tenderness (Epigastric no guarding or rebounding), other (Multiple scars) Extremity: Normal Inspection, Normal Range of Motion, Non Tender, No Calf Tenderness, No Pedal Edema Neurologic/Psychiatric: Alert, Oriented x3, No Motor/Sensory Deficits, Normal Mood/Affect Skin: Normal Color, Warm/Dry Lymphatic: No Adenopathy Results Lab Laboratory Tests 08/29/21 11:11: Glucometer 159H 08/29/21 15:22: Glucometer 158H 08/29/21 20:09: Glucometer 121H 08/30/21 05:23: Glucometer 142H 08/30/21 05:49: White Blood Count 8.6, Red Blood Count 3.68L, Hemoglobin 10.4L, Hematocrit 32L, Mean Corpuscular Volume 88, Mean Corpuscular Hemoglobin 28, Mean Corpuscular Hemoglobin Concent 32, Red Cell Distribution Width 15.0H, Platelet Count 214, Mean Platelet Volume 9.5, Immature Granulocyte % (Auto) 1, Neutrophils (%) (Auto) 65, Lymphocytes (%) (Auto) 22, Monocytes (%) (Auto) 8, Eosinophils (%) (Auto) 3, Basophils (%) (Auto) 0, Neutrophils # (Auto) 5.6, Lymphocytes # (Auto) 1.9, Monocytes # (Auto) 0.7, Eosinophils # (Auto) 0.3, Basophils # (Auto) 0.0, Immature Granulocyte # (Auto) 0.0, Sodium Level 138, Potassium Level 3.7, Chloride Level 109H, Carbon Dioxide Level 19L, Anion Gap 10, Blood Urea Nitrogen 5L, Creatinine 0.86, Estimat Glomerular Filtration Rate 78, BUN/Creatinine Ratio 6, Glucose Level 150H, Calcium Level 8.3L, Corrected Calcium 8.7, Total Bilirubin 0.5, Aspartate Amino Transf (AST/SGOT) 15, Alanine Aminotransferase (ALT/SGPT) 13, Alkaline Phosphatase 108, Total Protein 5.8L, Albumin 3.5, Lipase 23 Microbiology 08/28/21 Urine Culture - Final, Complete 3 or more isolates Assessment/Plan Assessment/Plan Assessment/Plan Epigastric abdominal pain Pancreatitis Hirschsprung still having epigastric abdominal pain. Clear liquid diet. and IV fluids. Once pain improves would advance diet. Had previous cholecystectomy so do not need to check gallbladder. Pain control Clinical Quality Measures AMI/AHF: ASA po Prior to arrival: ISABELLA Ratliff DO August 30, 2021 06:24
[2021-08-30 07:04] VITALS: BP 100/65
[2021-08-30] MEDS: DOCUSATE SODIUM 100 MG (COLACE) CAP PO SCH ×2 (07:59→19:22)
[2021-08-30] MEDS: GABAPENTIN 300 MG (NEURONTIN) CAP PO SCH ×2 (08:00→20:51)
[2021-08-30] MEDS: ASPIRIN 81 MG CHEW (CHILDREN'S ASA) PO SCH (08:00)
[2021-08-30] MEDS: APIXABAN 5 MG (ELIQUIS) TABLET PO SCH ×2 (08:00→20:51)
[2021-08-30] MEDS: MAGNESIUM OXIDE (MAG-OX)400 MG TAB PO SCH (08:00)
[2021-08-30] MEDS: LORATADINE (CLARITIN) 10 MG TAB PO SCH (08:00)
[2021-08-30] MEDS: ALLOPURINOL 100 MG (ZYLOPRIM) TAB PO SCH (08:00)
[2021-08-30] MEDS: CYANOCOBALAMIN 1,000 MCG (VITAMIN B-12) TABLET PO SCH (08:00)
[2021-08-30] MEDS: buPROPion 75 MG (WELLBUTRIN) TAB PO SCH ×2 (08:00→20:51)
[2021-08-30] MEDS: KCL 10 MEQ TAB (MICRO K) PO SCH (08:00)
[2021-08-30] MEDS: SOTALOL 80 MG (BETAPACE) TAB PO SCH ×2 (08:00→20:53)
[2021-08-30] MEDS: NON-FORMULARY MEDICATION 1 EA EA (Fluticasone/Umeclidin/Vilanter (Trelegy Ellipta 200-62.5 IH SCH (08:01)
[2021-08-30] MEDS: FLUTICASONE NASAL SPRAY (FLONASE) 16 GM BTL NS SCH (08:01)
[2021-08-30] MEDS: PANTOPRAZOLE 40 MG (PROTONIX) VIAL IV SCH (08:01)
[2021-08-30 11:13] VITALS: BP 123/67
[2021-08-30] MEDS ORDERED: LIDOCAINE UROJET 2% GEL 10 ML PKG ONE (11:42)
[2021-08-30] MEDS ORDERED: LIDOCAINE 1% INJ 20 ML VIAL ONE (11:44)
[2021-08-30] MEDS ORDERED: LIDOCAINE 1% INJ 20 ML VIAL INJ ONE (12:00)
--- NOTE | 2021-08-30 12:01 | Anesthesia-Procedure Note ---
Procedures/Interventions Procedure Start/Stop/Diagnosis Date of Procedure: August 30, 2021 Start Time: 11:45 Stop Time: 12:00 Central Line/IV Access IV : Location: Right Site: Hand IV Catheter Type: Peripheral IV IV Catheter Gauge: 24 Progress IV attempt unsuccessful JOHN PAUL GARCIA CRNA August 30, 2021 12:01
[2021-08-30 15:45] VITALS: BP 104/55
--- NOTE | 2021-08-30 15:49 | Progress Note - Cardiology ---
Cardiology SOAP Progress Note Subjective: Gen malaise and weakness are persistent Abd pain somewhat better No n/v No focal weakness Objective: I&O/Vital Signs 08/30/21 08/30/21 08/30/21 08/30/21 03:56 07:00 07:04 07:52 Temp 36.8 36.6 Pulse 67 56 56 Resp 17 20 B/P (MAP) 105/65 (78) 100/65 (77) Pulse Ox 98 95 95 O2 Delivery Nasal Cannula Nasal Cannula Nasal Cannula O2 Flow Rate 2.00 2.00 2.00 08/30/21 08/30/21 08/30/21 08/30/21 10:13 11:13 12:40 15:45 Temp 36.6 36.7 Pulse 60 58 58 52 Resp 18 18 B/P (MAP) 123/67 (85) 104/55 (71) Pulse Ox 99 98 O2 Delivery Room Air Room Air 08/30/21 00:00 Intake Total 3450 ml Output Total 1640 ml Balance 1810 ml Weight (Pounds): 211 Weight (Ounces): 0.0 Weight (Calculated Kilograms): 95.102191 Constitutional: AAO x 3, well-developed, well-nourished Respiratory: No accessory muscle use; other (good, bilateral air entry) Cardiovascular: regular rate-rhythm, S1 and S2, systolic murmur (soft HUGO at card base) Gastrointestional: tender, distended, audible bowel sounds Extremities: No clubbing, No cyanosis, No significant edema Neurologic/Psychiatric: oriented x 3, other (moves all limbs equally) Skin: No rash on exposed areas, No ulcerations on exposed areas Results/Procedures: Labs Laboratory Tests 08/29/21 20:09: Glucometer 121H 08/30/21 05:23: Glucometer 142H 08/30/21 05:49: White Blood Count 8.6, Red Blood Count 3.68L, Hemoglobin 10.4L, Hematocrit 32L, Mean Corpuscular Volume 88, Mean Corpuscular Hemoglobin 28, Mean Corpuscular Hemoglobin Concent 32, Red Cell Distribution Width 15.0H, Platelet Count 214, Mean Platelet Volume 9.5, Immature Granulocyte % (Auto) 1, Neutrophils (%) (Auto) 65, Lymphocytes (%) (Auto) 22, Monocytes (%) (Auto) 8, Eosinophils (%) (Auto) 3, Basophils (%) (Auto) 0, Neutrophils # (Auto) 5.6, Lymphocytes # (Auto) 1.9, Monocytes # (Auto) 0.7, Eosinophils # (Auto) 0.3, Basophils # (Auto) 0.0, Immature Granulocyte # (Auto) 0.0, Sodium Level 138, Potassium Level 3.7, Chloride Level 109H, Carbon Dioxide Level 19L, Anion Gap 10, Blood Urea Nitrogen 5L, Creatinine 0.86, Estimat Glomerular Filtration Rate 78, BUN/Creatinine Ratio 6, Glucose Level 150H, Calcium Level 8.3L, Corrected Calcium 8.7, Total Bilirubin 0.5, Aspartate Amino Transf (AST/SGOT) 15, Alanine Aminotransferase (ALT/SGPT) 13, Alkaline Phosphatase 108, Total Protein 5.8L, Albumin 3.5, Lipase 23 08/30/21 11:16: Glucometer 190H 08/30/21 15:18: Glucometer 122H Microbiology 08/28/21 Urine Culture - Final, Complete 3 or more isolates Laboratory Tests 08/29/21 05:00 08/30/21 05:49 A/P: Assessment: Acute abdomen, managed by Dr Carreno Non-cardiac chest and abdominal pain, managed by Dr Carreno - Card cath 08/14/21 did not show any significant CAD. LVEF was 60% A fib - ablation procedure by Dr Avila on 08/01/2014. - Recurrence of a-fib in April 2016 for which she is being maintained on Sotalol. - Chronic OAC with Eliquis for stroke prophylaxis CAD: - Cardiac cath of 06/26/13 showed mild CAD and impaired LV function (LVEF 40%), indicating moderate non-ischemic cardiomyopathy. This may partially be related to a fib with RVR. - Echocardiogram of 11-14-20 showed LVEF 60-650%. PASP approx 30-35 mmHg - MPI of August 2018 showed no evidence of significant myocardial ischemia or infarction. LVEF 68%. Normal regional wall motion - MPI of 07-17-21 showed small to mod amt of basal inferior ischemia. LVEF 72% - Card cath 08/14/21 did not show any significant CAD. LVEF was 60% Hypertension - controlled Obesity - with BMI of approx 37 Hypothyroidism - being treated with thyroid replacement therapy Breast CA - with h/o bilat mastectomies and subsequent chemo and radiation in 2005- Anxiety and depression - controlled DM II - treated with oral hypoglycemics Hyperlipidemia - followed by her PCP H/o partial colectomy for Hirschsprung's disease H/o chronic hypokalemia of undetermined etiology - managed by her pcp [facility]O Obstructive sleep apnea - per sleep study on 10-08-2013; unable to tolerate CPAP I and has only been using oxygen at night Hemiplegic migraine - diagnosed during an admission in May 2014 at [place], [place], being followed by her neurologist, Dr Stephens, in [place], [place] No evidence of significant carotid dz on u/s of August 2018 S/p R TKR in or around 2009 and L TKR in July 2015 Plan: * Continue current regimen * Monitor labs Clinical Quality Measures AMI/AHF: ASA po Prior to arrival: TORI Casiano MD FACP FAC CCDS August 30, 2021 15:49
[2021-08-30 19:53] VITALS: BP 134/60
[2021-08-30] MEDS: SIMvastatin 10 MG (ZOCOR) TAB PO SCH (20:51)
[2021-08-30] MEDS: ALPRAZolam 0.25 MG (XANAX) TAB PO PRN (20:51)
[2021-08-31] VITALS (7 sets, daily range): BP systolic 106–142; BP diastolic 48–81
[2021-08-31] MEDS: NS IV 1000 ML 1,000 ML IV SCH ×4 (02:40→20:03)
[2021-08-31 05:43] LABS: BASOPHILS # (AUTO) 0.1 10^3/uL (0.0-0.1); BASOPHILS % (AUTO) 1 % (0-10); EOSINOPHILS # (AUTO) 0.2 10^3/uL (0.0-0.3); EOSINOPHILS % (AUTO) 3 % (0-10); HEMATOCRIT 32 % (35-52); HEMOGLOBIN 10.1 g/dL (11.5-16.0); LYMPHOCYTES # (AUTO) 1.5 10^3/uL (1.0-4.0); LYMPHOCYTES % (AUTO) 15 % (12-44); MEAN CORPUSCULAR HEMOGLOBIN 28 pg (25-34); MEAN CORPUSCULAR HGB CONC 32 g/dL (32-36); MEAN CORPUSCULAR VOLUME 88 fL (80-99); MEAN PLATELET VOLUME 9.8 fL (9.0-12.2); MONOCYTES # (AUTO) 0.7 10^3/uL (0.0-1.0); MONOCYTES % (AUTO) 7 % (0-12); NEUTROPHILS # (AUTO) 7.1 10^3/uL (1.8-7.8); NEUTROPHILS % (AUTO) 74 % (42-75); PLATELET COUNT 208 10^3/uL (130-400); WHITE BLOOD COUNT 9.6 10^3/uL (4.3-11.0)
[2021-08-31 05:58] LABS: ALBUMIN 3.6 GM/DL (3.2-4.5)
[2021-08-31 05:59] LABS: POTASSIUM 3.6 MMOL/L (3.6-5.0)
[2021-08-31 06:00] LABS: CALCIUM 8.8 MG/DL (8.5-10.1)
[2021-08-31 06:01] LABS: TOTAL PROTEIN 5.9 GM/DL (6.4-8.2)
[2021-08-31 06:03] LABS: BILIRUBIN,TOTAL 0.7 MG/DL (0.1-1.0)
[2021-08-31 06:05] LABS: CREATININE SERUM 0.8 MG/DL (0.60-1.30)
[2021-08-31] MEDS: inSUlin ASPART (NovoLOG) 1 UNIT/0.01 ML (CHARGE PER UNIT) SC SCH ×4 (06:21→21:02)
[2021-08-31] MEDS: LEVOTHYROXINE 112 MCG (LEVOTHROID) TAB PO SCH (06:21)
[2021-08-31] MEDS: MULTIVIT W/MINERALS TAB (THERAGRAN M) PO SCH (06:21)
--- NOTE | 2021-08-31 09:16 | Progress Note - Hospitalist ---
Subjective HPI/CC On Admission Date Seen by Provider: August 31, 2021 Time Seen by Provider: 09:00 CC: Abdominal pain HPI: This is a female [facility] pt who presented to the [place] ER with chest pain and abdominal pain. She was found to have acute pancreatitis on CT scan. Lipase was only mildly elevated. She has had a colostetectomy before. I will consult Dr. Resendiz. Placed on IV fluids, supportive care, and a clear liquid diet. She does have a history of pancreatic cysts and cancer in the family. Subjective/Events-last exam Pt requiring a midline due to poor IV access Pancreatitis pain with diet so she will continue IV fluids Ambulating around pretty well Review of Systems General: Fatigue, Malaise Gastrointestinal: Abdominal Pain Objective Exam Vital Signs Vital Signs Date Time Temp Pulse Resp B/P (MAP) Pulse Ox O2 Delivery O2 Flow Rate FiO2 09/01/21 03:59 36.7 56 18 129/75 (93) 94 Nasal Cannula 2.00 Capillary Refill : General Appearance: No Apparent Distress, WD/WN, Chronically ill Respiratory: Lungs Clear, Normal Breath Sounds Cardiovascular: Regular Rate, Rhythm Neurologic/Psychiatric: Alert, Oriented x3 Results/Procedures Lab Laboratory Tests 09/01/21 05:23 Patient resulted labs reviewed. Assessment/Plan Assessment and Plan Assess & Plan/Chief Complaint Assessment: Acute pancreatitis Family history of pancreatic cyst and cancer Previous cholecystectomy Atrial fibrillation Oral anticoagulant Plan: Supportive care Dr. Resendiz consult Pain control IV fluids 08/30/2021: Advance diet 08/31/2021: Midline Hold on advancing diet Clinical Quality Measures AMI/AHF: ASA po Prior to arrival: RUBIA Howell DO August 31, 2021 09:16
[2021-08-31] MEDS: NON-FORMULARY MEDICATION 1 EA EA (Fluticasone/Umeclidin/Vilanter (Trelegy Ellipta 200-62.5 IH SCH (09:43)
[2021-08-31] MEDS: buPROPion 75 MG (WELLBUTRIN) TAB PO SCH ×2 (09:44→21:00)
[2021-08-31] MEDS: CYANOCOBALAMIN 1,000 MCG (VITAMIN B-12) TABLET PO SCH (09:44)
[2021-08-31] MEDS: KCL 10 MEQ TAB (MICRO K) PO SCH (09:45)
[2021-08-31] MEDS: APIXABAN 5 MG (ELIQUIS) TABLET PO SCH ×2 (09:45→20:57)
[2021-08-31] MEDS: ALLOPURINOL 100 MG (ZYLOPRIM) TAB PO SCH (09:45)
[2021-08-31] MEDS: GABAPENTIN 300 MG (NEURONTIN) CAP PO SCH ×2 (09:45→20:57)
[2021-08-31] MEDS: ASPIRIN 81 MG CHEW (CHILDREN'S ASA) PO SCH (09:45)
[2021-08-31] MEDS: MAGNESIUM OXIDE (MAG-OX)400 MG TAB PO SCH (09:45)
[2021-08-31] MEDS: SOTALOL 80 MG (BETAPACE) TAB PO SCH ×2 (09:47→21:01)
[2021-08-31] MEDS: DOCUSATE SODIUM 100 MG (COLACE) CAP PO SCH ×2 (09:47→21:05)
[2021-08-31] MEDS: FLUTICASONE NASAL SPRAY (FLONASE) 16 GM BTL NS SCH (09:48)
[2021-08-31] MEDS: ALPRAZolam 0.25 MG (XANAX) TAB PO PRN (09:48)
[2021-08-31] MEDS: LORATADINE (CLARITIN) 10 MG TAB PO SCH (09:48)
[2021-08-31] MEDS: PANTOPRAZOLE 40 MG (PROTONIX) VIAL IV SCH (09:48)
[2021-08-31] MEDS: VITAMIN D3 25 MCG (1,000 UNITS) TABLET PO SCH (09:57)
--- NOTE | 2021-08-31 12:38 | Progress Note - Cardiology ---
Cardiology SOAP Progress Note Subjective: Abd pain improving but not resolved No cp No palp or syncope No swelling No n/v Objective: I&O/Vital Signs 08/31/21 08/31/21 08/31/21 08/31/21 01:00 03:48 07:00 08:43 Temp 36.4 36.8 Pulse 53 55 52 54 Resp 18 18 B/P (MAP) 106/67 (80) 113/70 (84) Pulse Ox 96 91 O2 Delivery Nasal Cannula Room Air O2 Flow Rate 2.00 08/31/21 08/31/21 09:00 12:29 Temp 37.1 Pulse 53 Resp 18 B/P (MAP) 118/70 (86) Pulse Ox 94 O2 Delivery Room Air Room Air 08/31/21 00:00 Intake Total 3360 ml Output Total 2700 ml Balance 660 ml Weight (Pounds): 211 Weight (Ounces): 0.0 Weight (Calculated Kilograms): 95.027893 Constitutional: AAO x 3, well-developed, well-nourished Respiratory: No accessory muscle use; other (good, bilateral air entry) Cardiovascular: regular rate-rhythm, S1 and S2, systolic murmur (soft HUGO at card base) Gastrointestional: tender, distended, audible bowel sounds Extremities: No clubbing, No cyanosis, No significant edema Neurologic/Psychiatric: oriented x 3, other (moves all limbs equally) Skin: No rash on exposed areas, No ulcerations on exposed areas Results/Procedures: Labs Laboratory Tests 08/30/21 15:18: Glucometer 122H 08/30/21 20:06: Glucometer 154H 08/31/21 05:01: White Blood Count 9.6, Red Blood Count 3.59L, Hemoglobin 10.1L, Hematocrit 32L, Mean Corpuscular Volume 88, Mean Corpuscular Hemoglobin 28, Mean Corpuscular Hemoglobin Concent 32, Red Cell Distribution Width 14.7H, Platelet Count 208, Mean Platelet Volume 9.8, Immature Granulocyte % (Auto) 1, Neutrophils (%) (Auto) 74, Lymphocytes (%) (Auto) 15, Monocytes (%) (Auto) 7, Eosinophils (%) (Auto) 3, Basophils (%) (Auto) 1, Neutrophils # (Auto) 7.1, Lymphocytes # (Auto) 1.5, Monocytes # (Auto) 0.7, Eosinophils # (Auto) 0.2, Basophils # (Auto) 0.1, Immature Granulocyte # (Auto) 0.1, Sodium Level 139, Potassium Level 3.6, Chloride Level 107, Carbon Dioxide Level 21, Anion Gap 11, Blood Urea Nitrogen 4L, Creatinine 0.80, Estimat Glomerular Filtration Rate 85, BUN/Creatinine Ratio 5, Glucose Level 139H, Calcium Level 8.8, Corrected Calcium 9.1, Total Bilirubin 0.7, Aspartate Amino Transf (AST/SGOT) 17, Alanine Aminotransferase (ALT/SGPT) 11, Alkaline Phosphatase 129, Total Protein 5.9L, Albumin 3.6, Lipase 15 08/31/21 11:26: Glucometer 145H Microbiology 08/28/21 Urine Culture - Final, Complete 3 or more isolates Laboratory Tests 08/30/21 05:49 08/31/21 05:01 A/P: Assessment: Acute abdomen, managed by Dr Carreno Non-cardiac chest and abdominal pain, managed by Dr Carreno - Card cath 08/14/21 did not show any significant CAD. LVEF was 60% A fib - ablation procedure by Dr Avila on 08/01/2014. - Recurrence of a-fib in April 2016 for which she is being maintained on Sotalol. - Chronic OAC with Eliquis for stroke prophylaxis CAD: - Cardiac cath of 06/26/13 showed mild CAD and impaired LV function (LVEF 40%), indicating moderate non-ischemic cardiomyopathy. This may partially be related to a fib with RVR. - Echocardiogram of 11-14-20 showed LVEF 60-650%. PASP approx 30-35 mmHg - MPI of August 2018 showed no evidence of significant myocardial ischemia or infarction. LVEF 68%. Normal regional wall motion - MPI of 07-17-21 showed small to mod amt of basal inferior ischemia. LVEF 72% - Card cath 08/14/21 did not show any significant CAD. LVEF was 60% Hypertension - controlled Obesity - with BMI of approx 37 Hypothyroidism - being treated with thyroid replacement therapy Breast CA - with h/o bilat mastectomies and subsequent chemo and radiation in 2005- Anxiety and depression - controlled DM II - treated with oral hypoglycemics Hyperlipidemia - followed by her PCP H/o partial colectomy for Hirschsprung's disease H/o chronic hypokalemia of undetermined etiology - managed by her pcp SHLOMO Obstructive sleep apnea - per sleep study on 10-08-2013; unable to tolerate CPAP I and has only been using oxygen at night Hemiplegic migraine - diagnosed during an admission in May 2014 at [place], [place], being followed by her neurologist, Dr Stephens, in [place], [place] No evidence of significant carotid dz on u/s of August 2018 S/p R TKR in or around 2009 and L TKR in July 2015 Plan: * Continue current regimen * Monitor labs * I discussed her case today with Dr Resendiz or the Surg svce Clinical Quality Measures AMI/AHF: ASA po Prior to arrival: TORI Casiano MD FACP FAC CCDS August 31, 2021 12:38
[2021-08-31] MEDS: ONDANSETRON 4 MG (ZOFRAN) ORAL DISSOLVE TAB PO PRN ×2 (14:07→21:03)
[2021-08-31] MEDS: SIMvastatin 10 MG (ZOCOR) TAB PO SCH (20:57)
--- NOTE | 2021-08-31 21:49 | Progress Note - Surgery ---
Subjective Date Seen by a Provider: August 31, 2021 Time Seen by a Provider: 08:48 Subjective/Events-last exam Patient states her abdominal pain continues to improve but still present. Not taking much liquids and because of the pain. Nothing was seems to make it better. Nothing seemed to make it worse that she knows of. At this time. Denies any nausea vomiting fever sweats chills shortness of breath or chest pain at this time. Labs improving Objective Exam Vital Signs Date Time Temp Pulse Resp B/P (MAP) Pulse Ox O2 Delivery O2 Flow Rate FiO2 08/31/21 21:01 53 08/31/21 20:11 37.6 53 18 142/48 (79) 95 Room Air 08/31/21 15:52 37.4 53 18 132/72 (92) 94 Room Air 08/31/21 12:29 37.1 53 18 118/70 (86) 94 Room Air 08/31/21 09:00 Room Air 08/31/21 08:43 36.8 54 18 113/70 (84) 91 Room Air 08/31/21 07:00 52 08/31/21 03:48 36.4 55 18 106/67 (80) 96 Nasal Cannula 2.00 08/31/21 01:00 53 08/31/21 00:09 36.6 58 17 122/81 (95) 96 Nasal Cannula 2.00 08/30/21 21:58 98 Room Air I & O 08/31/21 07:00 Intake Total 5360 ml Output Total 3200 ml Balance 2160 ml Capillary Refill : General Appearance: No Apparent Distress, WD/WN, Chronically ill, Obese HEENT: PERRL/EOMI, Moist Mucous Membranes Neck: Full Range of Motion, Normal Inspection Respiratory: Lungs Clear, Normal Breath Sounds Cardiovascular: Regular Rate, Rhythm Gastrointestinal: soft, tenderness (Epigastric no guarding or rebounding), other (Multiple scars) Extremity: Normal Inspection, Normal Range of Motion, Non Tender, No Calf Tenderness, No Pedal Edema Neurologic/Psychiatric: Alert, Oriented x3, No Motor/Sensory Deficits, Normal Mood/Affect Skin: Normal Color, Warm/Dry Lymphatic: No Adenopathy Results Lab Laboratory Tests 08/31/21 05:01: White Blood Count 9.6, Red Blood Count 3.59L, Hemoglobin 10.1L, Hematocrit 32L, Mean Corpuscular Volume 88, Mean Corpuscular Hemoglobin 28, Mean Corpuscular Hemoglobin Concent 32, Red Cell Distribution Width 14.7H, Platelet Count 208, Mean Platelet Volume 9.8, Immature Granulocyte % (Auto) 1, Neutrophils (%) (Auto) 74, Lymphocytes (%) (Auto) 15, Monocytes (%) (Auto) 7, Eosinophils (%) (Auto) 3, Basophils (%) (Auto) 1, Neutrophils # (Auto) 7.1, Lymphocytes # (Auto) 1.5, Monocytes # (Auto) 0.7, Eosinophils # (Auto) 0.2, Basophils # (Auto) 0.1, Immature Granulocyte # (Auto) 0.1, Sodium Level 139, Potassium Level 3.6, Chloride Level 107, Carbon Dioxide Level 21, Anion Gap 11, Blood Urea Nitrogen 4L, Creatinine 0.80, Estimat Glomerular Filtration Rate 85, BUN/Creatinine Ratio 5, Glucose Level 139H, Calcium Level 8.8, Corrected Calcium 9.1, Total Bilirubin 0.7, Aspartate Amino Transf (AST/SGOT) 17, Alanine Aminotransferase (ALT/SGPT) 11, Alkaline Phosphatase 129, Total Protein 5.9L, Albumin 3.6, Lipase 15 08/31/21 11:26: Glucometer 145H 08/31/21 15:58: Glucometer 155H 08/31/21 20:10: Glucometer 201H Microbiology 08/28/21 Urine Culture - Final, Complete 3 or more isolates Assessment/Plan Assessment/Plan Assessment/Plan Epigastric abdominal pain Pancreatitis Hirschsprung still having epigastric abdominal pain. Clear liquid diet. and IV fluids. Once pain improves would advance diet. Had previous cholecystectomy so do not need to check gallbladder. Pain control Continue medical management. Clinical Quality Measures AMI/AHF: ASA po Prior to arrival: ISABELLA Ratliff DO August 31, 2021 21:49
[2021-09-01 03:59] VITALS: BP 129/75
[2021-09-01] MEDS: NS IV 1000 ML 1,000 ML IV SCH (03:59)
[2021-09-01 05:37] LABS: BASOPHILS % (AUTO) 1 % (0-10); EOSINOPHILS # (AUTO) 0.2 10^3/uL (0.0-0.3); EOSINOPHILS % (AUTO) 2 % (0-10); HEMATOCRIT 30 % (35-52); HEMOGLOBIN 9.6 g/dL (11.5-16.0); LYMPHOCYTES # (AUTO) 1.5 10^3/uL (1.0-4.0); LYMPHOCYTES % (AUTO) 18 % (12-44); MEAN CORPUSCULAR HEMOGLOBIN 28 pg (25-34); MEAN CORPUSCULAR HGB CONC 32 g/dL (32-36); MEAN CORPUSCULAR VOLUME 88 fL (80-99); MEAN PLATELET VOLUME 9.5 fL (9.0-12.2); MONOCYTES # (AUTO) 0.6 10^3/uL (0.0-1.0); MONOCYTES % (AUTO) 7 % (0-12); NEUTROPHILS # (AUTO) 6.2 10^3/uL (1.8-7.8); NEUTROPHILS % (AUTO) 72 % (42-75); PLATELET COUNT 185 10^3/uL (130-400); WHITE BLOOD COUNT 8.6 10^3/uL (4.3-11.0)
--- NOTE | 2021-09-01 05:55 | Progress Note - Hospitalist ---
Subjective HPI/CC On Admission Date Seen by Provider: September 01, 2021 Time Seen by Provider: 09:00 CC: Abdominal pain HPI: This is a female [facility] pt who presented to the [place] ER with chest pain and abdominal pain. She was found to have acute pancreatitis on CT scan. Lipase was only mildly elevated. She has had a colostetectomy before. I will consult Dr. Resendiz. Placed on IV fluids, supportive care, and a clear liquid diet. She does have a history of pancreatic cysts and cancer in the family. Subjective/Events-last exam Pt is much improved Trying to advance diet to see if she has abdominal pain Bowels are moving, she does have loose stools No other concerns Review of Systems General: Fatigue, Malaise Objective Exam Vital Signs Vital Signs Date Time Temp Pulse Resp B/P (MAP) Pulse Ox O2 Delivery O2 Flow Rate FiO2 09/02/21 00:00 37.0 58 16 105/57 (73) 94 Nasal Cannula 2.00 Capillary Refill : General Appearance: No Apparent Distress, WD/WN, Chronically ill Respiratory: Lungs Clear, Normal Breath Sounds Cardiovascular: Regular Rate, Rhythm Neurologic/Psychiatric: Alert, Oriented x3 Results/Procedures Lab Laboratory Tests 09/02/21 05:16 Patient resulted labs reviewed. Assessment/Plan Assessment and Plan Assess & Plan/Chief Complaint Assessment: Acute pancreatitis Family history of pancreatic cyst and cancer Previous cholecystectomy Atrial fibrillation Oral anticoagulant Plan: Supportive care Dr. Resendiz consult Pain control IV fluids 08/30/2021: Advance diet 08/31/2021: Midline Hold on advancing diet 09/01/2021: Advance diet Clinical Quality Measures AMI/AHF: ASA po Prior to arrival: RUBIA Howell DO September 01, 2021 05:55
[2021-09-01 06:05] LABS: ALBUMIN 3.2 GM/DL (3.2-4.5); BILIRUBIN,TOTAL 0.6 MG/DL (0.1-1.0); CALCIUM 8.2 MG/DL (8.5-10.1); CREATININE SERUM 0.83 MG/DL (0.60-1.30); POTASSIUM 3.3 MMOL/L (3.6-5.0); TOTAL PROTEIN 5.5 GM/DL (6.4-8.2)
[2021-09-01] MEDS: LEVOTHYROXINE 112 MCG (LEVOTHROID) TAB PO SCH (06:10)
[2021-09-01] MEDS: MULTIVIT W/MINERALS TAB (THERAGRAN M) PO SCH (06:10)
[2021-09-01] MEDS: inSUlin ASPART (NovoLOG) 1 UNIT/0.01 ML (CHARGE PER UNIT) SC SCH ×4 (06:10→21:03)
[2021-09-01 07:51] VITALS: BP 148/80
[2021-09-01] MEDS: CYANOCOBALAMIN 1,000 MCG (VITAMIN B-12) TABLET PO SCH (09:08)
[2021-09-01] MEDS: buPROPion 75 MG (WELLBUTRIN) TAB PO SCH ×2 (09:09→20:52)
[2021-09-01] MEDS: APIXABAN 5 MG (ELIQUIS) TABLET PO SCH ×2 (09:09→20:53)
[2021-09-01] MEDS: GABAPENTIN 300 MG (NEURONTIN) CAP PO SCH ×2 (09:09→20:53)
[2021-09-01] MEDS: MAGNESIUM OXIDE (MAG-OX)400 MG TAB PO SCH (09:09)
[2021-09-01] MEDS: ASPIRIN 81 MG CHEW (CHILDREN'S ASA) PO SCH (09:09)
[2021-09-01] MEDS: ALLOPURINOL 100 MG (ZYLOPRIM) TAB PO SCH (09:10)
[2021-09-01] MEDS: LORATADINE (CLARITIN) 10 MG TAB PO SCH (09:10)
[2021-09-01] MEDS: PANTOPRAZOLE 40 MG (PROTONIX) TAB PO SCH (09:10)
[2021-09-01] MEDS: SOTALOL 80 MG (BETAPACE) TAB PO SCH ×2 (09:10→20:53)
[2021-09-01] MEDS: KCL 10 MEQ TAB (MICRO K) PO SCH (09:10)
[2021-09-01] MEDS: FLUTICASONE NASAL SPRAY (FLONASE) 16 GM BTL NS SCH (09:11)
[2021-09-01] MEDS: NON-FORMULARY MEDICATION 1 EA EA (Fluticasone/Umeclidin/Vilanter (Trelegy Ellipta 200-62.5 IH SCH (09:11)
--- NOTE | 2021-09-01 09:53 | Progress Note - Cardiology ---
Cardiology SOAP Progress Note Subjective: Reports abdomen feels better this morning Remains cl liquids Objective: I&O/Vital Signs 08/31/21 08/31/21 09/01/21 09/01/21 23:01 23:48 03:59 07:51 Temp 37.6 36.7 37.1 Pulse 56 56 56 58 Resp 20 18 20 B/P (MAP) 132/60 (84) 129/75 (93) 148/80 (102) Pulse Ox 93 94 94 O2 Delivery Room Air Nasal Cannula Room Air O2 Flow Rate 2.00 09/01/21 00:00 Intake Total 1475 ml Output Total 3000 ml Balance -1525 ml Weight (Pounds): 211 Weight (Ounces): 0.0 Weight (Calculated Kilograms): 95.074462 Constitutional: AAO x 3, well-developed, well-nourished Respiratory: No accessory muscle use; other (good, bilateral air entry) Cardiovascular: regular rate-rhythm, S1 and S2, systolic murmur (soft HUGO at card base) Gastrointestional: tender, distended, audible bowel sounds Extremities: No clubbing, No cyanosis, No significant edema Neurologic/Psychiatric: oriented x 3, other (moves all limbs equally) Skin: No rash on exposed areas, No ulcerations on exposed areas Results/Procedures: Labs Laboratory Tests 08/31/21 11:26: Glucometer 145H 08/31/21 15:58: Glucometer 155H 08/31/21 20:10: Glucometer 201H 09/01/21 05:23: White Blood Count 8.6, Red Blood Count 3.44L, Hemoglobin 9.6L, Hematocrit 30L, Mean Corpuscular Volume 88, Mean Corpuscular Hemoglobin 28, Mean Corpuscular Hemoglobin Concent 32, Red Cell Distribution Width 14.9H, Platelet Count 185, Mean Platelet Volume 9.5, Immature Granulocyte % (Auto) 1, Neutrophils (%) (Auto) 72, Lymphocytes (%) (Auto) 18, Monocytes (%) (Auto) 7, Eosinophils (%) (Auto) 2, Basophils (%) (Auto) 1, Neutrophils # (Auto) 6.2, Lymphocytes # (Auto) 1.5, Monocytes # (Auto) 0.6, Eosinophils # (Auto) 0.2, Basophils # (Auto) 0.0, Immature Granulocyte # (Auto) 0.0, Sodium Level 141, Potassium Level 3.3L, Chloride Level 111H, Carbon Dioxide Level 20L, Anion Gap 10, Blood Urea Nitrogen 4L, Creatinine 0.83, Estimat Glomerular Filtration Rate 81, BUN/Creatinine Ratio 5, Glucose Level 144H, Calcium Level 8.2L, Corrected Calcium 8.8, Total Bilirubin 0.6, Aspartate Amino Transf (AST/SGOT) 27, Alanine Aminotransferase (ALT/SGPT) 19, Alkaline Phosphatase 154H, Total Protein 5.5L, Albumin 3.2, Lipase 13 Microbiology 08/28/21 Urine Culture - Final, Complete 3 or more isolates A/P: Assessment: Acute abdomen, managed by Dr Carreno Non-cardiac chest and abdominal pain, managed by Dr Carreno - Card cath 08/14/21 did not show any significant CAD. LVEF was 60% A fib - ablation procedure by Dr Avila on 08/01/2014. - Recurrence of a-fib in April 2016 for which she is being maintained on Sotalol. - Chronic OAC with Eliquis for stroke prophylaxis CAD: - Cardiac cath of 06/26/13 showed mild CAD and impaired LV function (LVEF 40%), indicating moderate non-ischemic cardiomyopathy. This may partially be related to a fib with RVR. - Echocardiogram of 11-14-20 showed LVEF 60-650%. PASP approx 30-35 mmHg - MPI of August 2018 showed no evidence of significant myocardial ischemia or infarction. LVEF 68%. Normal regional wall motion - MPI of 07-17-21 showed small to mod amt of basal inferior ischemia. LVEF 72% - Card cath 08/14/21 did not show any significant CAD. LVEF was 60% Hypertension - controlled Obesity - with BMI of approx 37 Hypothyroidism - being treated with thyroid replacement therapy Breast CA - with h/o bilat mastectomies and subsequent chemo and radiation in 2005- Anxiety and depression - controlled DM II - treated with oral hypoglycemics Hyperlipidemia - followed by her PCP H/o partial colectomy for Hirschsprung's disease H/o chronic hypokalemia of undetermined etiology - managed by her pcp SH[facility]O Obstructive sleep apnea - per sleep study on 10-08-2013; unable to tolerate CPAP I and has only been using oxygen at night Hemiplegic migraine - diagnosed during an admission in May 2014 at [place], [place], being followed by her neurologist, Dr Stephens, in [place], [place] No evidence of significant carotid dz on u/s of August 2018 S/p R TKR in or around 2009 and L TKR in July 2015 Plan: * Continue current regimen * Monitor labs Clinical Quality Measures AMI/AHF: ASA po Prior to arrival: MARY KATE Mederos September 01, 2021 09:53
[2021-09-01 11:04] VITALS: BP 139/82
[2021-09-01] MEDS: DOCUSATE SODIUM 100 MG (COLACE) CAP PO SCH ×2 (11:16→19:45)
--- NOTE | 2021-09-01 11:48 | Physical Therapy Evaluation ---
PT Evaluation-General Medical Diagnosis Admission Date August 28, 2021 at 09:09 Medical Diagnosis: abdominal pain, pancreatitis Onset Date: September 08, 2021 Therapy Diagnosis Therapy Diagnosis: slight balance impairment Height/Weight Height (Feet): 5 Height (Inches): 3.00 Weight (Pounds): 211 Weight (Ounces): 0.0 Precautions Precautions/Isolations: Standard Precautions Referral Physician: Jenni Carreno DO Reason for Referral: Evaluation/Treatment Medical History Pertinent Medical History: Atrial Fib, DM, HTN, Hypothroidism Additional Medical History Past Medical History Surgeries: Appendectomy, Gallbladder, Hysterectomy, Tonsillectomy, Tubal Ligation Asthma Atrial Fibrillation, High Cholesterol, Hypertension Headaches /Migraines Sexually Transmitted Disease: No HIV/AIDS: No Gastroesophageal Reflux, Chronic Diarrhea Back Injury Hypothyroidsim, Diabetes, Non-Insulin dep Loss of Vision: Bilateral Hearing Impairment: Denies Did You Recieve Any Treatments: Yes What Type of Treatment Did You: Chemotherapy, Radiation, Surgical Intervention Anxiety, Depression Blood Disorders: Yes Adverse Reaction/Blood Tranf: No (HAS HAD BLOOD WITH NO REACTION) Reviewed History: Yes Social History Current Living Status: Spouse Patient states her daughter has MS and their house is set up for her, handicap accessible. Prior Prior Level of Function SCALE: Activities may be completed with or without assistive devices. 8-Lnkniegctf-dtpvwda completes the activity by him/herself with no assistance from a helper. 5-Set-up or Clean-up Assistance-helper sets up or cleans up; patient completes activity. [place] assists only prior to or following the activity. 4-Supervision or Touching Assistance-helper provides verbal cues and/or touching/steadying and/or contact guard assistance as patient completes activity. Assistance may be provided throughout the activity or intermittently. 3-Partial/Moderate Assistance-helper does LESS THAN HALF the effort. [place] lifts, holds or supports trunk or limbs, but provides less than half the effort. 2-Substantial/Maximal Assistance-helper does MORE THAN HALF the effort. [place] lifts or holds trunk or limbs and provides more than half the effort. 7-Qvyszvgbc-rfodrk does ALL the effort. Patient does none of the effort to complete the activity. Or, the assistance of 2 or more helpers is required for the patient to complete the activity. If activity was not attempted, code reason: 7-Patient Refused. 9-Not Applicable-not attempted and the patient did not perform the activity before the current illness, exacerbation or injury. 10-Not Attempted due to Environmental Limitations-(lack of equipment, weather restraints, etc.). 88-Not Attempted due to Medical Conditions or Safety Concerns. Bed Mobility: 6 Transfers (B,C,W/C): 6 Gait: 6 Stairs: 6 Indoor Mobility (Ambulation): Independent Stairs: Independent PT Evaluation-Current Subjective Patient in bed pre tx, agrees to PT, has no complaints of pain at rest. Patient states she is walking around well but she has some slight balance impairments ever since she had covid but has never fallen due to it. Pt/Family Goals resolution of abdominal symptoms Objective Patient Orientation: Person, Place, Situation ROM/Strength ROM Lower Extremities WNL Strength Lower Extremities grossly 5/5 BLE Sensory Vision: Wears Glasses Hearing: Functional Sensation Right Lower Extremit: Intact Sensation Left Lower Extremity: Intact Transfers Roll Left to Right (QC): 6 Lying to Sitting/Side of Bed(Q: 6 Sit to Stand (QC): 6 Chair/Hme-qo-Jpzyc Xfer(QC): 6 Gait Does the Patient Walk?: Yes Mode of Locomotion: Walk Anticipated Mode of Locomotion: Walk Walk 10 feet (QC): 6 Walk 50 ft with 2 Turns(QC): 6 Walk 150 ft (QC): 6 Distance: 400' Gait Assistive Device: None Comments/Gait Description brisk ambulation, no unsteadiness Treatment patient performed 5 heel raises without holding on to anything to test balance, she had some unsteadiness with one of them but no complete LOB. Assessment/Needs Patient sitting EOB post tx with nurse call, phone, tray, all needs met. Patient is independent with all mobility but has some slight chronic balance impairments. Recommended that patient ambulate in the hallways several times a day while she is here. Will DC patient from PT services at this time. Told patient that if she experiences increased unsteadiness or weakness to contact her nurse and we can come back to see her. Rehab Potential: Good PT Plan Problem List Problem List: Balance Treatment/Plan Treatment Plan: Discontinue PT Treatment Duration: September 01, 2021 Frequency: Patient and/or Family Agrees t: Yes Safety Risks/Education Patient Education: Gait Training, Transfer Techniques, Correct Positioning, Safety Issues Teaching Recipient: Patient Teaching Methods: Demonstration, Discussion Response to Teaching: Verbalize Understanding, Return Demonstration Discharge Recommendations Plan DC Time/GCodes Time In: 1130 Time Out: 1140 Total Billed Treatment Time: 10 Total Billed Treatment 1 visit VERONICA Wheeler' JOHNSON KNIGHT PT September 01, 2021 11:48
--- NOTE | 2021-09-01 13:47 | Occupational Therapy Eval ---
OT Evaluation-General/PLF Medical Diagnosis Admission Date August 28, 2021 at 09:09 Medical Diagnosis: abdominal pain, pancreatitis Onset Date: September 08, 2021 Therapy Diagnosis Therapy Diagnosis: reduced endurance Height/Weight Height (Feet): 5 Height (Inches): 3.00 Weight (Pounds): 211 Weight (Ounces): 0.0 Precautions Precautions/Isolations: Standard Precautions Referral Physician: Jenni Carreno DO Referral Reason: Evaluation/Treatment Medical History Pertinent Medical History: Atrial Fib, DM, HTN, Hypothroidism Current History Pt arrived to ER with c/o chest and abdominal pain. Found to have acute pancreatitis. Per patient, she lives in a house with her daughter who also has MS. The house is handicap accessible. She was indep with adls and iadls prior to admission. She does not use any AD for mobility. Social History Home: Single Level Current Living Status: Children ADL-Prior Level of Function SCALE: Activities may be completed with or without assistive devices. 1-Kzznlnlxsk-cgadkru completes the activity by him/herself with no assistance from a helper. 5-Set-up or Clean-up Assistance-helper sets up or cleans up; patient completes activity. [place] assists only prior to or following the activity. 4-Supervision or Touching Assistance-helper provides verbal cues and/or touching/steadying and/or contact guard assistance as patient completes activity. Assistance may be provided throughout the activity or intermittently. 3-Partial/Moderate Assistance-helper does LESS THAN HALF the effort. [place] lifts, holds or supports trunk or limbs, but provides less than half the effort. 2-Substantial/Maximal Assistance-helper does MORE THAN HALF the effort. [place] lifts or holds trunk or limbs and provides more than half the effort. 8-Jmkbacxcs-heitne does ALL the effort. Patient does none of the effort to complete the activity. Or, the assistance of 2 or more helpers is required for the patient to complete the activity. If activity was not attempted, code reason: 7-Patient Refused. 9-Not Applicable-not attempted and the patient did not perform the activity before the current illness, exacerbation or injury. 10-Not Attempted due to Environmental Limitations-(lack of equipment, weather restraints, etc.). 88-Not Attempted due to Medical Conditions or Safety Concerns. Self Care: Independent Functional Cognition: Independent DME/Equipment: Bath Bench, Shower Drive Self: Yes OT Current Status Subjective Pt denies pain, agreeable to eval. Appearance Pt returned to supine, all needs within reach. Mental Status/Objective Patient Orientation: Person, Place, Situation Attachments: IV Current Glasses/Contacts: Yes Hearing Aids: No Dentures/Partials: No Hand Dominance: Left Upper Extremity ROM L shoulder: ~100 degrees AROM-baseline since chemo and radiation in 2005- RUE: WNL Upper Extremity Strength WFL ADL-Treatment Oral Hygiene (QC): 6 Lower Body Dressing (QC): 5 On/Off Footwear (QC): 6 Toileting Hygiene (QC): 6 Supine<>sit: Indep. Indep with donning bilateral socks. Sit<>stand: Supervision for safety. Pt reports mild dizziness upon standing, recovers within ~30 seconds. Education on slowing speed during positional changes. Pt reports history of Vertigo. She ambulated within the room with SBA for management of IV pole, no AD used. Mild unsteadiness but no LOB. Pt reports this has been baseline since having Covid. She was able to perform all steps of toileting without assistance. Lengthy conversation on nutrition as pt has multiple questions regarding approved foods for both current diagnosis and Hirschsprung's disease. Reinforcement to reach out to refueling ramp supervisor. Pt denies any self care concerns at this time. OT to discharge. Education OT Patient Education: Energy conservation, Purpose of tx/functional activities, Safety issues Teaching Recipient: Patient Teaching Methods: Discussion Response to Teaching: Verbalize Understanding, Return Demonstration OT Water Jet Operator Goals Care Home Goals 1=Demonstrate adherence to instructed precautions during ADL tasks. 2=Patient will verbalize/demonstrate understanding of assistive devices/mo difications for ADL. 3=Patient will improve strength/tolerance for activity to enable patient to perform ADL's. OT Education/Plan Problem List/Assessment Assessment: No Skilled OT Needs ID'd Discharge Recommendations Plan/Recommendations: Discontinue OT Therapy Discharge Recommendati: Home & Family Treatment Plan/Plan of Care Treatment,Training & Education: Yes Patient would benefit from OT for education, treatment and training to promote independence in ADL's, mobility, safety and/or upper extremity function for ADL's. Plan of Care: ADL Retraining Treatment Duration: September 01, 2021 Frequency: 1 time per week Estimated Hrs Per Day: .25 hour per day Agreement: Yes Rehab Potential: Good Time/GCodes Start Time: 13:15 Stop Time: 13:38 Total Time Billed (hr/min): 23 Billed Treatment Time 1 visit EVL (10 min) ADL (13 min) Teri Yusuf OT September 01, 2021 13:47
[2021-09-01 15:30] VITALS: BP 166/94
[2021-09-01 16:00] VITALS: BP 156/76
--- NOTE | 2021-09-01 18:10 | Progress Note - Cardiology ---
Cardiology SOAP Progress Note Subjective: Weakness present No focal weakness Abd pain improving No cp No n/v Objective: I&O/Vital Signs 09/01/21 09/01/21 09/01/21 09/01/21 07:51 09:00 11:04 15:30 Temp 37.1 36.6 36.7 Pulse 58 50 69 Resp 20 20 18 B/P (MAP) 148/80 (102) 139/82 (101) 166/94 (118) Pulse Ox 94 97 95 O2 Delivery Room Air Room Air Room Air Room Air 09/01/21 16:00 Temp 37.0 Pulse 53 Resp 20 B/P (MAP) 156/76 (102) Pulse Ox 94 O2 Delivery Room Air 09/01/21 00:00 Intake Total 1475 ml Output Total 3000 ml Balance -1525 ml Weight (Pounds): 211 Weight (Ounces): 0.0 Weight (Calculated Kilograms): 95.088410 Constitutional: AAO x 3, well-developed, well-nourished Respiratory: No accessory muscle use; other (good, bilateral air entry) Cardiovascular: regular rate-rhythm, S1 and S2, systolic murmur (soft HUGO at card base) Gastrointestional: tender, distended, audible bowel sounds Extremities: No clubbing, No cyanosis, No significant edema Neurologic/Psychiatric: oriented x 3, other (moves all limbs equally) Skin: No rash on exposed areas, No ulcerations on exposed areas Results/Procedures: Labs Laboratory Tests 08/31/21 20:10: Glucometer 201H 09/01/21 05:23: White Blood Count 8.6, Red Blood Count 3.44L, Hemoglobin 9.6L, Hematocrit 30L, Mean Corpuscular Volume 88, Mean Corpuscular Hemoglobin 28, Mean Corpuscular Hemoglobin Concent 32, Red Cell Distribution Width 14.9H, Platelet Count 185, Mean Platelet Volume 9.5, Immature Granulocyte % (Auto) 1, Neutrophils (%) (Auto) 72, Lymphocytes (%) (Auto) 18, Monocytes (%) (Auto) 7, Eosinophils (%) (Auto) 2, Basophils (%) (Auto) 1, Neutrophils # (Auto) 6.2, Lymphocytes # (Auto) 1.5, Monocytes # (Auto) 0.6, Eosinophils # (Auto) 0.2, Basophils # (Auto) 0.0, Immature Granulocyte # (Auto) 0.0, Sodium Level 141, Potassium Level 3.3L, Chloride Level 111H, Carbon Dioxide Level 20L, Anion Gap 10, Blood Urea Nitrogen 4L, Creatinine 0.83, Estimat Glomerular Filtration Rate 81, BUN/Creatinine Ratio 5, Glucose Level 144H, Calcium Level 8.2L, Corrected Calcium 8.8, Total Bilirubin 0.6, Aspartate Amino Transf (AST/SGOT) 27, Alanine Aminotransferase (ALT/SGPT) 19, Alkaline Phosphatase 154H, Total Protein 5.5L, Albumin 3.2, Lipase 13 09/01/21 11:04: Glucometer 159H 09/01/21 16:23: Glucometer 117H Microbiology 08/28/21 Urine Culture - Final, Complete 3 or more isolates Laboratory Tests 08/31/21 05:01 A/P: Assessment: Acute abdomen, managed by Dr Carreno Non-cardiac chest and abdominal pain, managed by Dr Carreno - Card cath 08/14/21 did not show any significant CAD. LVEF was 60% A fib - ablation procedure by Dr Avila on 08/01/2014. - Recurrence of a-fib in April 2016 for which she is being maintained on Sotalol. - Chronic OAC with Eliquis for stroke prophylaxis CAD: - Cardiac cath of 06/26/13 showed mild CAD and impaired LV function (LVEF 40%), indicating moderate non-ischemic cardiomyopathy. This may partially be related to a fib with RVR. - Echocardiogram of 11-14-20 showed LVEF 60-650%. PASP approx 30-35 mmHg - MPI of August 2018 showed no evidence of significant myocardial ischemia or infarction. LVEF 68%. Normal regional wall motion - MPI of 07-17-21 showed small to mod amt of basal inferior ischemia. LVEF 72% - Card cath 08/14/21 did not show any significant CAD. LVEF was 60% Hypertension - controlled Obesity - with BMI of approx 37 Hypothyroidism - being treated with thyroid replacement therapy Breast CA - with h/o bilat mastectomies and subsequent chemo and radiation in 2005- Anxiety and depression - controlled DM II - treated with oral hypoglycemics Hyperlipidemia - followed by her PCP H/o partial colectomy for Hirschsprung's disease H/o chronic hypokalemia of undetermined etiology - managed by her pcp SHLOMO Obstructive sleep apnea - per sleep study on 10-08-2013; unable to tolerate CPAP I and has only been using oxygen at night Hemiplegic migraine - diagnosed during an admission in May 2014 at [place], [place], being followed by her neurologist, Dr Stephens, in [place], [place] No evidence of significant carotid dz on u/s of August 2018 S/p R TKR in or around 2009 and L TKR in July 2015 Plan: * Continue current regimen * Monitor labs Clinical Quality Measures AMI/AHF: ASA po Prior to arrival: TORI Casiano MD FACP FAC CCDS September 01, 2021 18:10
--- NOTE | 2021-09-01 18:42 | Progress Note - Surgery ---
Subjective Date Seen by a Provider: September 01, 2021 Time Seen by a Provider: 18:39 Subjective/Events-last exam Patient states she is feeling better. She is tolerating liquids. She is having minimal pain in the epigastric region. She is denies any nausea vomiting fever sweats chills shortness of breath or chest pain. Wanting food. Objective Exam Vital Signs Date Time Temp Pulse Resp B/P (MAP) Pulse Ox O2 Delivery O2 Flow Rate FiO2 09/01/21 16:00 37.0 53 20 156/76 (102) 94 Room Air 09/01/21 15:30 36.7 69 18 166/94 (118) 95 Room Air 09/01/21 11:04 36.6 50 20 139/82 (101) 97 Room Air 09/01/21 09:00 Room Air 09/01/21 07:51 37.1 58 20 148/80 (102) 94 Room Air 09/01/21 03:59 36.7 56 18 129/75 (93) 94 Nasal Cannula 2.00 08/31/21 23:48 37.6 56 20 132/60 (84) 93 Room Air 08/31/21 23:01 56 08/31/21 21:01 53 08/31/21 21:00 Room Air 08/31/21 20:11 37.6 53 18 142/48 (79) 95 Room Air I & O 09/01/21 06:59 Intake Total 1835 ml Output Total 3300 ml Balance -1465 ml Capillary Refill : General Appearance: No Apparent Distress, WD/WN, Chronically ill HEENT: PERRL/EOMI, Moist Mucous Membranes Neck: Full Range of Motion, Normal Inspection Respiratory: Lungs Clear, Normal Breath Sounds Cardiovascular: Regular Rate, Rhythm Gastrointestinal: soft, tenderness (Epigastric no guarding or reboundi ngminimal), other (Multiple scars) Extremity: Normal Inspection, Normal Range of Motion, Non Tender, No Calf Tenderness, No Pedal Edema Neurologic/Psychiatric: Alert, Oriented x3 Skin: Normal Color, Warm/Dry Lymphatic: No Adenopathy Results Lab Laboratory Tests 08/31/21 20:10: Glucometer 201H 09/01/21 05:23: White Blood Count 8.6, Red Blood Count 3.44L, Hemoglobin 9.6L, Hematocrit 30L, Mean Corpuscular Volume 88, Mean Corpuscular Hemoglobin 28, Mean Corpuscular Hemoglobin Concent 32, Red Cell Distribution Width 14.9H, Platelet Count 185, Mean Platelet Volume 9.5, Immature Granulocyte % (Auto) 1, Neutrophils (%) (Auto) 72, Lymphocytes (%) (Auto) 18, Monocytes (%) (Auto) 7, Eosinophils (%) (Auto) 2, Basophils (%) (Auto) 1, Neutrophils # (Auto) 6.2, Lymphocytes # (Auto) 1.5, Monocytes # (Auto) 0.6, Eosinophils # (Auto) 0.2, Basophils # (Auto) 0.0, Immature Granulocyte # (Auto) 0.0, Sodium Level 141, Potassium Level 3.3L, Chloride Level 111H, Carbon Dioxide Level 20L, Anion Gap 10, Blood Urea Nitrogen 4L, Creatinine 0.83, Estimat Glomerular Filtration Rate 81, BUN/Creatinine Ratio 5, Glucose Level 144H, Calcium Level 8.2L, Corrected Calcium 8.8, Total Bilirubin 0.6, Aspartate Amino Transf (AST/SGOT) 27, Alanine Aminotransferase (ALT/SGPT) 19, Alkaline Phosphatase 154H, Total Protein 5.5L, Albumin 3.2, Lipase 13 09/01/21 11:04: Glucometer 159H 09/01/21 16:23: Glucometer 117H Microbiology 08/28/21 Urine Culture - Final, Complete 3 or more isolates Assessment/Plan Assessment/Plan Assessment/Plan Epigastric abdominal pain Pancreatitis Hirschsprung advance diet. Had previous cholecystectomy so do not need to check gallbladder. Home soon Clinical Quality Measures AMI/AHF: ASA po Prior to arrival: ISABELLA Ratliff DO September 01, 2021 18:42
[2021-09-01 20:00] VITALS: BP 102/72
[2021-09-01] MEDS: SIMvastatin 10 MG (ZOCOR) TAB PO SCH (20:53)
[2021-09-02] VITALS: BP 105/57
[2021-09-02 05:36] LABS: HEMATOCRIT 30 % (35-52); HEMOGLOBIN 9.6 g/dL (11.5-16.0); MEAN CORPUSCULAR VOLUME 88 fL (80-99)
[2021-09-02 05:37] LABS: BASOPHILS # (AUTO) 0.1 10^3/uL (0.0-0.1); BASOPHILS % (AUTO) 1 % (0-10); EOSINOPHILS # (AUTO) 0.2 10^3/uL (0.0-0.3); EOSINOPHILS % (AUTO) 2 % (0-10); LYMPHOCYTES # (AUTO) 1.7 X 10^3 (1.0-4.0); LYMPHOCYTES % (AUTO) 17 % (12-44); MEAN CORPUSCULAR HEMOGLOBIN 28 pg (25-34); MEAN CORPUSCULAR HGB CONC 32 g/dL (32-36); MEAN PLATELET VOLUME 9.7 fL (9.0-12.2); MONOCYTES # (AUTO) 0.7 X 10^3 (0.0-1.0); MONOCYTES % (AUTO) 7 % (0-12); NEUTROPHILS # (AUTO) 7.3 X 10^3 (1.8-7.8); NEUTROPHILS % (AUTO) 73 % (42-75); PLATELET COUNT 211 10^3/uL (130-400)
[2021-09-02 06:07] LABS: ALBUMIN 3.4 GM/DL (3.2-4.5); POTASSIUM 3.2 MMOL/L (3.6-5.0)
[2021-09-02 06:08] LABS: CALCIUM 8.4 MG/DL (8.5-10.1)
[2021-09-02 06:10] LABS: TOTAL PROTEIN 5.7 GM/DL (6.4-8.2)
[2021-09-02 06:11] LABS: BILIRUBIN,TOTAL 0.9 MG/DL (0.1-1.0)
[2021-09-02] MEDS: inSUlin ASPART (NovoLOG) 1 UNIT/0.01 ML (CHARGE PER UNIT) SC SCH ×2 (06:11→11:27)
[2021-09-02 06:13] LABS: CREATININE SERUM 0.88 MG/DL (0.60-1.30)
[2021-09-02] MEDS: LEVOTHYROXINE 112 MCG (LEVOTHROID) TAB PO SCH (06:13)
[2021-09-02] MEDS: MULTIVIT W/MINERALS TAB (THERAGRAN M) PO SCH (06:13)
--- NOTE | 2021-09-02 06:36 | Progress Note - Hospitalist ---
Subjective HPI/CC On Admission Date Seen by Provider: September 02, 2021 Time Seen by Provider: 10:30 CC: Abdominal pain HPI: This is a female [facility] pt who presented to the [facility] ER with chest pain and abdominal pain. She was found to have acute pancreatitis on CT scan. Lipase was only mildly elevated. She has had a colostetectomy before. I will consult Dr. Resendiz. Placed on IV fluids, supportive care, and a clear liquid diet. She does have a history of pancreatic cysts and cancer in the family. Objective Exam Vital Signs Vital Signs Date Time Temp Pulse Resp B/P (MAP) Pulse Ox O2 Delivery O2 Flow Rate FiO2 09/02/21 09:00 Room Air 09/02/21 08:03 36.8 52 17 133/56 (81) 99 09/02/21 00:00 2.00 Capillary Refill : Results/Procedures Lab Laboratory Tests 09/02/21 05:16 Patient resulted labs reviewed. Assessment/Plan Assessment and Plan Assess & Plan/Chief Complaint Assessment: Acute pancreatitis Family history of pancreatic cyst and cancer Previous cholecystectomy Atrial fibrillation Oral anticoagulant Plan: Supportive care Dr. Resendiz consult Pain control IV fluids 08/30/2021: Advance diet 08/31/2021: Midline Hold on advancing diet 09/01/2021: Advance diet Clinical Quality Measures AMI/AHF: ASA po Prior to arrival: RUBIA Howell DO September 02, 2021 06:36
[2021-09-02] MEDS: DOCUSATE SODIUM 100 MG (COLACE) CAP PO SCH (07:40)
[2021-09-02 08:03] VITALS: BP 133/56
[2021-09-02] MEDS: SOTALOL 80 MG (BETAPACE) TAB PO SCH (08:06)
--- NOTE | 2021-09-02 08:20 | Progress Note - Surgery ---
Subjective Date Seen by a Provider: September 02, 2021 Time Seen by a Provider: 08:19 Subjective/Events-last exam Tolerating diet. Feeling better. Pain improved. Wanting to go home. Denies n/v fever sweats chills shortness of breath or chest pain. Objective Exam Vital Signs Date Time Temp Pulse Resp B/P (MAP) Pulse Ox O2 Delivery O2 Flow Rate FiO2 09/02/21 08:03 36.8 52 17 133/56 (81) 99 Room Air 09/02/21 00:00 37.0 58 16 105/57 (73) 94 Nasal Cannula 2.00 09/01/21 22:00 Room Air 09/01/21 20:53 52 09/01/21 20:00 36.6 63 20 102/72 (82) 96 Room Air 09/01/21 18:57 94 Room Air 0.00 09/01/21 16:00 37.0 53 20 156/76 (102) 94 Room Air 09/01/21 15:30 36.7 69 18 166/94 (118) 95 Room Air 09/01/21 11:04 36.6 50 20 139/82 (101) 97 Room Air 09/01/21 09:00 Room Air I & O 09/02/21 07:00 Intake Total 4810 ml Output Total 2300 ml Balance 2510 ml Capillary Refill : General Appearance: No Apparent Distress, WD/WN, Chronically ill HEENT: PERRL/EOMI, Moist Mucous Membranes Neck: Full Range of Motion, Normal Inspection Respiratory: Chest Non Tender, No Accessory Muscle Use, No Respiratory Distress Cardiovascular: Regular Rate, Rhythm, No JVD Gastrointestinal: non tender, soft, other (Multiple scars) Extremity: Normal Inspection, Normal Range of Motion, Non Tender, No Calf Tende rness, No Pedal Edema Neurologic/Psychiatric: Alert, Oriented x3 Skin: Normal Color, Warm/Dry Lymphatic: No Adenopathy Results Lab Laboratory Tests 09/01/21 11:04: Glucometer 159H 09/01/21 16:23: Glucometer 117H 09/01/21 20:59: Glucometer 210H 09/02/21 05:16: White Blood Count 10.0, Red Blood Count 3.44L, Hemoglobin 9.6L, Hematocrit 30L, Mean Corpuscular Volume 88, Mean Corpuscular Hemoglobin 28, Mean Corpuscular Hemoglobin Concent 32, Red Cell Distribution Width 15.0H, Platelet Count 211, Mean Platelet Volume 9.7, Immature Granulocyte % (Auto) 1, Neutrophils (%) (Auto) 73, Lymphocytes (%) (Auto) 17, Monocytes (%) (Auto) 7, Eosinophils (%) (Auto) 2, Basophils (%) (Auto) 1, Neutrophils # (Auto) 7.3, Lymphocytes # (Auto) 1.7, Monocytes # (Auto) 0.7, Eosinophils # (Auto) 0.2, Basophils # (Auto) 0.1, Immature Granulocyte # (Auto) 0.1, Sodium Level 141, Potassium Level 3.2L, Chloride Level 108H, Carbon Dioxide Level 22, Anion Gap 11, Blood Urea Nitrogen 5L, Creatinine 0.88, Estimat Glomerular Filtration Rate 76, BUN/Creatinine Ratio 6, Glucose Level 148H, Calcium Level 8.4L, Corrected Calcium 8.9, Total Bilirub in 0.9, Aspartate Amino Transf (AST/SGOT) 22, Alanine Aminotransferase (ALT/SGPT) 19, Alkaline Phosphatase 170H, Total Protein 5.7L, Albumin 3.4, Lipase 14 Microbiology 08/28/21 Urine Culture - Final, Complete 3 or more isolates Assessment/Plan Assessment/Plan Assessment/Plan Epigastric abdominal pain Pancreatitis Hirschsprung Diet as tolerates Had previous cholecystectomy so do not need to check gallbladder. No surgical intervention. Clinical Quality Measures AMI/AHF: ASA po Prior to arrival: ISABELLA Ratliff DO September 02, 2021 08:19
[2021-09-02] MEDS: PANTOPRAZOLE 40 MG (PROTONIX) TAB PO SCH (09:06)
[2021-09-02] MEDS: APIXABAN 5 MG (ELIQUIS) TABLET PO SCH (09:06)
[2021-09-02] MEDS: ASPIRIN 81 MG CHEW (CHILDREN'S ASA) PO SCH (09:06)
[2021-09-02] MEDS: ALPRAZolam 0.25 MG (XANAX) TAB PO PRN (09:07)
[2021-09-02] MEDS: GABAPENTIN 300 MG (NEURONTIN) CAP PO SCH (09:07)
[2021-09-02] MEDS: CYANOCOBALAMIN 1,000 MCG (VITAMIN B-12) TABLET PO SCH (09:07)
[2021-09-02] MEDS: MAGNESIUM OXIDE (MAG-OX)400 MG TAB PO SCH (09:07)
[2021-09-02] MEDS: VITAMIN D3 25 MCG (1,000 UNITS) TABLET PO SCH (09:07)
[2021-09-02] MEDS: buPROPion 75 MG (WELLBUTRIN) TAB PO SCH (09:07)
[2021-09-02] MEDS: KCL 20 MEQ TAB (K-DUR) PO SCH ×2 (09:07→12:48)
[2021-09-02] MEDS: LORATADINE (CLARITIN) 10 MG TAB PO SCH (09:07)
[2021-09-02] MEDS: ALLOPURINOL 100 MG (ZYLOPRIM) TAB PO SCH (09:07)
[2021-09-02] MEDS: FLUTICASONE NASAL SPRAY (FLONASE) 16 GM BTL NS SCH (09:12)
[2021-09-02] MEDS: NON-FORMULARY MEDICATION 1 EA EA (Fluticasone/Umeclidin/Vilanter (Trelegy Ellipta 200-62.5 IH SCH (09:13)
[2021-09-02] MEDS ORDERED: OXC5T PO (11:15)
[2021-09-02] MEDS ORDERED: GLIP5TAB13 PO (11:15)
--- NOTE | 2021-09-02 11:16 | Discharge Summary ---
Discharge Summary Hospital Course Was the Problem List Reviewed?: Yes Problems/Dx: (1) Acute pancreatitis Status: Acute Qualifiers: Qualified Codes: K85.90 - Acute pancreatitis without necrosis or infection, unspecified Hospital Course Date of Admission: August 28, 2021 at 09:09 Admission Diagnosis : Family Physician/Provider: Emelia Parmar Aprn Date of Discharge: 09/02/21 Discharge Diagnosis: Acute pancreatitis cryptogenic type, A. fib Hospital Course: Pt had an uneventful 6 day hospital course after she was admitted for acute pancreatitis. She had a long course due to continued pain and issues when she was advancing her diet, so that was slowed. Midline was placed due to poor vascular access. She ultimately was discharged in improved condition on a bland diet with some pain medication, in case she had any pain. Labs and Pending Lab Test: Laboratory Tests 09/01/21 16:23: Glucometer 117H 09/01/21 20:59: Glucometer 210H 09/02/21 05:16: White Blood Count 10.0, Red Blood Count 3.44L, Hemoglobin 9.6L, Hematocrit 30L, Mean Corpuscular Volume 88, Mean Corpuscular Hemoglobin 28, Mean Corpuscular Hemoglobin Concent 32, Red Cell Distribution Width 15.0H, Platelet Count 211, Mean Platelet Volume 9.7, Immature Granulocyte % (Auto) 1, Neutrophils (%) (Auto) 73, Lymphocytes (%) (Auto) 17, Monocytes (%) (Auto) 7, Eosinophils (%) (Auto) 2, Basophils (%) (Auto) 1, Neutrophils # (Auto) 7.3, Lymphocytes # (Auto) 1.7, Monocytes # (Auto) 0.7, Eosinophils # (Auto) 0.2, Basophils # (Auto) 0.1, Immature Granulocyte # (Auto) 0.1, Sodium Level 141, Potassium Level 3.2L, Chloride Level 108H, Carbon Dioxide Level 22, Anion Gap 11, Blood Urea Nitrogen 5L, Creatinine 0.88, Estimat Glomerular Filtration Rate 76, BUN/Creatinine Ratio 6, Glucose Level 148H, Calcium Level 8.4L, Corrected Calcium 8.9, Total Bilirubin 0.9, Aspartate Amino Transf (AST/SGOT) 22, Alanine Aminotransferase (ALT/SGPT) 19, Alkaline Phosphatase 170H, Total Protein 5.7L, Albumin 3.4, Lipase 14 Microbiology 5/13/22 Urine Culture - Final, Complete 3 or more isolates Home Meds Active Oxyir Tablet (Oxycodone HCl) 5 Mg Tab 5 Mg PO Q4H PRN Glipizide 5 Mg Tablet 5 Mg PO DAILY 14 Days Take only 1 pill of the 5mg daily until you see your provider Reported Metformin HCl 1,000 Mg Tablet 1,000 Mg PO BID Trelegy Ellipta 200-62.5-25 (Fluticasone/Umeclidin/Vilanter) 200-62.5 Blst.w.dev 1 Puff IH DAILY Rizatriptan (Rizatriptan Benzoate) 10 Mg Tablet 10 Mg PO UD PRN Multiple Vitamin (Multivitamin with Minerals) 1 Each Tablet 1 Each PO DAILY Meclizine HCl 25 Mg Tablet 25 Mg PO BID PRN Magnesium Oxide 500 Mg Tablet 500 Mg PO DAILY Loratadine 10 Mg Tablet 10 Mg PO DAILY Jardiance (Empagliflozin) 25 Mg Tablet 25 Mg PO DAILY Neurontin (Gabapentin) 300 Mg Capsule 300 Mg PO BID Fluticasone Propionate 50 Mcg/Actuation [place].susp 2 Sprays NSEACH DAILY Euthyrox (Levothyroxine Sodium) 112 Mcg Tablet 112 Mcg PO DAILY Bupropion HCl 75 Mg Tablet 150 Mg PO BID TAKES 2 (75MG) TABS Aspirin 81 Mg Tab.chew 81 Mg PO DAILY ALPRAZolam 0.25 Mg Tablet 0.25 Mg PO BID PRN Ventolin Hfa (Albuterol Sulfate) 90 Mcg Hfa.aer.ad 2 Puff INH Q4-6HRS PRN Albuterol Sulfate 0.63 Mg/3 Ml Vial.neb 1 Unit IH Q6H PRN Vitamin D3 (Cholecalciferol (Vitamin D3)) 25 Mcg Capsule 25 Mcg PO Q48H Potassium Chloride 10 Meq Tab.er.prt 10 Meq PO DAILY Allopurinol 100 Mg Tablet 200 Mg PO DAILY TAKES 2 (100MG) TABS Vitamin B-12 (Cyanocobalamin (Vitamin B-12)) 500 Mcg Tablet 500 Mcg PO DAILY Sotalol (Sotalol HCl) 80 Mg Tablet 40 Mg PO BID TAKES OF A 80MG TAB Eliquis (Apixaban) 5 Mg Tablet 5 Mg PO BID Citalopram HBr (Citalopram Hydrobromide) 40 Mg Tablet 40 Mg PO HS Omeprazole 20 Mg Capsule.dr 20 Mg PO DAILY Simvastatin 10 Mg Tablet 10 Mg PO HS Assessment/Pt Instructions PCP in 1 week Discharge Planning: <30 minutes discharge planning Discharge Instructions Discharge Diet: Soft Diet Activity as Tolerated: Yes Discharge Physical Examination Vital Signs Vital Signs Date Time Temp Pulse Resp B/P (MAP) Pulse Ox O2 Delivery O2 Flow Rate FiO2 09/02/21 09:00 Room Air 09/02/21 08:03 36.8 52 17 133/56 (81) 99 09/02/21 00:00 2.00 General Appearance: No Apparent Distress, WD/WN, Chronically ill Allergies: Coded Allergies: diphenhydramine (Verified Allergy, Unknown, 08/01/18) fluticasone (Verified Allergy, Unknown, 08/04/18) PER UNCODED ALLERGIES hylan G-F 20 (Verified Allergy, Unknown, 08/01/18) latex (Verified Allergy, Unknown, 08/01/18) morphine (Verified Allergy, Unknown, 08/01/18) salmeterol (Verified Allergy, Unknown, 08/04/18) PER UNCODED ALLERGIES trovafloxacin (Verified Allergy, Unknown, 08/01/18) Discharge Summary Date of Admission August 28, 2021 at 09:09 Date of Discharge Discharge Date: September 02, 2021 Admission Diagnosis Assessment: Acute pancreatitis Family history of pancreatic cyst and cancer Previous cholecystectomy Atrial fibrillation Oral anticoagulant Plan: Supportive care Dr. Resendiz consult Pain control IV fluids Discharge Diagnosis Assessment: Acute pancreatitis Family history of pancreatic cyst and cancer Previous cholecystectomy Atrial fibrillation Oral anticoagulant Plan: Supportive care Dr. Resendiz consult Pain control IV fluids 08/30/2021: Advance diet 08/31/2021: Midline Hold on advancing diet 09/01/2021: Advance diet Clinical Quality Measures AMI/AHF: ASA po Prior to arrival: RUBIA Howell DO September 02, 2021 11:16
[2021-09-02 12:48] VITALS: BP 133/56
--- NOTE | 2021-09-02 13:09 | Progress Note - Cardiology ---
Cardiology SOAP Progress Note Subjective: No chest or abd pain No n/v/d No shortness of breath No swelling Mild gen weakness persistent Objective: I&O/Vital Signs 09/02/21 09/02/21 09/02/21 08:03 09:00 12:48 Temp 36.8 36.8 Pulse 52 52 Resp 17 17 B/P (MAP) 133/56 (81) 133/56 Pulse Ox 99 99 O2 Delivery Room Air Room Air Room Air 09/02/21 00:00 Intake Total 4310 ml Output Total 1800 ml Balance 2510 ml Weight (Pounds): 211 Weight (Ounces): 0.0 Weight (Calculated Kilograms): 95.417426 Constitutional: AAO x 3, well-developed, well-nourished Respiratory: No accessory muscle use; other (good, bilateral air entry) Cardiovascular: regular rate-rhythm, S1 and S2, systolic murmur (soft HUGO at card base) Gastrointestional: tender, distended, audible bowel sounds Extremities: No clubbing, No cyanosis, No significant edema Neurologic/Psychiatric: oriented x 3, other (moves all limbs equally) Skin: No rash on exposed areas, No ulcerations on exposed areas Results/Procedures: Labs Laboratory Tests 09/01/21 16:23: Glucometer 117H 09/01/21 20:59: Glucometer 210H 09/02/21 05:16: White Blood Count 10.0, Red Blood Count 3.44L, Hemoglobin 9.6L, Hematocrit 30L, Mean Corpuscular Volume 88, Mean Corpuscular Hemoglobin 28, Mean Corpuscular Hemoglobin Concent 32, Red Cell Distribution Width 15.0H, Platelet Count 211, Mean Platelet Volume 9.7, Immature Granulocyte % (Auto) 1, Neutrophils (%) (Auto) 73, Lymphocytes (%) (Auto) 17, Monocytes (%) (Auto) 7, Eosinophils (%) ( Auto) 2, Basophils (%) (Auto) 1, Neutrophils # (Auto) 7.3, Lymphocytes # (Auto) 1.7, Monocytes # (Auto) 0.7, Eosinophils # (Auto) 0.2, Basophils # (Auto) 0.1, Immature Granulocyte # (Auto) 0.1, Sodium Level 141, Potassium Level 3.2L, Chloride Level 108H, Carbon Dioxide Level 22, Anion Gap 11, Blood Urea Nitrogen 5L, Creatinine 0.88, Estimat Glomerular Filtration Rate 76, BUN/Creatinine Ratio 6, Glucose Level 148H, Calcium Level 8.4L, Corrected Calcium 8.9, Total Bilirubin 0.9, Aspartate Amino Transf (AST/SGOT) 22, Alanine Aminotransferase (ALT/SGPT) 19, Alkaline Phosphatase 170H, Total Protein 5.7L, Albumin 3.4, Lipase 14 Microbiology 08/28/21 Urine Culture - Final, Complete 3 or more isolates Laboratory Tests 09/01/21 05:23 09/02/21 05:16 A/P: Assessment: Acute abdomen, managed by Dr Carreno Non-cardiac chest and abdominal pain, managed by Dr Carreno - Card cath 08/14/21 did not show any significant CAD. LVEF was 60% A fib - ablation procedure by Dr Avila on 08/01/2014. - Recurrence of a-fib in April 2016 for which she is being maintained on Sotalol. - Chronic OAC with Eliquis for stroke prophylaxis CAD: - Cardiac cath of 06/26/13 showed mild CAD and impaired LV function (LVEF 40%), indicating moderate non-ischemic cardiomyopathy. This may partially be related to a fib with RVR. - Echocardiogram of 11-14-20 showed LVEF 60-650%. PASP approx 30-35 mmHg - MPI of August 2018 showed no evidence of significant myocardial ischemia or infarction. LVEF 68%. Normal regional wall motion - MPI of 07-17-21 showed small to mod amt of basal inferior ischemia. LVEF 72% - Card cath 08/14/21 did not show any significant CAD. LVEF was 60% Hypertension - controlled Obesity - with BMI of approx 37 Hypothyroidism - being treated with thyroid replacement therapy Breast CA - with h/o bilat mastectomies and subsequent chemo and radiation in 2005- Anxiety and depression - controlled DM II - treated with oral hypoglycemics Hyperlipidemia - followed by her PCP H/o partial colectomy for Hirschsprung's disease H/o chronic hypokalemia of undetermined etiology - managed by her pcp [facility] Obstructive sleep apnea - per sleep study on 10-08-2013; unable to tolerate CPAP I and has only been using oxygen at night Hemiplegic migraine - diagnosed during an admission in May 2014 at [place], [place], being followed by her neurologist, Dr Stephens, in [place], [place] No evidence of significant carotid dz on u/s of August 2018 S/p R TKR in or around 2009 and L TKR in July 2015 Plan: * Continue current regimen * Replenish K * Monitor labs Clinical Quality Measures AMI/AHF: ASA po Prior to arrival: TORI Casiano MD FACP [facility] September 02, 2021 13:09
== END 2021-09-02 13:00 | disposition home or self-care (01) | DRG 439 ==
LOC: EDUNIT# 04:47 → ER FS 04:50 → 4TH 09:09
PROVIDERS: ADMIT Internal Medicine; ATTEND Internal Medicine
DX: K85.90 Acute pancreatitis without necrosis or infection, unspecified (principal); N39.0 Urinary tract infection, site not specified; Q43.1 Hirschsprung's disease; I48.91 Unspecified atrial fibrillation; Z83.79 Family history of other diseases of the digestive system; I25.10 Atherosclerotic heart disease of native coronary artery without angina pectoris; Z79.01 Long term (current) use of anticoagulants; I10 Essential (primary) hypertension; E11.9 Type 2 diabetes mellitus without complications; J45.909 Unspecified asthma, uncomplicated; M10.9 Gout, unspecified; K21.9 Gastro-esophageal reflux disease without esophagitis; Z79.82 Long term (current) use of aspirin; Z79.899 Other long term (current) drug therapy; Z96.653 Presence of artificial knee joint, bilateral; E78.00 Pure hypercholesterolemia, unspecified; E03.9 Hypothyroidism, unspecified; Z85.3 Personal history of malignant neoplasm of breast; Z92.21 Personal history of antineoplastic chemotherapy; Z92.3 Personal history of irradiation; F41.9 Anxiety disorder, unspecified; F32.A Depression, unspecified; Z87.891 Personal history of nicotine dependence; E66.9 Obesity, unspecified; D64.9 Anemia, unspecified; R11.0 Nausea; Z90.49 Acquired absence of other specified parts of digestive tract; Z68.37 Body mass index [BMI] 37.0-37.9, adult; R07.89 Other chest pain; E87.6 Hypokalemia; M19.90 Unspecified osteoarthritis, unspecified site; G43.409 Hemiplegic migraine, not intractable, without status migrainosus; G47.33 Obstructive sleep apnea (adult) (pediatric)
CPT/HCPCS: 36410; 36415; 71045; 74177; 76937; 80053; 81000; 82947; 83605; 83690; 83735; 83880; 84484; 85025; 85379; 85610; 85730; 87088; 93041; 96374; 96375

== ENCOUNTER 2021-12-15 02:32 | Observation (INO) | payer MEDICARE, MEDICAID ==
[~2021-12-15] VITALS: Ht 160 cm; Wt 93.2 kg
[~2021-12-15 02:32] MED LIST changes: +OXC5T PO; +POTA-177 PO; -POTA10TA37 PO
[2021-12-15] MEDS ORDERED: fentaNYL INJ 100 MCG/2 ML AMP IVP ONE (03:00)
[2021-12-15] MEDS ORDERED: ONDANSETRON 4 MG/2 ML (SDV) Z0FRAN IVP ONE (03:00)
[2021-12-15] MEDS ORDERED: DICYCLOMINE 10 MG/ML (BENTYL) 2 ML AMP IM STA (03:03)
--- NOTE | 2021-12-15 03:03 | ED Abdominal Pain ---
General Chief Complaint: Abdominal/GI Problems Stated Complaint: PANCREATIC PAIN Source of Information: Patient Exam Limitations: No Limitations History of Present Illness Date Seen by Provider: Dec 15, 2021 Time Seen by Provider: 02:49 Initial Comments Patient is a 61-year-old female with a history of Hirschsprung's disease, hypertension diabetes, anxiety, thyroid problems who presents to the emergency department today with a chief complaint of epigastric abdominal pain. Patient states that her pain hit her last evening at about 7 PM. She states it came out of the blue. She did have a heavy meal earlier in the evening for dinner. She is nauseous but has not vomited. She chronically has diarrhea. She states her stooling is no different than normal. She denies dysuria, urgency or frequency. No fevers or chills. She feels short of breath with the pain. She took Pepto- Bismol and 2 doses of Tylenol without any relief of symptoms. She states that it feels like her pancreatitis from earlier in the year back in August. She is not sure the trigger. Patient has had multiple abdominal surgeries including cholecystectomy and surgeries for her Hirschsprung's. She denies alcohol use. All other review of systems reviewed and negative except as stated. Timing/Duration: Other (8hr) Severity/Quality: Moderate, Aching Location: Epigastric Activities at Onset: None Modifying Factors: Worsens With Movement, Worsens With Palpation Associated Symptoms: Nausea/Vomiting Allergies and Home Medications Allergies Coded Allergies: diphenhydramine (Verified Allergy, Unknown, 08/01/18) fluticasone (Verified Allergy, Unknown, 08/04/18) PER UNCODED ALLERGIES hylan G-F 20 (Verified Allergy, Unknown, 08/01/18) latex (Verified Allergy, Unknown, 08/01/18) morphine (Verified Allergy, Unknown, 08/01/18) salmeterol (Verified Allergy, Unknown, 08/04/18) PER UNCODED ALLERGIES trovafloxacin (Verified Allergy, Unknown, 08/01/18) Patient Home Medication List Home Medication List Reviewed: Yes ALPRAZolam (ALPRAZolam) 0.25 Mg Tablet, 0.25 MG PO BID PRN for ANXIETY, (Reported) Entered as Reported by: PENNY GONZALEZ on 08/14/21 1348 Albuterol Sulfate (Albuterol Sulfate) 0.63 Mg/3 Ml Vial.neb, 1 UNIT IH Q6H PRN for SHORTNESS OF BREATH, (Reported) Entered as Reported by: PENNY GONZALEZ on 08/14/21 134 Albuterol Sulfate (Ventolin Hfa) 90 Mcg Hfa.aer.ad, 2 PUFF INH Q4-6HRS PRN for SHORTNESS OF BREATH, (Reported) Entered as Reported by: PENNY GONZALEZ on 08/14/21 134 Allopurinol (Allopurinol) 100 Mg Tablet, 200 MG PO DAILY, (Reported) Entered as Reported by: SHANTEL ANDRADE on 03/25/20 143 Apixaban (Eliquis) 5 Mg Tablet, 5 MG PO BID, (Reported) Entered as Reported by: ALL HOWARD on 08/01/18 155 Aspirin (Aspirin) 81 Mg Tab.chew, 81 MG PO DAILY, (Reported) Entered as Reported by: PENNY GONZALEZ on 08/14/211347 Bupropion HCl (Bupropion HCl) 75 Mg Tablet, 150 MG PO BID, (Reported) Entered as Reported by: PENNY GONZALEZ on 08/14/211347 Cholecalciferol (Vitamin D3) (Vitamin D3) 25 Mcg Capsule, 25 MCG PO Q48H, (Reported) Entered as Reported by: SHANTEL ANDRADE on 03/25/20 143 Citalopram Hydrobromide (Citalopram HBr) 40 Mg Tablet, 40 MG PO HS, (Reported) Entered as Reported by: ALL HOWARD on 08/01/18 155 Cyanocobalamin (Vitamin B-12) (Vitamin B-12) 500 Mcg Tablet, 500 MCG PO DAILY, (Reported) Entered as Reported by: ALL HOWARD on 08/01/18 155 Empagliflozin (Jardiance) 25 Mg Tablet, 25 MG PO DAILY, (Reported) Entered as Reported by: PENNY GONZALEZ on 08/14/211347 Fluticasone Propionate (Fluticasone Propionate) 50 Mcg/Actuation [place].susp, 2 SPRAYS NSEACH DAILY, (Reported) Entered as Reported by: PENNY GONZALEZ on 08/14/211347 Fluticasone/Umeclidin/Vilanter (Trelegy Ellipta 200-62.5-25) 200-62.5 Blst.w.de v, 1 PUFF IH DAILY, (Reported) Entered as Reported by: PENNY GONZALEZ on 08/14/21 1348 Gabapentin (Neurontin) 300 Mg Capsule, 300 MG PO BID, (Reported) Entered as Reported by: PENNY GONZALEZ on 08/14/21 1348 Glipizide (Glipizide) 5 Mg Tablet, 5 MG PO DAILY Prescribed by: RUBIA GUILLEN on 09/02/21 1115 Levothyroxine Sodium (Euthyrox) 112 Mcg Tablet, 112 MCG PO DAILY, (Reported) Entered as Reported by: PENNY GONZALEZ on 08/14/21 1348 Loratadine (Loratadine) 10 Mg Tablet, 10 MG PO DAILY, (Reported) Entered as Reported by: PENNY GONZALEZ on 08/14/21 1348 Magnesium Oxide (Magnesium Oxide) 500 Mg Tablet, 500 MG PO DAILY, (Reported) Entered as Reported by: PENNY GONZALEZ on 08/14/21 1348 Meclizine HCl (Meclizine HCl) 25 Mg Tablet, 25 MG PO BID PRN for DIZZINESS, (Reported) Entered as Reported by: PENNY GONZALEZ on 08/14/21 1348 Metformin HCl (Metformin HCl) 1,000 Mg Tablet, 1,000 MG PO BID, (Reported) Entered as Reported by: SHANTEL ANDRADE on 08/28/21 1416 Multivitamin with Minerals (Multiple Vitamin) 1 Each Tablet, 1 EACH PO DAILY, (Reported) Entered as Reported by: PENNY GONZALEZ on 08/14/21 1348 Omeprazole (Omeprazole) 20 Mg Capsule.dr, 20 MG PO DAILY, (Reported) Entered as Reported by: ALL HOWARD on 08/01/18 1556 Oxycodone Hcl (Oxyir Tablet) 5 Mg Tab, 5 MG PO Q4H PRN for PAIN-SEVERE (8-10) Prescribed by: RUBIA GUILLEN on 09/02/21 1115 Potassium Chloride (Potassium Chloride) 10 Meq Tab.er.prt, 10 MEQ PO DAILY, (Reported) Entered as Reported by: SHANTEL ANDRADE on 03/25/20 1436 Rizatriptan Benzoate (Rizatriptan) 10 Mg Tablet, 10 MG PO UD PRN for HEADACHE, (Reported) Entered as Reported by: PENNY GONZALEZ on 08/14/21 1348 Simvastatin (Simvastatin) 10 Mg Tablet, 10 MG PO HS, (Reported) Entered as Reported by: ALL HOWARD on 08/01/18 1556 Sotalol HCl (Sotalol) 80 Mg Tablet, 40 MG PO BID, (Reported) Entered as Reported by: ALL HOWARD on 08/01/18 1556 Review of Systems Review of Systems Constitutional: see HPI EENTM: No Symptoms Reported Respiratory: No Symptoms Reported Cardiovascular: No Symptoms Reported Gastrointestinal: Abdominal Pain, Nausea Genitourinary: No Symptoms Reported Musculoskeletal: no symptoms reported Skin: no symptoms reported All Other Systems Reviewed Negative Unless Noted: Yes Past Fsvovqp-Wcmofu-Lzttvp Hx Immunizations Up To Date First/Initial COVID19 Vaccinat: 10/2019 Second COVID19 Vaccination Nik: 11/2019 Seasonal Allergies Seasonal Allergies: Yes Past Medical History Surgery/Hospitalization HX: 3 x Hirshspurngs disease surgeries Tonsilectomy Cholesectomy Bilateral TKA Cardio Ablation Hysterectomy Double Mastectomy Surgeries: Yes (BOWEL, BREAST, BILAT TKR, BILAT KNEE SCOPES, SKIN LESION,CARDIAC ABLATION) Appendectomy, Gallbladder, Hysterectomy, Tonsillectomy, Tubal Ligation Respiratory: Yes (NOT HAVING MANY ISSUES ) Asthma Cardiac: Yes Atrial Fibrillation, High Cholesterol, Hypertension Neurological: Yes Headaches /Migraines Sexually Transmitted Disease: No HIV/AIDS: No Genitourinary: No Gastrointestinal: Yes (HIRSCHSPRUNGS) Gastroesophageal Reflux, Chronic Diarrhea Musculoskeletal: Yes Back Injury Endocrine: Yes Hypothyroidsim, Diabetes, Non-Insulin dep HEENT: Yes (GLASSES, DENTURES) Loss of Vision: Bilateral Hearing Impairment: Denies Cancer: Yes (BREAST) Did You Recieve Any Treatments: Yes What Type of Treatment Did You: Chemotherapy, Radiation, Surgical Intervention Psychosocial: Yes Anxiety, Depression Integumentary: No Blood Disorders: Yes Adverse Reaction/Blood Tranf: No (HAS HAD BLOOD WITH NO REACTION) Family Medical History Cardiovascular disease 19 FATHER G8 SISTER No Pertinent Family Hx Physical Exam Vital Signs Vital Signs - First Documented 12/15/21 03:00 Temp 36.7 Pulse 75 Resp 20 B/P (MAP) 142/67 (92) Pulse Ox 98 O2 Delivery Room Air Capillary Refill : Height/Weight/BMI Height: 5'3.00" Weight: 211lbs. 0.0oz. 95.725344al; 37.50 BMI Method: General Appearance: WD/WN, mild distress HEENT: PERRL/EOMI Respiratory: lungs clear, normal breath sounds, no respiratory distress, no accessory muscle use Cardiovascular: regular rate, rhythm Gastrointestinal: soft, tenderness (diffuse mild - no rebound. most tender at epigastrum as well as diffusely; + quiet bowel sounds.) Extremities: normal range of motion, non-tender, normal inspection, no pedal edema Neurologic/Psychiatric: alert, normal mood/affect, oriented x 3 Skin: normal color, warm/dry Progress/Results/Core Measures Results/Orders Lab Results Laboratory Tests Test 12/15/21 02:52 Range/Units White Blood Count 13.1 H 4.3-11.0 10^3/uL Red Blood Count 5.00 3.80-5.11 10^6/uL Hemoglobin 13.5 11.5-16.0 g/dL Hematocrit 42 35-52 % Mean Corpuscular Volume 83 80-99 fL Mean Corpuscular Hemoglobin 27 25-34 pg Mean Corpuscular Hemoglobin Concent 33 32-36 g/dL Red Cell Distribution Width 15.2 H 10.0-14.5 % Platelet Count 267 130-400 10^3/uL Mean Platelet Volume 9.2 9.0-12.2 fL Immature Granulocyte % (Auto) 1 % Neutrophils (%) (Auto) 80 H 42-75 % Lymphocytes (%) (Auto) 12 12-44 % Monocytes (%) (Auto) 6 0-12 % Eosinophils (%) (Auto) 2 0-10 % Basophils (%) (Auto) 1 0-10 % Neutrophils # (Auto) 10.4 H 1.8-7.8 10^3/uL Lymphocytes # (Auto) 1.6 1.0-4.0 10^3/uL Monocytes # (Auto) 0.7 0.0-1.0 10^3/uL Eosinophils # (Auto) 0.2 0.0-0.3 10^3/uL Basophils # (Auto) 0.1 0.0-0.1 10^3/uL Immature Granulocyte # (Auto) 0.1 0.0-0.1 10^3/uL Sodium Level 137 135-145 MMOL/L Potassium Level 4.4 3.6-5.0 MMOL/L Chloride Level 99 98-107 MMOL/L Carbon Dioxide Level 22 21-32 MMOL/L Anion Gap 16 H 5-14 MMOL/L Blood Urea Nitrogen 15 7-18 MG/DL Creatinine 0.89 0.60-1.30 MG/DL Estimat Glomerular Filtration Rate 74 BUN/Creatinine Ratio 17 Glucose Level 210 H 70-105 MG/DL Calcium Level 10.7 H 8.5-10.1 MG/DL Corrected Calcium 8.5-10.1 MG/DL Total Bilirubin 0.5 0.1-1.0 MG/DL Aspartate Amino Transf (AST/SGOT) 17 5-34 U/L Alanine Aminotransferase (ALT/SGPT) 17 0-55 U/L Alkaline Phosphatase 143 H 40-136 U/L Total Protein 7.6 6.4-8.2 GM/DL Albumin 4.7 H 3.2-4.5 GM/DL Lipase 40 8-78 U/L My Orders Orders - JACKI THORPE MD Ed Iv/Invasive Line Start (12/15/21 02:58) Cbc With Automated Diff (12/15/21 02:58) Comprehensive Metabolic Panel (12/15/21 02:58) Lipase (12/15/21 02:58) Ns Iv 500 Ml (Sodium Chloride 0.9%) (12/15/21 03:00) Ondansetron Injection (Zofran Injectio (12/15/21 03:00) Fentanyl Inj (Sublimaze Injection) (12/15/21 03:00) Dicyclomine Injection (Bentyl Injection) (12/15/21 03:03) Pantoprazole Injection (Protonix Injecti (12/15/21 03:15) Ct Abdomen/Pelvis Wo (12/15/21 03:50) Hydromorphone Injection (Dilaudid Inject (12/15/21 04:00) Ns Iv 1000 Ml (Sodium Chloride 0.9%) (12/15/21 06:15) Promethazine Injection (Phenergan Injec (12/15/21 06:15) Hydromorphone Injection (Dilaudid Inject (12/15/21 06:15) Medications Given in ED Current Medications Medications Dose Ordered Sig/Catherine Route Start Time Stop Time Status Last Admin Dose Admin Fentanyl Citrate 50 mcg ONCE ONCE IVP 12/15/21 03:00 12/15/21 03:01 DC 12/15/21 03:15 50 MCG Hydromorphone HCl 0.5 mg ONCE ONCE IV 12/15/21 04:00 12/15/21 04:01 DC 12/15/21 04:18 0.5 MG Ondansetron HCl 8 mg ONCE ONCE IVP 12/15/21 03:00 12/15/21 03:01 DC 12/15/21 03:13 8 MG Pantoprazole 40 mg ONCE ONCE IV 12/15/21 03:15 12/15/21 03:16 DC 12/15/21 03:17 40 MG Vital Signs/I&O 12/15/21 03:00 Temp 36.7 Pulse 75 Resp 20 B/P (MAP) 142/67 (92) Pulse Ox 98 O2 Delivery Room Air Progress Progress Note : Time: 06:03 Progress Note Patient states pain coming back. tea bag machine tender to palpation with minimal palpation. Still nauseated. No vomiting. Will discuss with Dr Harkins. Will repeat dialudid, add phenergan and IVF. He is ok with ice chips; pain and nausea meds, IVF. (608) Initial ECG Impression Date: Dec 15, 2021 Initial ECG Impression Time: 02:56 Initial ECG Rate: 69 Initial ECG Rhythm: Normal Sinus Initial ECG Intervals: Normal Initial ECG Impression: Nonspecific Changes Diagnostic Imaging Diagonstic Imaging: CT Comments [facility], [place] NAME: EMILIANO PANG [facility] REC#: [id number] PT STATUS: REG ER : 1960 PHYSICIAN: JACKI THORPE MD ADMIT DATE: 12/15/21/ER FS Signed Date of Exam:12/15/21 CT ABDOMEN/PELVIS WO PROCEDURE: CT abdomen and pelvis without contrast. TECHNIQUE: Multiple contiguous axial images were obtained through the abdomen and pelvis without the use of intravenous contrast. Auto Exposure Controls were utilized during the CT exam to meet ALARA standards for radiation dose reduction. INDICATION: Epigastric pain Lung bases are clear. Liver appears normal. Gallbladder surgically absent. Pancreas appears normal. Spleen is not enlarged. Adrenals are normal. Kidneys appear normal. Uterus is surgically absent. Urinary bladder is normal. Adnexa are unremarkable. There is no intraperitoneal free air or free fluid. There is large amount of food residue in the stomach. Small bowel is moderately distended with some air-fluid levels. The pattern is suspicious for small bowel obstruction. There is a moderate amount of stool in the colon. IMPRESSION: Suspected partial small bowel obstruction. Dictated by: Dictated on workstation # [id number] Dict: 12/15/21 0553 Trans: 12/15/21 0555 TCB [id number] Interpreted by: PITER COOPER MD Electronically signed by: PITER COOPER MD 12/15/21 0555 Departure Communication (Admissions) Time/Spoke to Admitting Phy: 06:[address] Harkins Impression Primary Impression: Abdominal pain Qualified Codes: R10.84 - Generalized abdominal pain Additional Impression: Partial small bowel obstruction Disposition: ADMITTED INPATIENT Condition: Stable Admissions Decision to Admit Reason: Admit from ER (General) Decision to Admit/Date: Dec 15, 2021 Time/Decision to Admit Time: 06:10 Transfer Transfer Reason: Exceeds level of care Time Spoke to Accepting Phy: 06:[address] Harkins at via [facility] Transfer Time: 06:30 Transfer Facility: via [facility] Method of Transfer: EMS Departure-Patient Inst. Referrals: TIFFANY WU APRN (PCP/Family) Primary Care Physician JACKI THORPE MD Dec 15, 2021 03:03
[2021-12-15 03:05] LABS: BASOPHILS # (AUTO) 0.1 10^3/uL (0.0-0.1); BASOPHILS % (AUTO) 1 % (0-10); EOSINOPHILS # (AUTO) 0.2 10^3/uL (0.0-0.3); EOSINOPHILS % (AUTO) 2 % (0-10); HEMATOCRIT 42 % (35-52); HEMOGLOBIN 13.5 g/dL (11.5-16.0); LYMPHOCYTES # (AUTO) 1.6 10^3/uL (1.0-4.0); LYMPHOCYTES % (AUTO) 12 % (12-44); MEAN CORPUSCULAR HEMOGLOBIN 27 pg (25-34); MEAN CORPUSCULAR HGB CONC 33 g/dL (32-36); MEAN CORPUSCULAR VOLUME 83 fL (80-99); MEAN PLATELET VOLUME 9.2 fL (9.0-12.2); MONOCYTES # (AUTO) 0.7 10^3/uL (0.0-1.0); MONOCYTES % (AUTO) 6 % (0-12); NEUTROPHILS # (AUTO) 10.4 10^3/uL (1.8-7.8); NEUTROPHILS % (AUTO) 80 % (42-75); PLATELET COUNT 267 10^3/uL (130-400); WHITE BLOOD COUNT 13.1 10^3/uL (4.3-11.0)
[2021-12-15] MEDS: NS IV 500 ML 500 ML IV SCH ×2 (03:13→04:18)
[2021-12-15] MEDS ORDERED: PANTOPRAZOLE 40 MG (PROTONIX) VIAL IV ONE (03:15)
[2021-12-15 03:31] LABS: BUN/CREATININE RATIO 17; CARBON DIOXIDE 22 MMOL/L (21-32); CHLORIDE 99 MMOL/L (98-107); CREATININE SERUM 0.89 MG/DL (0.60-1.30); GFR ESTIMATED 74; GLUCOSE 210 MG/DL (70-105); POTASSIUM 4.4 MMOL/L (3.6-5.0); SODIUM 137 MMOL/L (135-145)
[2021-12-15 03:32] LABS: ALANINE AMINOTRANSFERASE 17 U/L (0-55); ALBUMIN 4.7 GM/DL (3.2-4.5); ALKALINE PHOSPHATASE 143 U/L (40-136); BILIRUBIN,TOTAL 0.5 MG/DL (0.1-1.0); CALCIUM 10.7 MG/DL (8.5-10.1); LIPASE 40 U/L (8-78); TOTAL PROTEIN 7.6 GM/DL (6.4-8.2)
[2021-12-15] MEDS ORDERED: HYDROmorphone 2 MG/ML VIAL (DILAUDID) IV ONE (04:00)
--- NOTE | 2021-12-15 05:56 | Diagnostic Imaging Report ---
PROCEDURE: CT abdomen and pelvis without contrast. TECHNIQUE: Multiple contiguous axial images were obtained through the abdomen and pelvis without the use of intravenous contrast. Auto Exposure Controls were utilized during the CT exam to meet ALARA standards for radiation dose reduction. INDICATION: Epigastric pain Lung bases are clear. Liver appears normal. Gallbladder surgically absent. Pancreas appears normal. Spleen is not enlarged. Adrenals are normal. Kidneys appear normal. Uterus is surgically absent. Urinary bladder is normal. Adnexa are unremarkable. There is no intraperitoneal free air or free fluid. There is large amount of food residue in the stomach. Small bowel is moderately distended with some air-fluid levels. The pattern is suspicious for small bowel obstruction. There is a moderate amount of stool in the colon. IMPRESSION: Suspected partial small bowel obstruction. Dictated by: Dictated on workstation # [id number]
[2021-12-15] MEDS ORDERED: HYDROmorphone 2 MG/ML VIAL (DILAUDID) IVP ONE (06:15)
[2021-12-15] MEDS ORDERED: NS IV 1000 ML 1,000 ML IV SCH (06:15)
[2021-12-15] MEDS ORDERED: PROMETHAZINE INJ 25 MG/ML (PHENERGAN) AMP IVP ONE (06:15)
[2021-12-15] MEDS ORDERED: HYDROmorphone 2 MG/ML VIAL (DILAUDID) IVP STA (09:01)
[2021-12-15] MEDS ORDERED: HYDROmorphone 2 MG/ML VIAL (DILAUDID) ONE (09:03)
[2021-12-15 10:41] VITALS: BP 117/58
[2021-12-15 10:42] VITALS: BP 142/67
[2021-12-15] MEDS ORDERED: PROMETHAZINE INJ 25 MG/ML (PHENERGAN) AMP IVP PRN (11:00)
[2021-12-15 12:31] VITALS: BP 126/61
[2021-12-15] MEDS: ONDANSETRON 4 MG/2 ML (SDV) Z0FRAN IVP PRN (12:41)
[2021-12-15] MEDS: HYDROmorphone 2 MG/ML VIAL (DILAUDID) IVP PRN ×2 (12:48→19:01)
[2021-12-15] MEDS ORDERED: RT-ALBUTEROL SULF 2.5 MG/3 ML PRE-MIX VIAL INH PRN (13:00)
[2021-12-15] MEDS ORDERED: FLUT16SP22 NSEACH (14:10)
[2021-12-15] MEDS ORDERED: GBPN600T PO (14:10)
[2021-12-15] MEDS ORDERED: GLIP5TAB13 PO (14:10)
[2021-12-15] MEDS ORDERED: LEVO-131 PO (14:10)
[2021-12-15] MEDS ORDERED: SOTA80TA62 PO (14:10)
--- NOTE | 2021-12-15 15:17 | HISTORY AND PHYSICAL ---
DATE OF SERVICE: HISTORY OF PRESENT ILLNESS: The patient is a 61-year-old female who presented to [facility] with crampy abdominal pain as well as significant nausea. She states that she ate an early dinner and approximately 7 p.m. felt this crampy abdominal pain with associated nausea, which would not go away. She states that she has similar symptoms back in 08/2021 and did have an episode of pancreatitis with the etiology most likely being due to hypertriglyceridemia. She also does have a strong family history of pancreatitis with her mother and brother both having the disease as well. She also does have a history of Hirschsprung disease and was diagnosed as an infant. She then underwent staged procedure including what appears to be a partial colectomy and ostomy formation, followed by takedown of the ostomy. She states that this occurred while she was [age] weeks old. She then reports having what sounds to be lysis of adhesions at 7 years of age. Upon further questioning, she reports that she never has regular bowel movements and most of the time just kind is incontinent and will notice leaking softer stool content. She states that at times in the past that she did take laxatives as well as suppositories, which did help her to have more regularity. She states that she has stopped doing this in more recent years. A CT scan was performed, which did show some dilated loops of small bowel. However, there was a significant dilatation of the colon as well as a very significant size stools within the rectum and colon, likely causing a transient obstruction. We will proceed with the conservative medical therapy and have her continue with bowel rest with just ice chips for now and then proceed initially with bisacodyl suppositories; however, if this is ineffective, we will then start laxatives by mouth for starting with gentle laxatives with MiraLax; however, if this becomes ineffective then proceed with magnesium citrate or milk of magnesia. When she does have a significant bowel movement and does not have the crampy abdominal pain and distention, we will then start a diet and advance as tolerated. These manifestations are very common among adults with a history of Hirschsprung disease. PAST MEDICAL HISTORY: Hirschsprung disease, hypertension, hypercholesterolemia, atrial fibrillation, degenerative joint disease, gastroesophageal reflux disease, history of left breast cancer, migraine headaches, diabetes, history of left breast cancer. PAST SURGICAL HISTORY: Partial colectomy with end colostomy formation at 2 weeks of age, reversal at 3 years of age. Lysis of adhesions at 7 years of age. Bilateral total knee arthroplasty, cardiac ablation, laparoscopic cholecystectomy, total hysterectomy, tubal ligation, bilateral mastectomy with left modified radical mastectomy in 2006. ALLERGIES: DIPHENHYDRAMINE, FLUTICASONE, LATEX, MORPHINE, , Trovafloxacin, HYLAN. MEDICATIONS: Alprazolam, albuterol, allopurinol, apixaban, aspirin, bupropion, citalopram, empagliflozin, fluticasone, gabapentin, glipizide, levothyroxine, loratadine, meclizine, metformin, omeprazole, oxycodone, rizatriptan, potassium, simvastatin, sotalol. SOCIAL HISTORY: Negative smoke, negative alcohol. FAMILY HISTORY: Brother pancreatitis and pancreatic cancer. Mother pancreatitis. VITAL SIGNS: Temperature 35.9, blood pressure 126/61, pulse 70, respirations 18, pulse ox 90% on room air. REVIEW OF SYSTEMS: Well-nourished female currently in no acute distress. She is not experiencing any shortness of breath or difficulty breathing. No chest pain, palpitations, diaphoresis. Intermittent episodes of nausea with intermittent episodes of crampy abdominal pain as well. She has not had a bowel movement since being admitted. No red blood per rectum, no dark tarry stools. She also does report a history of gastroesophageal reflux disease, which has developed into dysphagia. No fever, chills, no recent inadvertent weight loss. All other review of systems negative. PHYSICAL EXAMINATION: CHEST: Good breath sounds bilaterally. HEART: Regular, no murmurs. EXTREMITIES: No lower extremity edema, negative Homans sign. HEENT: No scleral icterus. NECK: No cervical lymphadenopathy. ABDOMEN: Soft, was slight distention and pain more diffusely upon palpation, there are no peritoneal signs. No hernias. SKIN: Warm, dry. LABORATORY DATA: WBC 13.1, hemoglobin 13.5, hematocrit 42, platelets 267. BUN 15, creatinine 0.89. Lipase is 40. ASSESSMENT AND PLAN: A 61-year-old female with adult manifestations of Hirschsprung disease, which encompassed a transient colonic obstructions and severe constipation. We feel that due to a large stool bolus within the rectum, this is causing transient obstruction and a backup of small bowel contents causing the abdominal distention, crampy pain as well as nausea and vomiting. We will proceed initially with suppositories in hopes of softening the stool bolus and a complete evacuation. If this is not effective, we will start with oral laxatives initially starting with a gentle laxative with MiraLax; however, if this is ineffective, then proceed with magnesium citrate or milk of magnesium until she has significant bowel movements and less abdominal distention. Once this is established, we will start a diet and advance as tolerated. Proactively, we would want her to proceed with suppositories or laxatives on a regular basis to prevent the issue of chronic constipation and leakage that due occur with manifestations of Hirschsprung disease among the amount of adults. Job ID: [id number] DocumentID: [id number] Dictated Date: 12/15/2021 14:55:26 Elevator Serviceman Date: 12/15/2021 15:16:44 Dictated By: SINGH RACHEL MD
[2021-12-15 15:46] VITALS: BP 114/59
[2021-12-15] MEDS: NS IV 1000 ML 1,000 ML IV SCH ×3 (19:02→22:46)
[2021-12-15] MEDS: RT-ALBUTEROL SULF 2.5 MG/3 ML PRE-MIX VIAL INH SCH (19:18)
[2021-12-15 19:35] VITALS: BP 125/59
[2021-12-15] MEDS: BISACODYL 10 MG SUPP (DULCOLAX) PR SCH (20:37)
[2021-12-15 23:44] VITALS: BP 107/66
[2021-12-16 03:11] VITALS: BP 103/53
[2021-12-16] MEDS: NS IV 1000 ML 1,000 ML IV SCH ×2 (07:40→18:40)
[2021-12-16 07:47] VITALS: BP 115/55
[2021-12-16] MEDS: RT-ALBUTEROL SULF 2.5 MG/3 ML PRE-MIX VIAL INH SCH ×2 (07:51→19:07)
[2021-12-16] MEDS: BISACODYL 10 MG SUPP (DULCOLAX) PR SCH ×2 (08:26→20:54)
[2021-12-16] MEDS: PANTOPRAZOLE 40 MG (PROTONIX) VIAL IV SCH (08:26)
[2021-12-16] MEDS ORDERED: ALPRAZolam 0.25 MG (XANAX) TAB PO PRN (09:00)
[2021-12-16] MEDS: buPROPion 75 MG (WELLBUTRIN) TAB PO SCH ×3 (10:03→20:53)
[2021-12-16] MEDS: GABAPENTIN 600 MG (NEURONTIN) TAB PO SCH ×2 (10:04→20:54)
[2021-12-16] MEDS: SOTALOL 80 MG (BETAPACE) TAB PO SCH ×3 (10:05→20:53)
[2021-12-16] MEDS: APIXABAN 5 MG (ELIQUIS) TABLET PO SCH ×2 (10:41→20:54)
[2021-12-16 11:11] VITALS: BP 121/58
[2021-12-16] MEDS: inSUlin ASPART (NovoLOG) 1 UNIT/0.01 ML (CHARGE PER UNIT) SC SCH ×3 (11:32→20:46)
[2021-12-16] MEDS: polyethylene glycoL POWDER 17 GM (MIRALAX) PACK PO SCH ×2 (13:18→20:52)
--- NOTE | 2021-12-16 13:41 | Progress Note ---
Subjective Date Seen by a Provider: Dec 16, 2021 Time Seen by a Provider: 13:30 Subjective/Events-last exam doing ok. did have a BM with suppository however unsure amount and seemed to be more liquid. no nausea/vomiting but still has some crampy abd pain. Objective Exam Vital Signs Date Time Temp Pulse Resp B/P (MAP) Pulse Ox O2 Delivery O2 Flow Rate FiO2 12/16/21 13:18 58 12/16/21 11:11 36.1 58 20 121/58 (79) 98 Room Air 12/16/21 10:19 61 12/16/21 10:08 62 12/16/21 08:00 Nasal Cannula 2.00 12/16/21 07:52 92 Room Air 12/16/21 07:47 36.0 62 20 115/55 (75) 96 Room Air 12/16/21 03:11 36.5 60 18 103/53 (70) 93 Room Air 12/15/21 23:44 36.3 63 18 107/66 (80) 96 Room Air 12/15/21 20:00 Nasal Cannula 2.00 12/15/21 19:35 36.8 71 18 125/59 (81) 92 Room Air 12/15/21 19:18 92 Room Air 12/15/21 15:46 36.9 66 18 114/59 (77) 93 Room Air I & O 12/16/21 07:00 Intake Total 290 ml Balance 290 ml Capillary Refill : Less Than 3 Seconds General Appearance: No Apparent Distress HEENT: PERRL/EOMI Neck: Full Range of Motion Respiratory: Decreased Breath Sounds Cardiovascular: Regular Rate, Rhythm Gastrointestinal: normal bowel sounds, distended Extremity: Normal Capillary Refill Neurologic/Psychiatric: Alert, Oriented x3 Skin: Normal Color Lymphatic: No Adenopathy Results Lab Laboratory Tests 12/15/21 17:04: Glucometer 169H 12/15/21 23:47: Glucometer 126H 12/16/21 05:05: Glucometer 120H 12/16/21 11:07: Glucometer 137H Assessment/Plan Assessment/Plan Assess & Plan/Chief Complaint hirschprung's dz with clinical consipation and leukocytosis. check u/a, cxr and axr. start PO laxatives. ambulate. SINGH RACHEL MD Dec 16, 2021 13:41
[2021-12-16 14:10] LABS: BILIRUBIN,URINE NEGATIVE (NEGATIVE); CLARITY,URINE CLEAR; COLOR,URINE YELLOW; GLUCOSE, URINE (UA) 1+ (NEGATIVE); KETONES,URINE NEGATIVE (NEGATIVE); LEUKOCYTE ESTERASE ,URINE NEGATIVE (NEGATIVE); NITRITE,URINE NEGATIVE (NEGATIVE); PH,URINE 5.5 (5-9); PROTEIN,URINE NEGATIVE (NEGATIVE)
[2021-12-16 14:17] LABS: BACTERIA,URINE NEGATIVE /HPF; SQUAMOUS EPITHELIAL CELL,UR RARE /HPF
--- NOTE | 2021-12-16 14:47 | Diagnostic Imaging Report ---
INDICATION: Diarrhea. Partial small bowel obstruction COMPARISON: 08/28/2021 FINDINGS: Frontal and lateral views of the chest demonstrate normal heart size and pulmonary vascularity. The lungs are clear. There are no signs of infiltrate, pleural effusions or pneumothoraces. The visualized osseous structures show no acute abnormalities. IMPRESSION: 1. No acute process. No signs of infiltrates, effusions or pneumothoraces. Dictated by: Dictated on workstation # [id number]
--- NOTE | 2021-12-16 14:51 | Diagnostic Imaging Report ---
INDICATION: History of partial small bowel obstruction. Diarrhea. COMPARISON: CT dated 12/15/2021 FINDINGS: Multiple frontal upright and supine radiographic views of the abdomen were obtained. There are multiple mildly prominent air-filled loops of small bowel scattered about the abdomen. Multiple air-fluid levels are also noted. There is no large collection of free intraperitoneal air. Residual air and stool is noted within the colon. No unexpected extraosseous calcifications or radiopaque foreign bodies are seen. IMPRESSION: 1. Probable residual mild ileus. Continued followup is advised. Partial obstruction cannot be entirely excluded. Dictated by: Dictated on workstation # [id number]
[2021-12-16 15:55] VITALS: BP 144/79
--- NOTE | 2021-12-16 16:21 | Consultation - Hospitalist ---
HPI History of Present Illness: HPI/Chief Complaint Leslie Beth is a 61 year old female with PMH HTN, AFib, T2DM, anxiety, depression, history of Hirschsprungs disease, history of small bowel obstruction, who presented with abdominal pain. She describes it as cramping pain. She also reports nausea. She felt the same when she had pancreatitis in the past. She has continued to pass gas and have bowel movements. Upon my exam, her cramps have improved. She denies nausea and vomiting. She feels better. She wants to advance her diet and hopes she can go home today. Source: patient Exam Limitations: no limitations Date Seen 12/16/21 Attending Physician No,Local Physician PCP Admitting Physician: Jaime Harkins MD Attending Physician: Jaime Harkins MD Referring Physician Date of Admission Dec 15, 2021 at 09:54 Home Medications & Allergies Home Medications Reviewed patient Home Medication Reconciliation performed by pharmacy medication reconciliations environmental monitoring technician and/or nursing. Patients Allergies have been reviewed. Allergies Allergies Coded Allergies diphenhydramine (Verified Allergy, Unknown, 08/01/18) fluticasone (Verified Allergy, Unknown, 08/04/18) PER UNCODED ALLERGIES hylan G-F 20 (Verified Allergy, Unknown, 08/01/18) latex (Verified Allergy, Unknown, 08/01/18) morphine (Verified Allergy, Unknown, 08/01/18) salmeterol (Verified Allergy, Unknown, 08/04/18) PER UNCODED ALLERGIES trovafloxacin (Verified Allergy, Unknown, 08/01/18) Past Aihplbg-Xhcfca-Rytkpd Hx Patient Social History Tobacco Use?: No Substance use?: No Substance type: Caffeine Alcohol Use?: No Pt feels they are or have been: No Immunizations Up To Date Date of Influenza Vaccine: Jan 23, 2018 First/Initial COVID19 Vaccinat: 10/2019 Second COVID19 Vaccination Nik: 11/2019 Tetanus Booster (TDap): Less Than 5 Years Hepatitis A: Yes Hepatitis B: Yes Date of Pneumonia Vaccine: Dec 18, 2019 Seasonal Allergies Seasonal Allergies: Yes Current Status status: No Advance Directives: Yes Communicates: Verbally Primary Language: Mohawk Preferred Spoken Language: Mohawk Is interpretation needed?: No Sensory deficits: Vision impairment Past Medical History Surgeries: Appendectomy, Gallbladder, Hysterectomy, Tonsillectomy, Tubal Ligation Asthma Atrial Fibrillation, High Cholesterol, Hypertension Headaches /Migraines Sexually Transmitted Disease: No HIV/AIDS: No Gastroesophageal Reflux, Chronic Diarrhea Back Injury Hypothyroidsim, Diabetes, Non-Insulin dep Loss of Vision: Bilateral Hearing Impairment: Denies Did You Recieve Any Treatments: Yes What Type of Treatment Did You: Chemotherapy, Radiation, Surgical Intervention Anxiety, Depression Blood Disorders: Yes Adverse Reaction/Blood Tranf: No (HAS HAD BLOOD WITH NO REACTION) Family Medical History Cardiovascular disease 19 FATHER G8 SISTER No Pertinent Family Hx Review of Systems Constitutional: no symptoms reported EENTM: no symptoms reported Respiratory: no symptoms reported Cardiovascular: no symptoms reported Gastrointestinal: abdominal pain, nausea Physical Exam Physical Exam Vital Signs Vital Signs - First Documented 12/15/21 12/15/21 12/15/21 03:00 10:42 11:22 Temp 36.7 Pulse 75 Resp 20 B/P (MAP) 142/67 (92) Pulse Ox 98 O2 Delivery Room Air O2 Flow Rate 0.00 FiO2 21 Capillary Refill : Less Than 3 Seconds Height, Weight, BMI Height: 5'3.00" Weight: 211lbs. 0.0oz. [id number]; 36.40 BMI Method: General Appearance: No Apparent Distress, Obese HEENT: PERRL/EOMI, Pharynx Normal Neck: Normal Inspection, Supple Respiratory: Lungs Clear, Normal Breath Sounds, No Respiratory Distress Cardiovascular: Regular Rate, Rhythm, No Edema, No Murmur Gastrointestinal: Normal Bowel Sounds, Non Tender, Soft Extremity: Normal Inspection, Non Tender, No Pedal Edema Neurologic/Psychiatric: Alert, Oriented x3, Normal Mood/Affect Skin: Normal Color, Warm/Dry Results Results/Procedures Labs Laboratory Tests 12/15/21 02:52 Patient resulted labs reviewed. Imaging: Reviewed Imaging Report Assessment/Plan Assessment and Plan Assess & Plan/Chief Complaint Partial small bowel obstruction Surgery primary Imaging consistent with partial small bowel obstruction IV fluids NPO, advancing to clears today T2DM Hold home meds Sliding scale insulin HTN AFib Hypothyroidism Anxiety Depression Gout Continue home meds Diagnosis/Problems Diagnosis/Problems (1) Partial small bowel obstruction Status: Acute (2) T2DM (type 2 diabetes mellitus) Status: Chronic Qualifiers: Diabetes mellitus usp insulin use: without moth exterminator use Diabetes mellitus complication status: without complication Qualified Codes: E11.9 - Type 2 diabetes mellitus without complications (3) Anxiety and depression Status: Chronic (4) Hypothyroidism Status: Chronic ROSHAN EASON MD Dec 16, 2021 16:21
[2021-12-16] MEDS ORDERED: HYDROcodone/APAP 5 MG/325 MG (LORTAB) TAB ONE (16:29)
[2021-12-16] MEDS: HYDROcodone/APAP 5 MG/325 MG (LORTAB) TAB PO PRN (16:31)
[2021-12-16 19:33] VITALS: BP 156/74
[2021-12-16] MEDS: MECLIZINE 25 MG (ANTIVERT) TAB PO SCH (20:54)
[2021-12-16] MEDS ORDERED: NON-FORMULARY MEDICATION 1 EA EA (Citalopram Hydrobromide (Citalopram HBr) 40 MG) PO SCH (21:00)
[2021-12-16] MEDS ORDERED: APIXABAN 5 MG (ELIQUIS) TABLET PO SCH (21:00)
[2021-12-17] VITALS (7 sets, daily range): BP systolic 114–179; BP diastolic 56–80
[2021-12-17] MEDS: HYDROcodone/APAP 5 MG/325 MG (LORTAB) TAB PO PRN ×2 (00:56→13:26)
[2021-12-17] MEDS: NS IV 1000 ML 1,000 ML IV SCH ×4 (02:51→19:53)
[2021-12-17] MEDS: inSUlin ASPART (NovoLOG) 1 UNIT/0.01 ML (CHARGE PER UNIT) SC SCH ×4 (05:18→20:26)
[2021-12-17] MEDS: LEVOTHYROXINE 125 MCG (LEVOTHROID) TABLET PO SCH (05:59)
[2021-12-17] MEDS: RT-ALBUTEROL SULF 2.5 MG/3 ML PRE-MIX VIAL INH SCH ×2 (07:16→21:07)
[2021-12-17] MEDS ORDERED: UMECLIDINIUM BROMIDE (INCRUSE ELLIPTA) 7'S IH SCH (08:00)
[2021-12-17] MEDS ORDERED: OMEPRAZOLE 20 MG (PriLOSEC) CAP NON-FORMULARY PO SCH (09:00)
[2021-12-17] MEDS ORDERED: NON-FORMULARY MEDICATION 1 EA EA (Fluticasone/Umeclidin/Vilanter (Trelegy Ellipta 200-62.5 IH SCH (09:00)
[2021-12-17] MEDS: PANTOPRAZOLE 40 MG (PROTONIX) VIAL IV SCH (09:36)
[2021-12-17] MEDS: polyethylene glycoL POWDER 17 GM (MIRALAX) PACK PO SCH ×2 (09:36→20:35)
[2021-12-17] MEDS: GABAPENTIN 600 MG (NEURONTIN) TAB PO SCH ×2 (09:37→20:35)
[2021-12-17] MEDS: APIXABAN 5 MG (ELIQUIS) TABLET PO SCH ×2 (09:37→20:35)
[2021-12-17] MEDS: MECLIZINE 25 MG (ANTIVERT) TAB PO SCH ×2 (09:37→20:35)
[2021-12-17] MEDS: SOTALOL 80 MG (BETAPACE) TAB PO SCH ×2 (09:37→20:34)
[2021-12-17] MEDS: buPROPion 75 MG (WELLBUTRIN) TAB PO SCH ×2 (09:37→20:35)
[2021-12-17] MEDS: BISACODYL 10 MG SUPP (DULCOLAX) PR SCH ×2 (09:38→19:53)
[2021-12-17] MEDS: ALLOPURINOL 100 MG (ZYLOPRIM) TAB PO SCH (09:38)
[2021-12-17] MEDS: FLUTICASONE NASAL SPRAY (FLONASE) 16 GM BTL NS SCH (09:58)
[2021-12-17] MEDS ORDERED: HYDROcodone/APAP 7.5 MG/325 MG (LORTAB, LORCET PLUS) TABLET PO PRN (14:15)
--- NOTE | 2021-12-17 14:20 | Progress Note ---
Subjective Date Seen by a Provider: Dec 17, 2021 Time Seen by a Provider: 14:10 Subjective/Events-last exam Patient seen with Dr. Harkins. Patient reports having multiple episodes of diarrhea. Mild nausea occasional but no vomiting. Having abdominal pain and reports pain meds not helping much. Reports ambulating in room and has been sitting in chair. Does report she feels like she could eat. Objective Exam Vital Signs Date Time Temp Pulse Resp B/P (MAP) Pulse Ox O2 Delivery O2 Flow Rate FiO2 12/17/21 11:28 36.4 55 18 141/69 (93) 95 Room Air 12/17/21 08:00 Nasal Cannula 2.00 12/17/21 07:41 36.1 56 18 133/71 (91) 94 Room Air 12/17/21 07:16 96 Room Air 12/17/21 07:15 56 12/17/21 03:50 35.7 52 20 114/56 (75) 92 Room Air 12/17/21 01:00 56 12/17/21 00:56 36.5 12/17/21 00:20 36.5 60 20 137/64 (88) 91 Room Air 12/16/21 22:53 58 12/16/21 20:53 58 12/16/21 20:00 Nasal Cannula 2.00 12/16/21 19:33 36.6 58 20 156/74 (101) 95 Room Air 12/16/21 19:08 96 Room Air 12/16/21 19:00 60 12/16/21 15:55 36.3 60 20 144/79 (100) 96 Room Air I & O0 12/17/21 07:00 Intake Total 1420 ml Balance 1420 ml Capillary Refill : Less Than 3 Seconds General Appearance: No Apparent Distress, WD/WN Neck: Normal Inspection, Supple Respiratory: No Accessory Muscle Use, No Respiratory Distress Gastrointestinal: normal bowel sounds, distended, tenderness (upper abdomen) Extremity: Normal Inspection, Normal Range of Motion Neurologic/Psychiatric: Alert, Oriented x3 Skin: Normal Color, Warm/Dry Results Lab Laboratory Tests 12/16/21 16:00: Glucometer 141H 12/16/21 20:18: Glucometer 145H 12/17/21 05:14: Glucometer 140H 12/17/21 11:17: Glucometer 179H Assessment/Plan Assessment/Plan Assess & Plan/Chief Complaint A 61 year old female with hirschprung's dz with clinical consipation and leukocytosis. VSS start PO laxatives. ambulate. Continue abx Start dys3 diet Will increase hydrocodone to 7.5 CBC and CMP in AM ARTIE LARA APRN Dec 17, 2021 14:20
[2021-12-17] MEDS ORDERED: POLY17PO6 PO (15:12)
--- NOTE | 2021-12-17 15:13 | Discharge Inst-Surgical ---
D/C Lap Instructions-WILSON Follow Up Appt in 6 weeks Activity as tolerated High Fiber Diet 25g or more per day Avoid Alcohol, Caffeine, Spicy [place] and Acid foods. Drink 64 fluid oz or more of fluids per day. Symptoms to Report: Fever over 101 degree F, Nausea/Vomiting If any problems/questions: Contact your physician or go to Emergency Room SINGH RACHEL MD Dec 17, 2021 15:13
--- NOTE | 2021-12-17 15:33 | Progress Note - Hospitalist ---
Subjective HPI/CC On Admission Date Seen by Provider: Dec 17, 2021 Time Seen by Provider: 11:25 Leslie Beth is a 61 year old female with PMH HTN, AFib, T2DM, anxiety, depression, history of Hirschsprungs disease, history of small bowel obstruction, who presented with abdominal pain. She describes it as cramping pain. She also reports nausea. She felt the same when she had pancreatitis in the past. She has continued to pass gas and have bowel movements. Upon my exam, her cramps have improved. She denies nausea and vomiting. She feels better. She wants to advance her diet and hopes she can go home today. Subjective/Events-last exam She is still having some crampy abdominal pain. She is having bowel movements. She had a bit of nausea this morning. She was able to tolerate her diet yesterday. Objective Exam Vital Signs Vital Signs Date Time Temp Pulse Resp B/P (MAP) Pulse Ox O2 Delivery O2 Flow Rate FiO2 12/17/21 12:57 54 12/17/21 11:28 36.4 18 141/69 (93) 95 Room Air 12/17/21 08:00 2.00 12/15/21 10:42 21 Capillary Refill : Less Than 3 Seconds General Appearance: No Apparent Distress, Obese Respiratory: Lungs Clear, No Respiratory Distress Cardiovascular: Regular Rate, Rhythm, No Murmur Gastrointestinal: Normal Bowel Sounds, Soft Extremity: Normal Inspection, No Pedal Edema Neurologic/Psychiatric: Alert, Normal Mood/Affect Skin: Normal Color, Warm/Dry Results/Procedures Lab Patient resulted labs reviewed. Imaging: Reviewed Imaging Report Assessment/Plan Assessment and Plan Assess & Plan/Chief Complaint Partial small bowel obstruction Surgery primary Imaging consistent with partial small bowel obstruction IV fluids Dysphagia diet T2DM Hold home meds Sliding scale insulin HTN AFib Hypothyroidism Anxiety Depression Gout Continue home meds Diagnosis/Problems Diagnosis/Problems (1) Partial small bowel obstruction Status: Acute (2) T2DM (type 2 diabetes mellitus) Status: Chronic Qualifiers: Diabetes mellitus retirement insulin use: without termite technician use Diabetes mellitus complication status: without complication Qualified Codes: E11.9 - Type 2 diabetes mellitus without complications (3) Anxiety and depression Status: Chronic (4) Hypothyroidism Status: Chronic ROSHAN EASON MD Dec 17, 2021 15:33
[2021-12-18 03:36] VITALS: BP 124/68
[2021-12-18] MEDS: LEVOTHYROXINE 125 MCG (LEVOTHROID) TABLET PO SCH (05:08)
[2021-12-18 05:36] LABS: BASOPHILS % (AUTO) 1 % (0-10); EOSINOPHILS # (AUTO) 0.2 10^3/uL (0.0-0.3); EOSINOPHILS % (AUTO) 3 % (0-10); HEMATOCRIT 33 % (35-52); HEMOGLOBIN 10.6 g/dL (11.5-16.0); LYMPHOCYTES # (AUTO) 1.5 10^3/uL (1.0-4.0); LYMPHOCYTES % (AUTO) 22 % (12-44); MEAN CORPUSCULAR HEMOGLOBIN 28 pg (25-34); MEAN CORPUSCULAR HGB CONC 32 g/dL (32-36); MEAN CORPUSCULAR VOLUME 86 fL (80-99); MEAN PLATELET VOLUME 9.3 fL (9.0-12.2); MONOCYTES # (AUTO) 0.5 10^3/uL (0.0-1.0); MONOCYTES % (AUTO) 8 % (0-12); NEUTROPHILS # (AUTO) 4.4 10^3/uL (1.8-7.8); NEUTROPHILS % (AUTO) 66 % (42-75); PLATELET COUNT 178 10^3/uL (130-400); WHITE BLOOD COUNT 6.7 10^3/uL (4.3-11.0)
[2021-12-18 06:00] LABS: ALBUMIN 3.4 GM/DL (3.2-4.5); BILIRUBIN,TOTAL 0.4 MG/DL (0.1-1.0); CALCIUM 8.4 MG/DL (8.5-10.1); CREATININE SERUM 0.81 MG/DL (0.60-1.30); POTASSIUM 3.7 MMOL/L (3.6-5.0); TOTAL PROTEIN 5.4 GM/DL (6.4-8.2)
[2021-12-18] MEDS: inSUlin ASPART (NovoLOG) 1 UNIT/0.01 ML (CHARGE PER UNIT) SC SCH ×2 (06:27→12:13)
[2021-12-18] MEDS: RT-ALBUTEROL SULF 2.5 MG/3 ML PRE-MIX VIAL INH SCH (07:31)
[2021-12-18] MEDS: APIXABAN 5 MG (ELIQUIS) TABLET PO SCH (08:38)
[2021-12-18] MEDS: MECLIZINE 25 MG (ANTIVERT) TAB PO SCH (08:39)
[2021-12-18] MEDS: buPROPion 75 MG (WELLBUTRIN) TAB PO SCH (08:39)
[2021-12-18] MEDS: ALLOPURINOL 100 MG (ZYLOPRIM) TAB PO SCH (08:39)
[2021-12-18] MEDS: SOTALOL 80 MG (BETAPACE) TAB PO SCH (08:39)
[2021-12-18] MEDS: GABAPENTIN 600 MG (NEURONTIN) TAB PO SCH (08:39)
[2021-12-18] MEDS: polyethylene glycoL POWDER 17 GM (MIRALAX) PACK PO SCH (08:42)
[2021-12-18 08:45] VITALS: BP 123/61
[2021-12-18] MEDS: BISACODYL 10 MG SUPP (DULCOLAX) PR SCH (08:46)
[2021-12-18] MEDS: FLUTICASONE NASAL SPRAY (FLONASE) 16 GM BTL NS SCH (08:48)
[2021-12-18] MEDS: PANTOPRAZOLE 40 MG (PROTONIX) VIAL IV SCH (08:49)
[2021-12-18] MEDS: NS IV 1000 ML 1,000 ML IV SCH (11:09)
[2021-12-18] MEDS: ONDANSETRON 4 MG/2 ML (SDV) Z0FRAN IVP PRN (12:12)
[2021-12-18 12:44] VITALS: BP 123/61
--- NOTE | 2021-12-18 19:58 | Progress Note - Hospitalist ---
Subjective HPI/CC On Admission Date Seen by Provider: Dec 18, 2021 Time Seen by Provider: 11:05 Leslie Beth is a 61 year old female with PMH HTN, AFib, T2DM, anxiety, depression, history of Hirschsprungs disease, history of small bowel obstruction, who presented with abdominal pain. She describes it as cramping pain. She also reports nausea. She felt the same when she had pancreatitis in the past. She has continued to pass gas and have bowel movements. Upon my exam, her cramps have improved. She denies nausea and vomiting. She feels better. She wants to advance her diet and hopes she can go home today. Subjective/Events-last exam She continues to have some crampy abdominal pain. She has been having diarrhea. She denies blood in her stools. She denies nausea and vomiting. She was able to eat breakfast this morning. Objective Exam Vital Signs Vital Signs Date Time Temp Pulse Resp B/P (MAP) Pulse Ox O2 Delivery O2 Flow Rate FiO2 12/18/21 12:44 36.3 63 20 123/61 96 Room Air 2.00 12/15/21 10:42 21 Capillary Refill : Less Than 3 Seconds General Appearance: No Apparent Distress, Obese Respiratory: Lungs Clear, No Respiratory Distress Cardiovascular: Regular Rate, Rhythm, No Murmur Gastrointestinal: Normal Bowel Sounds, Soft, Tenderness Extremity: Normal Inspection, No Pedal Edema Neurologic/Psychiatric: Alert, Normal Mood/Affect Results/Procedures Lab Laboratory Tests 12/18/21 05:10 Patient resulted labs reviewed. Imaging: Reviewed Imaging Report Assessment/Plan Assessment and Plan Assess & Plan/Chief Complaint Partial small bowel obstruction Surgery primary Imaging consistent with partial small bowel obstruction Dysphagia diet Likely discharge today T2DM Hold home meds Sliding scale insulin HTN AFib Hypothyroidism Anxiety Depression Gout Continue home meds Diagnosis/Problems Diagnosis/Problems (1) Partial small bowel obstruction Status: Acute (2) T2DM (type 2 diabetes mellitus) Status: Chronic Qualifiers: Diabetes mellitus manager intermediate insulin use: without manager intermediate use Diabetes mellitus complication status: without complication Qualified Codes: E11.9 - Type 2 diabetes mellitus without complications (3) Anxiety and depression Status: Chronic (4) Hypothyroidism Status: Chronic ROSHAN EASON MD Dec 18, 2021 19:58
--- NOTE | 2021-12-30 05:42 | DISCHARGE SUMMARY ---
DATE OF SERVICE: 12/18/2021 ADMISSION DIAGNOSIS: Partial small-bowel obstruction. 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 ADDITIONAL DIAGNOSES: Hypertension, hypercholesterolemia, atrial fibrillation, degenerative joint disease, GERD, history of left breast cancer, migraine headaches, diabetes. PROCEDURES: None. COMPLICATIONS: None. DISPOSITION: Home in stable condition. HOSPITAL COURSE: The patient is a 61-year-old female who presented to [facility] with crampy abdominal pain and nausea. She had reported similar symptoms in August 2019 and was diagnosed with pancreatitis, likely due to hypertriglyceridemia. She also reports a strong family history of pancreatitis with her mother and brother having the disease as well. She also does have a history of Hirschsprung disease diagnosed as an infant and she underwent staged surgery including a partial colectomy and ostomy formation, followed by takedown of the ostomy and lysis of adhesions at 7 years of age. Upon further questioning, she reports that she has never had regular bowel movements. Most of the time has incontinence and was just noticed leaking of softer stool content. At times, she has been taking laxatives as well as suppositories; however, never on a regular basis. CT scan was performed, which did show some dilated loops of small bowel; however, she also did have significant dilatation of the colon and a very significant amount of stool within the rectum and colon. The patient was admitted and started on IV fluids and medical management with stool softeners and laxatives. She was started on a clear liquid diet, which she was able to tolerate and did not have any issues with nausea, no vomiting. This was advanced to regular diet as tolerated. She was able to have significant bowel movements with soft stools mixed with formed stools. She continued to improve where again she was tolerating a regular diet and did not have any nausea nor any abdominal distention and had multiple significant large bowel movements. The patient was discharged home on 12/18/2021. It was explained to the patient that her symptoms are normal. Long-term manifestations of Hirschsprung disease as an adult in the way to proceed with preventing symptoms is to make sure that her stools are soft all the time and that she has regular volume larger bowel movements on a daily basis. We will recommend a high-fiber diet with a fiber supplement, which should equal or exceed 25 grams daily to again promote daily stools, which are large in volume and consistency being soft with no formed; however, not a liquid. Job ID: [id number] DocumentID: [id number] Dictated Date: 12/29/2021 15:54:07 Tourist Agent Date: 12/30/2021 05:42:11 Dictated By: SINGH RACHEL MD
== END 2021-12-18 09:52 | disposition home or self-care (01) ==
LOC: EDUNIT# 02:32 → ER FS 02:33 → UNDOADMOB 09:54 → 4TH 09:54 → UNDODISOB 12-18 09:52
PROVIDERS: ADMIT Surgery; ATTEND Surgery
DX: K56.609 Unspecified intestinal obstruction, unspecified as to partial versus complete obstruction (principal); Q43.1 Hirschsprung's disease; I10 Essential (primary) hypertension; E78.00 Pure hypercholesterolemia, unspecified; I48.91 Unspecified atrial fibrillation; K21.9 Gastro-esophageal reflux disease without esophagitis; G40.909 Epilepsy, unspecified, not intractable, without status epilepticus; E11.9 Type 2 diabetes mellitus without complications; E85.3 Secondary systemic amyloidosis; Z79.82 Long term (current) use of aspirin; Z79.899 Other long term (current) drug therapy; Z79.84 Long term (current) use of oral hypoglycemic drugs
CPT/HCPCS: 36410; 36415; 71046; 74019; 74176; 76937; 80053 ×2; 81000; 82947 ×4; 83690; 85025 ×2; 93005 ×2; 94640 ×4; 94760 ×2; 96372; 96374; 96375; 96376 ×5; 99284; C1751; G0378

== ENCOUNTER 2022-03-24 05:34 | Outpatient (CLI) | payer MEDICARE, MEDICAID ==
[~2022-03-24] VITALS: Ht 162.6 cm; Wt 93.0 kg
[~2022-03-24 05:34] MED LIST changes: +FLUT16SP22 NSEACH; +GBPN600T PO; +LEVO-131 PO; +POLY17PO6 PO; +SOTA80TA62 PO
[2022-03-25] MEDS ORDERED: DOCU100C37 PO (11:24)
== END 2022-03-25 11:40 | disposition home or self-care (01) ==
LOC: PREOP 05:34
PROVIDERS: ATTEND Surgery
DX: Z01.818 Encounter for other preprocedural examination (principal)

== ENCOUNTER → 2022-03-31 | Day surgery (SDC) | payer MEDICARE, MEDICAID ==
[~2022-03-31] VITALS: Ht 162 cm; Wt 93.0 kg
[~2022-03-31] MED LIST changes: +DOCU100C37 PO; +HURRICAINE EXT TUBE (BENZOCAINE) XX PRN; +LACTATED RINGERS 1,000 ML IV STA; +LIDOCAINE JELLY 2% 6 ML SYRINGE MM PRN; +ONDANSETRON 4 MG (ZOFRAN) ORAL DISSOLVE TAB PO PRN; +ONDANSETRON 4 MG/2 ML (SDV) Z0FRAN IVP PRN; +PANT40TA2 PO; +PROPOFOL INJECTION 50 ML IV ONE
[2022-03-31 10:30] VITALS: BP 124/55
--- NOTE | 2022-03-31 10:49 | Progress Note-Pre Operative ---
Pre-Operative Progress Note Date of Available H&P: Mar 31, 2022 Date H&P Reviewed: Mar 31, 2022 Time H&P Reviewed: 10:00 History & Physical: No changes noted Pre-Operative Diagnosis: GERD, dysphagia SINGH RACHEL MD Mar 31, 2022 10:49
--- NOTE | 2022-03-31 10:51 | Discharge Inst-Surgical ---
D/C Lap Instructions-KIDO New, Converted, or Re-Newed RX: RX on Chart Follow Up Activity as tolerated High Fiber Diet 25g or more per day Avoid Alcohol, Caffeine, Spicy [place] and Acid foods. Drink 64 fluid oz or more of fluids per day. Symptoms to Report: Fever over 101 degree F, Nausea/Vomiting If any problems/questions: Contact your physician or go to Emergency Room SINGH RACHEL MD Mar 31, 2022 10:51
[2022-03-31 11:20] VITALS: BP 114/56
[2022-03-31 11:25] VITALS: BP 105/53
--- NOTE | 2022-03-31 11:35 | Anesthesia-General Post-Op ---
MAC Patient Condition Mental Status/LOC: Same as Preop Cardiovascular: Satisfactory Nausea/Vomiting: Absent Respiratory: Satisfactory Pain: Controlled Complications: Absent Post Op Complications Complications None Follow Up Care/Instructions Patient Instructions None needed. Anesthesiology Discharge Order Discharge Order Patient is doing well, no complaints, stable vital signs, no apparent adverse anesthesia problems. No complications reported per nursing. GENA MILLAN DO Mar 31, 2022 11:35
[2022-03-31 11:45] VITALS: BP 128/60
--- NOTE | 2022-03-31 11:53 | Progress Note-Post Operative ---
Post-Operative Progess Note Surgeon (s)/Senior Electrical Project Manager (s) Surgeon SINGH RACHEL MD Senior Electrical Project Manager: none Pre-Operative Diagnosis GERD, dysphagia Post-Operative Diagnosis reflux esophagitis(grade B), mild distal eosphageal stricture, small HH(1.5-2cm), moderate gastritis. Procedure & Operative Findings Date of Procedure 03/31/22 Procedure Performed/Findings EGD with bx and balloon dilatation Anesthesia Type mac Estimated Blood Loss Estimated blood loss (mL): minimal Specimens/Packing Specimens Removed ge jxn, antrum SINGH RACHEL MD Mar 31, 2022 11:53
[2022-03-31 11:56] VITALS: BP 128/60
--- NOTE | 2022-03-31 18:13 | OPERATIVE REPORT ---
DATE OF SERVICE: 03/31/2022 ATTENDING PRIMARY COMMERCIAL STRIPPER: Hannah Thomas APRN. PREOPERATIVE DIAGNOSES: Gastroesophageal reflux disease and dysphagia. POSTOPERATIVE DIAGNOSES: Reflux esophagitis Mckittrick grade B with a mild distal esophageal stricture or distal esophageal muscle sphincter spasm, small hiatal hernia 1.5 to 2 cm in size, moderate gastritis. No distal obstructions. PROCEDURES PERFORMED: EGD with biopsy and balloon dilatation. SURGEON: Singh Rachel MD. ANESTHESIA: Monitored anesthesia care. ESTIMATED BLOOD LOSS: Minimal. FINDINGS: Reflux esophagitis Mckittrick grade B with a mild distal esophageal stricture or distal esophageal muscle sphincter spasm, small hiatal hernia 1.5 to 2 cm in size, moderate gastritis. No distal obstructions. DISPOSITION: The patient tolerated the procedure well. INDICATIONS FOR PROCEDURE: The patient is a 61-year-old female, who has had issues with dysphagia for several months and states that sometimes after taking in a bolus of some types of foods that she would feel a substernal pressure sensation. She also reports that at times she would also have regurgitation. On further questioning, she had reported she has had issues with reflux for several years and is currently on omeprazole 20 mg daily. She does not report any hematemesis nor coffee-ground emesis. DESCRIPTION OF PROCEDURE: The patient was brought to the endoscopy suite and laid in the left lateral decubitus position. After adequate IV pain and sedative medications and monitored anesthesia care, the mouthpiece was applied. The endoscope was placed in the mouth, visualizing pharynx in the hypopharyngeal region. Vocal cords, epiglottis, and vallecula identified and appeared to be normal. The endoscope was then intubated in the esophageal opening and esophagus insufflated. The endoscope was then advanced into the first, second and third portion of the esophagus to the level of the GE junction, a reflux esophagitis, Mckittrick grade B identified. There was a mild distal esophageal stricture versus an achalasia with a hypertonicity of the lower esophageal muscle sphincters. A biopsy was taken at the GE junction with forceps with visualization and good hemostasis. Endoscope was then advanced into the stomach. The endoscope was retroflexed, visualizing a small hiatal hernia 1.5 to 2 cm in size. There was a moderate severity gastritis. No formal ulcerations, polyps or any neoplasms. A biopsy was taken of the antrum to rule out H. pylori with visualization of good hemostasis. The endoscope was then advanced through the pylorus and the first and second portion of the duodenum, which appeared normal with no distal obstructions. The balloon was then advanced into the stomach and pulled back to the area of the stricture. We then proceeded in a greater stepwise fashion from 2, 4 and then eventually 6 atmospheres of pressure or 20 mm in luminal diameter with moderate resistance, so I left this in place for approximately 60 seconds. The balloon was desufflated and removed with visualization good hemostasis as well as no mucosal tears. The endoscope was then slowly withdrawn while taking a second look and suctioning of residual air with no additional findings. The patient tolerated the procedure well. POSTOPERATIVE PLAN: We will recommend the necessary lifestyle and dietary recommendations including small and more frequent meals, avoidance of eating at night as well as head elevation while lying supine. She also needs to avoid caffeinated beverages, spicy or greasy or acidic foods. We will also start her on Protonix 40 mg daily. If she does have recurrent episodes of dysphagia, we will have her follow up for repeat dilatation. Job ID: [id number] DocumentID: [id number] Dictated Date: 03/31/2022 11:26:48 German Professor Date: 03/31/2022 18:12:00 Dictated By: SINGH RACHEL MD
== END | disposition home or self-care (01) ==
LOC: ENDO 09:58
PROVIDERS: ATTEND Surgery
DX: K22.2 Esophageal obstruction (principal); K21.00 Gastro-esophageal reflux disease with esophagitis, without bleeding; K44.9 Diaphragmatic hernia without obstruction or gangrene; K29.70 Gastritis, unspecified, without bleeding
CPT/HCPCS: 88305

== ENCOUNTER 2023-02-23 19:34 | Observation (INO) | payer MEDICARE, MEDICAID ==
[~2023-02-23] VITALS: Ht 160 cm; Wt 92.1 kg
[~2023-02-23 19:34] MED LIST changes: -GLIP5TAB13 PO; +GLIP5TAB23 PO; -HURRICAINE EXT TUBE (BENZOCAINE) XX PRN; -LACTATED RINGERS 1,000 ML IV STA; -LIDOCAINE JELLY 2% 6 ML SYRINGE MM PRN; -MECL-149 PO; +MECL-291 PO; -ONDANSETRON 4 MG (ZOFRAN) ORAL DISSOLVE TAB PO PRN; -ONDANSETRON 4 MG/2 ML (SDV) Z0FRAN IVP PRN; -POTA10CA43 PO; +POTA10CA84 PO; -PROPOFOL INJECTION 50 ML IV ONE
--- NOTE | 2023-02-23 20:05 | ED Abdominal Pain ---
General Chief Complaint: Abdominal/GI Problems Stated Complaint: ABD PAIN Nursing Triage Note: PT AMB TO RM 7 W C/O GEN ABD PAIN ONGOING FOR WEEKS, WORSE TODAY. PT BELIEVES SHE MAY HAVE A BOWEL OBSTRUCTION. PT REPORTS LIQUID BM THIS AFTERNOON, STATES SHE CALLED DR. HARKINS'S OFFICE EARLIER TODAY AND WAS ADVISED TO GO TO ED FOR A CT SCAN. PT A&OX4. Source of Information: Patient Exam Limitations: No Limitations History of Present Illness Date Seen by Provider: Feb 23, 2023 Time Seen by Provider: 19:47 Initial Comments 62 yo F with h/o Hirschprungs disease presents with abdominal pain x2 weeks, worse over the last week. Has liquid stools at baseline and has had no changes in that. She has nausea without vomiting. She states she called Dr Harkins and was told to come for CT. She had bowel surgery x2 as a child for Hirschprung's. She denies fever, chills. Abd pain is diffuse, described as severe. All other systems reviewed and negative except documented per HPI. Voice recognition software was used to help create this chart Allergies and Home Medications Allergies Coded Allergies: diphenhydramine (Verified Allergy, Unknown, 08/01/18) fluticasone (Verified Allergy, Unknown, 08/04/18) PER UNCODED ALLERGIES hylan G-F 20 (Verified Allergy, Unknown, 08/01/18) latex (Verified Allergy, Unknown, 08/01/18) morphine (Verified Allergy, Unknown, 08/01/18) salmeterol (Verified Allergy, Unknown, 08/04/18) PER UNCODED ALLERGIES trovafloxacin (Verified Allergy, Unknown, 08/01/18) Patient Home Medication List Home Medication List Reviewed: Yes ALPRAZolam (ALPRAZolam) 0.25 Mg Tablet, 0.25 MG PO BID PRN for ANXIETY, (Reported) Entered as Reported by: PENNY GONZALEZ on 08/14/21 1348 Albuterol Sulfate (Ventolin Hfa) 90 Mcg Hfa.aer.ad, 2 PUFF INH Q4-6HRS PRN for SHORTNESS OF BREATH, (Reported) Entered as Reported by: PENNY GONZALEZ on 08/14/21 1348 Allopurinol (Allopurinol) 100 Mg Tablet, 200 MG PO DAILY, (Reported) Entered as Reported by: SHANTEL ANDRADE on 03/25/20 1436 Apixaban (Eliquis) 5 Mg Tablet, 5 MG PO BID, (Reported) Entered as Reported by: ALL HOWARD on 08/01/18 1556 Bupropion HCl (Bupropion HCl) 75 Mg Tablet, 150 MG PO BID, (Reported) Entered as Reported by: PENNY GONZALEZ on 08/14/21 1348 Citalopram Hydrobromide (Citalopram HBr) 40 Mg Tablet, 40 MG PO HS, (Reported) Entered as Reported by: ALL HOWARD on 08/01/18 1556 Docusate Sodium (Docusate Sodium) 100 Mg Capsule, 100 MG PO, (Reported) Entered as Reported by: TATY BURDICK on 03/25/22 1124 Empagliflozin (Jardiance) 25 Mg Tablet, 25 MG PO DAILY, (Reported) Entered as Reported by: PENNY GONZALEZ on 08/14/21 1348 Fluticasone Propionate (Fluticasone Propionate) 50 Mcg/Actuation [place].susp, 2 SPRAY NSEACH DAILY, (Reported) Entered as Reported by: SHANTEL ANDRADE on 12/15/21 1410 Fluticasone/Umeclidin/Vilanter (Trelegy Ellipta 200-62.5-25) 200-62.5 Blst.w.dev, 1 PUFF IH DAILY, (Reported) Entered as Reported by: PENNY GONZALEZ on 08/14/21 1348 Gabapentin (Gabapentin) 600 Mg Tablet, 600 MG PO BID, (Reported) Entered as Reported by: SHANTEL ANDRADE on 12/15/21 141 Glipizide (Glipizide) 5 Mg Tablet, 10 MG PO DAILY, (Reported) Entered as Reported by: SHANTEL ANDRADE on 12/15/21 1410 Levothyroxine Sodium (Euthyrox) 125 Mcg Tablet, 125 MCG PO DAILY, (Reported) Entered as Reported by: SHANTEL ANDRADE on 12/15/21 1410 Meclizine HCl (Meclizine HCl) 25 Mg Tablet, 25 MG PO BID, (Reported) Entered as Reported by: PENNY GONZALEZ on 08/14/21 134 Metformin HCl (Metformin HCl) 1,000 Mg Tablet, 1,000 MG PO BIDAC, (Reported) Entered as Reported by: SHANTEL ANDRADE on 08/28/21 1416 Multivitamin with Minerals (Multiple Vitamin) 1 Each Tablet, 1 EACH PO DAILY, (Reported) Entered as Reported by: PENNY GONZALEZ on 08/14/21 1348 Omeprazole (Omeprazole) 20 Mg Capsule.dr, 20 MG PO DAILY, (Reported) Entered as Reported by: ALL HOWARD on 08/01/18 1556 Pantoprazole Sodium (Protonix) 40 Mg Tablet.dr, 40 MG PO DAILY Prescribed by: SINGH HARKINS on 03/31/22 1051 Polyethylene Glycol 3350 (Miralax) 17 Gram Powd.pack, 17 GM PO DAILY Prescribed by: SINGH HARKINS on 12/17/21 1512 Potassium Chloride (Potassium Chloride) 10 Meq Tab.er.prt, 10 MEQ PO DAILY, (Reported) Entered as Reported by: SHANTEL ANDRADE on 03/25/20 1436 Simvastatin (Simvastatin) 10 Mg Tablet, 10 MG PO HS, (Reported) Entered as Reported by: ALL HOWARD on 08/01/18 1556 Sotalol HCl (Sotalol) 80 Mg Tablet, 40 MG PO BID, (Reported) Entered as Reported by: SHANTEL ANDRADE on 12/15/21 1410 Review of Systems Review of Systems Constitutional: see HPI Past Otwyvfo-Bvswtp-Tjsqgf Hx Patient Social History Tobacco Use?: No Use of E-Cig and/or Vaping dev: No Substance use?: No Alcohol Use?: No Immunizations Up To Date First/Initial COVID19 Vaccinat: YES Second COVID19 Vaccination Nik: YES Third COVID19 Vaccination Date: N/A Seasonal Allergies Seasonal Allergies: Yes Past Medical History Surgery/Hospitalization HX: 3 x Hirshsprung's disease surgeries Tonsilectomy Cholesectomy Bilateral TKA Cardio Ablation Hysterectomy Double Mastectomy Surgeries: Yes (BOWEL, BREAST, BILAT TKR, BILAT KNEE SCOPES, SKIN LESION,CARDIAC ABLATION) Appendectomy, Gallbladder, Hysterectomy, Tonsillectomy, Tubal Ligation Respiratory: Yes Asthma, Sleep Apnea, COPD Cardiac: Yes (AFIB) Atrial Fibrillation, High Cholesterol, Hypertension Neurological: Yes Headaches /Migraines [employer]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 History: Hysterectomy, Tubal Ligation Sexually Transmitted Disease: No HIV/AIDS: No Genitourinary: No Gastrointestinal: Yes (HIRSCHSPRUNGS) Gastroesophageal Reflux, Chronic Diarrhea Musculoskeletal: Yes Chronic Back Pain Endocrine: Yes Hypothyroidsim, Diabetes, Non-Insulin dep HEENT: Yes (GLASSES, DENTURES) Dysphagia Loss of Vision: Bilateral Hearing Impairment: Denies Cancer: Yes (BREAST) Did You Recieve Any Treatments: Yes What Type of Treatment Did You: Chemotherapy, Radiation, Surgical Intervention Psychosocial: Yes Anxiety, Depression Integumentary: No Blood Disorders: Yes Adverse Reaction/Blood Tranf: No (HAS HAD BLOOD WITH NO REACTION) Family Medical History Cardiovascular disease 19 FATHER G8 SISTER No Pertinent Family Hx Physical Exam Vital Signs Vital Signs - First Documented 02/23/23 19:40 Temp 36.5 Pulse 72 Resp 18 B/P (MAP) 131/63 (85) Pulse Ox 97 O2 Delivery Room Air Capillary Refill : Less Than 3 Seconds Height/Weight/BMI Height: 5'3.00" Weight: 211lbs. 0.0oz. 95.249263ic; 36.00 BMI Method: General Appearance: WD/WN, no apparent distress HEENT: normal ENT inspection, pharynx normal Neck: non-tender, supple, normal inspection Respiratory: chest non-tender, lungs clear, normal breath sounds, no respiratory distress, no accessory muscle use Cardiovascular: regular rate, rhythm, no murmur Gastrointestinal: soft, no organomegaly, tenderness (diffuse with some voluntary guarding. no Rebound tenderness. ) Extremities: non-tender, no calf tenderness, normal capillary refill Neurologic/Psychiatric: alert, oriented x 3 Skin: normal color, warm/dry Progress/Results/Core Measures Results/Orders Lab Results Laboratory Tests Test 02/23/23 19:50 Range/Units White Blood Count 14.1 H 4.3-11.0 10^3/uL Red Blood Count 5.18 H 3.80-5.11 10^6/uL Hemoglobin 14.6 11.5-16.0 g/dL Hematocrit 45 35-52 % Mean Corpuscular Volume 87 80-99 fL Mean Corpuscular Hemoglobin 28 25-34 pg Mean Corpuscular Hemoglobin Concent 33 32-36 g/dL Red Cell Distribution Width 14.2 10.0-14.5 % Platelet Count 330 130-400 10^3/uL Mean Platelet Volume 9.2 9.0-12.2 fL Immature Granulocyte % (Auto) 0 % Neutrophils (%) (Auto) 76 H 42-75 % Lymphocytes (%) (Auto) 15 12-44 % Monocytes (%) (Auto) 6 0-12 % Eosinophils (%) (Auto) 2 0-10 % Basophils (%) (Auto) 1 0-10 % Neutrophils # (Auto) 10.7 H 1.8-7.8 10^3/uL Lymphocytes # (Auto) 2.2 1.0-4.0 10^3/uL Monocytes # (Auto) 0.8 0.0-1.0 10^3/uL Eosinophils # (Auto) 0.3 0.0-0.3 10^3/uL Basophils # (Auto) 0.1 0.0-0.1 10^3/uL Immature Granulocyte # (Auto) 0.1 0.0-0.1 10^3/uL Neutrophils % (Manual) 73 % Lymphocytes % (Manual) 19 % Monocytes % (Manual) 6 % Eosinophils % (Manual) 2 % Sodium Level 131 L 135-145 MMOL/L Potassium Level 4.1 3.6-5.0 MMOL/L Chloride Level 97 L 98-107 MMOL/L Carbon Dioxide Level 21 21-32 MMOL/L Anion Gap 13 5-14 MMOL/L Blood Urea Nitrogen 12 7-18 MG/DL Creatinine 1.15 0.60-1.30 MG/DL Estimat Glomerular Filtration Rate 54 BUN/Creatinine Ratio 10 Glucose Level 135 H 70-105 MG/DL Calcium Level 10.0 8.5-10.1 MG/DL Corrected Calcium 8.5-10.1 MG/DL Total Bilirubin 0.8 0.1-1.0 MG/DL Aspartate Amino Transf (AST/SGOT) 18 5-34 U/L Alanine Aminotransferase (ALT/SGPT) 20 0-55 U/L Alkaline Phosphatase 135 40-136 U/L Total Protein 8.5 H 6.4-8.2 GM/DL Albumin 5.0 H 3.2-4.5 GM/DL Lipase 22 8-78 U/L My Orders Orders - TROYDENIS DO Comprehensive Metabolic Panel (02/23/23 20:05) Cbc And Automated Diff (02/23/23 20:05) Ct Abdomen/Pelvis W (02/23/23 20:05) Lipase (02/23/23 20:06) Iohexol Injection (Omnipaque 350 Mg/Ml 1 (02/23/23 20:15) Received Contrast (Hold Metformin- Contr (02/23/23 20:15) Ns (Ivpb) 100 Ml (Sodium Chloride 0.9% 1 (02/23/23 20:15) Fentanyl Injection (Fentanyl Injection (02/23/23 20:15) Manual Differential (02/23/23 19:50) Ed Admission (Communication) (02/23/23 20:54) Medications Given in ED Current Medications Medications Dose Ordered Sig/Catherine Route Start Time Stop Time Status Last Admin Dose Admin Fentanyl Citrate 50 mcg ONCE ONCE IVP 02/23/23 20:15 02/23/23 20:16 DC 02/23/23 20:41 50 MCG Iohexol 100 ml ONCE ONCE IV 02/23/23 20:15 02/23/23 20:16 DC 02/23/23 20:08 80 ML Sodium Chloride 100 ml ONCE ONCE IV 02/23/23 20:15 02/23/23 20:16 DC 02/23/23 20:08 80 ML Vital Signs/I&O 02/23/23 02/23/23 19:40 21:17 Temp 36.5 Pulse 72 73 Resp 18 18 B/P (MAP) 131/63 (85) 126/67 Pulse Ox 97 95 O2 Delivery Room Air Room Air Blood Pressure Mean: 85 Departure Communication (Admissions) CT scan obtained showing likely partial SBO and possible adhesion to anterior abdominal wall but no definite transition point. She has nausea but no vomiting. Her WBC is slightly elevated with a mild left shift. No evidence clinically for overt infection. She has mild hyponatremia, likely not clinically significant. Mild elevation in LFT's. I spok pedrito Harkins who recommends IVF, pain meds and admission observation. She is allowed CLD. Impression Primary Impression: Partial small bowel obstruction Additional Impression: Abdominal pain Qualified Codes: R10.84 - Generalized abdominal pain Disposition: ADMITTED INPATIENT Condition: Stable Admissions Decision to Admit Reason: Admit from ER (General) Departure-Patient Inst. Referrals: ANNIE VILLAREAL MD (PCP) Primary Care Physician CLIVE CARRASCO APRN (Family) Primary Care Physician DENIS SIMMONS DO Feb 23, 2023 20:05
[2023-02-23] MEDS ORDERED: HOLD METFORMIN - RECEIVED CONTRAST 20 ML VIAL IV SCH (20:15)
[2023-02-23] MEDS ORDERED: IOHEXOL 350 MG/ML 100 ML (OMNIPAQUE 350) VIAL IV ONE (20:15)
[2023-02-23] MEDS ORDERED: fentaNYL INJECTION 100 MCG/2 ML VIAL IVP ONE (20:15)
[2023-02-23] MEDS ORDERED: NS 100 ML (IVPB) BAG IV ONE (20:15)
[2023-02-23 20:16] LABS: BASOPHILS # (AUTO) 0.1 10^3/uL (0.0-0.1); BASOPHILS % (AUTO) 1 % (0-10); EOSINOPHILS # (AUTO) 0.3 10^3/uL (0.0-0.3); EOSINOPHILS % (AUTO) 2 % (0-10); HEMATOCRIT 45 % (35-52); HEMOGLOBIN 14.6 g/dL (11.5-16.0); LYMPHOCYTES # (AUTO) 2.2 10^3/uL (1.0-4.0); LYMPHOCYTES % (AUTO) 15 % (12-44); MEAN CORPUSCULAR HEMOGLOBIN 28 pg (25-34); MEAN CORPUSCULAR HGB CONC 33 g/dL (32-36); MEAN CORPUSCULAR VOLUME 87 fL (80-99); MEAN PLATELET VOLUME 9.2 fL (9.0-12.2); MONOCYTES # (AUTO) 0.8 10^3/uL (0.0-1.0); MONOCYTES % (AUTO) 6 % (0-12); NEUTROPHILS # (AUTO) 10.7 10^3/uL (1.8-7.8); NEUTROPHILS % (AUTO) 76 % (42-75); WHITE BLOOD COUNT 14.1 10^3/uL (4.3-11.0)
[2023-02-23 20:18] LABS: CHLORIDE 97 MMOL/L (98-107); POTASSIUM 4.1 MMOL/L (3.6-5.0); SODIUM 131 MMOL/L (135-145)
[2023-02-23 20:20] LABS: GLUCOSE 135 MG/DL (70-105); TOTAL PROTEIN 8.5 GM/DL (6.4-8.2)
[2023-02-23 20:21] LABS: CARBON DIOXIDE 21 MMOL/L (21-32)
[2023-02-23 20:22] LABS: BILIRUBIN,TOTAL 0.8 MG/DL (0.1-1.0)
[2023-02-23 20:23] LABS: ALKALINE PHOSPHATASE 135 U/L (40-136)
[2023-02-23 20:24] LABS: CREATININE SERUM 1.15 MG/DL (0.60-1.30); GFR ESTIMATED 54
[2023-02-23 20:25] LABS: BUN/CREATININE RATIO 10
[2023-02-23 20:27] LABS: ALANINE AMINOTRANSFERASE 20 U/L (0-55); LIPASE 22 U/L (8-78)
[2023-02-23 20:40] LABS: EOSINOPHILS % (MANUAL) 2 %; LYMPHOCYTES % (MANUAL) 19 %; MONOCYTES % (MANUAL) 6 %; NEUTROPHILS % (MANUAL) 73 %
--- NOTE | 2023-02-23 20:40 | Diagnostic Imaging Report ---
EXAMINATION: CT abdomen and pelvis with intravenous contrast. TECHNIQUE: Multiple contiguous axial images were obtained through the abdomen and pelvis after the uneventful administration of intravenous contrast. All CT scans use one or more of the following dose optimizing techniques: automated exposure control, MA and/or KvP adjustment based on patient size and exam type or iterative reconstruction. HISTORY: Abdominal pain, decreased bowel movements. COMPARISON: 12/15/2021. FINDINGS: Lung bases: There is calcified granuloma within the right lower lobe. There is a left lower lobe pulmonary nodule measuring up to 0.4 cm. This is unchanged from 12/15/2021. Solid organs: The liver is normal without focal lesion. The gallbladder is surgically absent. There is no biliary ductal dilation. Pancreas is normal. Spleen is normal. Adrenal glands are normal. The kidneys are normal without hydronephrosis. Bowel: There is borderline enlargement of the small bowel with a few scattered air-fluid levels. No definitive transition point is seen but multiple loops do closely approximate the anterior abdominal wall in particular, series 2 image 117. Surgical changes from partial colon resection. Moderate volume of stool seen within the remaining colon. Peritoneum: There is no intraperitoneal free fluid or free air. No suspicious lymphadenopathy. Vasculature: Calcification of the aorta without aneurysm. Musculoskeletal: Degenerative changes of the spine without suspicious osseous lesion or compression fracture. Pelvis: The uterus is surgically absent. No adnexal mass. The urinary bladder is normal. IMPRESSION: 1. Mildly dilated loops of small bowel without definitive transition point. These findings could be seen with developing or partial small bowel obstruction. A number of loops do closely approximate the anterior abdominal wall with possible adhesion seen along the left anterior abdominal wall. Dictated by: Dictated on workstation # [id number]
[2023-02-23 20:41] LABS: PLATELET COUNT 330 10^3/uL (130-400)
[2023-02-23 21:39] VITALS: BP 115/80
[2023-02-23] MEDS ORDERED: NS IV 1000 ML 1,000 ML ONE (21:54)
[2023-02-23] MEDS ORDERED: fentaNYL INJECTION 100 MCG/2 ML VIAL ONE (22:06)
[2023-02-23] MEDS ORDERED: ONDANSETRON INJECTION 4 MG/2 ML (SDV) ONE (22:06)
[2023-02-23] MEDS ORDERED: HYDROcodone/ACETAMINOPHEN 7.5 MG/325 MG TABLET PO ONE (22:06)
[2023-02-23] MEDS: fentaNYL INJECTION 100 MCG/2 ML VIAL IVP PRN (22:10)
[2023-02-23] MEDS: HYDROcodone/ACETAMINOPHEN 7.5 MG/325 MG TABLET PO PRN (22:10)
[2023-02-23] MEDS: ONDANSETRON INJECTION 4 MG/2 ML (SDV) IV PRN (22:23)
[2023-02-23] MEDS: NS IV 1000 ML 1,000 ML IV SCH (22:26)
[2023-02-23] MEDS ORDERED: fentaNYL INJECTION 100 MCG/2 ML VIAL IV PRN (22:30)
[2023-02-23] MEDS ORDERED: NS IV 1000 ML 1,000 ML IV SCH ×2 (22:30)
[2023-02-23] MEDS ORDERED: ONDANSETRON INJECTION 4 MG/2 ML (SDV) IVP PRN (22:30)
[2023-02-23 23:01] VITALS: BP 120/72
[2023-02-24] MEDS: HYDROcodone/ACETAMINOPHEN 7.5 MG/325 MG TABLET PO PRN ×5 (01:58→21:40)
[2023-02-24] MEDS: fentaNYL INJECTION 100 MCG/2 ML VIAL IVP PRN ×2 (01:58→04:17)
[2023-02-24] MEDS: ONDANSETRON INJECTION 4 MG/2 ML (SDV) IV PRN ×2 (01:58→09:54)
[2023-02-24 04:11] VITALS: BP 117/56
[2023-02-24 05:18] LABS: BASOPHILS % (AUTO) 0 % (0-10); EOSINOPHILS # (AUTO) 0.3 10^3/uL (0.0-0.3); EOSINOPHILS % (AUTO) 2 % (0-10); HEMATOCRIT 36 % (35-52); HEMOGLOBIN 11.8 g/dL (11.5-16.0); LYMPHOCYTES # (AUTO) 2.3 10^3/uL (1.0-4.0); LYMPHOCYTES % (AUTO) 21 % (12-44); MEAN CORPUSCULAR HEMOGLOBIN 28 pg (25-34); MEAN CORPUSCULAR HGB CONC 33 g/dL (32-36); MEAN CORPUSCULAR VOLUME 86 fL (80-99); MEAN PLATELET VOLUME 9.4 fL (9.0-12.2); MONOCYTES # (AUTO) 0.8 10^3/uL (0.0-1.0); MONOCYTES % (AUTO) 7 % (0-12); NEUTROPHILS # (AUTO) 7.4 10^3/uL (1.8-7.8); NEUTROPHILS % (AUTO) 69 % (42-75); PLATELET COUNT 255 10^3/uL (130-400); WHITE BLOOD COUNT 10.8 10^3/uL (4.3-11.0)
[2023-02-24 05:30] LABS: POTASSIUM 3.7 MMOL/L (3.6-5.0)
[2023-02-24 05:31] LABS: CALCIUM 8.8 MG/DL (8.5-10.1)
[2023-02-24 05:36] LABS: CREATININE SERUM 1.01 MG/DL (0.60-1.30)
[2023-02-24 08:05] VITALS: BP 100/62
--- NOTE | 2023-02-24 09:45 | Diagnostic Imaging Report ---
EXAMINATION: Abdomen 2 view HISTORY: Small bowel obstruction COMPARISON: 12/16/2021 FINDINGS: Small bowel loops are mildly dilated. No free air. There are cholecystectomy clips. IMPRESSION: 1. Mildly dilated small bowel loops. Dictated by: Dictated on workstation # [id number]
[2023-02-24 11:41] VITALS: BP 143/85
[2023-02-24] MEDS: NS IV 1000 ML 1,000 ML IV SCH ×2 (13:31→21:39)
[2023-02-24 15:27] VITALS: BP 124/55
[2023-02-24] MEDS ORDERED: ONDA4TAB11 SL (16:19)
[2023-02-24] MEDS ORDERED: HYDR-3817 PO (16:19)
--- NOTE | 2023-02-24 16:20 | Discharge Inst-Surgical ---
D/C Lap Instructions-KIDO New, Converted, or Re-Newed RX: RX on Chart Follow Up Appt in 2 weeks Activity as tolerated continue miralax BID as before. Avoid Alcohol, Caffeine, Spicy [place] and Acid foods. Drink 64 fluid oz or more of fluids per day. Symptoms to Report: Fever over 101 degree F, Nausea/Vomiting If any problems/questions: Contact your physician or go to Emergency Room SINGH RACHEL MD Feb 24, 2023 16:20
[2023-02-24] MEDS ORDERED: HYDROcodone/ACETAMINOPHEN 7.5 MG/325 MG TABLET PO PRN (16:30)
[2023-02-24] MEDS ORDERED: BUPR300T98 PO (16:38)
[2023-02-24] MEDS ORDERED: BUPR150T24 PO (16:38)
[2023-02-24] MEDS ORDERED: CETI10TA17 PO (16:38)
[2023-02-24] MEDS ORDERED: ASPI-1238 PO (16:38)
[2023-02-24] MEDS ORDERED: ALPR0.5T7 PO (16:38)
[2023-02-24] MEDS ORDERED: ROPI0.2533 PO (16:38)
[2023-02-24] MEDS ORDERED: MAGN400T39 PO (16:38)
[2023-02-24] MEDS ORDERED: PANT40TA52 PO (16:38)
[2023-02-24] MEDS ORDERED: LEVO137T2 PO (16:38)
--- NOTE | 2023-02-24 17:39 | CONSULTATION REPORT ---
ATTENDING PRIMARY SENIOR PENSIONS ADMINISTRATOR: Magali Martin APRN. HISTORY OF PRESENT ILLNESS: The patient is a 62-year-old female known to us. We had seen her before for long-term or adult complications related to Hirschsprung disease. She had developed abdominal distention, crampy pain. She was treated conservatively with IV fluids as well as bowel rest and she was able to have bowel movements. The patient reports that she was diagnosed at around age 3 and underwent a partial colon resection, however, is unsure which part of the colon was removed. It was explained to the patient that one of the manifestations of Hirschsprung disease as an adult is akinesis of the colon resulting in dilatation of the colon and prevention of water resorption and loose stools to promote evacuation of stool contents. She states that now for majority of her adult life, she has been having loose stools several times a day. This time around, she reports crampy abdominal pain, distention as well as nausea and vomiting. She had reported this had started 1 day previous and persisted. A CT scan was performed, which did show some small bowel dilated loops, however, there was no signs of any definitive obstruction. Since being admitted and placed on IV fluids and clear liquids, she has had multiple loose brown stools. No red blood per rectum, no dark tarry stools. She reports that her pain has also improved and has been tolerating clear liquids without any difficulty. We had also seen her approximately one year ago for dysphagia and she was found to have a mild distal esophageal stricture as well as a hiatal hernia and underwent a balloon dilatation. PAST MEDICAL HISTORY: History of Hirschsprung disease, hypothyroidism, left breast cancer, atrial fibrillation, hypercholesterolemia, gastroesophageal reflux disease and hiatal hernia, diabetes, history of congestive heart failure, depression, migraine headaches, vitamin B12 deficiency, hypokalemia, asthma. PAST SURGICAL HISTORY: Partial colon resection age 3. Appendectomy 1961, laparoscopic cholecystectomy in 1996, tubal ligation in 1988, total hysterectomy in 1990, tonsillectomy 1992, left knee arthroscopy 1997, right knee arthroscopy 2000, left modified radical mastectomy and right simple mastectomy 2005, right total knee arthroplasty 2011, left total knee arthroplasty 2015, cardiac ablation 2014. ALLERGIES: MORPHINE, BENADRYL, ADVAIR, TROVAN, SYNVISC, LATEX, SOME ADHESIVE TAPES. MEDICATIONS: Omeprazole 40 mg daily, sotalol 80 mg daily, Euthyrox 125 mcg daily, glipizide 5 mg b.i.d., Zofran 4 mg p.r.n., simvastatin 10 mg daily, fluticasone 50 mcg 2 sprays daily, citalopram 40 mg daily, bupropion 75 mg b.i.d. SOCIAL HISTORY: Negative smoke, negative alcohol. FAMILY HISTORY: Father, prostate cancer, colon cancer, history of myocardial infarction. Daughter, breast cancer. Sister, breast cancer. VITAL SIGNS: Temperature 36.4, blood pressure 124/55, pulse 60, respirations 18, pulse ox 99% on room air. REVIEW OF SYSTEMS: Well-nourished female in no acute distress. She is not experiencing any shortness of breath or difficulty breathing. No chest pain, palpitations, diaphoresis. Since being admitted, she has not had any episodes of nausea nor vomiting and has been tolerating clear liquids without any difficulty. She also has had multiple loose brown bowel movements since being admitted, No red blood per rectum, no dark tarry stools. No fever, chills, no recent inadvertent weight loss. All other review of systems negative. PHYSICAL EXAMINATION: CHEST: Few expiratory wheezes bilaterally. HEART: Regular. No murmurs. EXTREMITIES: No lower extremity edema. Negative Homans sign. HEENT: No scleral icterus. No cervical lymphadenopathy. ABDOMEN: Soft, slightly tender to palpation diffusely. There is no hernias, no peritoneal signs. SKIN: Warm, dry. LABORATORY DATA: WBC 10.8, hemoglobin 11.8, hematocrit 36, platelets 255. BUN 11, creatinine 1.01. ASSESSMENT AND PLAN: A 62-year-old female with gastrointestinal dysmotility and hypokinesis, likely secondary to adult manifestations of Hirschsprung disease. Since being admitted and placed on bowel rest and IV fluids, she has improved significantly with less abdominal pain, no nausea, no vomiting and has had multiple loose bowel movements, which is the standard for her bowel regimen on a regular basis. She does not show any signs of obstruction. We will continue with conservative management and slowly advance diet as tolerated and have her continue to ambulate. Once she is tolerating a regular diet, drinking liquids and her pain is under control and continues to have bowel movements, we will discharge her home. Job ID: [id number] DocumentID: [id number] Dictated Date: 02/24/2023 16:16:51 [employer] Operator Date: 02/24/2023 17:02:00 Dictated By: SINGH RACHEL MD
[2023-02-24 19:42] VITALS: BP 112/63
[2023-02-25 03:32] VITALS: BP 118/59
[2023-02-25] MEDS: HYDROcodone/ACETAMINOPHEN 7.5 MG/325 MG TABLET PO PRN ×2 (03:39→09:29)
[2023-02-25 07:23] VITALS: BP 115/55
[2023-02-25 11:41] VITALS: BP 121/59
--- NOTE | 2023-02-25 13:05 | Progress Note ---
Subjective Date Seen by a Provider: Feb 25, 2023 Time Seen by a Provider: 11:00 Subjective/Events-last exam doing well. tolerating diet. having multiple soft BM's. mild crampy abd pain. Objective Exam Vital Signs Date Time Temp Pulse Resp B/P (MAP) Pulse Ox O2 Delivery O2 Flow Rate FiO2 02/25/23 11:41 36.6 75 18 121/59 (79) 96 Room Air 02/25/23 07:23 36.4 66 16 115/55 (75) 93 Room Air 02/25/23 03:32 36.4 62 18 118/59 (78) 93 Room Air 02/24/23 21:12 Room Air 02/24/23 20:00 Room Air 02/24/23 19:42 36.2 68 16 112/63 (79) 95 Room Air 02/24/23 15:27 36.4 60 18 124/55 (78) 99 Room Air I & O 02/25/23 07:00 Intake Total 3625 ml Output Total 3900 ml Balance -275 ml Capillary Refill : Less Than 3 Seconds General Appearance: No Apparent Distress HEENT: PERRL/EOMI Neck: Full Range of Motion Respiratory: Chest Non Tender, Lungs Clear Cardiovascular: Regular Rate, Rhythm Gastrointestinal: normal bowel sounds, soft Extremity: Normal Capillary Refill Neurologic/Psychiatric: Alert, Oriented x3 Skin: Normal Color Lymphatic: No Adenopathy Assessment/Plan Assessment/Plan Assess & Plan/Chief Complaint PSBO vs. ileus with hx hirschprung dz. diet as tolerated. continue to promote very soft stools and avoid constipation. continue ambulation. SINGH RACHEL MD Feb 25, 2023 13:05
== END 2023-02-25 12:14 | disposition home or self-care (01) ==
LOC: EDUNIT# 19:34 → ER 19:37 → 4TH 21:20 → UNDOADMOB 21:20 → 4TH 21:40 → UNDODISOB 02-25 12:14
PROVIDERS: ADMIT Surgery; ATTEND Surgery
DX: K56.600 Partial intestinal obstruction, unspecified as to cause (principal); K59.89 Other specified functional intestinal disorders; Q43.1 Hirschsprung's disease; E87.6 Hypokalemia
CPT/HCPCS: 74019; 74177; 80048; 80053; 83690; 85007; 85025; 85027; 96374; 96375; 96376 ×2; 99284; G0378; 36415